=== PATIENT | female | born 1970 | race Caucasian/White ===

== ENCOUNTER 2021-04-27 07:09 | Outpatient (CLI) | payer OTHER, SELFPAY ==
[2021-04-27 10:33] LABS: Cholesterol 193 mg/dL (200); High Density Lipoprotein 55 mg/dL; Triglycerides 98 mg/dL; Very Low Density Lipoprotein 20 mg/dL (5-40)
== END 2021-04-27 23:59 | disposition home or self-care (01) ==
LOC: MTLAB 07:13
PROVIDERS: PCP Family Medicine; Referring Provider Dermatology; Visit Provider Dermatology
DX: H02.60 Xanthelasma of unspecified eye, unspecified eyelid (principal)
CPT/HCPCS: 36415; 80061

== ENCOUNTER 2021-09-20 14:43 | Emergency (ER) | payer OTHER, SELFPAY ==
[2021-09-20 14:45] VITALS: BP 176/111; PULSE 91; RESP 16; TEMP 36.4; O2SAT 97
--- NOTE | 2021-09-20 15:05 | EDS_ITS ---
HPI History of Present Illness Chief Complaint: Occup Expose Informant: patient Narrative Narrative: 51-year-old female presenting to the emergency department following a needlestick. 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 She thought that she had close the On the needle was still open. She sustained a puncture wound to the right middle finger over the fat pad. States it did draw blood she washed and talk to the department of natural resources officer and they suggested that she come to emergency. PFSH PFSH Home Medications Omeprazole [Prilosec] 40 mg PO DAILY 07/20/13 [History Last Taken Unknown] oxycodone-acetaminophen 5 mg-325 mg tablet 1 tab PO Q4H PRN PRN Pain ##60 07/20/13 [Rx Last Taken Unknown] ondansetron HCl 8 mg tablet 8 mg PO Q8H PRN PRN Nausea ##30 01/10/15 [Rx Last Taken Unknown] oxycodone-acetaminophen 5 mg-325 mg tablet 1 tab PO Q4H PRN PRN Pain ##20 01/10/15 [Rx Last Taken Unknown] tamsulosin 0.4 mg capsule 0.4 mg PO DAILY ##30 01/10/15 [Rx Last Taken Unknown] Allergy/AdvReac Type Severity Reaction Status Date / Time latex Allergy Rash Verified 09/20/21 14:47 Social History Smoking Status: Never smoker ROS ROS ED Constitutional Constitutional ED: Denies chills or weight loss Eyes Eyes: Denies change in vision or diplopia ENT ENT ED: Denies ear pain, rhinorrhea or sore throat Cardiovascular Cardiovascular: Denies chest pain, orthopnea, palpitations or racing heartbeat Respiratory/Chest Respiratory/Chest: Denies cough, dyspnea or orthopnea Gastrointestinal Gastrointestinal: Denies abdominal pain, diarrhea, nausea or vomiting Genitourinary Genitourinary ED: Denies dysuria, hematuria or urinary frequency Musculoskeletal Musculoskeletal: Denies arthralgias or myalgias Integumentary Denies abscess or rash Neurologic Neurologic: Denies headache(s) or weakness Psychiatric Psychiatric: Denies anxiety, depression, suicidal ideation or suicidal thoughts Endocrine Endocrinology: Denies polydipsia, polyphagia or polyuria Allergic/Immunologic Allergic/Immunologic ED: Denies mouth swelling, tongue swelling or urticaria EXAM Physical Exam Const Vital Signs: 09/20/21 14:45 Temperature 97.5 F L Temperature Source Temporal Pulse Rate 91 Respiratory Rate 16 Blood Pressure 176/111 H Blood Pressure Mean 132 Pulse Ox 97 Oxygen Delivery Method Room Air Positive well nourished and well developed General Appearance ED: well developed HEENT Reports normocephalic, head/scalp atraumatic and moist mucous membranes Eyes PERRL and EOMs intact bilaterally Neck no lymphadenopathy, supple and no JVD Resp normal respiratory effort and clear to auscultation bilaterally Cardio regular rate, regular rhythm and no murmurs GI normal to inspection, nondistended, normoactive bowel sounds and non-tender Palpation: soft Back/Spine no CVA tenderness and normal ROM Extremity normal to inspection General Extremety ED: Negative for edema General Extremity: Negative for edema Neuro oriented x3 and CN's II-XII intact bilaterally Sensorium / Orientation: alert Motor Exam: strength 5/5 throughout Psych mental status grossly normal Mood & Affect: Negative for depressed or tearful Skin no rashes or lesions noted Skin Narrative: There is a needlestick wound in the fat pad of the right middle finger. No active bleeding or signs of infection. MDM MDM MDM Narrative Medical decision making narrative: We will draw the exposed protocol to include HIV hepatitis B and hepatitis C. I do not know the [facility]'s protocol for testing the source patient. We talked about postexposure prophylaxis and the patient declines at this time. Discharge Plan Triage Chief Complaint: Occup Expose ED Provider: Eder Young Dx/Rx/DC Orders Clinical Impression: Needlestick injury of finger Instructions: ED NEEDLE STICK Health Care Worker Prescriptions: No Action Omeprazole [Prilosec] 40 MG capsule 40 mg PO DAILY oxycodone-acetaminophen 1 TABLET tablet 1 tab PO Q4H PRN PRN (Reason: Pain) Qty: 60 0RF ondansetron HCl 8 MG tablet 8 mg PO Q8H PRN PRN (Reason: Nausea) Qty: 30 0RF oxycodone-acetaminophen 1 TABLET tablet 1 tab PO Q4H PRN PRN (Reason: Pain) Qty: 20 0RF tamsulosin 0.4 MG capsule 0.4 mg PO DAILY Qty: 30 0RF Primary Care Provider: Oneil Martínez Referrals: Oneil Martínez MD [Primary Care Provider] - [facility] [NON-STAFF] - As soon as possible Disposition Disposition: Home, Self Care
[2021-09-21 04:58] LABS: HIV - WCH Non-Reactive (Nonreactive); Hepatitis B Surface Antibody Reactive; Hepatitis B Surface Antigen Non-Reactive (Nonreactive); Hepatitis C Antibody Non-Reactive (Nonreactive)
== END 2021-09-20 15:33 | disposition home or self-care (01) ==
LOC: ED 15:21
PROVIDERS: Emergency Provider Emergency Medicine; PCP Family Medicine; Visit Provider Emergency Medicine
DX: S61.232A Puncture wound without foreign body of right middle finger without damage to nail, initial encounter (principal); W46.1XXA Contact with contaminated hypodermic needle, initial encounter; Y93.89 Activity, other specified; Y99.0 Civilian activity done for income or pay; Y92.531 Health care provider office as the place of occurrence of the external cause
CPT/HCPCS: 86703; 86706; 86803; 87340; 99282

== ENCOUNTER 2022-02-03 19:07 | Observation (INO) | payer OTHER, SELFPAY ==
[2022-02-03 19:08] VITALS: BP 218/132; PULSE 112; RESP 18; TEMP 36.6; O2SAT 99
--- NOTE | 2022-02-03 19:29 | EKG12_ITS ---
Test Reason : CP Blood Pressure : / mmHG Vent. Rate : 092 BPM Atrial Rate : 092 BPM P-R Int : 160 ms QRS Dur : 092 ms QT Int : 348 ms P-R-T Axes : 026 -30 009 degrees QTc Int : 430 ms Normal sinus rhythm Left axis deviation Nonspecific ST and T wave abnormality Abnormal ECG Confirmed by BURAK GARLAND, ELIEL ([id number]), communications editor JANNET WINN ([id number]) on 02/08/2022 10:55:02 AM Referred By: JULIO Confirmed By:JUAN SUMNER MD
--- NOTE | 2022-02-03 19:30 | EDS_ITS ---
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 Has become more constant. She states that yesterday she had surgery for a cataract. Her neck was hurting her, and they noticed that her blood pressure was severely elevated. She had her surgery performed and thought maybe it was secondary to anxiety that her blood pressure was high, but presents with constant left-sided neck pain from the back of her head down to the top of her shoulder blades and in her left neck. She denies any nausea or vomiting. No shortness of breath or diaphoresis. No exacerbating or alleviating factors. PFSH PFSH Home Medications Omeprazole [Prilosec] 40 mg PO DAILY 07/20/13 [History Last Taken Unknown] tamsulosin 0.4 mg capsule 0.4 mg PO DAILY ##30 01/10/15 [Rx Last Taken Unknown] ofloxacin 0.3 % eye drops 1 drp RIGHT EYE DAILY 02/03/22 [History Last Taken Unknown] oxycodone-acetaminophen 5 mg-325 mg tablet (Percocet) 1 tab PO Q6H PRN pain 3 days #12 tabs 02/03/22 [Rx Last Taken Unknown] Allergy/AdvReac Type Severity Reaction Status Date / Time latex Allergy Rash Verified 02/03/22 19:10 Surgical History Cataract extraction status, right eye Social History Smoking Status: Never smoker ROS ROS ED ROS Narrative Constitutional: No fever, no chills. HEENT: No sore throat. Left-sided neck pain. No loss of vision. No rhinorrhea. Cardiovascular: Left top of chest, chest pain. No palpitations. No pedal edema. Respiratory: No cough, no shortness of breath. Abdominal: No abdominal pain. No nausea. No vomiting. Genitourinary: No dysuria. No hematuria. Musculoskeletal: No myalgias. No arthralgias. Neurologic: No headaches. No dizziness. No lightheadedness. Skin: No rash. No change in color. Psychiatric: No depression. No anxiety. EXAM Physical Exam Narrative Exam Narrative: Afebrile. Vital signs noted. Initial blood pressure 218/132. While in the room, 199 systolic. HEENT: Normocephalic. Atraumatic. PERRL, EOMI. Neck soft and supple. No point tenderness or step off. Cardiovascular: Regular rate and rhythm. No murmurs, rubs, or gallops appreciated. Respiratory: No tachypnea. Lungs clear to auscultation bilaterally. Gastrointestinal: Abdomen soft, nontender, with normoactive bowel sounds. No rebound or guarding. Neurological: Awake. Alert. Nonfocal, nonlateralizing. Skin: No rash. Normal color. No pallor. Musculoskeletal: No pedal edema. Full range of motion extremities. Const Vital Signs: 02/03/22 19:08 02/03/22 19:20 02/03/22 19:32 Temperature 97.9 F Temperature Source Temporal Pulse Rate 112 H Respiratory Rate 18 Respiratory Effort Normal Blood Pressure 218/132 H Blood Pressure Mean 160 Pulse Ox 99 Oxygen Delivery Method Room Air Room Air 02/03/22 19:37 02/03/22 20:08 02/03/22 21:00 Temperature Temperature Source Pulse Rate 80 98 101 H Respiratory Rate 22 H 25 H 17 Respiratory Effort Blood Pressure 177/110 H 169/89 H 157/84 H Blood Pressure Mean 132 115 108 Pulse Ox 98 100 98 Oxygen Delivery Method Room Air Room Air Room Air MDM MDM MDM Narrative Medical decision making narrative: Chest pain work-up was pursued. I do feel that she is having hypertensive urgency. She will be given 10 mg of hydralazine intravenously. She was placed on a cardiac catheterization technician. She was also administered aspirin. CBC is grossly normal with a normal white count of 10.5, hemoglobin slightly hemoconcentrated at 15.6 with hematocrit 46.2. Electrolyte panel is grossly unremarkable. Initial high- sensitivity troponin normal at 4. EKG interpreted by myself demonstrates normal sinus rhythm at 92 bpm without ectopy or acute ST changes. No STEMI. After hydralazine, her blood pressure has come down to 155 systolic. She still complains of pain across her neck and up the back of her head. My interpretation of her chest x-ray shows no acute process. In order to rule out vertebral artery dissection, CTA of the head and neck was obtained with IV contrast. There is no evidence of vertebral artery dissection, aneurysm, or acute process. She was given morphine for her neck pain. I do feel that given her negative work-up thus far that it may be secondary to disc herniation versus radiculopathy. Her second high-sensitivity troponin is pending. She was administered morphine for analgesia with mild to moderate relief of her symptoms. She states it feels improved. At this point in time, patient will be signed out to Dr. Kali Mtz, will check the second troponin. As long as it is negative, she will be discharged as planned with a prescription for Percocet to follow-up with her primary care physician. She was told she may need outpatient MRI or possible referral to a spine surgeon. I feel that she would be able to be discharged safely home with follow-up. She was told to keep a log of her blood pressure as it was extremely elevated but has come down and is currently sustained in the 140 systolic. 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 Currently, patient is in stable condition. Lab Data Attestation: I reviewed the patient's lab results. Labs: Laboratory Results - last 24 hr 02/03/22 02/03/22 19:20 19:20 WBC 10.5 RBC 5.11 Hgb 15.6 H Hct 46.2 MCV 90.4 MCH 30.5 MCHC 33.8 RDW Std Deviation 46.1 H RDW Coeff of Yajaira 13.7 Plt Count 478 H MPV 8.8 Immature Gran % (Auto) 0.400 Neut % (Auto) 57.9 Lymph % (Auto) 31.2 [place] % (Auto) 8.6 Eos % (Auto) 1.5 Baso % (Auto) 0.4 Absolute Neuts (auto) 6.1 Absolute Lymphs (auto) 3.27 Nucleated RBC % 0 Sodium 141 Potassium 3.7 Chloride 105 Carbon Dioxide 28.0 Anion Gap 8 BUN 15 Creatinine 0.81 Estim Creat Clear Calc 70.95 Est GFR (MDRD) Af Amer 95 Est GFR (MDRD) Non-Af 79 BUN/Creatinine Ratio 18.5 Glucose 126 H Calcium 9.8 Troponin I High Sens 4 Radiography Diagnostic Testing: Clinical Impression(s) from Imaging Studies Chest X-Ray 02/03/22 19:44 IMPRESSION: No radiographic evidence of acute cardiopulmonary disease. Electronically Signed: Steven Tovar MD at 20:18 EST , Head/Neck CTA 02/03/22 20:31 IMPRESSION: Negative CTA carotid and CTA brain. Electronically Signed: Steven Tovar MD at 21:12 EST , Discharge Plan Triage Chief Complaint: Chest Pain ED Provider: Issa Delgado Dx/Rx/DC Orders Clinical Impression: Neck pain, Elevated blood pressure reading without diagnosis of hypertension Instructions: ED Hypertension, To Be Confirmed, ED Neck Pain, ED Pain, Acute, Uncertain Cause Prescriptions: New oxycodone-acetaminophen [Percocet] 5-325 mg tablet 1 tab PO Q6H PRN (Reason: pain) 3 Days Qty: 12 0RF No Action Omeprazole [Prilosec] 40 MG capsule 40 mg PO DAILY tamsulosin 0.4 MG capsule 0.4 mg PO DAILY Qty: 30 0RF ofloxacin 0.3 % drops 1 drp RIGHT EYE DAILY Label Comments: Instill 1 drop in right eye as directed Use QID in operative eye 3 days prior to surgery and QID after surgery Primary Care Provider: Oneil Martínez Referrals: Oneil Martínez MD [Primary Care Provider] - 3-5 Days Disposition Disposition: Home, Self Care
[2022-02-03] MEDS: Aspirin 81 MG TAB.CHEW 324 MG PO (19:35)
[2022-02-03 19:37] VITALS: BP 177/110; PULSE 80; RESP 22; O2SAT 98
[2022-02-03] MEDS: hydrALAZINE 20 MG/ML Vial 10 MG IV (19:38)
--- NOTE | 2022-02-03 19:44 | RAD_ITS ---
EXAM: XR CHEST, 1 VIEW CLINICAL INDICATION: chest pain TECHNIQUE: Frontal view of the chest. This report was created using [employer] report generation technology. COMPARISON: 07/20/2013 FINDINGS: LUNGS AND PLEURAL SPACES: Unremarkable. No consolidation or edema. No pneumothorax. No effusion. HEART: Unremarkable. Cardiac silhouette not enlarged. MEDIASTINUM: Central airways and mediastinal contour are unremarkable. BONES/JOINTS: Unremarkable. SOFT TISSUES: Unremarkable. RAD/Chest 1 View (Portable) IMPRESSION: No radiographic evidence of acute cardiopulmonary disease. Electronically Signed: Steven Tovar MD at 20:18 EST ,
[2022-02-03 19:47] LABS: Absolute Lymphocyte Count 3.27 X10^3/uL (0.83-4.51); Absolute Neutrophil Count 6.1 X10^3/uL (2.0-7.7); Basophil# 0.04 X10^3/uL; Basophil% 0.4 % (0-1); Eosinophil# 0.16 X10^3/uL; Eosinophils% 1.5 % (0-5); Hematocrit 46.2 % (37-47); Hemoglobin 15.6 g/dL (12.0-15.0); Lymphocyte # 3.27 X10^3/ul (0.83-4.51); Lymphocyte % 31.2 % (19-41); Mean Corp Hgb Conc 33.8 g/dL (32-36); Mean Corpuscular Hgb 30.5 pg (27.0-32.0); Mean Corpuscular Volume 90.4 fL (81-99); Mean Platelet Vol. 8.8 fl (6.2-12.0); Monocyte% 8.6 % (0-10); NRBC Flagged by Analyzer 0 % (0-5); Neutrophil # 6.06 X10^3/uL (2.7-7.7); Neutrophil % 57.9 % (47-70); Platelet Count 478 K/mm3 (150-450); RBC Distribution Width CV 13.7 % (11.6-14.6); RBC Distribution Width SD 46.1 fl (35.1-43.9); Red Blood Count 5.11 M/mm3 (4.2-5.4); White Blood Count 10.5 K/mm3 (4.4-11.0)
[2022-02-03 20:06] LABS: Anion Gap 8 (5-15); BUN 15 mg/dL (7-18); BUN/Creat Ratio 18.5 RATIO (10-20); Calcium,Total 9.8 mg/dL (8.5-10.1); Chloride 105 mmol/L (98-107); Creatinine, Serum 0.81 mg/dL (0.55-1.02); EST Glomerular Filtration Rate 79 mL/min (>60); Est Glom Filt Rate - Afr Amer 95 mL/min (>60); Estimated Creatinine Clearance 70.95 ml/min; Glucose 126 mg/dL (74-106); Potassium 3.7 mmol/L (3.5-5.1); Sodium Level 141 mmol/L (136-145); Troponin-I HS (w/2H Reflex) 4 pg/mL (3.0-54.0)
[2022-02-03 20:08] VITALS: BP 169/89; PULSE 98; RESP 25; O2SAT 100
--- NOTE | 2022-02-03 20:31 | CT_ITS ---
EXAM: CT ANGIOGRAPHY HEAD AND NECK WITH INTRAVENOUS CONTRAST CLINICAL INDICATION: Pain TECHNIQUE: [place] [facility]/head and neck CT angiography protocol performed with intravenous contrast. This CT exam was performed using one or more of the following dose reduction techniques: automated exposure control, adjustment of the mA and/or kV according to patient size, and/or use of iterative reconstruction technique. This report was created using [employer] report generation technology. MIP reconstructed images were created and reviewed. CONTRAST: IV 100mL [id number] COMPARISON: None. FINDINGS: HEAD: RIGHT ANTERIOR CEREBRAL ARTERY: Unremarkable. No significant stenosis at the visualized segments. Anterior communicating artery is present. No aneurysm. RIGHT MIDDLE CEREBRAL ARTERY: Unremarkable. No significant stenosis at the visualized segments. No aneurysm. RIGHT POSTERIOR CEREBRAL ARTERY: Unremarkable. No occlusion or significant stenosis. No aneurysm. RIGHT INTRACRANIAL INTERNAL CAROTID ARTERY: Unremarkable. No significant stenosis. No dissection or occlusion. RIGHT INTRACRANIAL VERTEBRAL ARTERY: Unremarkable. No significant stenosis. No dissection or occlusion. LEFT ANTERIOR CEREBRAL ARTERY: Unremarkable. No significant stenosis at the visualized segments. No aneurysm. LEFT MIDDLE CEREBRAL ARTERY: Unremarkable. No significant stenosis at the visualized segments. No aneurysm. LEFT POSTERIOR CEREBRAL ARTERY: Unremarkable. No occlusion or significant stenosis. No aneurysm. LEFT INTRACRANIAL INTERNAL CAROTID ARTERY: Unremarkable. No significant stenosis. No dissection or occlusion. LEFT INTRACRANIAL VERTEBRAL ARTERY: Unremarkable. No significant stenosis. No dissection or occlusion. BASILAR ARTERY: Unremarkable. No significant stenosis. No aneurysm. OTHER VASCULATURE: No vascular malformation. NECK: RIGHT COMMON CAROTID ARTERY: Unremarkable. No significant stenosis. No dissection or occlusion. RIGHT EXTRACRANIAL INTERNAL CAROTID ARTERY: Unremarkable. No significant stenosis. No dissection or occlusion. RIGHT EXTERNAL CAROTID ARTERY: Unremarkable. No occlusion. RIGHT EXTRACRANIAL VERTEBRAL ARTERY: Unremarkable. No significant stenosis. No dissection or occlusion. LEFT COMMON CAROTID ARTERY: Unremarkable. No significant stenosis. No dissection or occlusion. LEFT EXTRACRANIAL INTERNAL CAROTID ARTERY: Unremarkable. No significant stenosis. No dissection or occlusion. LEFT EXTERNAL CAROTID ARTERY: Unremarkable. No occlusion. LEFT EXTRACRANIAL VERTEBRAL ARTERY: Unremarkable. No significant stenosis. No dissection or occlusion. GREAT VESSELS OF AORTIC ARCH: Unremarkable as visualized. Normal anatomy, patent. LUNG APICES: Unremarkable as visualized. HEAD and NECK: BONES/JOINTS: Unremarkable. No discrete lytic or blastic abnormalities. SOFT TISSUES: Unremarkable. CAROTID STENOSIS REFERENCE USING NASCET CRITERIA: % ICA stenosis = (1 - narrowest ICA diameter/diameter of distal cervical ICA) x 100. Mild - <50% stenosis. Moderate - 50-69% stenosis. Severe - 70-94% stenosis. Near occlusion - 95-99% stenosis. Occluded - 100% stenosis. CT/CTA Head AND Neck W/ Contrast IMPRESSION: Negative CTA carotid and CTA brain. Electronically Signed: Steven Tovar MD at 21:12 EST ,
[2022-02-03 21:00] VITALS: BP 157/84; PULSE 101; RESP 17; O2SAT 98
[2022-02-03 21:44] LABS: Reflex Troponin-HS? (from REC) Y
[2022-02-03] MEDS: morphine 8 MG/ML Syringe 6 MG IV (21:46)
[2022-02-03 22:00] VITALS: BP 143/99; PULSE 91; RESP 14; O2SAT 95
[2022-02-03 22:56] LABS: Troponin-I HS 30 pg/mL (3.0-54.0)
[2022-02-03 23:00] VITALS: BP 143/90; PULSE 82; RESP 16; O2SAT 94
--- NOTE | 2022-02-03 23:27 | PCM.HP.STD ---
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 Patient describes her neck pain as sharp and severe. It radiates to her bilateral shoulder and into her chest. Associated with her symptoms include shortness of breath. Patient has seen the chiropractor for his neck pain but has not had any real relief. On the day of presentation because the neck pain worsened patient came to the emergency department. Previously her neck pain used to be episodic but on the day of presentation it was persistent. The neck pain worsens with patient bending her head or raising her arms. The neck pain improves with patient lying still on the bed. A day before presentation she had cataract surgery of her right eye. At that time it was realized that her blood pressure was severely elevated. On the day of presentation because patient neck pain increased patient checked her blood pressure and her systolic blood pressure was in the 200s. PFSH Home Medications Omeprazole [Prilosec] 40 mg PO DAILY 07/20/13 [History Last Taken Unknown] tamsulosin 0.4 mg capsule 0.4 mg PO DAILY ##30 01/10/15 [Rx Last Taken Unknown] ofloxacin 0.3 % eye drops 1 drp RIGHT EYE DAILY 02/03/22 [History Last Taken Unknown] oxycodone-acetaminophen 5 mg-325 mg tablet (Percocet) 1 tab PO Q6H PRN pain 3 days #12 tabs 02/03/22 [Rx Last Taken Unknown] Allergy/AdvReac Type Severity Reaction Status Date / Time latex Allergy Rash Verified 02/03/22 19:10 Family History (Updated 02/04/22 @ 00:[address] Markos Chamberlain MD) Other Breast cancer CVA (cerebral vascular accident) Surgical History Cataract extraction status, right eye Social History Smoking Status: Never smoker ROS ROS Narrative Pertinent positives and pertinent negatives as noted in HPI. All other systems were reviewed and are negative Vital Signs Vital Signs Vital Signs: 12/08/22 19:08 02/03/22 19:20 02/03/22 19:32 Temperature 97.9 F Temperature Source Temporal Pulse Rate 112 H Respiratory Rate 18 Respiratory Effort Normal Blood Pressure 218/132 H Blood Pressure Mean 160 Pulse Ox 99 Oxygen Delivery Method Room Air Room Air 02/03/22 19:37 02/03/22 20:08 02/03/22 21:00 Temperature Temperature Source Pulse Rate 80 98 101 H Respiratory Rate 22 H 25 H 17 Respiratory Effort Blood Pressure 177/110 H 169/89 H 157/84 H Blood Pressure Mean 132 115 108 Pulse Ox 98 100 98 Oxygen Delivery Method Room Air Room Air Room Air Weight Weight: 79.379 kg Body Mass Index (BMI) 30.0 Physical Exam Narrative Physical exam: General: Well-nourished, well-developed. Head: Normocephalic, atraumatic, no tenderness Eyes: Injection of bilateral eyes right worse than left. ENT, no trauma, moist mucous membranes, no rhinorrhea Neck: Nontender, No thyromegaly. CVS: Regular rate and rhythm. S1-S2 present. No murmur, gallop or rub. Respiratory : clear to auscultation bilaterally, chest wall nontender, no wheezing Abdomen: Soft, nontender, nondistended, normal bowel sounds, no masses : Deferred Back: Nontender, no CVA tenderness, no midline spinal tenderness, deformities, step-offs Extremities: Nontender full range of motion, no trauma Skin: Normal color, no trauma, abrasions Neuro: Alert, oriented, cranial nerves II through XII grossly intact. Psychiatry: Normal mood. Normal affect. Not depressed. Not anxious. Results Lab / Micro Data Result Diagrams: 02/03/22 19:20 02/03/22 19:20 Labs: Laboratory Results - last 24 hr 02/03/22 19:20: WBC 10.5, RBC 5.11, Hgb 15.6 H, Hct 46.2, MCV 90.4, MCH 30.5, MCHC 33.8, RDW Std Deviation 46.1 H, RDW Coeff of Yajaira 13.7, Plt Count 478 H, MPV 8.8, Immature Gran % (Auto) 0.400, Neut % (Auto) 57.9, Lymph % (Auto) 31.2, [place] % (Auto) 8.6, Eos % (Auto) 1.5, Baso % (Auto) 0.4, Absolute Neuts (auto) 6.1, Absolute Lymphs (auto) 3.27, Nucleated RBC % 0 02/03/22 19:20: Sodium 141, Potassium 3.7, Chloride 105, Carbon Dioxide 28.0, Anion Gap 8, BUN 15, Creatinine 0.81, Estim Creat Clear Calc 70.95, Est GFR (MDRD) Af Amer 95, Est GFR (MDRD) Non-Af 79, BUN/Creatinine Ratio 18.5, Glucose 126 H, Calcium 9.8, Troponin I High Sens 4 02/03/22 22:12: Troponin I High Sens 30 Radiology Impression Chest X-Ray 02/03/22 19:44 IMPRESSION: No radiographic evidence of acute cardiopulmonary disease. Electronically Signed: Steven Tovar MD at 20:18 EST , Head/Neck CTA 02/03/22 20:31 IMPRESSION: Negative CTA carotid and CTA brain. Electronically Signed: Steven Tovar MD at 21:12 EST , Assessment & Plan Assessment/Plan (1) Neck pain: (2) Elevated blood pressure reading without diagnosis of hypertension: (3) Anginal equivalent: PLAN: Plan Anginal equivalent Place on a monitored bed at the PCU Actual CXR image was independently visualized. No acute cardiopulmonary process was noted. I agree with radiologist interpretation interpretation. Actual EKG tracing was independently visualized. EKG tracing showed T wave inversions in lead I, aVL, V5 and V6; and T wave flattening in leads II, III and aVF. ASA 81 mg p.o. daily ordered Morphine as needed for pain ordered We will check lipid panel. Initial high sensitive troponin was 4. Repeat was 30. Trend. Stat EKG as needed for chest pain Chemical Stress test in the AM if the cardiac enzymes are negative Hypertensive urgency High as systolic blood pressure on presentation was 218. Highest diastolic blood pressure on presentation 132. Goal blood pressure 165. Hydralazine as needed ordered. Start amlodipine in AM. Trend blood pressure and adjust blood pressure medications. DVT prophylaxis SCD ordered. Charges/Coding Visit Charges OBSV E&M: 57701 Initial observation care L3
[2022-02-04] VITALS (10 sets, daily range): BP systolic 132–200; BP diastolic 60–116; PULSE 79–102; RESP 16–18; TEMP 36.2–36.8; O2SAT 95–100; BMI 29.4
--- NOTE | 2022-02-04 00:51 | EKG12_ITS ---
Test Reason : CP ADMIT Blood Pressure : / mmHG Vent. Rate : 079 BPM Atrial Rate : 079 BPM P-R Int : 174 ms QRS Dur : 094 ms QT Int : 384 ms P-R-T Axes : 017 -21 -14 degrees QTc Int : 440 ms Normal sinus rhythm Moderate voltage criteria for LVH, may be normal variant ( R in aVL , Tyrel product ) Borderline ECG When compared with ECG of 20-JUL-2013 19:54, No significant change was found Confirmed by MARTHA GARLAND, ROSITA ([id number]), continuity editor JANNET WINN ([id number]) on 02/08/2022 11:31:14 AM Referred By: Confirmed By:ROSITA THOMAS MD
[2022-02-04 01:57] LABS: Troponin-I HS 53 pg/mL (3.0-54.0)
[2022-02-04] MEDS: Morphine 2 MG/ML Syringe IV ×3 (02:01→09:15)
[2022-02-04] MEDS: 0.9% Saline Lock 10 ML Syringe IV ×2 (06:00→09:14)
[2022-02-04 06:03] LABS: Absolute Lymphocyte Count 2.13 X10^3/uL (0.83-4.51); Absolute Neutrophil Count 6.4 X10^3/uL (2.0-7.7); Basophil# 0.04 X10^3/uL; Basophil% 0.4 % (0-1); Eosinophil# 0.08 X10^3/uL; Eosinophils% 0.8 % (0-5); Hematocrit 46.5 % (37-47); Hemoglobin 14.8 g/dL (12.0-15.0); Lymphocyte # 2.13 X10^3/ul (0.83-4.51); Lymphocyte % 22.4 % (19-41); Mean Corp Hgb Conc 31.8 g/dL (32-36); Mean Corpuscular Hgb 29.5 pg (27.0-32.0); Mean Corpuscular Volume 92.6 fL (81-99); Mean Platelet Vol. 8.5 fl (6.2-12.0); Monocyte# 0.86 X10^3/uL; Monocyte% 9.1 % (0-10); NRBC Flagged by Analyzer 0 % (0-5); Neutrophil # 6.36 X10^3/uL (2.7-7.7); Platelet Count 436 K/mm3 (150-450); RBC Distribution Width CV 14.2 % (11.6-14.6); Red Blood Count 5.02 M/mm3 (4.2-5.4); White Blood Count 9.5 K/mm3 (4.4-11.0)
[2022-02-04 06:33] LABS: Anion Gap 5 (5-15); BUN 14 mg/dL (7-18); BUN/Creat Ratio 21.2 RATIO (10-20); Calcium,Total 8.9 mg/dL (8.5-10.1); Chloride 109 mmol/L (98-107); Cholesterol 183 mg/dL (200); Creatinine, Serum 0.66 mg/dL (0.55-1.02); EST Glomerular Filtration Rate 100 mL/min (>60); Est Glom Filt Rate - Afr Amer 121 mL/min (>60); Estimated Creatinine Clearance 87.08 ml/min; Glucose 101 mg/dL (74-106); High Density Lipoprotein 57 mg/dL; Potassium 3.6 mmol/L (3.5-5.1); Sodium Level 140 mmol/L (136-145); Triglycerides 76 mg/dL; Very Low Density Lipoprotein 15 mg/dL (5-40)
[2022-02-04] MEDS: Aspirin 81 MG TAB.CHEW PO (06:48)
[2022-02-04] MEDS: Ondansetron 4 MG/2 ML Vial IV (09:12)
[2022-02-04] MEDS: OFLOXACIN 5 ML DROPS 1 ML OPHTHALMIC ×2 (09:18→13:25)
[2022-02-04] MEDS: Acetaminophen 500 MG Tablet 1000 MG PO (11:27)
[2022-02-04] MEDS: amLODIPine 5 MG Tablet PO (11:27)
--- NOTE | 2022-02-04 13:13 | STRESSREP ---
Stress Test Report Date: 02/04/2022 Procedure: Pharmacologic stress nuclear imaging study Indications: Chest pain Consent: Per the patient Procedure: The patient underwent pharmacologic (Regadenoson) evaluation with a peak heart rate of 127 beats per minute (75% predicted maximal heart rate) and a peak blood pressure of 146/92 mmHg. The baseline ECG demonstrated normal sinus rhythm. EKG during lexiscan infusion revealed no significant ischemic changes. EKG post infusion revealed no significant ischemic changes [There were no cardiac dysrhythmias pretest, during pharmacologic infusion, or recovery]. [There was no complaint of chest discomfort during pharmacologic infusion or recovery]. The examination was discontinued secondary to completion of protocol. Impression: 1. Lexiscan stress test test is negative for Lexiscan infusion induced EKG changes of ischemia. 2. Lexiscan stress test test is negative for Lexiscan infusion induced chest pain. 3. Results of the nuclear portion of the test is as below Myocardial perfusion imaging study: Technique: The patient was injected with 12 millicuries of technetium 99m Cardiolite and subsequently rest SPECT Cardiolite nuclear imaging was obtained in the horizontal long, vertical long, and short axis views. The patient underwent pharmacologic [Regadenoson 0.4mg] evaluation. Please see above for details. The patient was injected with 36 millicuries of technetium 99m Cardiolite and subsequently stress SPECT Cardiolite nuclear imaging was obtained in the horizontal long, vertical long, and short axis views. A gated Cardiolite study at peak stress was obtained. Interpretation: Rest and stress SPECT Cardiolite nuclear imaging status post realignment, normalization, and attenuation correction demonstrate overall normal myocardial radioisotope uptake. Gated images reveal no significant regional wall motion abnormalities. The reported LVEF is greater than 70%. Impression: 1. There is no evidence of significant ischemia or infarction. 2. Estimated ejection fraction is greater than 70%. This note was generated with [employer] software. It may contain incorrect words, spelling, and punctuation that were not noted in checking the note before signing.
--- NOTE | 2022-02-04 14:52 | DS.PCM_ITS ---
Providers Date of Admission: 02/03/22 Date of Discharge: 02/04/22 Primary Care Physician: Dr. Oneil Martínez MD Reason For Visit: neck pain Diagnosis Discharge Diagnosis (1) Neck pain: Status: Acute Code(s): M54.2 - Cervicalgia (2) Elevated blood pressure reading without diagnosis of hypertension: Status: Acute Code(s): R03.0 - Elevated blood-pressure reading, without diagnosis of hypertension (3) Anginal equivalent: Status: Acute Code(s): I20.8 - Other forms of angina pectoris Medications at Discharge Home Medications Omeprazole [Prilosec] 40 mg PO DAILY 07/20/13 ofloxacin 0.3 % eye drops 1 drp RIGHT EYE DAILY 02/03/22 oxycodone-acetaminophen 5 mg-325 mg tablet (Percocet) 1 tab PO Q6H PRN pain 3 days #12 tabs 02/03/22 amlodipine 5 mg tablet 5 mg PO DAILY #30 tabs 02/04/22 tizanidine 4 mg capsule (Zanaflex) 4 mg PO Q8H PRN muscle spasticity #21 caps 02/04/22 Hospital Course Operations None Procedures Nuclear stress test and - (CTA head/neck) Summary of Care Provided Minutes Spent on Discharge: 25 Hospital Course: Mrs. Dang is a 51-year-old white female presented to emergency department was prehospital on 02/03/2022 with a chief complaint of neck pain. She evidently had had progressively worsening neck pain that started 2 weeks prior to presentation. She reported that the pain was sharp and severe and related down into bilateral shoulder blades and reported initially was in her chest however when I discussed her symptoms she indicated they started at the base of her skull and radiated to bilateral shoulders and into her mid back in the area of the trapezius muscle. She did state on presentation that she had some associ ated shortness of breath. She has seen a chiropractor but not had any relief. She presented to the emergency department on the day of presentation because her symptoms worsen. She has had neck pain previously but nothing this significant. She denies any radicular symptoms tingling numbness or specific weakness. She did report that she had cataract surgery the day prior to presentation on her right eye and her blood pressure was markedly elevated at that appointment. Upon presentation the emergency department her systolic pressure was in the 200s. She is not take any antihypertensives at baseline. A CTA was performed to the emergency department to rule out any carotid dissection. CTA of the head and neck was completely normal. EKG showed T wave inversions in lead I, aVL, V5 and V6; and T wave flattening in leads II, III and aVF. Her initial troponin was negative at 4 however repeat was 30. Her third troponin elevated to 53 however her enzymes never elevated outside of the normal range. Cholesterol panel showed total cholesterol 183/LDL 111/HDL 57 and triglycerides of 76. Repeat blood pressure in the emergency department remained elevated at 163/78 and she was there for initiated on amlodipine 5 mg daily. Blood pressure did overall improve and prior to discharge was 132/60. A stress test was performed and was negative for any inducible ischemia and an EF of 74% was estimated. Again when I reviewed the symptoms with the patient she denied ever having any chest pain however reported she is having intermittent ongoing neck pain that starts at the base of her neck extends into the trapezius muscle bilaterally into her shoulders and down into her mid back. She has no pleuritic pain or shortness of breath at this time. She does have some pain with palpation of the muscle and decreased range of motion of the cervical spine. We will go ahead and recommend she take some intermittent NSAIDs after eating for short period of time and we did start some Zanaflex 4 mg p.o. 3 times daily. Side effects were reviewed and she did express understanding. She is to follow- up with her primary care physician in 1 week. We also discussed using hot pack for her neck pain and she voiced understanding and indicated she would do this as well. Prescription for amlodipine 5 mg was sent to the pharmacy and we have encouraged follow-up with her primary care fair physician within 1 week to repeat assess her blood pressure. She may need a higher dose depending on what her follow-up blood pressures in the ambulatory setting look like. I do suspect her troponin elevation was related to her markedly elevated blood pressure giving her normal stress test. Discharge diagnoses: Neck pain Hypertension History of cerebral palsy GERD Cataracts History of nephrolithiasis Weight / BMI Weight Weight: 77.7 kg Body Mass Index (BMI) 29.4 ABG / Lab / Microbiology Data Result Diagrams: 02/04/22 05:46 02/04/22 05:46 Laboratory: Laboratory Results - last 24 hr 02/03/22 19:20: WBC 10.5, RBC 5.11, Hgb 15.6 H, Hct 46.2, MCV 90.4, MCH 30.5, MCHC 33.8, RDW Std Deviation 46.1 H, RDW Coeff of Yajaira 13.7, Plt Count 478 H, MPV 8.8, Immature Gran % (Auto) 0.400, Neut % (Auto) 57.9, Lymph % (Auto) 31.2, [place] % (Auto) 8.6, Eos % (Auto) 1.5, Baso % (Auto) 0.4, Absolute Neuts (auto) 6.1, Absolute Lymphs (auto) 3.27, Nucleated RBC % 0 02/03/22 19:20: Sodium 141, Potassium 3.7, Chloride 105, Carbon Dioxide 28.0, Anion Gap 8, BUN 15, Creatinine 0.81, Estim Creat Clear Calc 70.95, Est GFR (MDRD) Af Amer 95, Est GFR (MDRD) Non-Af 79, BUN/Creatinine Ratio 18.5, Glucose 126 H, Calcium 9.8, Troponin I High Sens 4 02/03/22 22:12: Troponin I High Sens 30 02/04/22 01:18: Troponin I High Sens 53 02/04/22 05:46: WBC 9.5, RBC 5.02, Hgb 14.8, Hct 46.5, MCV 92.6, MCH 29.5, MCHC 31.8 L D, RDW Std Deviation 48.0 H, RDW Coeff of Yajaira 14.2, Plt Count 436, MPV 8.5, Immature Gran % (Auto) 0.300, Neut % (Auto) 67.0, Lymph % (Auto) 22.4, [place] % (Auto) 9.1, Eos % (Auto) 0.8, Baso % (Auto) 0.4, Absolute Neuts (auto) 6.4, Absolute Lymphs (auto) 2.13, Nucleated RBC % 0 02/04/22 05:46: Sodium 140, Potassium 3.6, Chloride 109 H, Carbon Dioxide 26.0, Anion Gap 5, BUN 14, Creatinine 0.66, Estim Creat Clear Calc 87.08, Est GFR (MDRD) Af Amer 121, Est GFR (MDRD) Non-Af 100, BUN/Creatinine Ratio 21.2 H, Glucose 101, Calcium 8.9, Triglycerides 76, Cholesterol 183, LDL Cholesterol 111, VLDL Cholesterol 15, HDL Cholesterol 57 Radiography Diagnostic Testing: Radiology Impression Chest X-Ray 02/03/22 19:44 IMPRESSION: No radiographic evidence of acute cardiopulmonary disease. Electronically Signed: Steven Tovar MD at 20:18 EST , Head/Neck CTA 02/03/22 20:31 IMPRESSION: Negative CTA carotid and CTA brain. Electronically Signed: Steven Tovar MD at 21:12 EST , D/C Instructions Discharge Diet: No restrictions Discharge Activity: Return to Normal Activity Meaningful Use Info Meaningful Use Diagnoses (Choose all that apply): None applicable Discharge Plan Admission Admit Date/Time: 02/03/22 23:29 Primary Reason for Your Visit: neck pain Attending Provider: Angela Bowling Primary Care Provider: Oneil Martínez Consulting Providers: Markos Chamberlain Instructions Patient Instructions: ED Hypertension, To Be Confirmed, ED Neck Pain, ED Pain, Acute, Uncertain Cause Discharge Orders/Prescriptions Prescriptions: New oxycodone-acetaminophen [Percocet] 5-325 mg tablet 1 tab PO Q6H PRN (Reason: pain) 3 Days Qty: 12 0RF amlodipine 5 mg Tablet 5 mg PO DAILY Qty: 30 1RF tizanidine [Zanaflex] 4 mg capsule 4 mg PO Q8H PRN (Reason: muscle spasticity) Qty: 21 0RF Continued Omeprazole [Prilosec] 40 MG capsule 40 mg PO DAILY ofloxacin 0.3 % drops 1 drp RIGHT EYE DAILY Label Comments: Instill 1 drop in right eye as directed Use QID in operative eye 3 days prior to surgery and QID after surgery Referrals / Follow Up: Oneil Martínez MD [Primary Care Provider] - 3-5 Days Disposition Disposition (needs filled in before D/C Order can be placed): Home, Self Care Charges/Coding Visit Charges OBSV E&M: 74954 Observation care discharge
== END 2022-02-04 15:05 | disposition home or self-care (01) ==
LOC: ED 02-04 00:17 → PCU 02-04 00:19
PROVIDERS: Admitting Provider Hospitalist; Emergency Provider Emergency Medicine; PCP Family Medicine; Visit Provider Internal Medicine
DX: M54.2 Cervicalgia (principal); G80.9 Cerebral palsy, unspecified; I20.8 Other forms of angina pectoris; F41.9 Anxiety disorder, unspecified; I16.0 Hypertensive urgency; K21.9 Gastro-esophageal reflux disease without esophagitis; H26.9 Unspecified cataract; I10 Essential (primary) hypertension; Z87.442 Personal history of urinary calculi
CPT/HCPCS: 36415; 70496; 70498; 71045; 78452; 80048; 80061; 84484; 85025; 93005; 93017; 96374; 96375; 96376; 99218; 99285; A9500; Q9967; A4216; G0378; J2405; J2785

== ENCOUNTER → 2023-01-23 | Outpatient (CLI) | payer OTHER, SELFPAY ==
[2023-01-23 08:27] LABS: Cholesterol 197 mg/dL (200); Glucose 103 mg/dL (74-106); High Density Lipoprotein 54 mg/dL; Triglycerides 126 mg/dL; Very Low Density Lipoprotein 25 mg/dL (5-40)
== END | disposition home or self-care (01) ==
PROVIDERS: PCP Internal Medicine; Referring Provider Internal Medicine; Visit Provider Internal Medicine
DX: Z00.00 Encounter for general adult medical examination without abnormal findings (principal)
CPT/HCPCS: 36415; 80061; 82947

== ENCOUNTER 2023-04-28 13:28 | Emergency (ER) | payer OTHER, SELFPAY ==
[2023-04-28 13:28] VITALS: BP 169/93; PULSE 91; RESP 16; TEMP 36.6; O2SAT 98; BMI 31.6
--- NOTE | 2023-04-28 13:41 | CT_ITS ---
STUDY: CT BRAIN WITHOUT CONTRAST REASON FOR EXAM: Female, 53 years old. Headache and sinus pain RADIATION DOSAGE (If Supplied By Facility): CTDIvol = ( 44.99 ) mGy, DLP = ( 796.11 ) mGycm TECHNIQUE: Transaxial CT imaging of the brain was performed without administration of intravenous contrast material. Individualized dose optimization techniques were used for this CT. COMPARISON: Comparison is made with prior study dated February 04, 2020. FINDINGS: Normal soft tissue structures. Normal calvarium. Normal size ventricles and extra-axial spaces for the patient''s age. Normal white matter tracts of the cerebral hemispheres. Normal basal ganglia and thalami. Normal brainstem. Normal cerebellum. There is no intracranial hemorrhage. There are no findings of an acute ischemic infarction. Mucosal thickening is seen at the base of both maxillary sinus. CT/Brain/Head without Contrast IMPRESSION: Normal unenhanced CT scan of the brain. Mucosal thickening is seen at the base of both maxillary sinuses. Electronically Signed: Minor Saenz MD at 14:45 EST ,
--- NOTE | 2023-04-28 13:42 | EX.ED.DYSGE1 ---
HPI History of Present Illness Chief Complaint: Hypertension Informant: patient Onset/Context/Timing Onset: Days Context: Gradual Onset Timing: Intermittent Current Severity: Mild Maximum Severity: Mild Narrative Narrative: 53-year-old female recently saw her primary care physician's office who started on Augmentin for possible sinus infection and as needed hydralazine for high blood pressure. She was treated for high blood pressure in the past that got better so she stopped the medication. She is not treated chronically for hypertension. She then saw the nurse practitioner primary care physician's office the other day who put her on hydralazine as needed if her pressures elevated. She denies any chest pain. She has sinus congestion and headache. No vomiting or diarrhea. Prior similar symptoms: Yes Recent Illness/Hospitalization: No PFSH PFSH Medical History no medical history no medical history Home Medications Omeprazole [Prilosec] 40 mg PO DAILY 07/20/13 [History Last Taken Unknown] ofloxacin 0.3 % eye drops 1 drp RIGHT EYE DAILY 02/03/22 [History Last Taken Unknown] oxycodone-acetaminophen 5 mg-325 mg tablet (Percocet) 1 tab PO Q6H PRN pain 3 days #12 tabs 02/03/22 [Rx Last Taken Unknown] amlodipine 5 mg tablet 5 mg PO DAILY #30 tabs 02/04/22 [Rx Last Taken Unknown] tizanidine 4 mg capsule (Zanaflex) 4 mg PO Q8H PRN muscle spasticity #21 caps 02/04/22 [Rx Last Taken Unknown] Allergy/AdvReac Type Severity Reaction Status Date / Time latex Allergy Rash Verified 02/03/22 19:10 Family History Other Breast cancer CVA (cerebral vascular accident) Surgical History Cataract extraction status, right eye Social History Smoking Status: Never smoker ROS ROS ED ROS Narrative Elevated blood pressure. Sinus drainage and congestion. Review of Systems ROS Unobtainable: Denies due to encephalopathy Constitutional Constitutional ED: Denies chills or fever(s) Eyes Eyes: Denies blurry vision ENT ENT ED: Denies ear pain Cardiovascular Cardiovascular: Denies chest pain or palpitations Respiratory/Chest Respiratory/Chest: Denies cough or dyspnea Gastrointestinal Gastrointestinal: Denies abdominal pain, constipation, diarrhea, melena, nausea or vomiting Genitourinary Genitourinary ED: Denies dysuria or hematuria Musculoskeletal Musculoskeletal: Denies arthralgias or back pain Integumentary Denies abscess or Abrasions Neurologic Neurologic: Reports headache(s) Psychiatric Psychiatric: Denies anxiety or depression Endocrine Endocrinology: Denies cold intolerance, heat intolerance, polydipsia, polyphagia or polyuria Hematologic/Lymphatic Hematologic/Lymphatic: Reports none Allergic/Immunologic Allergic/Immunologic ED: Denies mouth swelling, tongue swelling or urticaria EXAM Physical Exam Narrative Exam Narrative: 53-year-old female no acute distress initial blood pressure 169/93. Patient does not look septic toxic or in any distress. Pulse ox 98% on room air no hypoxia. H EENT exam nasal congestion. No frontal maxillary sinus tenderness. TMs normal bilaterally. Given dry reactive light. No trauma. Neck nontender no meningismus. No lymphadenopathy. Lungs clear to auscultation bilaterally. Heart regular rhythm rate about 90 no murmur. Abdomen soft nontender. Moving all 4 extremities. Calves are nontender without edema or cords. Neurologically she is awake alert. Answer questions following commands. 5 of 5 speech therapy teacher strength bilaterally. Dorsi plantarflexion intact. NIH score is 0. Const Vital Signs: 04/28/23 13:28 04/28/23 13:48 04/28/23 15:28 Temperature 97.9 F Temperature Source Temporal Pulse Rate 91 79 Respiratory Rate 16 16 Respiratory Pattern Normal Blood Pressure 169/93 H 148/86 H Blood Pressure Mean 118 106 Pulse Ox 98 94 Oxygen Delivery Method Room Air Room Air Positive well nourished and well developed; Negative for cachectic, contractures or unkempt General Appearance ED: well developed and NAD; Negative for unkempt, cachectic, contractures, cyanotic, diaphoretic or pallor Nutritional Appearance: Negative for cachectic HEENT Reports moist mucous membranes; Denies dry mucous membranes Negative for trauma or tenderness Mouth ED: No dry mucous membranes Mouth: No dry mucous membranes Eyes PERRL and EOMs intact bilaterally General Eye ED: Negative for pale conjunctiva or scleral icterus Neck no lymphadenopathy, supple and no JVD General: Negative for tenderness Lymph Lymphatic: Negative for other Chest Wall inspection of chest normal and palpation of chest normal Chest: Negative for other Resp normal respiratory effort and clear to auscultation bilaterally Effort and Inspection: Negative for retractions Auscultation: Negative for rales, rhonchi or wheezes Cardio regular rate, regular rhythm, S1 normal heart sound, S2 normal heart sound and no murmurs Palpation: Negative for palpable S3 or palpable S4 Rate: Negative for bradycardia or tachycardic Rhythm: Negative for abnormal rhythm GI normal to inspection, nondistended, normoactive bowel sounds, non-tender, non-distended and no masses Inspection: Negative for abdominal distention Auscultation: normoactive bowel sounds Palpation: soft; Negative for tender or rebound tenderness present Back/Spine no CVA tenderness General Back: Negative for CVA tenderness Thoracic Spine / Upper Back: Negative for thoracic spinal tenderness or paraspinal muscle tenderness Lumbar Spine / Lower Back: Negative for lumbar spinal tenderness Extremity normal to inspection General Extremety ED: Negative for edema, tenderness or other findings General Extremity: Negative for edema or other findings Neuro oriented x3 and CN's II-XII intact bilaterally Sensorium / Orientation: alert; Negative for lethargic or stuporous Motor Exam: strength 5/5 throughout; Negative for general weakness or strength abnormal Psych mental status grossly normal Appearance: Negative for unkempt Attitude: No agitated Mood & Affect: Negative for depressed, anxious or tearful Skin no rashes or lesions noted and no wounds General Skin Exam: Negative for jaundice or pallor Lesions: No lesion noted Rashes: No rashes noted Trauma: Negative for abrasion Wounds: Negative for wounds noted MDM MDM MDM Narrative Medical decision making narrative: Patient with nasal congestion and headache being treated for sinus infection with Augmentin also recently has had elevated blood pressures and is on hydralazine as needed. She has had elevated blood pressure in the past that was treated and she stopped medication. Exam benign. CAT scan of her brain being obtained to evaluate of both to rule out intercranial bleed from the blood pressure and also sinus infection. Screening labs. Her exam is benign. Repeat exam patient doing well at 3:42 PM. Her most recent blood pressure was 148/86. Patient doing well. No complaints. Unchanged. She has no signs of a bacterial sinus infection I told her she can stop the Augmentin that was prescribed to her by the nurse practitioner. Her labs otherwise are unremarkable. She will log her blood pressures at home they have 2 blood pressure machines at home. She will follow-up with Dr. Arminda Todd at his appointment next Monday. She will wear the blood pressures then decide that time she needs to be treated. I explained to the patient normally people just do not take hydralazine as needed if the blood pressure is elevated but then do not take anything on other days. Both her and her are comfortable to plan. History & Record Review Discussion w/independent historian: Patient Additional record(s) reviewed:: Prior inpatient record, Prior outpatient record, Prior ED visit and Prior labs Lab Data Attestation: I reviewed the patient's lab results. Lab results narrative: CBC shows a white count 8. H&H of 13 and 42. Platelets 400. CBC is normal. Chemistries show gap of 4. Normal BUN of 16 creatinine 0.7. Glucose 100. Labs: Laboratory Results - last 24 hr 04/28/23 14:02 WBC 8.0 RBC 4.75 Hgb 13.7 Hct 42.4 MCV 89.3 MCH 28.8 MCHC 32.3 RDW Std Deviation 45.7 H RDW Coeff of Yajaira 14.0 Plt Count 400 MPV 8.4 Immature Gran % (Auto) 0.400 Neut % (Auto) 65.4 Lymph % (Auto) 23.2 [place] % (Auto) 8.1 Eos % (Auto) 2.1 Baso % (Auto) 0.8 Absolute Neuts (auto) 5.2 Absolute Lymphs (auto) 1.85 Nucleated RBC % 0 Sodium 138 Potassium 3.8 Chloride 109 H Carbon Dioxide 25.0 Anion Gap 4 L BUN 16 Creatinine 0.70 Estim Creat Clear Calc 97.14 Est GFR (MDRD) Af Amer 113 Est GFR (MDRD) Non-Af 93 BUN/Creatinine Ratio 22.9 H Glucose 100 Calcium 9.3 Radiography Diagnostic Testing: Clinical Impression(s) from Imaging Studies Brain CT 04/28/23 13:41 IMPRESSION: Normal unenhanced CT scan of the brain. Mucosal thickening is seen at the base of both maxillary sinuses. Electronically Signed: Minor Saenz MD at 14:45 EST , Discharge Plan Triage Chief Complaint: Hypertension ED Provider: Mario Decker Dx/Rx/DC Orders Clinical Impression: Elevated blood pressure reading without diagnosis of hypertension Instructions: ED Hypertension, To Be Confirmed Prescriptions: No Action Omeprazole [Prilosec] 40 MG capsule 40 mg PO DAILY ofloxacin 0.3 % drops 1 drp RIGHT EYE DAILY Patient Comments: Instill 1 drop in right eye as directed Use QID in operative eye 3 days prior to surgery and QID after surgery oxycodone-acetaminophen [Percocet] 5-325 mg tablet 1 tab PO Q6H PRN (Reason: pain) 3 Days Qty: 12 0RF amlodipine 5 mg Tablet 5 mg PO DAILY Qty: 30 1RF tizanidine [Zanaflex] 4 mg capsule 4 mg PO Q8H PRN (Reason: muscle spasticity) Qty: 21 0RF Primary Care Provider: Kacy Maradiaga Referrals: Kacy Maradiaga DO [Primary Care Provider] - Keep Jeovanny appointment Activity Restrictions/Additional Instructions: No signs of a sinus infection either on exam or the CAT scan. You have sinus congestion but you do not need antibiotic he can stop the Augmentin. You may or may not have hypertension. Log your blood pressures twice a day when you are calm and relaxed after breakfast and dinner. Show this to Dr. Maradiaga when you follow-up with her next week. At that time she can decide if she wants to start you on blood pressure medications. No reason to take the hydralazine. Disposition Disposition: Home, Self Care
--- NOTE | 2023-04-28 13:52 | ED.RN ---
patient with upper respiratory infection recently. now states her blood pressure has been elevated for the several days. she c/o right sided facial tenderness, ear pain, and neck pain. pt states her vision feels hazy and she has some floaters but also has a hx of cataracts. pt states there is a lot of pressure in her face and she feels dizzy only with orthostatic changes.
[2023-04-28 14:06] LABS: Absolute Lymphocyte Count 1.85 X10^3/uL (0.83-4.51); Absolute Neutrophil Count 5.2 X10^3/uL (2.0-7.7); Basophil# 0.06 X10^3/uL; Basophil% 0.8 % (0-1); Eosinophil# 0.17 X10^3/uL; Eosinophils% 2.1 % (0-5); Hematocrit 42.4 % (37-47); Hemoglobin 13.7 g/dL (12.0-15.0); Lymphocyte # 1.85 X10^3/ul (0.83-4.51); Lymphocyte % 23.2 % (19-41); Mean Corp Hgb Conc 32.3 g/dL (32-36); Mean Corpuscular Hgb 28.8 pg (27.0-32.0); Mean Corpuscular Volume 89.3 fL (81-99); Mean Platelet Vol. 8.4 fl (6.2-12.0); Monocyte# 0.65 X10^3/uL; Monocyte% 8.1 % (0-10); NRBC Flagged by Analyzer 0 % (0-5); Neutrophil # 5.22 X10^3/uL (2.7-7.7); Neutrophil % 65.4 % (47-70); Platelet Count 400 K/mm3 (150-450); RBC Distribution Width SD 45.7 fl (35.1-43.9); Red Blood Count 4.75 M/mm3 (4.2-5.4)
[2023-04-28 14:20] LABS: Anion Gap 4 (5-15); BUN 16 mg/dL (7-18); BUN/Creat Ratio 22.9 RATIO (10-20); Calcium,Total 9.3 mg/dL (8.5-10.1); Chloride 109 mmol/L (98-107); EST Glomerular Filtration Rate 93 mL/min (>60); Est Glom Filt Rate - Afr Amer 113 mL/min (>60); Estimated Creatinine Clearance 97.14 ml/min; Glucose 100 mg/dL (74-106); Potassium 3.8 mmol/L (3.5-5.1); Sodium Level 138 mmol/L (136-145)
[2023-04-28 15:28] VITALS: BP 148/86; PULSE 79; RESP 16; O2SAT 94
[2023-04-28 16:02] VITALS: BP 149/84; PULSE 68; RESP 14; TEMP 36.6; O2SAT 96
--- OUTSIDE RECORDS SUMMARY | 2023-04-28 16:41 | XMS RPT_ITS | CCD ---
Author Name Unknown Address [facility] [id number] [place] [address] Organization [facility] Care Team Providers Care Client Experience Manager Name Role Phone Kacy Collins DO Primary Care Provider KACY COLLINS Primary Care UnavailMAUREEN Lopez Referring Unavailable KACY COLLINS Primary Care UnavailMAUREEN Lopez Attending Unavailable Kacy Collins DO Primary Care Provider Allergies Allergy Classification Reported Allergen(s) Allergy Type Date of Onset Reaction(s) Facility (3 sources) Latex; Translations: [LATEX] Drug Allergy 04-13-2010 [facility] [place] (3 sources) nickel; Translations: [NICKEL] Drug Allergy 04-13-2010 [facility] Medications Completed/Discontinued Medications Medication Drug Class(es) Dates Sig (Normalized) Sig (Original) Ascorbic Acid (2 sources) Vitamin C ascorbic acid (V ITAMIN C ORAL) Take by mouth. 0 Active Problems Active Problems Problem Classification Problem Date Documented Da te Episodic/Chronic Menstrual disorders (2 sources) Irregular periods; Translations: [Irregular menstruation, unspecified] Onset: 01-12-2022 Chronic Other screening for suspected conditions (not mental disorders or infectious disease) (4 sources) Patient encounter status; Translations: [Encounter for screening mammogram for malignant neoplasm of breast] Onset: 01-12-2022 Episodic Past or Other Problems Problem Classification Problem Date Documented Da te Episodic/Chronic Inflammatory diseases of female pelvic organs (4 sources) Vulvovaginitis; Translations: [Acute vaginitis] Onset: 01-10-2012 01-10-2012 Episodic Results Test Name Value Interpretation Reference Range Facil ity Vital Signs Date Time Vital Sign Value Performing Clinician Faci lity 01-12-2022 15:02-0500 Body height 162 cm Maureen Roche APRN.CNP Work Phone: [facility] 01-12-2022 15:02-0500 Body weight 79.38 kg Maureen Roche APRN.RENEE Work Phone: [facility] 01-12-2022 15:02-0500 Diastolic blood pressure 76 mm[Hg] Maureen Roche APRN.CNP Work Phone: [facility] 01-12-2022 15:02-0500 Systolic blood pressure 120 mm[Hg] Maureen Roche APRN.DATA CENTER OPERATOR Work Phone: [facility] Encounters Encounter Date Encounter Type Care Provider Facility Start: 01-19-2022 End: 01-19-2022 ambulatory KACY COLLINS Facility:[facility] Start: 01-19-2022 Encounter for gynecological examination (general) (routine) without abnormal findings KACY COLLINS [facility] Start: 01-19-2022 End: 01-19-2022 Patient encounter status Screen Wstr [facility] Start: 01-19-2022 End: 01-19-2022 Subsequent hospital visit by physician Screen Mammo [facility] Mammogram Procedures Date Procedure Procedure Detail Performing Clinician Start: 01-19-2022 Screening mammograph y bi 2-view breast inc cad Maureen Roche APRN.CNP Work Phone: Start: 10-02-2020 Mammography Maureen jon APRN.CNP Work Phone: Plan of Treatment Date Care Activity Detail Author Start: 10-02-2025 HPV TESTING HPV TESTING [facility] Start: 10-02-2025 PAP TESTING PAP TESTING [facility] Start: 08-14-2024 Urine microalbumin profile DTaP,Tdap,Td Vaccine (2 - Td or Tdap) [facility] Start: 01-19-2023 Mammography Mammogram Screening [facility] Start: 10-28-2022 Influenza vaccination Influenza Vaccine (#1) [facility] Start: 02-27-2022 Depression Assessment Depression Assessment [facility] Start: 10-28-2021 Influenza vaccination INFLUENZA (#1) [facility] Start: 10-02-2021 Mammography MAMMOGRAM [facility] Start: 02-27-2021 DEPRESSION ASSESSMENT DEPRESSION ASSESSMENT [facility] Start: 2020 SHINGRIX VACCINE (1 of 2) SHINGRIX VACCINE (1 of 2) [facility] Start: 2015 COLOGUARD (FIT-DNA) COLOGUARD (FIT-DNA) [facility] Start: 2015 Colonoscopy COLONOSCOPY [facility] Start: 2015 COLORECTAL CANCER SCREENING COLORECTAL CANCER SCREENING [facility] Start: [address] COLONOGRAPHY [facility] Start: 2015 DIABETES SCREEN DIABETES SCREEN [facility] Start: 2015 Diabetes Screening Diabetes Screening [facility] Start: 2015 FECAL OCCULT BLOOD FECAL OCCULT BLOOD [facility] Start: 2015 Lipid 1996 panel - Serum or Plasma Lipid Screening [facility] Start: 2015 LIPID SCREEN LIPID SCREEN [facility] Start: 2015 SIGMOIDOSCOPY SIGMOIDOSCOPY [facility] Start: 1989 Urine microalbumin profile DTAP,TDAP,TD (1 - Tdap) [facility] Start: 1988 HEPATITIS C SCREENING HEPATITIS C SCREENING [facility] Start: 1988 HIV SCREENING HIV SCREENING [facility] Start: 1970 COVID-19 VACCINE (#1) COVID-19 VACCINE (#1) [facility] Start: 1970 HEPATITIS B (1 of 3 - 3-dose series) HEPATITIS B (1 of 3 - 3-dose series) [facility] Start: 1970 Hepatitis B Vaccine (1 of 3 - 3-dose series) Hepatitis B Vaccine (1 of 3 - 3-dose series) [facility] End: 02-11-2023 Screening mammography bi 2-view breast inc cad MARISSA SCREENING Radiology Routine Encounter for gynecological examination (general) (routine) without abnormal findings Encounter for screening mammogram for breast cancer 1 Occurrences starting 01/12/2022 until 02/11/2023 [facility] Work Phone: Payers Date Payer Category Payer Unknown [employer] P[employer] [id number] 2019-Present [phone] [address] [place] [address] PPO [id number] 2019 Unknown [id number] Social History Date Type Detail Facility Start: 04-11-2012 Tobacco smoking stat us MSIS Never smoked tobacco [facility] Work Phone: Start: 04-11-2012 Tobacco use and exposure Smokeless tobacco non-user [facility] Work Phone: Start: 01-12-2022 Alcohol intake Current non-dr manager ship of alcohol (finding) [facility] Start: 1970 Sex Assigned At Not on file [facility] Start: 02-05-2020 End: 01-12-2022 History of Social function [facility] Start: 02-05-2020 End: 01-12-2022 Tobacco use panel [facility] National Score (1-100), lower number is lower risk Not on file [facility] Clinical Notes 01-12-2022 to 01-21-2022 Barbara Wilson, RT(R) - 01/19/2022 7:10 AM ESTAddendum Note - Jannet Hendrickson MA - 01/12/2022 3:46 PM ESTAddendum Note - Jannet Hendrickson MA - 01/12/2022 3:42 PM ESTPatient Instructions Note Date & Type Note Facility 01-21-2022 Note HNO ID: [id number] Author: Anna Chaves Service: ? Author Type: ? Type: Progress Notes Filed: 01/21/2022 11:32 AM Note Text: .2nd failed attempt to contact patient. Left message to return call [facility] 01-19-2022 Note HNO ID: [id number] Author: Anna Chaves Service: ? Author Type: ? Type: Progress Notes Filed: 01/19/2022 2:24 PM Note Text: .1st failed attempt to contact patient. Left message to return call. Open access was filled out, ok to schedule [facility] 01-19-2022 Note HNO ID: [id number] Author: Barbara Wilson RT(R) Service: ? Author Type: Technologist Type: Progress Notes Filed: 01/19/2022 6:55 AM Note Text: Radiology Service Progress Note PATIENT NAME: Radha Dang DATE OF SERVICE: January 19, 2022 TIME: 6:55 AM PATIENT IDENTITY VERIFICATION COMPLETED USING TWO (2) IDENTIFIERS: Name and Date of confirmed by patient verbally. FALL SCREENING: Has the patient had 2 falls in the last year or 1 fall with injury or currently using an Ambulatory Assistive Device (Walker, Cane, Wheelchair, Crutches, etc.)? No PATIENT GENDER DATA: Female. status: : No status: NO. PATIENT RELEVANT IMPLANT DATA REVIEWED: Not Applicable RADIOLOGY DEPARTMENT: Mammography PERIPHERAL IV DATA: Not applicable SIGNED BY: RT Mayank(R) January 19, 2022 6:55 AM [facility] 01-19-2022 History of Presen t illness Narrative Radiology Service Progress Note PATIENT NAME: Radha Dang DATE OF SERVICE: January 19, 2022 TIME: 6:55 AM PATIENT IDENTITY VERIFICATION COMPLETED USING TWO (2) IDENTIFIERS: Name and Date of confirmed by patient verbally. FALL SCREENING: Has the patient had 2 falls in the last year or 1 fall with injury or currently using an Ambulatory Assistive Device (Walker, Cane, Wheelchair, Crutches, etc.)? No PATIENT GENDER DATA: Female. status: : No status: NO. PATIENT RELEVANT IMPLANT DATA REVIEWED: Not Applicable RADIOLOGY DEPARTMENT: Mammography PERIPHERAL IV DATA: Not applicable SIGNED BY: RT Mayank(R) January 19, 2022 6:55 AM documented in this encounter [facility] 01-12-2022 Note HNO ID: [id number] Author: Jannet Hendrickson MA Service: ? Author Type: Food Service Supervisor Type: Progress Notes Filed: 01/12/2022 3:45 PM Note Text: WSTR OPEN ACCESS QUESTIONNAIRE 1. Are you currently having any new or unusual stomach/gastrointestinal issues at this time such as constipation, diarrhea, abdominal pain, rectal bleeding etc?No 2. Do you have any difficulty swallowing? No 3. Do you have any implanted devices such as a defibrillator, pacemaker, cardiac stents or deep brain stimulator? No 4. Do you take any Blood thinners such as Coumadin, Plavix, Xarelto, Eliquis, Brilinta or any other blood thinner? No 5. Do you have any new or past cardiac (heart) or pulmonary (lung) issues? No 6. Do you currently use any oxygen? No 7. Have you been hospitalized in the past 6 weeks? No 8. Have you had difficulty with anesthesia previously re: Difficult intubation? No Other difficulty or allergic reaction to anesthesia other than post op N/V? No 9. Are you on dialysis? No 10. Do you have any bleeding disorders such as hemophilia or Factor 5? No 11. Are you an Insulin Dependent Diabetic? No IF ANY OF THE TOP ELEVEN QUESTIONS ARE ANSWERED YES PLEASE SCHEDULE THE PATIENT FOR A CONSULT. N/A 12. Is the patient's BMI 40 or greater? No:Body mass index is 30.25 kg/m?.. 13. Do you take any narcotics or anti-Anxiety medications? No 14. Do you use any illegal or recreational drugs including marijuana? No 15. Any alcohol use: No. 16. Have you been diagnosed with chronic liver disease such as hepatitis or cirrhosis? No 17. Do you have a seizure disorder? No 18. Do you have ulcerative colitis or Crohn's disease? No 19. Are you or could you be ? No 20. Any other important health information we should be made aware of prior to your colonoscopy? No To be completed by LIP: Did patient have MAC anesthesia with a previous endoscopy procedure? No Patient appropriate for Open Access Colonoscopy: Yes: appropriate for Open Access Procedure Checklist: Prior to closing the encounter: Complete questionnaire: Yes Confirm Prep order has been Ordered/Pended: Yes. Patient's procedure could be delayed if not given the script for the prep. Please ensure the prep is escripted to pharmacy or printed. Instructions for the prep will print upon filing or pending this smartset. Please send all open access questionnaires to [facility] Pool #[id number] [facility] 01-12-2022 Note HNO ID: [id number] Author: Maureen Roche APRN.RENEE Service: ? Author Type: Nurse Practitioner Type: Progress Notes Filed: 01/12/2022 3:34 PM Note Text: Railroad Construction Director offered: Patient declines. Garcia is a 51 year old who presents for an annual gynecologic exam with complaints, irregular bleeding. Step-mom in August and adopted dad is very ill. Postmenopausal: No. Irregular. Menstrual cycle every 26-37 days 20 day cycle in November and had RLQ pain x 5 days - always has cramping worse on the right side. Flow 5 days followed by one day of spotting a few days later. Last Pap: 10/02/2020 normal HPV: 10/02/2020 negative History of abnormal pap: No Last mammogram: 2020 normal History of abnormal mammogram: No Sexually active: Yes Partner of 26 years History of STDS: None Patient concerns for STD exposure: No. Pain with intercourse: No. Uses lubricant. Postcoital bleeding: No Hot flashes: occasional Night sweats: only when on menses Documentation from previous visit of 10/02/2020 was copied and pasted, documentation has been reviewed and edited as necessary for today's visit. OB History T0 L2 SAB0 IAB0 Ectopic1 Multiple0 Live Births0 Comment: 2 vaginal deliveries Mason Helper History LMP: 12/21/2021, Having periods Age at Menarche: Age at First : Age at Menopause: Mason Helper History Comments: Sexual Activity: Yes; Male; vasectomy Contraception: Surgical PAST MEDICAL HISTORY Diagnosis Date Abnormal Pap smear of cervix 2006 Cerebral palsy (HCC) mild; diagnosed as a child. affects left side Cervical high risk HPV (human papillomavirus) test positive 2006 PAST SURGICAL HISTORY Procedure Laterality Date CHOLECYSTECTOMY 1998 COLONOSCOPY 2002 [place] COLPOSCOPY CERVIX UPPER/ADJACENT VAGINA [address] Crenshaw CONIZATION OF CERVIX, LEEP [address] Crenshaw FAMILY HISTORY Problem Relation Age of Onset None Mother Diabetes Father Hypertension Father Cancer Maternal Grandmother possible ovarian? Cancer Paternal Grandmother not sure what kind Cancer Paternal Grandfather not sure what kind Cancer Maternal Aunt liver SOCIAL HISTORY Social History Tobacco Use Smoking status: Never Smokeless tobacco: Never Vaping Use Vaping Use: Never used Substance Use Topics Alcohol use: No Drug use: No REVIEW OF SYSTEMS Abdomen: No abdominal pain, nausea, vomiting, diarrhea, or constipation. No bloating, early satiety, indigestion, or increased flatulence. Bladder: No dysuria, gross hematuria, urinary frequency, urinary urgency, or incontinence Breast: No breast lumps, nipple d/c, overlying skin changes, redness or skin retraction Allergies and current medication updated:Yes EXAM: BP 120/76 Ht 5' 3.78 (1.62m) Wt 175 lb (79.4kg) LMP 12/21/2021 BMI 30.25 kg/(m2). GENERAL: pleasant, female in no apparent distress HEENT: Normocephalic, atraumatic, mucus membranes moist, and no lesions NECK: Supple, full range of motion, no adenopathy, and thyroid normal DERMATOLOGY: Normal, without lesions, non-icteric, and non-hirsute BREAST: soft, non-tender, symmetric, no dominant mass, normal nipple-areolar complex, no lymphadenopathy, and no nipple discharge CHEST: Normal inspiratory effort ABDOMEN: soft, non-tender, and no masses PELVIC: external genitalia normal, normal Bartholin's glands, urethra, [place]'s glands, no vulvar lesions, no cervical lesions, good vaginal support, physiologic discharge present, normal appearing perineal body and perianal region BIMANUAL: uterus normal size, shape and consistency, no adnexal masses, and non-tender RECTOVAGINAL: deferred. NEURO: alert and oriented x3,exam grossly non-focal EXTREMITIES: normal ASSESSMENT/PLAN: 1) Health maintenance: Pap/HPV up to date. Mammogram ordered Nutrition, exercise and routine health maintenance exams reviewed. Calcium/Vitamin D supplementation information provided. Colon cancer screening: colonoscopy ordered 2) Follow up one year or sooner as needed Maureen Roche APRN.[facility] 01-12-2022 Miscellaneous Notes Addended by: JANNET HENDRICKSON on: 01/12/2022 03:46 PM Modules accepted: Orders, SmartSet Addended by: JANNET HENDRICKSON on: 01/12/2022 03:42 PM Modules accepted: Orders, SmartSet Addended by: KARINA RODRIGUEZ LPN on: 01/12/2022 03:40 PM Modules accepted: SmartSet Addended by: JANNET HENDRICKSON on: 01/12/2022 03:38 PM Modules accepted: SmartSet documented in this encounter [facility] 01-12-2022 History of Presen t illness Narrative TR OPEN ACCESS QUESTIONNAIRE 1. Are you currently having any new or unusual stomach/gastrointestinal issues at this time such as constipation, diarrhea, abdominal pain, rectal bleeding etc?No 2. Do you have any difficulty swallowing? No 3. Do you have any implanted devices such as a defibrillator, pacemaker, cardiac stents or deep brain stimulator? No 4. Do you take any Blood thinners such as Coumadin, Plavix, Xarelto, Eliquis, Brilinta or any other blood thinner? No 5. Do you have any new or past cardiac (heart) or pulmonary (lung) issues? No 6. Do you currently use any oxygen? No 7. Have you been hospitalized in the past 6 weeks? No 8. Have you had difficulty with anesthesia previously re: Difficult intubation? No Other difficulty or allergic reaction to anesthesia other than post op N/V? No 9. Are you on dialysis? No 10. Do you have any bleeding disorders such as hemophilia or Factor 5? No 11. Are you an Insulin Dependent Diabetic? No IF ANY OF THE TOP ELEVEN QUESTIONS ARE ANSWERED YES PLEASE SCHEDULE THE PATIENT FOR A CONSULT. N/A 12. Is the patient's BMI 40 or greater? No:Body mass index is 30.25 kg/m .. 13. Do you take any narcotics or anti-Anxiety medications? No 14. Do you use any illegal or recreational drugs including marijuana? No 15. Any alcohol use: No. 16. Have you been diagnosed with chronic liver disease such as hepatitis or cirrhosis? No 17. Do you have a seizure disorder? No 18. Do you have ulcerative colitis or Crohn's disease? No 19. Are you or could you be ? No 20. Any other important health information we should be made aware of prior to your colonoscopy? No To be completed by LIP: Did patient have MAC anesthesia with a previous endoscopy procedure? No Patient appropriate for Open Access Colonoscopy: Yes: appropriate for Open Access Procedure Checklist: Prior to closing the encounter: Complete questionnaire: Yes Confirm Prep order has been Ordered/Pended: Yes. Patient's procedure could be delayed if not given the script for the prep. Please ensure the prep is escripted to pharmacy or printed. Instructions for the prep will print upon filing or pending this smartset. Please send all open access questionnaires to [facility] Pool #[id number] Railroad Construction Director offered: Patient declines. Radha is a 51 year old who presents for an annual gynecologic exam with complaints, irregular bleeding. Step-mom in August and adopted dad is very ill. Postmenopausal: No. Irregular. Menstrual cycle every 26-37 days 20 day cycle in November and had RLQ pain x 5 days - always has cramping worse on the right side. Flow 5 days followed by one day of spotting a few days later. Last Pap: 10/02/2020 normal HPV: 10/02/2020 negative History of abnormal pap: No Last mammogram: 2020 normal History of abnormal mammogram: No Sexually active: Yes Partner of 26 years History of STDS: None Patient concerns for STD exposure: No. Pain with intercourse: No. Uses lubricant. Postcoital bleeding: No Hot flashes: occasional Night sweats: only when on menses Documentation from previous visit of 10/02/2020 was copied and pasted, documentation has been reviewed and edited as necessary for today's visit. OB History T0 L2 SAB0 IAB0 Ectopic1 Multiple0 Live Births0 Comment: 2 vaginal deliveries Mason Helper History LMP: 12/21/2021, Having periods Age at Menarche: Age at First : Age at Menopause: Mason Helper History Comments: Sexual Activity: Yes; Male; vasectomy Contraception: Surgical PAST MEDICAL HISTORY Diagnosis Date Abnormal Pap smear of cervix 2006 Cerebral palsy (HCC) mild; diagnosed as a child. affects left side Cervical high risk HPV (human papillomavirus) test positive 2006 PAST SURGICAL HISTORY Procedure Laterality Date CHOLECYSTECTOMY 1998 COLONOSCOPY 2002 [place] COLPOSCOPY CERVIX UPPER/ADJACENT VAGINA [address] Crenshaw CONIZATION OF CERVIX, LEEP [address] Crenshaw FAMILY HISTORY Problem Relation Age of Onset None Mother Diabetes Father Hypertension Father Cancer Maternal Grandmother possible ovarian? Cancer Paternal Grandmother not sure what kind Cancer Paternal Grandfather not sure what kind Cancer Maternal Aunt liver SOCIAL HISTORY Social History Tobacco Use Smoking status: Never Smokeless tobacco: Never Vaping Use Vaping Use: Never used Substance Use Topics Alcohol use: No Drug use: No REVIEW OF SYSTEMS Abdomen: No abdominal pain, nausea, vomiting, diarrhea, or constipation. No bloating, early satiety, indigestion, or increased flatulence. Bladder: No dysuria, gross hematuria, urinary frequency, urinary urgency, or incontinence Breast: No breast lumps, nipple d/c, overlying skin changes, redness or skin retraction Allergies and current medication updated:Yes EXAM: BP 120/76 Ht 5' 3.78 (1.62m) Wt 175 lb (79.4kg) LMP 12/21/2021 BMI 30.25 kg/(m^2). GENERAL: pleasant, female in no apparent distress HEENT: Normocephalic, atraumatic, mucus membranes moist, and no lesions NECK: Supple, full range of motion, no adenopathy, and thyroid normal DERMATOLOGY: Normal, without lesions, non-icteric, and non-hirsute BREAST: soft, non-tender, symmetric, no dominant mass, normal nipple-areolar complex, no lymphadenopathy, and no nipple discharge CHEST: Normal inspiratory effort ABDOMEN: soft, non-tender, and no masses PELVIC: external genitalia normal, normal Bartholin's glands, urethra, [place]'s glands, no vulvar lesions, no cervical lesions, good vaginal support, physiologic discharge present, normal appearing perineal body and perianal region BIMANUAL: uterus normal size, shape and consistency, no adnexal masses, and non-tender RECTOVAGINAL: deferred. NEURO: alert and oriented x3,exam grossly non-focal EXTREMITIES: normal ASSESSMENT/PLAN: 1) Health maintenance: Pap/HPV up to date. Mammogram ordered Nutrition, exercise and routine health maintenance exams reviewed. Calcium/Vitamin D supplementation information provided. Colon cancer screening: colonoscopy ordered 2) Follow up one year or sooner as needed Maureen Roche APRN.RENEE documented in this encounter [facility] 01-12-2022 Instructions Jannet Hendrickson MA - 01/12/2022 3:40 PM EST Images from the original note were not included. Miralax/Dulcolax Bowel Prep For this bowel preparation, you will need to purchase the following medications at any pharmacy: Over the counter Miralax (generic name is polyethylene glycol) 8.3 oz or 238 grams Four (4) Dulcolax (generic name is Bisacodyl) tablets 3 days prior to your procedure, you need to be on a low fiber diet (Such as popcorn, beans, seeds, nuts, salad and raw vegetables, corn, fresh and dried fruit and multi-grain bread) YOU MUST BE ON CLEAR LIQUIDS FOR 2 FULL DAYS PRIOR TO YOUR COLONOSCOPY Day one which would be two days before your colonoscopy, you will need to be on clear liquids all day. You may have coffee or tea-black only (no cream), clear broths (beef, chicken or vegetable), apple juice, white grape juice, pop, Gatorade, Powerade, lemonade, Jello, popsicles, Bud-aid, and water-But nothing red or dark purple in color and no dairy products, tomato or orange juices. Day two which would be the day before your colonoscopy continue clear liquids all day as above. And follow the instructions below: 8:00 AM - Mix the Miralax with 64 oz of Gatorade or another clear liquid of choice and place in refrigerator. Most people say the drink is better cold. 4:00 PM - Take 2 of the Dulcolax tablets with 8 oz of water. 6:00 PM - Start to drink the Miralax mixture. You must finish it by midnight. 8:00 PM - Take the other 2 Dulcolax tablets with 8 oz of water. You may continue to drink clear liquids while you are taking your prep and after you finish it as long as it is before midnight. Drink lots of fluids so you don t become dehydrated. Nothing to drink after midnight the night before the procedure unless you are instructed differently by the physician or nurses. Please remember to take your normal medications the morning of the procedure with a small sip of water especially your blood pressure medications. If you are diabetic, you need to contact your physician about how to take your diabetic medications and/or insulin during the prepping period and the day of your procedure. Any questions please call: Dr. Kunz or Dr. Everett [phone] Cynthia Ornelas [phone] Dr. Park [phone] [facility] nurses [phone] documented in this encounter [facility] Encounter for gynecological examination (general) (routine) without abnormal findings Encounter for screening mammogram for breast cancer [facility] Diagnostic Procedure Only (Routine) - Pending Review Specialty Diagnoses / Procedures Referred By Renéac t Referred To Contact [facility] Diagnoses Encounter for gynecological examination (general) (routine) without abnormal findings Encounter for screening mammogram for breast cancer Procedures MARISSA SCREENING SCREENING MAMMOGRAPHY BI 2-VIEW BREAST INC CAD Maureen Roche APRN.CNP [address] [place] [address] [facility] [address] [address] Referral ID Status Reason Start Date Expiration Date Visits Requested Visits Authorized [id number] Pending Review Auto-Generat ed Referral 2 02/11/2023 1 1 [facility] Summary Purpose Family History No Family History Records Found Advance Directives No Advanced Directives Records Found Reason for Referral Specialty Diagnoses / Procedures Referred By Kelton morel Referred To Contact [facility] Diagnoses Encounter for gynecological examination (general) (routine) without abnormal findings Encounter for screening mammogram for breast cancer Procedures MARISSA SCREENING SCREENING MAMMOGRAPHY BI 2-VIEW BREAST INC Maureen Gastelum APRN.DATA CENTER OPERATOR [address] [place] [address] [facility] [address] [place] [address] Referral ID Status Reason Start Date Expiration Date V isits Requested Visits Authorized [id number] Closed Auto-Generate d Referral 01/19/2022 02/26/2022 1 1 Additional Source Comments Source Comments (unrecognize d section and content) In the event this informatio n is protected by the Federal Confidentiality of Alcohol and Drug Abuse Patient Records regulations: The Federal rules restrict any use of the information to criminally investigate or prosecute any alcohol or drug abuse patient.[facility] the event this information is protected by the Federal Confidentiality of Alcohol and Drug Abuse Patient Records regulations: The Federal rules restrict any use of the information to criminally investigate or prosecute any alcohol or drug abuse patient.[facility] Reason for Visit (unrecogniz ed section and content) Specialty Diagnoses / Procedures Referred By Kelton t Referred To Contact [facility] Diagnoses Encounter for gynecological examination (general) (routine) without abnormal findings Encounter for screening mammogram for breast cancer Procedures MARISSA SCREENING SCREENING MAMMOGRAPHY BI 2-VIEW BREAST INC Maureen Gastelum APRN.DATA CENTER OPERATOR [address] [place] [address] [facility] [address] [place] [address] Referral ID Status Reason Start Date Expiration Date V isits Requested Visits Authorized [id number] Closed Auto-Generate d Referral 01/19/2022 02/26/2022 1 1 Care Teams (unrecognized sec tion and content) Client Experience Manager Relationship Specialty Start Date End Date Kacy Collins DO PCP - General Internal Medicine 01/10/12 INFORMATION SOURCE (unrecogn ized section and content) FOR RECORDS PERTAINING TO PATIENTS WHO ARE OR HAVE BEEN ENROLLED IN A CHEMICAL DEPENDENCY/SUBSTANCEABUSE PROGRAM, SOME INFORMATION MAY BE OMITTED. This clinical summary was aggregated from multiple sources. Caution should be exercised in using it in the provision of clinical care. This summary normalizes information from multiple sources, and as a consequence, information in this document may materially change the coding, format and clinical context of patient data. In addition, data may be omitted in some cases. CLINICAL DECISIONS SHOULD BE BASED ON THE PRIMARY CLINICAL RECORDS. [facility], [facility]. provides no warranty or guarantee of the accuracy or completeness of information in this document.
== END 2023-04-28 16:02 | disposition home or self-care (01) ==
PROVIDERS: Emergency Provider Emergency Medicine; PCP Internal Medicine; Visit Provider Emergency Medicine
DX: R03.0 Elevated blood-pressure reading, without diagnosis of hypertension (principal)
CPT/HCPCS: 70450; 80048; 85025; 99283; A4216

== ENCOUNTER → 2023-11-06 | Outpatient (CLI) | payer OTHER, SELFPAY ==
[2023-11-06 10:19] LABS: Absolute Lymphocyte Count 2.49 X10^3/uL (0.83-4.51); Absolute Neutrophil Count 3.7 X10^3/uL (2.0-7.7); Basophil# 0.03 X10^3/uL; Basophil% 0.4 % (0-1); Eosinophil# 0.15 X10^3/uL; Eosinophils% 2.2 % (0-5); Hematocrit 44.1 % (37-47); Lymphocyte # 2.49 X10^3/ul (0.83-4.51); Lymphocyte % 35.9 % (19-41); Mean Corp Hgb Conc 31.7 g/dL (32-36); Mean Corpuscular Volume 91.3 fL (81-99); Mean Platelet Vol. 9.3 fl (6.2-12.0); Monocyte# 0.57 X10^3/uL; Monocyte% 8.2 % (0-10); NRBC Flagged by Analyzer 0 % (0-5); Neutrophil # 3.69 X10^3/uL (2.7-7.7); Neutrophil % 53.2 % (47-70); Platelet Count 336 K/mm3 (150-450); RBC Distribution Width CV 14.5 % (11.6-14.6); RBC Distribution Width SD 48.6 fl (35.1-43.9); Red Blood Count 4.83 M/mm3 (4.2-5.4); White Blood Count 6.9 K/mm3 (4.4-11.0)
[2023-11-06 10:34] LABS: Glucose, Dipstick Normal (Normal); Ketone-Dipstick Negative (Negative); Leukocyte Esterase-Dipstick 25 /ul (Negative); Nitrite-Dipstick Negative (Negative); Occult Blood-Urine Negative /ul (Negative); Protein-Dipstick Negative (Negative); Specific Gravity, Urine 1.015 (1.002-1.030); Urine Bilirubin Dipstick Negative (Negative); Urine Urobilinogen Normal (Normal); Urine pH 6.5 (5.0 - 8.0)
[2023-11-06 10:35] LABS: ALB/GLOB Ratio 0.8 RATIO (0.9-2.4); AST(SGOT) 21 U/L (15-37); Alanine Aminotransfer ALT/SGPT 46 U/L (13-56); Albumin, Serum 3.4 g/dL (3.2-5.0); Alkaline Phosphatase 109 U/L (45-117); Anion Gap 6 (5-15); BUN 13 mg/dL (7-18); BUN/Creat Ratio 20.7 RATIO (10-20); Calcium,Total 9.9 mg/dL (8.5-10.1); Chloride 105 mmol/L (98-107); Cholesterol 196 mg/dL (200); Creatinine, Serum 0.63 mg/dL (0.55-1.02); EST Glomerular Filtration Rate 105 mL/min (>60); Est Glom Filt Rate - Afr Amer 127 mL/min (>60); Globulin 4.3 g/dL (2.2-4.2); Glucose 95 mg/dL (74-106); High Density Lipoprotein 55 mg/dL; Potassium 3.8 mmol/L (3.5-5.1); Protein, Total 7.7 g/dL (6.4-8.2); Sodium Level 140 mmol/L (136-145); Triglycerides 153 mg/dL; Very Low Density Lipoprotein 31 mg/dL (5-40)
[2023-11-06 10:38] LABS: Color, Urine YELLOW (Yellow); Urine Clarity Clear (Clear)
[2023-11-06 10:49] LABS: Microalbumin,Random Urine 12.3 mg/L (NO RANGE EST.); Microalbumin:Creatinine Ratio 10.2 mg/g CRE (<30 mg/g CRE)
[2023-11-06 14:35] LABS: Bacteria 0 SEEN /hpf (None Seen); Mucous, Urine 0 SEEN /hpf (<or=2+); Red Blood Cells-Urine 0 SEEN /hpf (0-5)
[2023-11-06 14:43] LABS: Squamous Epithelial Cells - UA 0-5 SEEN /hpf (5-10); White Blood Cells 0-5 SEEN /hpf (0-5)
== END | disposition home or self-care (01) ==
PROVIDERS: PCP Internal Medicine; Referring Provider Internal Medicine; Visit Provider Internal Medicine
DX: I10 Essential (primary) hypertension (principal)
CPT/HCPCS: 36415; 80053; 80061; 81001; 81002; 82043; 82570; 85025

== ENCOUNTER → 2025-02-07 | Outpatient (CLI) | payer OTHER, SELFPAY ==
--- NOTE | 2025-02-07 15:42 | MRI_ITS ---
PROCEDURE: SPINE THORACIC (ROUTINE) 02/07/2025 REASON FOR EXAM: BACK PAIN TECHNIQUE: Procedure Code: MRISPT Modality: MR Procedure: SPINE THORACIC (ROUTINE) Multiplanar and multisequence images were obtained. CONTRAST: None COMPARISON: None. FINDINGS: T1-T2: Vertebral bodies: Negative. Disk Space: Negative. Negative for Modic changes. Facet Joints: Negative for bilateral facet joint hypertrophy. Neural foramina: Negative for neural foraminal narrowing Spinal Canal: Negative forcentral spinal narrowing. T2-T3: Vertebral bodies: Negative. Disk Space: Negative. Negative for Modic changes. Facet Joints: Negative for bilateral facet joint hypertrophy. Neural foramina: Negative for neural foraminal narrowing Spinal Canal: Negative forcentral spinal narrowing. T3-T4: Vertebral bodies: Negative. Disk Space: Negative. Negative for Modic changes. Facet Joints: Negative for bilateral facet joint hypertrophy. Neural foramina: Negative for neural foraminal narrowing Spinal Canal: Negative forcentral spinal narrowing. T4-T5: Vertebral bodies: Negative. Disk Space: Negative. Negative for Modic changes. Facet Joints: Negative for bilateral facet joint hypertrophy. Neural foramina: Negative for neural foraminal narrowing Spinal Canal: Negative forcentral spinal narrowing. T5-T6: Vertebral bodies: Negative. Disk Space: Negative. Negative for Modic changes. Facet Joints: Negative for bilateral facet joint hypertrophy. Neural foramina: Negative for neural foraminal narrowing Spinal Canal: Negative forcentral spinal narrowing. T6-T7: Vertebral bodies: Negative. Disk Space: Negative. Negative for Modic changes. Facet Joints: Negative for bilateral facet joint hypertrophy. Neural foramina: Negative for neural foraminal narrowing Spinal Canal: Negative forcentral spinal narrowing. T7-T8: Vertebral bodies: Negative. Disk Space: Negative. Negative for Modic changes. Facet Joints: Negative for bilateral facet joint hypertrophy. Neural foramina: Negative for neural foraminal narrowing Spinal Canal: Negative forcentral spinal narrowing. T8-T9: Vertebral bodies: Negative. Disk Space: Negative. Negative for Modic changes. Facet Joints: Negative for bilateral facet joint hypertrophy. Neural foramina: Negative for neural foraminal narrowing Spinal Canal: Negative forcentral spinal narrowing. T9-T10: Vertebral bodies: Negative. Disk Space: Negative. Negative for Modic changes. Facet Joints: Negative for bilateral facet joint hypertrophy. Neural foramina: Negative for neural foraminal narrowing Spinal Canal: Negative forcentral spinal narrowing. T10-T11: Vertebral bodies: Negative. Disk Space: Negative. Negative for Modic changes. Facet Joints: Negative for bilateral facet joint hypertrophy. Neural foramina: Negative for neural foraminal narrowing Spinal Canal: Negative forcentral spinal narrowing. T11-T12: Vertebral bodies: Negative. Disk Space: Negative. Negative for Modic changes. Facet Joints: Negative for bilateral facet joint hypertrophy. Neural foramina: Negative for neural foraminal narrowing Spinal Canal: Negative forcentral spinal narrowing. Spinal cord: Negative Adjacent structures otherwise negative. MRI/Spine Thoracic (Routine) IMPRESSION: Negative MR thoracic spine. Reading Location: [id number]
--- NOTE | 2025-02-07 15:42 | MRI_ITS ---
PROCEDURE: SPINE CERVICAL (ROUTINE) 02/07/2025 REASON FOR EXAM: CEREBAL PALSY, BACK PAIN, RIGHT ARM NUMBNESS Arm pain. TECHNIQUE: Procedure Code: MRISP Modality: MR Procedure: SPINE CERVICAL (ROUTINE) Multiplanar and multisequence images were obtained without IV contrast administration. COMPARISON: None. FINDINGS: Vertebrae: Cervical vertebral body heights are preserved. Bone marrow signal is unremarkable. C2-C3: Vertebral bodies: Negative. Disk Space: Negative. Negative for Modic changes. Facet Joints: Mild bilateral facet joint hypertrophy. Neural foramina: Negative for neural foraminal narrowing Spinal Canal: Negative for central spinal narrowing. C3-C4: Vertebral bodies: Negative. Disk Space: Slight central zone disc protrusion. Negative for Modic changes. Facet Joints: Negative for bilateral facet joint hypertrophy. Neural foramina: Negative for neural foraminal narrowing Spinal Canal: Negative for central spinal narrowing. C4-C5: Vertebral bodies: Negative. Disk Space: Negative. Negative for Modic changes. Facet Joints: Mild bilateral facet joint hypertrophy. Neural foramina: Negative for neural foraminal narrowing Spinal Canal: Negative for central spinal narrowing. C5-C6: Vertebral bodies: Negative. Disk Space: Mild disc desiccation. Negative for Modic changes. Facet Joints: Mild bilateral facet joint hypertrophy. Neural foramina: Negative for neural foraminal narrowing Spinal Canal: Negative for central spinal narrowing. C6-C7: Vertebral bodies: Negative. Disk Space: Negative. Negative for Modic changes. Facet Joints: Mild bilateral facet joint hypertrophy. Neural foramina: Negative for neural foraminal narrowing Spinal Canal: Negative for central spinal narrowing. C7-T1: Vertebral bodies: Negative. Disk Space: Disc desiccation. Mild central zone disc protrusion. Negative for Modic changes. Facet Joints: Mild bilateral facet joint hypertrophy. Neural foramina: Negative for neural foraminal narrowing Spinal Canal: Negative for central spinal narrowing Spinal cord: Negative Posterior fossa and cerebellar tonsils negative. 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 No neural foraminal or central spinal canal narrowing at any level. Reading Location: [id number]
--- OUTSIDE RECORDS SUMMARY | 2025-02-07 16:01 | XMS RPT_ITS | CCD ---
Author Organization [facility] Care Team Providers Care Genomics Scientist Name Role Phone Kacy Collins DO Primary Care Provider Dr. Oneil Martínez Primary Care Provider [phone] MD Issa Delgado Emergency Provider Dr. Markos Chamberlain Admit Provider Dr. Markos Chamberlain Other Provider Dr. Angela Bowling Other Provider Dr. Jonas Ortega Attending Provider [phone] Dr[address] Angela Bowling Attending Provider [phone] Kacy Collins DO Primary Care Provider Kacy Collins Primary Care Unavailable Kacy Collins Attending Unavailable Kacy Collins Referring Unavailable Kacy Collins Primary Care Unavailable Kacy Collins Attending Unavailable KarinaKacy jalloh Referring Unavailable Mario Decker Attending Unavailable Kacy Collins Primary Care Unavailable Kacy Collins DO Primary Care Provider KACY COLLINS Primary Care Unavailab le ROCHE, MAUREEN Referring Unavailable KARINAKACY Primary Care Unavailab le SELF Referring Unavailable ROCHE, MAUREEN Attending Unavailable KARINAKACY JALLOH Primary Care Unavailab le SELF Referring Unavailable ROCHE, MAUREEN Attending Unavailable ROCHE, MAUREEN Referring Unavailable KARINAKACY Primary Care Unavailab le KARINAKACY Primary Care Unavailab le ROCHE, MAUREEN Referring Unavailable Allergies Allergy Classification Reported Allergen(s) Allergy Type Date of Onset Reaction(s) Facility (18 sources) Latex; Translations: [LATEX] Allergy to substance 02-15-2011 [facility] (13 sources) nickel; Translations: [NICKEL] Drug Allergy 04-13-2010 [facility] (1 source) Latex Drug allergy (disorder) 02-03-2022 [facility] Repository Medications Current Medications Medication Drug Class(es) Dates Sig (Normalized) Sig (Original) acetaminophen 325 mg / oxyCODONE hydrochloride 5 mg oral tablet (6 sources) Opioid Agonist Start: 02-03-2022 take 1 tablet by mouth every six hours Oxycodone-Acetami nophen (Percocet) 5-325 mg tablet Active 1 TABLET PO EVERY 6 HOURS 12 February 03, 2022 Start: 07-20-2013 take 1 tablet by karlie th every four hours as needed Oxycodone-Acetaminophen Active 1 TABLET PO EVERY 4 HOURS NEEDED January 10, 2015 1:00am amLODIPine 5 mg oral tablet (9 sources) Dihydropyridine Calcium Channel Jessica Start: 02-04-2022 take 5 mg by mouth once daily Amlodipine Active 5 MG PO DAILY February 04, 2022 12:00am take 1 tablet by mouth once shayan y amLODIPine (NORVASC) 2.5 mg tablet Take 2.5 mg by mouth once daily. Active Ascorbic Acid (12 sources) Vitamin C ascorbic acid (V ITAMIN C ORAL) Take by mouth. Active ascorbic acid (V ITAMIN C ORAL) Take by mouth. 0 Active Comment on above: Take by mouth. calcium carb/magnesium ox,ca rb (CARLA-MAG ORAL) (12 sources) calcium carb/mag nesium ox,carb (CARLA-MAG ORAL) Take by mouth. Active calcium carb/mag nesium ox,carb (CARLA-MAG ORAL) Take by mouth. 0 Active Comment on above: Take by mouth. ergocalciferol, vitamin D2, (VITAMIN D2 ORAL) (12 sources) ergocalciferol, vitamin D2, (VITAMIN D2 ORAL) Take by mouth. Active ergocalciferol, vitamin D2, (VITAMIN D2 ORAL) Take by mouth. 0 Active Comment on above: Take by mouth. Lactobacillus acidophilus (12 sources) Lactobacillus ac idophilus (PROBIOTIC ORAL) Take by mouth. Active Lactobacillus ac idophilus (PROBIOTIC ORAL) Take by mouth. 0 Active Comment on above: Take by mouth. linseed oil 1000 mg oral capsule (12 sources) Start: 04-13-19 11 take 1 tablet by mouth once daily Flaxseed Oil 1,000 mg ORAL Cap Take one(1) tablet daily. 0 04/13/2010 Active Comment on above: Take one(1) tablet d aily. loratadine 10 mg oral tablet (12 sources) Start: 07-28-19 17 take 1 tablet by mouth once daily loratadine (CLARITIN) 10 mg tablet Take 10 mg by mouth once daily. 1 07/27/2016 Active Comment on above: Take 10 mg by mouth once daily. multivitamin tablet (12 sources) Start: 04-13-19 11 multivitamin tablet Take one(1) tablet daily. 0 04/13/2010 Active Comment on above: Take one(1) tablet d aily. norethindrone acetate 5 mg oral tablet (6 sources) Start: 08-30-19 25 norethindrone (AYGESTIN) 5 mg tablet Indications: PMB (postmenopausal bleeding) Take 1 tablet by mouth as directed. 1 tablet 3 times daily until bleeding stops then twice daily for 2 days then 1 tablet daily for 2 days. 30 tablet 08/29/2024 Active ofloxacin 3 mg/ml ophthalmic solution (4 sources) Quinolone Antimicrobial Start: 02-04-20 22 Ofloxacin Active 1 DRP RIGHT EYE DAILY February 03, 2022 12:00am Mauldin-3 Fatty Acids 500 mg cap (12 sources) Start: 04-13-19 11 Mauldin-3 Fatty Acids 500 mg cap Take one(1) capsule daily. 0 04/13/2010 Active Comment on above: Take one(1) capsule daily. omeprazole 40 mg delayed release oral capsule (17 sources) Proton Pump Inhibitor Start: 07-21-19 14 omeprazole (PRILOSEC) 40 mg capsule Take by mouth. 07/20/2013 Active Comment on above: Take by mouth. ondansetron 8 mg oral tablet (1 source) Serotonin-3 Receptor Antagonist Start: 01-11-20 15 take 8 mg by mouth every eight hours as needed Ondansetron Hcl Active 8 MG PO EVERY 8 HOURS NEEDED January 10, 2015 1:00am polyethylene glycol 3350 10698 mg powder for oral solution (12 sources) Osmotic Laxative Start: 02-24-20 18 polyethylene glycol 3350 (MIRALAX, GLYCOLAX) 17 gram/dose powder Take 17 g by mouth as needed. 02/23/2018 Active Comment on above: Take 17 g by mouth a s needed. tamsulosin hydrochloride 0.4 mg oral capsule (2 sources) alpha-Adrenergic Jessica Start: 01-11-20 15 take 0.4 mg by mouth once daily Tamsulosin Active 0.4 MG PO DAILY January 10, 2015 12:00am tiZANidine 4 mg oral capsule (3 sources) Central alpha-2 Adrenergic Agonist Start: 02-05-20 take 1 capsule by mouth every eight hours Tizanidine (Zanaflex) 4 mg capsule Active 4 MG PO Q8H February 04, 2022 12:00am Zinc (12 sources) ZINC ORAL Take b y mouth. Active ZINC ORAL Take b y mouth. 0 Active Comment on above: Take by mouth. Completed/Discontinued Medications Medication Drug Class(es) Dates Sig (Normalized) Sig (Original) nystatin 100 unt/mg topical powder (5 sources) Polyene Antifungal Start: 05-30-2023 End: 08-29-2024 nystatin (NYSTOP) powder Indications: Intertrigo Apply 1 application to affected area four times daily. 60 g 2 05/30/2023 08/29/2024 Discontinued Comment on above: Apply 1 application to affected area four times daily. Problems Active Problems Problem Classification Problem Date Documented Da te Episodic/Chronic Calculus of urinary tract (5 sources) Ureteric stone; Translations: [Calculus of ureter] 01-11-2015 Episodic Coronary atherosclerosis and other heart disease (4 sources) Atypical angina; Translations: [Other forms of angina pectoris] Chronic Essential hypertension (1 source) Essential (primary) hypertension; Translations: [Essential (primary) hypertension] Onset: 11-27-2023 Chronic Immunizations and screening for infectious disease (1 source) Encounter for screening for human papillomavirus (HPV); Translations: [Encounter for screening for human papillomavirus (HPV)] Onset: 09-11-2024 Episodic Menopausal disorders (6 sources) Postmenopausal bleeding; Translations: [Postmenopausal bleeding] Onset: 09-06-2024 08-29-2024 Chronic Menstrual disorders (1 source) Irregular periods; Translations: [Irregular menstruation, unspecified] Chronic Other circulatory disease (4 sources) Elevated blood-pressure reading without diagnosis of hypertension; Translations: [Elevated blood-pressure reading, without diagnosis of hypertension] 02-03-2022 Episodic Other inflammatory condition of skin (1 source) Intertrigo; Translations: [Erythema intertrigo] 05-30-2023 Episodic Other screening for suspected conditions (not mental disorders or infectious disease) (11 sources) Patient encounter status; Translations: [Encounter for screening mammogram for malignant neoplasm of breast] Onset: 09-06-2024 Episodic Spondylosis; intervertebral disc disorders; other back problems (6 sources) Neck pain; Translations: [Cervicalgia] Episodic Past or Other Problems Problem Classification Problem Date Documented Da te Episodic/Chronic Inflammatory diseases of female pelvic organs (20 sources) Vulvovaginitis; Translations: [Acute vaginitis] Onset: 01-10-2012 01-10-2012 Episodic Other circulatory disease (3 sources) Elevated blood-pressure reading, without diagnosis of hypertension; Translations: [Elevated blood pressure reading without diagnosis of hypertension] Onset: 05-04-2023 Episodic Unclassified (5 sources) Needle stick injury of finger; Translations: [Needlestick injury of finger] 09-28-2021 Unclassified (1 source) Patient encounter status 08-27-2024 Results Test Name Value Interpretation Reference Range Facility [facility] 09-11-2024 CNOV Office Visit (OBGYWM ) RADHA DANG ([id number]) 1970 F Date Time Provider Department 09/11/24 1:00 PM MAUREEN ROCHE During your visit today, we recorded the following information about you: Blood pressure Weight 152/98 81.2 kg Maureen Roche APRN.PRODUCT SAFETY COMPLIANCE LEADER 09/11/2024 2:45 PM Signed Obstetrics and Gynecology [place] INTERACTIVE ART DIRECTOR Visit Subjective Recording using [employer] software for draft documentation of the visit was discussed with the patient/authorized medical claims representative; all questions welcomed and answered. Patient/authorized medical claims representative agreed to proceed CHIEF COMPLAINT: The patient is a 54-year-old female presenting for a follow-up on postmenopausal bleeding and a repeat Pap test. HPI: Postmenopausal Bleeding - LMP: Early July 2023 - Reports experiencing postmenopausal bleeding, which has since resolved. - Initially presented with bleeding on day 4, which tapered off over the next 2 days without ever starting norethindrone taper. - No further episodes of bleeding reported since. Past Diagnostic Results: - Hormone Levels: - Estradiol 17B: <25 pg/mL - FSH: 23.8 mIU/mL - Endometrial Biopsy: Inactive endometrium, benign. - Pelvic Ultrasound: - Uterus: Normal size - Small intramural fibroid on the posterior side, not contributing to bleeding. - Endometrial lining: Thin - Ovaries: Normal HISTORY: OB History Gravida3 Para2 Term0 Preterm0 AB1 Living2 SAB0 IAB0 Ectopic1 Multiple0 Live Births0 Comment: 2 vaginal deliveries Environmental Health Inspector History LMP: 08/12/2023 (Exact Date), Having periods Age at Menarche: Age at First : Age at Menopause: Environmental Health Inspector History Comments: Sexual Activity: Yes; Male; vasectomy Contraception: Vasectomy PAST MEDICAL HISTORY Diagnosis Date Abnormal Pap smear of cervix 2005 Cerebral palsy (HCC) mild; diagnosed as a child. affects left side Cervical high risk HPV (human papillomavirus) test positive 2005 PAST SURGICAL HISTORY Procedure Laterality Date CHOLECYSTECTOMY 02/27/1998 COLONOSCOPY 02/27/2002 [facility] COLONOSCOPY SCREENING 2017 normal - Dr Garcia COLPOSCOPY CERVIX UPPER/ADJACENT VAGINA 02/27/[address] Crenshaw CONIZATION OF CERVIX, LEEP 02/27/[address] Crenshaw PAST SURGICAL HISTORY OF Bilateral 01/2022 catarac surgery FAMILY HISTORY Problem Relation Age of Onset None Mother Diabetes Father Hypertension Father Cancer Maternal Grandmother possible ovarian? Cancer Paternal Grandmother not sure what kind Cancer Paternal Grandfather not sure what kind Cancer Maternal Aunt liver Social History Tobacco Use Smoking status: Never Passive exposure: Never Smokeless tobacco: Never Vaping Use Vaping status: Never Used Substance Use Topics Alcohol use: No Drug use: No Current Outpatient Medications Medication Sig amLODIPine (NORVASC) 2.5 mg tablet Take 2.5 mg by mouth once daily. norethindrone (AYGESTIN) 5 mg tablet Take 1 tablet by mouth as directed. 1 tablet 3 times daily until bleeding stops then twice daily for 2 days then 1 tablet daily for 2 days. ascorbic acid (VITAMIN C ORAL) Take by mouth. ZINC ORAL Take by mouth. ergocalciferol, vitamin D2, (VITAMIN D2 ORAL) Take by mouth. Lactobacillus acidophilus (PROBIOTIC ORAL) Take by mouth. calcium carb/magnesium ox,carb (CARLA-MAG ORAL) Take by mouth. omeprazole (PRILOSEC) 40 mg capsule Take by mouth. polyethylene glycol 3350 (MIRALAX, GLYCOLAX) 17 gram/dose powder Take 17 g by mouth as needed. loratadine (CLARITIN) 10 mg tablet Take 10 mg by mouth once daily. Mauldin-3 Fatty Acids 500 mg cap Take one(1) capsule daily. Flaxseed Oil 1,000 mg ORAL Cap Take one(1) tablet daily. multivitamin tablet Take one(1) tablet daily. No current facility-administered medications for this visit. ALLERGIES Allergen Reactions Latex Rash Nickel Rash REVIEW OF SYSTEMS: Genitourinary: (-) vaginal bleeding Objective SENSITIVE EXAM: The sensitive examination was discussed with the Patient or Patient's Authorized Lmsw. As applicable, any other physician, advance practice provider, medical student, or other health professional student that will be observing or involved in the sensitive examination for educational or training purposes was discussed with the Patient or Authorized Lmsw. The Patient or Authorized Lmsw has agreed to proceed with the sensitive examination. (Sensitive examination includes inspection and/or palpation of the breasts, pelvis, prostate and anorectal regions). PHYSICAL EXAM: BP 152/98 Wt 179 lb (81.2kg) LMP 08/12/2023 GENERAL: Pleasant; in no acute distress PULMONARY: normal inspiratory effort ABDOMEN: soft, non-tender, no masses : - PELVIC: external genitalia normal, normal Bartholin's glands, urethra, [place]'s glands, no vulvar lesions, no cervical lesions, good vaginal suppor (more content not included)... Normal [facility] HIGH RISK HUMAN PAPILLOMA ZOILA (HPV), PCR FOR DETECTION AND GENOTYPINGon 09-11-2024 HPV 16 Ag Ql (Unsp spec) Not detected Normal Not detected [facility] Comment on above: Order Comment: Speci men Type: BLOOD SPECIMEN Ordering Facility: [facility] Address: [address] [place] [id number] Performed By: #### 1 5067-2, 2243-4 #### [facility] CLIA [id number] [address] [place], [place] [address] [place] HPV 18 Ag Ql (Unsp spec) Not detected Normal Not detected [facility] Comment on above: Order Comment: Speci men Type: BLOOD SPECIMEN Ordering Facility: [facility] Address: [address] [place] [address] Performed By: #### 1 5067-2, 3-4 #### [facility] CLIA [id number] [address] [place] [address] [place] HPV 31+33+35+39+45+51+52+56 +58+59+66+68 DNA TELLO+probe Ql (Cvx) Not detected Normal Not detected [facility] Comment on above: Order Comment: Speci men Type: BLOOD SPECIMEN Ordering Facility: [facility] Address: [address] [place] [address] Result Comment: High Risk HPV Other Type includes HPV types 31, 33, 35, 39, 45, 51, 52, 56, 58, 59, 66 and 68. Performed By: #### 1 5067-2, 2242- #### [facility] CLIA [id number] [address] [place] [address] [place] PAP TESTon 09-11-2024 ADEQUACY Normal [facility] Comment on above: Order Comment: Speci men Type: FLUID SPECIMEN Ordering Facility: [facility] Address: [address] [place] [address] Result Comment: Sati sfactory for interpretation. Transformation zone present Performed By: #### L [id number] #### [facility] CLIA [id number] [address] [place], [place] [address] [place] [facility] CLIA [id number] [address] [place] [address], [address] [place] [address] [place] CASE REPORT Normal [facility] Comment on above: Order Comment: Speci men Type: FLUID SPECIMEN Ordering Facility: [facility] Address: [address] [place] [address] Result Comment: Gyne cologic Cytology Report Case: [id number] Authorizing Provider: Maureen Roche APRN.PRODUCT SAFETY COMPLIANCE LEADER Collected: 09/11/2024 01:46 PM Ordering Location: OB/Gynecology Received: 09/11/2024 04:51 PM First Screen: Kristal Hughes, CT, ASCP Pathologist: Deepali Villalobos MD Specimen: Pap Test, ThinPrep, Cervix Performed By: #### L [id number] #### [facility] CLIA [id number] [address] [place] [address] [place] [facility] CLIA [id number] [address] [place] [address], [address] [place], [place] [id number] [place] CLINICAL HISTORY, CYTOLOGY, INTERACTIVE ART DIRECTOR Normal [facility] Comment on above: Order Comment: Speci men Type: FLUID SPECIMEN Ordering Facility: [facility] Address: [address] [place] [address] Result Comment: Abno rmal Bleeding (Describe) Post Menopausal PMB Performed By: #### L [id number] #### [facility] CLIA [id number] [address] [place] [address] [place] [facility] CLIA [id number] [address] [place] [address], [address] [place] [address] [place] CYTOLOGY PAP OTHER INTERPRETATION Acute inflammation. Normal [facility] Comment on above: Order Comment: Speci men Type: FLUID SPECIMEN Ordering Facility: [facility] Address: [address] [place] [address] Performed By: #### L [id number] #### [facility] CLIA [id number] [address] [place] [address] [place] [facility] CLIA [id number] [address] [place] [address], [address] [place], [place] [address] [place] FINAL PERFORMING LAB Normal [place] Comment on above: Order Comment: Speci men Type: FLUID SPECIMEN Ordering Facility: [facility] Address: [address] [place] [address] Result Comment: Tech nical component, starter mechanic screening performed at: [facility], [address] [place] [address], [address] [place] [id number] CLIA: [id number] Diagnostic interpretation performed at: [facility], [address] [place], [place] [id number] CLIA# [id number] Roller Skate Repairer: Johnnie Kulkarni MD Performed By: #### L [id number] #### [facility] CLIA [id number] [address] [place] [address] [place] [facility] CLIA [id number] [address] [place] [address], [address] [place], [place] [address] [place] INTERPRETATION, CYTOLOGY, INTERACTIVE ART DIRECTOR Normal [facility] Comment on above: Order Comment: Speci men Type: FLUID SPECIMEN Ordering Facility: [facility] Address: [address] [place] [address] Result Comment: Nega tive for intraepithelial lesion or malignancy. at 1223 EDT Performed By: #### L [id number] #### [facility] CLIA [id number] [address] [place] [address] [place] [facility] CLIA [id number] [address] [place] [address] [place] PAP DISCLAIMER COMMENT The Pap Smear is a screening test for cervical cancer. False negative results occur with all screening tests, emphasizing the need for rescreening at recommended intervals, and clinical correlation. Normal [facility] Comment on above: Order Comment: Speci men Type: FLUID SPECIMEN Ordering Facility: [facility] Address: [address] [place], [place] [address] Performed By: #### L [id number] #### [facility] CLIA [id number] [address] [place], [place] [address] [place] [facility] CLIA [id number] [address] [place] [address] 3, [address] [place], [place] [address] [place] PAP TIRE FIXER COMMENT This specimen has been analyzed by the FDA-approved [employer] System, which uses digital imaging and an enhanced artificial intelligence image analysis algorithm to identify vines of interest on the microscopic slide, to assist the senior research project manager and pathologist in evaluating cells on ThinPrep Pap tests. Following analysis, vines of interest on the microscopic slide selected by the algorithm are reviewed by a senior research project manager. If a sample requires hierarchical review, the pathologist will review the same vines of interest selected by the algorithm prior to final interpretation. Normal [facility] Comment on above: Order Comment: Speci men Type: FLUID SPECIMEN Ordering Facility: [facility] Address: [address] [place] [address] Performed By: #### L [id number] #### [facility] CLIA [id number] [address] [place] [address] STATES OF [facility] CLIA [id number] [address] [place] [address], [address] [place] [address] [place] MARISSA SCREENING W TOMOon 09-06 MARISSA SCREENING W LIVE * * *Final Report* * * DATE OF EXAM: Sep 06 2024 7:48AM [id number] - MARISSA SCREENING W LIVE / PROCEDURE REASON: Encounter for screening mammogram for malignant neoplasm of breast * * * * Physician Interpretation * * * * RESULT: [facility] [address] [id number] #[id number] - MARISSA SCREENING W LIVE HISTORY: 54 year-old patient presents for screening. Patient is asymptomatic in both breasts. Patient states no personal history of breast cancer. COMPARISON STUDIES: The present examination has been compared to prior imaging studies dated 11/10/2016 (mammogram), 02/23/2018 (mammogram), 10/02/2020 (mammogram), 01/19/2022 (mammogram) and 06/02/2023 (mammogram). MAMMOGRAM TECHNIQUE: The study was acquired using full field digital technology and interpreted from soft copy. Digital Breast Tomosynthesis (DBT) images were obtained and used to assist in the interpretation of this examination. MAMMOGRAM FINDINGS: There are scattered areas of fibroglandular density. No suspicious masses, calcifications or other abnormalities are seen in either breast. There are no significant interval changes. IMPRESSION: There is no mammographic evidence of malignancy in either breast. Routine screening mammogram is recommended. Annual mammogram will be due in 1 year. BI-RADS Category 1: Negative RISK: Based on the Tyrer-Cuzick (TC) risk assessment model, this patient has a 6.9% lifetime risk of developing breast cancer, meaning they are at average risk for developing breast cancer. However, this is only an estimate based on available history provided on the patient's questionnaire. We encourage all patients to talk with their providers about these results, further recommendations for managing breast health, and appropriate supplemental screening options if the patient has dense breast tissue. Interpreting Radiologist: Shirlene Alvarado M.D. Resident/Fellow: Nakia Neumann M.D. Electronically signed on: 09/08/2024 Automotive Product Engineer: SHANTAL Transcribe Date/Time: Sep 06 2024 7:38A Dictated by: NAKIA NEUMANN MD This examination was interpreted and the report reviewed and electronically signed by: SHIRLENE ALVARADO MD on Sep 08 2024 10:29PM EST [id number] Normal [facility] [place] 09-06-2024 Indication Postmenopausal bleeding Impression Uterus 85 x 67 x 48 mm and anteverted Myometrium without direct signs of adenomyosis. There is a small fibroid as noted below Endometrium 2 mm, thin and homogenous Cervix normal No free fluid in the cul-de-sac Right ovary 20 x 17 x 12 mm, normal O RADS one Left ovary 20 x 18 x 12 mm, normal O RADS one Recommendations Endometrial thickness less than 4 mm Solitary fibroid Menstrual History LMP on 08/26/2024. Contraception: tubal sterilization. last LMP was over 1 year ago Method Transabdominal, transvaginal, 3D ultrasound examination, Color Doppler examination. View: Adequate visualization Uterus Uterus: Visualized Uterus position: anteverted Description of uterine malformations: none Myometrium: heterogeneous Endometrium: normal Cervix details: normal Uterus length 85 mm Uterus width 67 mm Uterus height 48 mm Uterus Vol 143.5 cm Endometrial thickness, total 2.1 mm Fibroids: Fibroids identified Uterine fibroid D1 6 mm Uterine fibroid D2 5 mm Uterine fibroid D3 5 mm Uterine fibroid mean 5.3 mm Uterine fibroid vol 0.075 cm Uterine fibroids findings: Posterior midline. intramural , FIGO score: 4 - Intramural Right Ovary Rt ovary: Visualized Rt ovary morphology: postmenopausal atrophic Rt ovary D1 20 mm Rt ovary D2 17 mm Rt ovary D3 12 mm Rt ovary Vol 2.0 cm Left Ovary Lt ovary: Visualized Lt ovary morphology: postmenopausal atrophic Lt ovary D1 20 mm Lt ovary D2 18 mm Lt ovary D3 12 mm Lt ovary Vol 2.3 cm Cul de Sac Visualized. no free fluid visualized Performed By: Jamaica Nichols RDMS Read By: Luz Marina Connelly M.D. MATERNAL MEDICINE [facility] Radiology Study observation (narrative) [facility] CBC panel Auto (Bld)on 08-29 Erythrocyte distribution width (RBC) [Ratio] 14.6 % 11.5 - 15.0 % [facility] Hematocrit (Bld) [Volume fraction] 41.8 % 36.0 - 46.0 % [facility] Hemoglobin (Bld) [Mass/Vol] 13.9 g/dL 11.5 - 15.5 g/dL [facility] Interpretation and review of laboratory results Abnormal [facility] MCH (RBC) [Entitic mass] 29.7 pg 26.0 - 34.0 pg [facility] MCHC (RBC) [Mass/Vol] 33.3 g/dL 30.5 - 36.0 g/dL [facility] MCV (RBC) [Entitic vol] 89.3 fL 80.0 - 100.0 fL [facility] Nucleated RBC (Bld) [#/Vol] NINF [facility] Platelet mean volume (Bld) [Entitic vol] 8.7 fL Low 9.0 - 12.7 fL [facility] Platelets (Bld) [#/Vol] 380 10*3/uL [facility] RBC (Bld) [#/Vol] 4.68 10*6/uL 3.90 - 5.2 0 m/uL [facility] WBC (Bld) [#/Vol] 6.47 10*3/uL [facility] Erythrocyte distribution width (RBC) [Ratio] 14.6 % Normal 11.5-15.0 [facility] Comment on above: Order Comment: Speci men Type: BLOOD SPECIMEN Ordering Facility: [facility] Address: [address] [place] [address] Performed By: #### 5 8410-2 #### [facility] CLIA [id number] [address] [place] [address] [place] Hematocrit (Bld) [Volume fraction] 41.8 % Normal 36.0-46.0 [facility] Comment on above: Order Comment: Speci men Type: BLOOD SPECIMEN Ordering Facility: [facility] Address: [address] [place], [place] [address] Performed By: #### 5 8410-2 #### [facility] CLIA [id number] [address] [place] [address] [place] Hemoglobin (Bld) [Mass/Vol] 13.9 g/dL Normal 11.5-15.5 [facility] Comment on above: Order Comment: Speci men Type: BLOOD SPECIMEN Ordering Facility: [facility] Address: [address] [place], [place] [address] Performed By: #### 5 8410-2 #### [id number] [address] [place] [address] [place] MCH (RBC) [Entitic mass] 29.7 pg Normal 26.0-34.0 [facility] Comment on above: Order Comment: Speci men Type: BLOOD SPECIMEN Ordering Facility: [facility] Address: [address] [place] [address] Performed By: #### 5 8410-2 #### [facility] CLIA [id number] [address] [place] [address] [place] MCHC (RBC) [Mass/Vol] 33.3 g/dL Normal 30.5-36.0 [facility] Comment on above: Order Comment: Speci men Type: BLOOD SPECIMEN Ordering Facility: [facility] Address: [address] [place] [address] Performed By: #### 5 8410-2 #### [facility] CLIA [id number] [address] [place] [address] [place] MCV (RBC) [Entitic vol] 89.3 fL Normal 80.0-100.0 C [facility] Comment on above: Order Comment: Speci men Type: BLOOD SPECIMEN Ordering Facility: [facility] Address: [address] [place] [address] Performed By: #### 5 8410-2 #### [facility] CLIA [id number] [address] [place] [address] [place] Nucleated RBC (Bld) [#/Vol] 10*3/uL Normal <0.01 [facility] Comment on above: Order Comment: Speci men Type: BLOOD SPECIMEN Ordering Facility: [facility] Address: [address] [place] [address] Performed By: #### 5 8410-2 #### [facility] CLIA [id number] [address] [place] [address] [place] Platelet mean volume (Bld) [Entitic vol] 8.7 fL Low 9.0-12.7 [facility] Comment on above: Order Comment: Speci men Type: BLOOD SPECIMEN Ordering Facility: [facility] Address: [address] [place] [address] Performed By: #### 5 8410-2 #### [facility] CLIA [id number] [address] [place] [address] [place] Platelets (Bld) [#/Vol] 380 10*3/uL Normal 150-400 [facility] Comment on above: Order Comment: Speci men Type: BLOOD SPECIMEN Ordering Facility: [facility] Address: [address] [place] [address] Performed By: #### 5 8410-2 #### [facility] CLIA [id number] [address] [place] [address] [place] RBC (Bld) [#/Vol] 4.68 10*6/uL Normal 3.90-5.20 [facility] Comment on above: Order Comment: Speci men Type: BLOOD SPECIMEN Ordering Facility: [facility] Address: [address] [place] [address] Performed By: #### 5 8410-2 #### [facility] CLIA [id number] [address] [place] [address] [place] WBC (Bld) [#/Vol] 6.47 10*3/uL Normal 3.70-11.00 [facility] Comment on above: Order Comment: Speci men Type: BLOOD SPECIMEN Ordering Facility: [facility] Address: [address] [place], [place] [address] Performed By: #### 5 8410-2 #### [facility] CLIA [id number] [address] [place] [address] OF [place] CNOVon 08-29-2024 CNOV Office Visit (OBGYWM ) RADHA DANG ([id number]) 1970 F Date Time Provider Department 08/29/24 11:30 AM MAUREEN ROCHE During your visit today, we recorded the following information about you: Pulse Blood pressure Weight Last Period 74/minute 161/88 81.2 kg 08/12/23 Jason Valle LPN 08/29/2024 11:26 AM Signed Endometrial Biopsy Your provider has recommended an endometrial biopsy. For more information, My [facility] Endometrial Biopsy How do I prepare for an endometrial biopsy? You shouldn?t need to do much to prepare for an endometrial biopsy. Let your healthcare provider know what medications or supplements you take and if you have any allergies. They can let you know if you should stop taking certain medications before the biopsy. Some healthcare providers recommend taking a nonsteroidal anti-inflammatory drug (NSAID) like ibuprofen before the biopsy to help with pain. Your provider may recommend a medication to help prepare your cervix for the biopsy, often taken by mouth one and two days before the procedure. Ask your healthcare provider any questions you have before the procedure so you know exactly what to expect. Generally, an endometrial biopsy is very low-risk and safe. Maureen Roche APRN.PRODUCT SAFETY COMPLIANCE LEADER 08/29/2024 8:06 PM Signed Picture Engraver offered: Patient declines. Obstetrics and Gynecology Conifer INTERACTIVE ART DIRECTOR Visit Subjective Recording using [employer] software for draft documentation of the visit was discussed with the patient/authorized medical claims representative; all questions welcomed and answered. Patient/authorized medical claims representative agreed to proceed CHIEF COMPLAINT: The patient is a 54-year-old female with a history of abnormal Pap smear presenting for evaluation of heavy bleeding and severe cramping after a year of amenorrhea. HPI: Menstrual Irregularities - LMP: August 12, 2023 - Reports no periods for approximately 380 days before the onset of current bleeding. - Bleeding started on Monday, August 26, 2024, and has persisted for 4 days. - Describes bleeding as heavy, requiring pad changes every couple of hours, with bright red blood and small clots (dime-sized) noted in the toilet. - Denies any prior spotting or brown discharge during the year of amenorrhea. - Reports severe cramping across the lower abdomen, with sharp pains in the left lower quadrant starting today. - Cramping and bleeding began simultaneously, with no prior warning. - Cramping is described as worse than previous menstrual cycles, stating, the cramps and the pain is so bad. - Reports feeling lightheaded occasionally but denies any episodes of syncope. - Taking ibuprofen for pain management, but reports it is ineffective. - No history of fibroids. - No history of hot flashes or night sweats. - Last Pap smear in 2020, with a history of an abnormal Pap smear in the early 1999s. - Last pelvic ultrasound in 2014. - Sexually active. HISTORY: OB History Gravida3 Para2 Term0 Preterm0 AB1 Living2 SAB0 IAB0 Ectopic1 Multiple0 Live Births0 Comment: 2 vaginal deliveries Environmental Health Inspector History LMP: 08/12/2023 (Exact Date), Having periods Age at Menarche: Age at First : Age at Menopause: Environmental Health Inspector History Comments: Sexual Activity: Yes; Male; vasectomy Contraception: Surgical PAST MEDICAL HISTORY Diagnosis Date Abnormal Pap smear of cervix 2005 Cerebral palsy (HCC) mild; diagnosed as a child. affects left side Cervical high risk HPV (human papillomavirus) test positive 2005 PAST SURGICAL HISTORY Procedure Laterality Date CHOLECYSTECTOMY 02/27/1998 COLONOSCOPY 02/27/2002 doland COLONOSCOPY SCREENING 2017 normal - Dr Garcia COLPOSCOPY CERVIX UPPER/ADJACENT VAGINA 02/27/[address] Crenshaw CONIZATION OF CERVIX, LEEP 02/27/[address] Crenshaw PAST SURGICAL HISTORY OF Bilateral 01/2022 catarac surgery FAMILY HISTORY Problem Relation Age of Onset None Mother Diabetes Father Hypertension Father Cancer Maternal Grandmother possible ovarian? Cancer Paternal Grandmother not sure what kind Cancer Paternal Grandfather not sure what kind Cancer Maternal Aunt liver Social History Tobacco Use Smoking status: Never Passive exposure: Never Smokeless tobacco: Never Vaping Use Vaping status: Never Used Substance Use Topics Alcohol use: No Drug use: No Current Outpatient Medications Medication Sig amLODIPine (NORVASC) 2.5 mg tablet Take 2.5 mg by mouth once daily. ascorbic acid (VITAMIN C ORAL) Take by mouth. ZINC ORAL Take by mouth. ergocalciferol, vitamin D2, (VITAMIN D2 ORAL) Take by mouth. Lactobacillus acidophilus (PROBIOTIC ORAL) Take by mouth. calcium carb/magnesium ox,carb (CARLA-MAG ORAL) Take by mouth. omeprazole (PRILOSEC) 40 mg capsule Take by mouth. polyethylene glycol 3350 (MIRALAX, GLYCOLAX) 17 gram/dose powder Take 17 g by mouth as ne (more content not included)... Normal [facility] Estradiol [facility] 08-29 E2 [Mass/Vol] pg/mL Normal [facility] Comment on above: Order Comment: Speci men Type: BLOOD SPECIMEN Ordering Facility: [facility] Address: [address] [place] [address] Result Comment: This test is not suitable for patients receiving treatment with the drug Fulvestrant (Faslodex). The drug causes an interference leading to falsely elevated estradiol results. Menstrual cycle Estradiol reference ranges: Follicular : < 234 pg/mL Ovulation : 41 to 398 pg/mL Luteal : < 342 pg/mL Estradiol reference ranges vary by gestational period: First trimester : 154 to 3243 pg/mL Second trimester : 1561 to 81649 pg/mL Third trimester : 8285 to >89118 pg/mL Post-menopausal Estradiol reference range: < 41 pg/mL Reference: 1. Estradiol - E2 (Estradiol III) [package insert V 3.0 Uzbek]. [facility], [place], [place], July 2015. Performed By: #### 1 5067-2, 2242- #### [facility] CLIA [id number] [address] [place] [address] [place] [facility] SerPl-aCncon 08-29-2024 Follitropin Qn 23.8 m[IU]/mL Normal See comment [facility] Comment on above: Order Comment: Speci men Type: BLOOD SPECIMEN Ordering Facility: [facility] Address: [address] [place] [address] Result Comment: Refe rence range: Follicular: 3.5-12.5 mIU/mL Ovulation: 4.7-21.5 mIU/mL Luteal: 1.7-7.7 mIU/mL Postmenopausal: 25.8-134.8 mIU/mL Performed By: #### 1 5067-2, 2242-05 #### [facility] CLIA [id number] [address] [place] [address] [place] HIGH RISK HUMAN PAPILLOMA ZOILA (HPV), PCR FOR DETECTION AND GENOTYPINGon 08-29-2024 HPV 16 Ag Ql (Unsp spec) Not detected Normal Not detected [facility] Comment on above: Order Comment: Speci men Type: BLOOD SPECIMEN Ordering Facility: [facility] Address: [address] [place] [address] Performed By: #### 1 5067-2, 2242-05 #### [facility] CLIA [id number] [address] [place] [address] [place] HPV 18 Ag Ql (Unsp spec) Not detected Normal Not detected [facility] Comment on above: Order Comment: Speci men Type: BLOOD SPECIMEN Ordering Facility: [facility] Address: [address] [place] [address] Performed By: #### 1 5067-2, 3-4 #### [facility] CLIA [id number] [address] [place] [address] [place] HPV 31+33+35+39+45+51+52+56 +58+59+66+68 DNA TELLO+probe Ql (Cvx) Not detected Normal Not detected [facility] Comment on above: Order Comment: Speci men Type: BLOOD SPECIMEN Ordering Facility: [facility] Address: [address] [place] [address] Result Comment: High Risk HPV Other Type includes HPV types 31, 33, 35, 39, 45, 51, 52, 56, 58, 59, 66 and 68. Performed By: #### 1 5067-2, 2243-4 #### [facility] CLIA [id number] [address] [place] [address] [place] PAP TESTon 08-29-2024 ADEQUACY Normal [facility] Comment on above: Order Comment: Speci men Type: FLUID SPECIMEN Ordering Facility: [facility] Address: [address] [place] [address] Result Comment: Unsa tisfactory for evaluation. Limited cellularity. Excess blood Performed By: #### L [id number] #### [facility] CLIA [id number] [address] [place] [address] [place] [facility] CLIA [id number] [address] [place] [address] [place] CLINICAL HISTORY, CYTOLOGY, INTERACTIVE ART DIRECTOR Normal [facility] Comment on above: Order Comment: Speci men Type: FLUID SPECIMEN Ordering Facility: [facility] Address: [address] [place] [address] Result Comment: Abno rmal Bleeding (Describe) Post Menopausal PMB Performed By: #### L [id number] #### [facility] CLIA [id number] [address] [place] [address] [place] [facility] CLIA [id number] [address] [place] [address], [address] [place] [address] [place] GROSS DESCRIPTION A. Cervix Normal [facility] Comment on above: Order Comment: Speci men Type: FLUID SPECIMEN Ordering Facility: [facility] Address: [address] [place] [address] Result Comment: Glac ial Acetic Acid added. Performed By: #### L [id number] #### [facility] CLIA [id number] [address] [place] [address] [place] [facility] CLIA [id number] [address] [place] [address], [address] [place] [address] [place] INTERPRETATION, CYTOLOGY, INTERACTIVE ART DIRECTOR Normal [facility] Comment on above: Order Comment: Speci men Type: FLUID SPECIMEN Ordering Facility: [facility] Address: [address] [place] [address] Result Comment: Unab le to perform interpretation due to unsatisfactory specimen. at 1009 EDT Performed By: #### L [id number] #### [facility] CLIA [id number] [address] [place] [address] [place] [facility] CLIA [id number] [address] [place] [address] [place] PAP DISCLAIMER COMMENT The Pap Smear is a screening test for cervical cancer. False negative results occur with all screening tests, emphasizing the need for rescreening at recommended intervals, and clinical correlation. Normal [facility] Comment on above: Order Comment: Speci men Type: FLUID SPECIMEN Ordering Facility: [facility] Address: [address] [place] [address] Performed By: #### L [id number] #### [facility] CLIA [id number] [address] [place] [address] [place] [facility] CLIA [id number] [address] [place] [address], [address] [place] [address] [place] PAP TIRE FIXER COMMENT This specimen has been analyzed by the FDA-approved P4RC System, which uses digital imaging and an enhanced artificial intelligence image analysis algorithm to identify vines of interest on the microscopic slide, to assist the senior research project manager and pathologist in evaluating cells on ThinPrep Pap tests. Following analysis, vines of interest on the microscopic slide selected by the algorithm are reviewed by a senior research project manager. If a sample requires hierarchical review, the pathologist will review the same vines of interest selected by the algorithm prior to final interpretation. Normal [facility] Comment on above: Order Comment: Speci men Type: FLUID SPECIMEN Order[facility] Facility: [facility] Address: [address] [place] [address] Performed By: #### L [id number] #### [facility] CLIA [id number] [address] [place] [address] [place] [facility] CLIA [id number] [address] [place] [address], [address] [place] [address] OF [facility] Pathology biopsy report Doc (Tiss)on 08-29-2024 AP DISCLAIMER Normal [facility] Comment on above: Order Comment: Speci men Type: TISSUE SPECIMEN Ordering Facility: [facility] Address: [address] [place] [address] Result Comment: Adriana morton Developed Test (LDT) Disclaimer: Performance characteristics of immunohistochemical, immunofluorescent, and chromogenic in-situ hybridization tests have been determined by the performing laboratory within [facility]'s [facility] Pathology and Laboratory Medicine Department ([facility], [facility], [facility], [facility], [facility], [facility], or [facility]) in a manner consistent with CLIA requirements. One or more of these tests may not have been cleared or approved by the FDA. [facility] is regulated under CLIA as qualified to perform high-complexity testing. These tests are used for clinical purposes. These should not be regarded as investigational or for research. Positive and negative controls stain appropriately. Performed By: #### 6 6121-5 #### [facility] CLIA [id number] [address] [place] [address] [place] CLINICAL HISTORY irregular bleeding Normal [facility] Comment on above: Order Comment: Speci men Type: TISSUE SPECIMEN Order[facility] Facility[facility] Address: [address] [place] [address] Performed By: #### 6 6121-5 #### [facility] CLIA [id number] [address] [place] [address] [place] FINAL DIAGNOSIS Normal [facility] Comment on above: Order Comment: Speci men Type: TISSUE SPECIMEN Ordering Facility: [facility] Address: [address] [place] [address] Result Comment: A. E ndometrium, biopsy: - Superficial inactive endometrium with stromal breakdown. at 1232 EDT Performed By: #### 6 6121-5 #### [facility] CLIA [id number] [address] [place] [address] [place] GROSS DESCRIPTION Normal [facility] Comment on above: Order Comment: Speci men Type: TISSUE SPECIMEN Ordering Facility: [facility] Address: [address] [place] [address] Result Comment: A. E ndometrium, Biopsy Received in formalin are multiple brown, soft feathery segments of tissue aggregating to 2.5 x 2.0 x 0.4 cm. Totally submitted in one cassette. Gross examination performed at [facility], [address] [place] [address] FFS 08/29/2024 11:38 PM Performed By: #### 6 6121-5 #### [facility] [place] [id number] [address] [place] [address] [place] Tiss Path Bx reporton 2024 CASE REPORT Normal [facility] Comment on above: Order Comment: Speci men Type: TISSUE SPECIMEN Ordering Facility: [facility] Address: [address] [place] [address] Result Comment: Surg [facility] Pathology Report Case: [id number] Authorizing Provider: Maureen Roche APRN.PRODUCT SAFETY COMPLIANCE LEADER Collected: 08/29/2024 12:29 PM Ordering Location: OB/Gynecology Received: 08/29/2024 02:58 PM Pathologist: Asa Gonzalez MD, PhD Specimen: Endometrium, Biopsy Performed By: #### 6 6121-5 #### [facility] CLIA [id number] [address] [place] [address] Order Comment: Speci men Type: FLUID SPECIMEN Order[facility] Facility: [facility] Address: [address] [place] [address] Result Comment: Gyne cologic Cytology Report Case: [id number] Authorizing Provider: Maureen Roche APRN.PRODUCT SAFETY COMPLIANCE LEADER Collected: 08/29/2024 12:29 PM Ordering Location: OB/Gynecology Received: 08/29/2024 02:52 PM First Screen: Jules Quintanilla Tech Pathologist: Nancy Terrell MD Specimen: Pap Test, ThinPrep, Cervix Performed By: #### L [id number] #### [facility] CLIA [id number] [address] [place] [address] [place] [facility] CLIA [id number] [facility] [address]ILDING [address] FINAL PERFORMING LAB Normal [place] Comment on above: Order Comment: Speci men Type: TISSUE SPECIMEN Ordering Facility: [facility] Address: [address] [place] [address] Result Comment: Diag nostic interpretation performed at: [facility], [address] [place] [address] CLIA# [id number] Roller Skate Repairer: Johnnie Kulkarni MD Performed By: #### 6 6121-5 #### [facility] CLIA [id number] [address] [place] [address] OF [place] Order Comment: Speci men Type: FLUID SPECIMEN Ordering Facility: [facility] Address: [address] [place] [address] Result Comment: Tech nical component, starter mechanic screening performed at: [facility], [address] [place] [address], [address] [place] [address] CLIA: [id number] Diagnostic interpretation performed at: [facility], [address] [facility], Desk [place] [address] CLIA# [id number] Roller Skate Repairer: Johnnie Kulkarni MD Performed By: #### L [id number] #### [facility] CLIA [id number] [address] [facility] [address] OF [facility] CLIA [id number] [address] [place] [address] 3, [address] [place] [address] CNPNon 08-27-2024 CNPN Telephone (4CQ) RADHA DANG ([id number]) 1970 F Date Time Provider Department 08/27/24 KACY COLLINS 4CQ During your visit today, we recorded the following information about you: Aubree Rodriguez 08/27/2024 3:19 PM Signed Pt needs Mammo ordered Augustina Banda RN 08/27/2024 3:29 PM Signed Please file mammogram order. Will need forward to PSS to schedule then. Augustina Banda RN Allergies As of Date: 08/27/2024 Noted Allergy Reaction LATEX 04/13/2010 2 - Rash NICKEL 04/13/2010 2 - Rash Date Reviewed: 05/30/2023 Reviewed by: Maureen Roche, COMPLAINT EVALUATION SUPERVISOR.PRODUCT SAFETY COMPLIANCE LEADER - Fully Assessed Reason for Visit: Orders [681] Primary Visit Diagnosis:Encounter for screening mammogram for malignant neoplasm of breast [Z12.31] Order(s):MARISSA SCREENING W LIVE [[id number]] Order #: [id number] FUTURE Prescriptions as of 08/27/2024 - nystatin (NYSTOP) powder Apply 1 application to affected area four times daily. - ascorbic acid (VITAMIN C ORAL) Take by mouth. - ZINC ORAL Take by mouth. - ergocalciferol, vitamin D2, (VITAMIN D2 ORAL) Take by mouth. - Lactobacillus acidophilus (PROBIOTIC ORAL) Take by mouth. - calcium carb/magnesium ox,carb (CARLA-MAG ORAL) Take by mouth. - omeprazole (PRILOSEC) 40 mg capsule Take by mouth. - polyethylene glycol 3350 (MIRALAX, GLYCOLAX) 17 gram/dose powder Take 17 g by mouth as needed. - loratadine (CLARITIN) 10 mg tablet Take 10 mg by mouth once daily. - Mauldin-3 Fatty Acids 500 mg cap Take one(1) capsule daily. - Flaxseed Oil 1,000 mg ORAL Cap Take one(1) tablet daily. - multivitamin tablet Take one(1) tablet daily. Problem List As Of Date 08/27/2024 Noted Resolved Vaginitis and vulvovaginitis [N76.0] 01/10/2012 Vaginitis [N76.0] 01/13/2012 Encounter Status:Closed by MAUREEN ROCHE on 08/27/24 Normal [facility] CBC W/Diff, Automatedon 09-0 Absolute Lymph 2.49 X10 3/uL Normal 0.83-4.51 [facility] Comment on above: Performed By: #### L 502.0250, L400.2010, L100.0100, L500.4100, L500.4050, L400.0001 #### [facility] [address] [place], [address] Absolute Neut 3.7 X10 3/uL Normal 2.0-7.7 [facility] Comment on above: Performed By: #### L 502.0250, L400.2010, L100.0100, L500.4100, L500.4050, L400.0001 #### [facility] [address] [place], [address] Basophils/100 WBC (Bld) 0.4 % Normal 0-1 [facility] Comment on above: Performed By: #### L 502.0250, L400.2010, L100.0100, L500.4100, L500.4050, L400.0001 #### [facility] [address] [place], [address] Eosinophils/100 WBC (Bld) 2.2 % Normal 0-5 [facility] Comment on above: Performed By: #### L 502.0250, L400.2010, L100.0100, L500.4100, L500.4050, L400.0001 #### [facility] [address] [place], [address] Erythrocyte distribution width (RBC) [Ratio] 14.5 % Normal 11.6-14.6 [facility] Comment on above: Performed By: #### L 502.0250, L4, L100.0100, L500.4100, L500.4050, L400.0001 #### [facility] [address] [place], [address] Hematocrit (Bld) [Volume fraction] 44.1 % Normal 37-47 [facility] Comment on above: Performed By: #### L 502.0250, L4, L100.0100, L500.4100, L500.4050, L400.0001 #### [facility] [address] [place], [address] Hemoglobin (Bld) [Mass/Vol] 14.0 g/dL Normal 12.0-15.0 [facility] Comment on above: Performed By: #### L 502.0250, L400, L100.0100, L500.4100, L500.4050, L400.0001 #### [facility] [address] [place], [address] IG% 0.100 Normal 0.0-0.9 [facility] Comment on above: Result Comment: IG% - Immature Granulocytes (promyelocytes, myelocytes and metamyelocytes) > 1% indicates that a LEFT SHIFT is Present. Performed By: #### L 502.0250, L400.2010, L100.0100, L500.4100, L500.4050, L400.0001 #### [facility] [address] [place], [address] Lymphocytes/100 WBC (Bld) 35.9 % Normal 19-41 [facility] Comment on above: Performed By: #### L 502.0250, L400.2010, L100.0100, L500.4100, L500.4050, L400.0001 #### [facility] [address] [place], [address] MCH (RBC) [Entitic mass] 29.0 pg Normal 27.0-32.0 [facility] Comment on above: Performed By: #### L 502.0250, L4, L100.0100, L500.4100, L500.4050, L400.0001 #### [facility] [address] [place], [address] MCHC (RBC) [Mass/Vol] 31.7 g/dL Low 32-36 [facility] Comment on above: Performed By: #### L 502.0250, L4.2010, L100.0100, L500.4100, L500.4050, L400.0001 #### [facility] [address] [place], [address] MCV (RBC) [Entitic vol] 91.3 fL Normal 81-99 [facility] Comment on above: Performed By: #### L 502.0250, L400.2010, L100.0100, L500.4100, L500.4050, L400.0001 #### [facility] [address] [place], [address] Monocytes/100 WBC (Bld) 8.2 % Normal 0-10 [facility] Comment on above: Performed By: #### L 502.0250, L4, L100.0100, L500.4100, L500.4050, L400.0001 #### [facility] [address] [place], [address] Neutrophils/100 WBC (Bld) 53.2 % Normal 47-70 [facility] Comment on above: Performed By: #### L 502.0250, L400.2010, L100.0100, L500.4100, L500.4050, L400.0001 #### [facility] [address] [place], [address] Nucleated RBC (Bld) [#/Vol] 0 10*3/uL Normal 0-5 [facility] Comment on above: Performed By: #### L 502.0250, L400.2010, L100.0100, L500.4100, L500.4050, L400.0001 #### [facility] [address] [place], [address] Platelet mean volume (Bld) [Entitic vol] 9.3 fL Normal 6.2-12.0 [facility] Comment on above: Performed By: #### L 502.0250, L400, L100.0100, L500.4100, L500.4050, L400.0001 #### [facility] [address] [place], [address] Platelets (Bld) [#/Vol] 336 10*3/uL Normal 150-450 [facility] Comment on above: Performed By: #### L 502.0250, L400, L100.0100, L500.4100, L500.4050, L400.0001 #### [facility] [address] [place], [address] RBC (Bld) [#/Vol] 4.83 10*6/uL Normal 4.2-5.4 [facility] Comment on above: Performed By: #### L 502.0250, L400, L100.0100, L500.4100, L500.4050, L400.0001 #### [facility] [address] [place], [address] RDW SD 48.6 fl High 35.1-43.9 [facility] Comment on above: Performed By: #### L 502.0250, L400.2010, L100.0100, L500.4100, L500.4050, L400.0001 #### [facility] [address] [place], [address] WBC (Bld) [#/Vol] 6.9 10*3/uL Normal 4.4-11.0 [facility] Comment on above: Performed By: #### L 502.0250, L400.2010, L100.0100, L500.4100, L500.4050, L400.0001 #### [facility] [address] [place], [address] [facility] Albumin [Mass/Vol] 3.4 g/dL Normal 3.2-5.0 [facility] Comment on above: Performed By: #### L 502.0250, L400.2010, L100.0100, L500.4100, L500.4050, L400.0001 #### [facility] [address] [place], [address] Albumin/Globulin [Mass ratio] 0.8 {ratio} Low 0.9-2.4 [facility] Comment on above: Performed By: #### L 502.0250, L400.2010, L100.0100, L500.4100, L500.4050, L400.0001 #### [facility] [address] [place], [address] ALK P 109 U/L Normal 45-117 [facility] Comment on above: Performed By: #### L 502.0250, L400.2010, L100.0100, L500.4100, L500.4050, L400.0001 #### [facility] [address] [place], [address] ALT [Catalytic activity/Vol] 46 U/L Normal 13-56 [facility] Comment on above: Performed By: #### L 502.0250, L400.2010, L100.0100, L500.4100, L500.4050, L400.0001 #### [facility] [address] [place], [address] AST [Catalytic activity/Vol] 21 U/L Normal 15-37 [facility] Comment on above: Performed By: #### L 502.0250, L4.2010, L100.0100, L500.4100, L500.4050, L400.0001 #### [facility] [address] [place], [address] Bilirubin [Mass/Vol] 0.30 mg/dL Normal 0.20-1.00 [facility] Comment on above: Result Comment: For patients on eltrombopag therapy, use of Dimension [place] TBIL is not recommended. Performed By: #### L 502.0250, L4.2010, L100.0100, L500.4100, L500.4050, L400.0001 #### [facility] [address] [place], [address] BUN/CRE 20.7 RATIO High 10-20 [facility] Comment on above: Performed By: #### L 502.0250, L400.2010, L100.0100, L500.4100, L500.4050, L400.0001 #### [facility] [address] [place], [address] CA,Total 9.9 mg/dL Normal 8.5-10.1 [facility] Comment on above: Performed By: #### L 502.0250, L400, L100.0100, L500.4100, L500.4050, L400.0001 #### [facility] [address] [place], [address] Chloride [Moles/Vol] 105 mmol/L Normal 98-107 [facility] Comment on above: Performed By: #### L 502.0250, L400.2010, L100.0100, L500.4100, L500.4050, L400.0001 #### [facility] [address] [place], [address] CO2 [Moles/Vol] 29.0 mmol/L Normal 21.0-32.0 [facility] Comment on above: Performed By: #### L 502.0250, L4, L100.0100, L500.4100, L500.4050, L400.0001 #### [facility] [address] [place], [address] Creatinine [Mass/Vol] 0.63 mg/dL Normal 0.55-1.02 [facility] Comment on above: Result Comment: The validity of the calculated GFR GFRAA in patients over 70 years has not been determined. Clinical correlation is essential. Performed By: #### L 502.0250, L400.2010, L100.0100, L500.4100, L500.4050, L400.0001 #### [facility] [address] [place], [address] EST GFR - AA 127 mL/min Normal >60 [facility] Comment on above: Result Comment: Afri can Banglades[place] GFR Calc Performed By: #### L 502.0250, L400.2010, L100.0100, L500.4100, L500.4050, L400.0001 #### [facility] [address] [place], [address] GAP 6 Normal 5-15 [facility] Comment on above: Performed By: #### L 502.0250, L400, L100.0100, L500.4100, L500.4050, L400.0001 #### [facility] [address] [place], [address] GFR/1.73 sq M.predicted among non-blacks MDRD (S/P/Bld) [Vol rate/Area] 105 mL/min/{1.73_m2} Normal >60 [facility] Comment on above: Result Comment: Non- GFR Calc Performed By: #### L 502.0250, L400.2010, L100.0100, L500.4100, L500.4050, L400.0001 #### [facility] [address] [place], [address] Globulin (S) [Mass/Vol] 4.3 g/dL High 2.2-4.2 [facility] Comment on above: Performed By: #### L 502.0250, L400.2010, L100.0100, L500.4100, L500.4050, L400.0001 #### [facility] [address] [place], [address] Glucose [Mass/Vol] 95 mg/dL Normal 74-106 [facility] Comment on above: Performed By: #### L 502.0250, L400.2010, L100.0100, L500.4100, L500.4050, L400.0001 #### [facility] [address] [place], [address] Potassium [Moles/Vol] 3.8 mmol/L Normal 3.5-5.1 [facility] Comment on above: Performed By: #### L 502.0250, L400.2010, L100.0100, L500.4100, L500.4050, L400.0001 #### [facility] [address] [place], [address] Sodium [Moles/Vol] 140 mmol/L Normal 136-145 [facility] Comment on above: Performed By: #### L 502.0250, L400.2010, L100.0100, L500.4100, L500.4050, L400.0001 #### [facility] [address] [place], [address] T PROT 7.7 g/dL Normal 6.4-8.2 [facility] Comment on above: Performed By: #### L 502.0250, L400, L100.0100, L500.4100, L500.4050, L400.0001 #### [facility] [address] [place], [address] Urea nitrogen [Mass/Vol] 13 mg/dL Normal 7-18 [facility] Comment on above: Performed By: #### L 502.0250, L400, L100.0100, L500.4100, L500.4050, L400.0001 #### [facility] [address] [place], [address] Lipid Profileon 11-06-2023 Cholesterol [Mass/Vol] 196 mg/dL Normal 200 [facility] Comment on above: Result Comment: <200 mg/dL Desirable 200-240 mg/dL Borderline >240 mg/dL High Risk Performed By: #### L 502.0250, L400.2010, L100.0100, L500.4100, L500.4050, L400.0001 #### [facility] [address] [place], [address] Cholesterol in HDL [Mass/Vol] 55 mg/dL Normal [facility] Comment on above: Result Comment: The drugs N-Acetylcysteine and Metamizole may falsely depress this assay. Reference Range HDL <40 mg/dL Low HDL Cholesterol HDL >or= 60 mg/dL High HDL Cholesterol Performed By: #### L 502.0250, L400.2010, L100.0100, L500.4100, L500.4050, L400.0001 #### [facility] [address] [place], [address] Cholesterol in LDL [Mass/Vol] 110 mg/dL Normal 0-130 [facility] Comment on above: Performed By: #### L 502.0250, L400.2010, L100.0100, L500.4100, L500.4050, L400.0001 #### [facility] [address] [place], [address] Cholesterol in VLDL [Mass/Vol] 31 mg/dL Normal 5-40 [facility] Comment on above: Performed By: #### L 502.0250, L400.2010, L100.0100, L500.4100, L500.4050, L400.0001 #### [facility] [address] [place], [address] Triglyceride [Mass/Vol] 153 mg/dL Normal [facility] Comment on above: Result Comment: The drugs N-Acetylcysteine and Metamizole may falsely depress this assay. Serum Triglycerides Reference Interval Normal <150 mg/dL Borderline high 150 - 199 mg/dL High 200 - 499 mg/dL Very High > or = 500 mg/dL Performed By: #### L 502.0250, L400.2010, L100.0100, L500.4100, L500.4050, L400.0001 #### [facility] [address] [place], [address] Microalb:Creat Ratio,Random URon 11-06-2023 Creatinine [Mass/Vol] 120.00 mg/dL Normal NO RANGE EST . [facility] Comment on above: Performed By: #### L 100.0100, L500.2500 #### [facility] [address] [place], [address] MALB:CRE 10.2 mg/g CRE Normal <30 mg/g CRE [facility] Comment on above: Performed By: #### L 100.0100, L500.2500 #### [facility] [address] [place], [address] MICROALBUMIN,UR 12.3 mg/L Normal NO RANGE EST. [facility] Comment on above: Performed By: #### L 100.0100, L500.2500 #### [facility] [address] [place], [address] Urinalysis, Completeon 11-05 EPI,SQUAMOUS 0-5 SEEN Normal 5-10 [facility] Comment on above: Order Comment: Urine , Random Performed By: #### L 100.0100, L500.2500 #### [facility] [address] [place], [address] WBC 0-5 SEEN Normal 0-5 [facility] Comment on above: Order Comment: Urine , Random Performed By: #### L 100.0100, L500.2500 #### [facility] [address] [place], [address] BACTERIA 0 SEEN Normal None Seen [facility] Comment on above: Order Comment: Urine , Random Performed By: #### L 100.0100, L500.2500 #### [facility] [address] [place], [address] Mucus Ql (Urine sed) 0 SEEN Normal [facility] Comment on above: Order Comment: Urine , Random Performed By: #### L 100.0100, L500.2500 #### [facility] [address] [place], [address] RBC 0 SEEN Normal 0-5 [facility] Comment on above: Order Comment: Urine , Random Performed By: #### L 100.0100, L500.2500 #### [facility] [address] [place], [address] Urinalysis, Routine (Dipstic k)on 11-06-2023 Clarity (U) Clear Normal Clear [facility] Comment on above: Order Comment: Urine , Random Performed By: #### L 502.0250, L400.2010, L100.0100, L500.4100, L500.4050, L400.0001 #### [facility] [address] [place], [address] Color (U) YELLOW Normal Yellow [facility] Comment on above: Order Comment: Urine , Random Performed By: #### L 502.0250, L400.2010, L100.0100, L500.4100, L500.4050, L400.0001 #### [facility] [address] [place], [address] BILIRUBIN URINE Negative Normal Negative [facility] Comment on above: Order Comment: Urine , Random Performed By: #### L 502.0250, L400.2010, L100.0100, L500.4100, L500.4050, L400.0001 #### [facility] [address] [place], [address] GLUCOSE, UR Normal Normal Normal [facility] Comment on above: Order Comment: Urine , Random Performed By: #### L 502.0250, L400.2010, L100.0100, L500.4100, L500.4050, L400.0001 #### [facility] [address] [place], [address] KETONE UR Negative Normal Negative [facility] Comment on above: Order Comment: Urine , Random Performed By: #### L 502.0250, L400.2010, L100.0100, L500.4100, L500.4050, L400.0001 #### [facility] [address] [place], [address] LEUK ESTERASE 25 /ul Abnormal Negative [facility] Comment on above: Order Comment: Urine , Random Performed By: #### L 502.0250, L400.2010, L100.0100, L500.4100, L500.4050, L400.0001 #### [facility] [address] [place], [address] Nitrite Ql (U) Negative Normal Negative [facility] Comment on above: Order Comment: Urine , Random Performed By: #### L 502.0250, L400.2010, L100.0100, L500.4100, L500.4050, L400.0001 #### [facility] [address] [place], [address] OCCULT BLOOD-UR Negative Normal Negative [facility] Comment on above: Order Comment: Urine , Random Performed By: #### L 502.0250, L400.2010, L100.0100, L500.4100, L500.4050, L400.0001 #### [facility] [address] [place], [address] pH UR 6.5 Normal 5.0 - 8.0 [facility] Comment on above: Order Comment: Urine , Random Performed By: #### L 502.0250, L400.2010, L100.0100, L500.4100, L500.4050, L400.0001 #### [facility] [address] [place], [address] PROT DIPSTX Negative Normal Negative [facility] Comment on above: Order Comment: Urine , Random Performed By: #### L 502.0250, L400.2010, L100.0100, L500.4100, L500.4050, L400.0001 #### [facility] [address] [place], [address] SP.GR. DIPSTX 1.015 Normal 1.002-1.030 [facility] Comment on above: Order Comment: Urine , Random Performed By: #### L 502.0250, L400.2010, L100.0100, L500.4100, L500.4050, L400.0001 #### [facility] [address] [place], [address] UROBILI Normal Normal Normal [facility] Comment on above: Order Comment: Urine , Random Performed By: #### L 502.0250, L400.2011, L100.0100, L500.4100, L500.4050, L400.0001 #### [facility] [address] [place], [address] Absolute lymphocyte countOrd ered By: Mario Decker on 04-28-2023 Lymphocytes Auto (Unsp spec) [#/Vol] 1.85 10*3/uL 0.83-4.51 [facility] Automated lymphocyte count a s percentage of total leukocytesOrdered By: Mario Decker on 04-28-2023 Lymphocytes/100 WBC Auto (Unsp spec) 23.2 % 19-41 [facility] Basic Metabolic Profile (BMP )on 04-28-2023 BUN/CRE 22.9 RATIO High 10-20 [facility] Comment on above: Performed By: #### L 100.0100, L500.2500 #### [facility] [address] [place], [address] CA,Total 9.3 mg/dL Normal 8.5-10.1 [facility] Comment on above: Performed By: #### L 100.0100, L500.2500 #### [facility] [address], [address] Chloride [Moles/Vol] 109 mmol/L High 98-107 [facility] Comment on above: Performed By: #### L 100.0100, L500.2500 #### [facility] [address] [place], [address] CO2 [Moles/Vol] 25.0 mmol/L Normal 21.0-32.0 [facility] Comment on above: Performed By: #### L 100.0100, L500.2500 #### [facility] [address] [place], [address] Creatinine [Mass/Vol] 0.70 mg/dL Normal 0.55-1.02 [facility] Comment on above: Result Comment: The validity of the calculated GFR GFRAA in patients over 70 years has not been determined. Clinical correlation is essential. Performed By: #### L 100.0100, L500.2500 #### [facility] [address] [place], [address] ECRCL 97.14 ml/min Normal [facility] Comment on above: Performed By: #### L 100.0100, L500.2500 #### [facility] [address] [place], [address] EST GFR - AA 113 mL/min Normal >60 [facility] Comment on above: Result Comment: Afri can [place] GFR Calc Performed By: #### L 100.0100, L500.2500 #### [facility] [address] [place], [address] GAP 4 Low 5-15 [facility] Comment on above: Performed By: #### L 100.0100, L500.2500 #### [facility] [address] [place], [address] GFR/1.73 sq M.predicted among non-blacks MDRD (S/P/Bld) [Vol rate/Area] 93 mL/min/{1.73_m2} Normal >60 [facility] Comment on above: Result Comment: Non- GFR Calc Performed By: #### L 100.0100, L500.2500 #### [facility] [address] [place], [address] Glucose [Mass/Vol] 100 mg/dL Normal 74-106 [facility] Comment on above: Result Comment: Fast ing Glucose result from 100 to 125 mg/dL suggests IMPAIRED HOMEOSTASIS per A.D.A. criteria. Performed By: #### L 100.0100, L500.2500 #### [facility] [address] [place], [address] Potassium [Moles/Vol] 3.8 mmol/L Normal 3.5-5.1 [facility] Comment on above: Performed By: #### L 100.0100, L500.2500 #### [facility] [address] [place], [address] Sodium [Moles/Vol] 138 mmol/L Normal 136-145 [facility] Comment on above: Performed By: #### L 100.0100, L500.2500 #### [facility] [address] [place], [address] Urea nitrogen [Mass/Vol] 16 mg/dL Normal 7-18 [facility] Comment on above: Performed By: #### L 100.0100, L500.2500 #### [facility] [address] [place], [address] Basophil percentageOrdered B y: Mario Decker on 04-28-2023 Basophils/100 WBC (Bld) 0.8 % 0-1 [facility] Chloride [Moles/Vol] 109 mmol/L 98-107 [facility] Eosinophils/100 WBC (Bld) 2.1 % 0-5 [facility] Glucose [Mass/Vol] 100 mg/dL 74-106 [facility] Comment on above: Fasting Glucose resu lt from 100 to 125 mg/dL suggests IMPAIRED HOMEOSTASIS per A.D.A. criteria. Hemoglobin (Bld) [Mass/Vol] 13.7 g/dL 12.0-15.0 [facility] Monocytes/100 WBC (Bld) 8.1 % 0-10 [facility] Neutrophils (Bld) [#/Vol] 5.2 10*3/uL 2.0-7.7 [facility] Neutrophils/100 WBC (Bld) 65.4 % 47-70 [facility] Potassium [Moles/Vol] 3.8 mmol/L 3.5-5.1 [facility] Sodium [Moles/Vol] 138 mmol/L 136-145 [facility] WBC (Bld) [#/Vol] 8.0 10*3/uL 4.4-11.0 [facility] Brain/Head without Contrasto n 04-28-2023 Brain/Head without Contrast [facility] [address] [place] [address] Brain/Head without Contrast MR#: [id number] Acct: [id number] Name: RADHA DANG RAI Rep #: [id number] : 1970 F 53 From: Minor thomas MD PCP: Dr. Kacy Collins, DO Status: REG ER Study: Brain/Head without Contrast Date of Exam: 03/22 Exam# [id number] Ordering Dr: Mario Decker MD [id number] STUDY: CT BRAIN WITHOUT CONTRAST REASON FOR EXAM: Female, 53 years old. Headache and sinus pain RADIATION DOSAGE (If Supplied By Facility): CTDIvol = ( 44.99 ) mGy, DLP = ( 796.11 ) mGycm TECHNIQUE: Transaxial CT imaging of the brain was performed without administration of intravenous contrast material. Individualized dose optimization techniques were used for this CT. COMPARISON: Comparison is made with prior study dated February 04, 2020. FINDINGS: Normal soft tissue structures. Normal calvarium. Normal size ventricles and extra-axial spaces for the patient''s age. Normal white matter tracts of the cerebral hemispheres. Normal basal ganglia and thalami. Normal brainstem. Normal cerebellum. There is no intracranial hemorrhage. There are no findings of an acute ischemic infarction. Mucosal thickening is seen at the base of both maxillary sinus. CT/Brain/Head without Contrast IMPRESSION: Normal unenhanced CT scan of the brain. Mucosal thickening is seen at the base of both maxillary sinuses. Electronically Signed: Minor Saenz MD at 14:45 EST , CC: Dr. Mario Decker MD; Dr. Kacy Collins DO Automotive Product Engineer: Signed Normal [facility] CBC W/Diff, Automatedon 03-0 Absolute Lymph 1.85 X10 3/uL Normal 0.83-4.51 [facility] Comment on above: Performed By: #### L 100.0100, L500.2500 #### [facility] [address] [place], [address] Absolute Neut 5.2 X10 3/uL Normal 2.0-7.7 [facility] Comment on above: Performed By: #### L 100.0100, L500.2500 #### [facility] [address] [place], [address] Basophils/100 WBC (Bld) 0.8 % Normal 0-1 [facility] Comment on above: Performed By: #### L 100.0100, L500.2500 #### [facility] [address] [place], [address] Eosinophils/100 WBC (Bld) 2.1 % Normal 0-5 [facility] Comment on above: Performed By: #### L 100.0100, L500.2500 #### [facility] [address] [place], [address] Erythrocyte distribution width (RBC) [Ratio] 14.0 % Normal 11.6-14.6 [facility] Comment on above: Performed By: #### L 100.0100, L500.2500 #### [facility] [address] [place], [address] Hematocrit (Bld) [Volume fraction] 42.4 % Normal 37-47 [facility] Comment on above: Performed By: #### L 100.0100, L500.2500 #### [facility] [address] [place], [address] Hemoglobin (Bld) [Mass/Vol] 13.7 g/dL Normal 12.0-15.0 [facility] Comment on above: Performed By: #### L 100.0100, L500.2500 #### [facility] [address] [place], [address] IG% 0.400 Normal 0.0-0.9 [facility] Comment on above: Result Comment: IG% - Immature Granulocytes (promyelocytes, myelocytes and metamyelocytes) > 1% indicates that a LEFT SHIFT is Present. Performed By: #### L 100.0100, L500.2500 #### [facility] [address] [place], [address] Lymphocytes/100 WBC (Bld) 23.2 % Normal 19-41 [facility] Comment on above: Performed By: #### L 100.0100, L500.2500 #### [facility] [address] [place], [address] MCH (RBC) [Entitic mass] 28.8 pg Normal 27.0-32.0 [facility] Comment on above: Performed By: #### L 100.0100, L500.2500 #### [facility] [address] [place], [address] MCHC (RBC) [Mass/Vol] 32.3 g/dL Normal 32-36 [facility] Comment on above: Performed By: #### L 100.0100, L500.2500 #### [facility] [address] [place], [address] MCV (RBC) [Entitic vol] 89.3 fL Normal 81-99 [facility] Comment on above: Performed By: #### L 100.0100, L500.2500 #### [facility] [address] [place], [address] Monocytes/100 WBC (Bld) 8.1 % Normal 0-10 [facility] Comment on above: Performed By: #### L 100.0100, L500.2500 #### [facility] [address] [place], [address] Neutrophils/100 WBC (Bld) 65.4 % Normal 47-70 [facility] Comment on above: Performed By: #### L 100.0100, L500.2500 #### [facility] [address] [place], [address] Nucleated RBC (Bld) [#/Vol] 0 10*3/uL Normal 0-5 [facility] Comment on above: Performed By: #### L 100.0100, L500.2500 #### [facility] [address] [place], [address] Platelet mean volume (Bld) [Entitic vol] 8.4 fL Normal 6.2-12.0 [facility] Comment on above: Performed By: #### L 100.0100, L500.2500 #### [facility] [address] [place], [address] Platelets (Bld) [#/Vol] 400 10*3/uL Normal 150-450 [facility] Comment on above: Performed By: #### L 100.0100, L500.2500 #### [facility] [address] [place], [address] RBC (Bld) [#/Vol] 4.75 10*6/uL Normal 4.2-5.4 [facility] Comment on above: Performed By: #### L 100.0100, L500.2500 #### [facility] [address] [place], [address] RDW SD 45.7 fl High 35.1-43.9 [facility] Comment on above: Performed By: #### L 100.0100, L500.2500 #### [facility] [address] [place], [place], [address] WBC (Bld) [#/Vol] 8.0 10*3/uL Normal 4.4-11.0 [facility] Comment on above: Performed By: #### L 100.0100, L500.2500 #### [facility] [address] [place], [address] Determination of erythrocyte mean corpuscular volume (MCV)Ordered By: Mario Decker on 04-28-2023 MCV (RBC) [Entitic vol] 89.3 fL 81-99 [facility] Emergency Department Summary on 04-28-2023 Emergency Department Summary [facility] Medical Records Department [address] [place] [address] Emergency Department Summary 04/28/23 MR#: [id number] Acct: [id number] Name: RADHA DANG RAI Rep #: [id number] : 1970 53 From: Mario Decker MD PCP: Dr. Kacy Collins, DO Status:REG ER Location: ED HPI History of Present Illness Chief Complaint: Hypertension Informant: patient Onset/Context/Timing Onset: Days Context: Gradual Onset Timing: Intermittent Current Severity: Mild Maximum Severity: Mild Narrative Narrative: 53-year-old female recently saw her primary care physician's office who started on Augmentin for possible sinus infection and as needed hydralazine for high blood pressure. She was treated for h igh blood pressure in the past that got better so she stopped the medication. She is not treated chronically for hypertension. She then saw the nurse practitioner primary care physician's office the other day who put her on hydralazine as needed if her pressures elevated. She denies any chest pain. She has sinus congestion and headache. No vomiting or diarrhea. Prior similar symptoms: Yes Recent Illness/Hospitalizati on: No PFSH PFSH Medical History no medical history no medical history Home Medications Omeprazole [Prilosec] 40 mg PO DAILY 07/20/13 [History Last Taken Unknown] ofloxacin 0.3 % eye drops 1 drp RIGHT EYE DAILY 02/03/22 [History Last Taken Unknown] oxycodone-acetaminoph en 5 mg-325 mg tablet (Percocet) 1 tab PO Q6H PRN pain 3 days #12 tabs 02/03/22 [Rx Last Taken Unknown] amlodipine 5 mg tablet 5 mg PO DAILY #30 tabs 02/04/22 [Rx Last Taken Unknown] tizanidine 4 mg capsule (Zanaflex) 4 mg PO Q8H PRN muscle spasticity #21 caps 02/04/22 [Rx Last Taken Unknown] Allergy/AdvReac Type Severity Reaction Status Date / Time latex Allergy Rash Verified 02/03/22 19:10 Family History Other Breast cancer CVA (cerebral vascular accident) Surgical History Cataract extraction status, right eye Social History Smoking Status: Never smoker ROS ROS ED ROS Narrative Elevated blood pressure. Sinus drainage and congestion. Review of Systems ROS Unobtainable: Denies due to encephalopathy Constitutional Constitutional ED: Denies chills or fever(s) Eyes Eyes: Denies blurry vision ENT ENT ED: Denies ear pain Cardiovascular Cardiovascular: Denies chest pain or palpitations Respiratory/Chest Respiratory/Chest: Denies cough or dyspnea Gastrointestinal Gastrointestinal: Denies abdominal pain, constipation, diarrhea, melena, nausea or vomiting Genitourinary Genitourinary ED: Denies dysuria or hematuria Musculoskeletal Musculoskeletal: Denies arthralgias or back pain Integumentary Denies abscess or Abrasions Neurologic Neurologic: Reports headache(s) Psychiatric Psychiatric: Denies anxiety or depression Endocrine Endocrinology: Denies cold intolerance, heat intolerance, polydipsia, polyphagia or polyuria Hematologic/Lymphatic Hematologic/Lymphatic : Reports none Allergic/Immunologic Allergic/Immunologic ED: Denies mouth swelling, tongue swelling or urticaria EXAM Physical Exam Narrative Exam Narrative: 53-year-old female no acute distress initial blood pressure 169/93. Patient does not look septic toxic or in any distress. Pulse ox 98% on room air no hypoxia. H EENT exam nasal congestion. No frontal maxillary sinus tenderness. TMs normal bilaterally. Given dry reactive light. No trauma. Neck nontender no meningismus. No lymphadenopathy. Lungs clear to auscultation bilaterally. Heart regular rhythm rate about 90 no murmur. Abdomen soft nontender. Moving all 4 extremities. Calves are nontender without edema or cords. Neurologically she is awake alert. Answer questions following commands. 5 of 5 wheelage clerk strength bilaterally. Dorsi plantarflexion intact. NIH score is 0. Const Vital Signs: 04/28/23 13:28 04/28/23 13:48 04/28/23 15:28 Temperature 97.9 F Temperature Source Temporal Pulse Rate 91 79 Respiratory Rate 16 16 Respiratory Pattern Normal Blood Pressure 169/93 H 148/86 H Blood Pressure Mean 118 106 Pulse Ox 98 94 Oxygen Delivery Method Room Air Room Air Positive well nourished and well developed; Negative for cachectic, contractures or unkempt General Appearance ED: well developed and NAD; Negative for unkempt, cachectic, contractures, cyanotic, diaphoretic or pallor Nutritional Appearance: Negative for cachectic HEENT Reports moist mucous membranes; Denies dry mucous membranes Negative for trauma or tenderness Mouth ED: No dry mucous membranes Mouth: No dry mucous membranes Eyes PERRL and EOMs intact bilaterally General Ey (more content not included)... Normal [facility] Erythrocyte distribution wid th ratioOrdered By: Mario Decker on 04-28-2023 Erythrocyte distribution width (RBC) [Ratio] 14.0 % 11.6-14.6 [facility] Erythrocyte distribution wid th standard deviationOrdered By: Mario Decker on 04-28-2023 Erythrocyte distribution width (RBC) [Entitic vol] 45.7 fL 35.1-43.9 [facility] Hematocrit Auto (Bld) [Volum e fraction]Ordered By: Mario Decker on 04-28-2023 Hematocrit (Bld) [Volume fraction] 42.4 % 37-47 [facility] Immature granulocytes/100 WB C Auto (Bld)Ordered By: Mario Decker on 04-28-2023 Immature granulocytes/100 WBC (Bld) 0.400 % 0.0-0.9 [facility] Comment on above: IG% - Immature Granu locytes (promyelocytes, myelocytes and metamyelocytes) > 1% indicates that a LEFT SHIFT is Present. Laboratory - Chemistry and C hemistry - challengeOrdered By: Mario Decker on 04-28-2023 CO2 [Moles/Vol] 25.0 mmol/L 21.0-32.0 [facility] Urea nitrogen/Creatinine [Mass ratio] 22.9 mg/mg 10-20 [facility] - Hematology and Cell countsOrdered By: Mario Decker on 04-28-2023 MCH (RBC) [Entitic mass] 28.8 pg 27.0-32.0 [facility] MCHC (RBC) [Mass/Vol] 32.3 g/dL 32-36 [facility] Nucleated RBC/100 WBC (Bld) [Ratio] 0 % 0-5 [facility] Platelet mean volume (Bld) [Entitic vol] 8.4 fL 6.2-12.0 [facility] Platelets (Bld) [#/Vol] 400 10*3/uL 150-450 [facility] No Panel InformationOrdered By: Mario Decker on 04-28-2023 Estimated Creatinine Clearance Calc 97.14 ml/min [facility] Estimated GFR (MDRD) Amer 113 mL/min >60 [facility] Comment on above: GFR Calc Estimated GFR (MDRD) Non-Af Amer 93 mL/min >60 [facility] Comment on above: Non- GFR Calc RBC Auto (Bld) [#/Vol]Ordere d By: Mario Decker on 04-28-2023 RBC (Bld) [#/Vol] 4.75 10*6/uL 4.2-5.4 [facility] Serum or plasma calcium brandin urement (mass/volume)Ordered By: Mario Decker on 04-28-2023 Calcium [Mass/Vol] 9.3 mg/dL 8.5-10.1 [facility] Serum or plasma creatinine m easurement (mass/volume)Ordered By: Mario Decker on 04-28-2023 Creatinine [Mass/Vol] 0.70 mg/dL 0.55-1.02 [facility] Comment on above: The validity of the calculated GFR & GFRAA in patients over 70 years has not been determined. Clinical correlation is essential. Serum or plasma urea nitroge n measurement (mass/volume)Ordered By: Mario Decker on 04-28-2023 Urea nitrogen [Mass/Vol] 16 mg/dL 7-18 [facility] Thin prep Papanicolaou smear with manual screeningOrdered By: Mario Decker on 04-28-2023 Thin prep Papanicolaou smear with manual screening 4 5-15 [facility] Basophil percentageOrdered B y: Kacy Collins on 01-23-2023 Cholesterol [Mass/Vol] 197 mg/dL <200 [facility] Comment on above: <200 mg/dL Desirable 200-240 mg/dL Borderline >240 mg/dL High Risk Glucose [Mass/Vol] 103 mg/dL 74-106 [facility] Comment on above: Fasting Glucose resu lt from 100 to 125 mg/dL suggests IMPAIRED HOMEOSTASIS per A.D.A. criteria. Triglyceride [Mass/Vol] 126 mg/dL <199 [facility] Comment on above: The drugs N-Acetylcy steine and Metamizole may falsely depress this assay.Serum Triglycerides Reference Interval Normal <150 mg/dL Borderline high 150 - 199 mg/dL High 200 - 499 mg/dL Very High > or = 500 mg/dL Glucoseon 01-23-2023 Glucose [Mass/Vol] 103 mg/dL Normal 74-106 [facility] Comment on above: Result Comment: Fast ing Glucose result from 100 to 125 mg/dL suggests IMPAIRED HOMEOSTASIS per A.D.A. criteria. Performed By: #### L 501.0100, L500.4100 #### [facility] [address] [place], [address] Lipid Profileon 01-23-2023 Cholesterol [Mass/Vol] 197 mg/dL Normal 200 [facility] Comment on above: Result Comment: <200 mg/dL Desirable 200-240 mg/dL Borderline >240 mg/dL High Risk Performed By: #### L 501.0100, L500.4100 #### [facility] [address] [place], [address] Cholesterol in HDL [Mass/Vol] 54 mg/dL Normal [facility] Comment on above: Result Comment: The drugs N-Acetylcysteine and Metamizole may falsely depress this assay. Reference Range HDL <40 mg/dL Low HDL Cholesterol HDL >or= 60 mg/dL High HDL Cholesterol Performed By: #### L 501.0100, L500.4100 #### [facility] [address] [place], [address] Cholesterol in LDL [Mass/Vol] 118 mg/dL Normal 0-130 [facility] Comment on above: Performed By: #### L 501.0100, L500.4100 #### [facility] [address] [place], [address] Cholesterol in VLDL [Mass/Vol] 25 mg/dL Normal 5-40 [facility] Comment on above: Performed By: #### L 501.0100, L500.4100 #### [facility] [address] [place], [address] Triglyceride [Mass/Vol] 126 mg/dL Normal [facility] Comment on above: Result Comment: The drugs N-Acetylcysteine and Metamizole may falsely depress this assay. Serum Triglycerides Reference Interval Normal <150 mg/dL Borderline high 150 - 199 mg/dL High 200 - 499 mg/dL Very High > or = 500 mg/dL Performed By: #### L 501.0100, L500.4100 #### [facility] [address] [place], [address] Serum or plasma cholesterol in HDL measurement (mass/volume)Ordered By: Kacy Collins on 01-23-2023 Cholesterol in HDL [Mass/Vol] 54 mg/dL >40 [facility] Comment on above: The drugs N-Acetylcy steine and Metamizole may falsely depress this assay. Reference Range HDL <40 mg/dL Low HDL Cholesterol HDL >or= 60 mg/dL High HDL Cholesterol Serum or plasma cholesterol in VLDL measurement (mass/volume)Ordered By: Kacy Collins on 01-23-2023 Cholesterol in VLDL [Mass/Vol] 25 mg/dL 5-40 [facility] Serum or plasma low density lipoprotein (LDL) cholesterol measurement (mass/volume)Ordered By: Kacy Collins on 01-23-2023 Cholesterol in LDL [Mass/Vol] 118 mg/dL 0-130 [facility] Absolute lymphocyte counton 02-04-2022 Lymphocytes Auto (Unsp spec) [#/Vol] 2.13 10*3/uL 0.83-4.51 [facility] Work Phone: Basophil percentageon 2021 Basophils/100 WBC (Bld) 0.4 % 0-1 [facility] Work Phone: Chloride [Moles/Vol] 109 mmol/L 98-107 [facility] Work Phone: Cholesterol [Mass/Vol] 183 mg/dL <200 [facility] Work Phone: [phone] Comment on above: <200 mg/dL Desirable 200-240 mg/dL Borderline >240 mg/dL High Risk Eosinophils/100 WBC (Bld) 0.8 % 0-5 [facility] Work Phone: Glucose [Mass/Vol] 101 mg/dL 74-106 [facility] Work Phone: Comment on above: Fasting Glucose resu lt from 100 to 125 mg/dL suggests IMPAIRED HOMEOSTASIS per A.D.A. criteria. Neutrophils (Bld) [#/Vol] 6.4 10*3/uL 2.0-7.7 [facility] Work Phone: Neutrophils/100 WBC (Bld) 67.0 % 47-70 [facility] Work Phone: Potassium [Moles/Vol] 3.6 mmol/L 3.5-5.1 [facility] Work Phone: Sodium [Moles/Vol] 140 mmol/L 136-145 [facility] Work Phone: Triglyceride [Mass/Vol] 76 mg/dL <199 [facility] Work Phone: Comment on above: The drugs N-Acetylcy steine and Metamizole may falsely depress this assay.Serum Triglycerides Reference Interval Normal <150 mg/dL Borderline high 150 - 199 mg/dL High 200 - 499 mg/dL Very High > or = 500 mg/dL WBC (Bld) [#/Vol] 9.5 10*3/uL 4.4-11.0 [facility] Work Phone: Blood erythrocytes count (nu mber/volume)on 02-04-2022 RBC (Bld) [#/Vol] 5.02 10*6/uL 4.2-5.4 [facility]: Blood hemoglobin measurement (mass/volume)on 02-04-2022 Hemoglobin (Bld) [Mass/Vol] 14.8 g/dL 12.0-15.0 [facility] Work Phone: Blood lymphocytes/100 leukoc yteson 02-04-2022 Lymphocytes/100 WBC (Bld) 22.4 % 19-41 [facility] Work Phone: Blood monocytes/100 leukocyt eson 02-04-2022 Monocytes/100 WBC (Bld) 9.1 % 0-10 [facility] Work Phone: Blood platelet mean volumeon 02-04-2022 Platelet mean volume (Bld) [Entitic vol] 8.5 fL 6.2-12.0 [facility] Work Phone: Determination of erythrocyte mean corpuscular volume (MCV)on 02-04-2022 MCV (RBC) [Entitic vol] 92.6 fL 81-99 [facility] Work Phone: Hematocrit Auto (Bld) [Volum e fraction]on 02-04-2022 Hematocrit (Bld) [Volume fraction] 46.5 % 37-47 [facility] Work Phone: Laboratory - Chemistry and C hemistry - challengeon 02-04-2022 CO2 [Moles/Vol] 26.0 mmol/L 21.0-32.0 [facility] Work Phone: Urea nitrogen/Creatinine [Mass ratio] 21.2 mg/mg 10-20 [facility] Work Phone: Laboratory - Hematology and Cell countson 02-04-2022 Erythrocyte distribution width (RBC) [Entitic vol] 48.0 fL 35.1-43.9 [facility] Work Phone: Erythrocyte distribution width (RBC) [Ratio] 14.2 % 11.6-14.6 [facility] Work Phone: Immature granulocytes/100 WBC (Bld) 0.300 % 0.0-0.9 [facility] Work Phone: Comment on above: IG% - Immature Granu locytes (promyelocytes, myelocytes and metamyelocytes) > 1% indicates that a LEFT SHIFT is Present. MCH (RBC) [Entitic mass] 29.5 pg 27.0-32.0 [facility] Work Phone: Nucleated RBC/100 WBC (Bld) [Ratio] 0 % 0-5 [facility] Work Phone: MCHC Auto (RBC) [Mass/Vol]on 02-04-2022 MCHC (RBC) [Mass/Vol] 31.8 g/dL 32-36 [facility] Work Phone: Comment on above: Delta: 33.8 on 02/03 No Panel Informationon 02-04 Estimated Creatinine Clearance Calc 87.08 ml/min [facility] Work Phone: Estimated GFR (MDRD) Amer 121 mL/min >60 [facility] Work Phone: Comment on above: GFR Calc Estimated GFR (MDRD) Non-Af Amer 100 mL/min >60 [facility] Work Phone: Comment on above: Non- GFR Calc Troponin I High Sensitivity 53 pg/mL 3.0-54.0 [facility] Work Phone: Comment on above: Please Note: New Priya t Units and Gender Specific Reference Ranges. For more information see Policy Stat Procedure [place] High Sensitivity Troponin (TNIH) and attachments. Platelets bldon 02-04-2022 Platelets (Bld) [#/Vol] 436 10*3/uL 150-450 [facility] Work Phone: Serum or plasma calcium brandin urement (mass/volume)on 02-04-2022 Calcium [Mass/Vol] 8.9 mg/dL 8.5-10.1 [facility] Work Phone: Serum or plasma cholesterol in HDL measurement (mass/volume)on 02-04-2022 Cholesterol in HDL [Mass/Vol] 57 mg/dL >40 [facility] Work Phone: Comment on above: The drugs N-Acetylcy steine and Metamizole may falsely depress this assay. Reference Range HDL <40 mg/dL Low HDL Cholesterol HDL >or= 60 mg/dL High HDL Cholesterol Serum or plasma cholesterol in VLDL measurement (mass/volume)on 02-04-2022 Cholesterol in VLDL [Mass/Vol] 15 mg/dL 5-40 [facility] Work Phone: Serum or plasma creatinine m easurement (mass/volume)on 02-04-2022 Creatinine [Mass/Vol] 0.66 mg/dL 0.55-1.02 [facility] Work Phone: Comment on above: The validity of the calculated GFR & GFRAA in patients over 70 years has not been determined. Clinical correlation is essential. Serum or plasma low density lipoprotein (LDL) cholesterol measurement (mass/volume)on 02-04-2022 Cholesterol in LDL [Mass/Vol] 111 mg/dL 0-130 [facility] Work Phone: Serum or plasma urea nitroge n measurement (mass/volume)on 02-04-2022 Urea nitrogen [Mass/Vol] 14 mg/dL 7-18 [facility] Work Phone: Thin prep Papanicolaou smear with manual screeningon 02-04-2022 Thin prep Papanicolaou smear with manual screening 5 5-15 [facility] Work Phone: Absolute lymphocyte counton 02-03-2022 Lymphocytes Auto (Unsp spec) [#/Vol] 3.27 10*3/uL 0.83-4.51 [facility] Work Phone: Basophil percentageon 2021 Basophils/100 WBC (Bld) 0.4 % 0-1 [facility] Work Phone: Chloride [Moles/Vol] 105 mmol/L 98-107 [facility] Work Phone: Eosinophils/100 WBC (Bld) 1.5 % 0-5 [facility] Work Phone: Glucose [Mass/Vol] 126 mg/dL 74-106 [facility] Work Phone: Comment on above: Fasting Glucose resu lt greater than or equal to 126 mg/dL suggests DIABETES MELLITUS per A.D.A. criteria. Neutrophils (Bld) [#/Vol] 6.1 10*3/uL 2.0-7.7 [facility] Work Phone: Neutrophils/100 WBC (Bld) 57.9 % 47-70 [facility] Work Phone: Potassium [Moles/Vol] 3.7 mmol/L 3.5-5.1 [facility] Work Phone: Sodium [Moles/Vol] 141 mmol/L 136-145 [facility] Work Phone: WBC (Bld) [#/Vol] 10.5 10*3/uL 4.4-11.0 [facility] Work Phone: Blood erythrocytes count (nu mber/volume)on 02-03-2022 RBC (Bld) [#/Vol] 5.11 10*6/uL 4.2-5.4 [facility] Work Phone: Blood hemoglobin measurement (mass/volume)on 02-03-2022 Hemoglobin (Bld) [Mass/Vol] 15.6 g/dL 12.0-15.0 [facility] Work Phone: Blood lymphocytes/100 leukoc yteson 02-03-2022 Lymphocytes/100 WBC (Bld) 31.2 % 19-41 [facility] Work Phone: Blood monocytes/100 leukocyt eson 02-03-2022 Monocytes/100 WBC (Bld) 8.6 % 0-10 [facility] Work Phone: Blood platelet mean volumeon 02-03-2022 Platelet mean volume (Bld) [Entitic vol] 8.8 fL 6.2-12.0 [facility] Work Phone: Determination of erythrocyte mean corpuscular volume (MCV)on 02-03-2022 MCV (RBC) [Entitic vol] 90.4 fL 81-99 [facility] Work Phone: Hematocrit Auto (Bld) [Volum e fraction]on 02-03-2022 Hematocrit (Bld) [Volume fraction] 46.2 % 37-47 [facility] Work Phone: Laboratory - Chemistry and C hemistry - challengeon 02-03-2022 CO2 [Moles/Vol] 28.0 mmol/L 21.0-32.0 [facility] Work Phone: Urea nitrogen/Creatinine [Mass ratio] 18.5 mg/mg 10-20 [facility] Work Phone: Laboratory - Hematology and Cell countson 02-03-2022 Erythrocyte distribution width (RBC) [Entitic vol] 46.1 fL 35.1-43.9 [facility] Work Phone: Erythrocyte distribution width (RBC) [Ratio] 13.7 % 11.6-14.6 [facility] Work Phone: Immature granulocytes/100 WBC (Bld) 0.400 % 0.0-0.9 [facility] Work Phone: Comment on above: IG% - Immature Granu locytes (promyelocytes, myelocytes and metamyelocytes) > 1% indicates that a LEFT SHIFT is Present. MCH (RBC) [Entitic mass] 30.5 pg 27.0-32.0 [facility] Work Phone: Nucleated RBC/100 WBC (Bld) [Ratio] 0 % 0-5 [facility] Work Phone: MCHC Auto (RBC) [Mass/Vol]on 02-03-2022 MCHC (RBC) [Mass/Vol] 33.8 g/dL 32-36 [facility] Work Phone: No Panel Informationon 02-03 Troponin I High Sensitivity 30 pg/mL 3.0-54.0 [facility] Work Phone: Comment on above: Please Note: New Priya t Units and Gender Specific Reference Ranges. For more information see Policy Stat Procedure [place] High Sensitivity Troponin (TNIH) and attachments. Estimated Creatinine Clearance Calc 70.95 ml/min [facility] Work Phone: Estimated GFR (MDRD) Amer 95 mL/min >60 [facility] Work Phone: Comment on above: GFR Calc Estimated GFR (MDRD) Non-Af Amer 79 mL/min >60 [facility] Work Phone: Comment on above: Non- GFR Calc Platelets bldon 02-03-2022 Platelets (Bld) [#/Vol] 478 10*3/uL 150-450 [facility] Work Phone: Serum or plasma calcium brandin urement (mass/volume)on 02-03-2022 Calcium [Mass/Vol] 9.8 mg/dL 8.5-10.1 [facility] Work Phone: Serum or plasma creatinine m easurement (mass/volume)on 02-03-2022 Creatinine [Mass/Vol] 0.81 mg/dL 0.55-1.02 [facility] Work Phone: Comment on above: The validity of the calculated GFR & GFRAA in patients over 70 years has not been determined. Clinical correlation is essential. Serum or plasma urea nitroge n measurement (mass/volume)on 02-03-2022 Urea nitrogen [Mass/Vol] 15 mg/dL 7-18 [facility] Work Phone: Thin prep Papanicolaou smear with manual screeningon 02-03-2022 Thin prep Papanicolaou smear with manual screening 8 5-15 [facility] Work Phone: MARISSA SCREENINGon 01-19-2022 [facility] Vital Signs Date Time Vital Sign Value Performing Clinician Facility 09-11-2024 13:02-0400 Body mass index (BMI) [Ratio] 30.73 kg/m2 Maureen Roche APRN.PRODUCT SAFETY COMPLIANCE LEADER Work Phone: [facility] 09-11-2024 13:02-0400 Body weight 81.19 kg Maureen Roche APRN.PRODUCT SAFETY COMPLIANCE LEADER Work Phone: [facility] 09-11-2024 13:02-0400 Diastolic blood pressure 98 mm[Hg] Maureen Roche APRN.PRODUCT SAFETY COMPLIANCE LEADER Work Phone: [facility] 09-11-2024 13:02-0400 Systolic blood pressure 152 mm[Hg] Maureen Roche APRN.PRODUCT SAFETY COMPLIANCE LEADER Work Phone: [facility] 08-29-2024 12:47-0400 Diastolic blood pressure 88 mm[Hg] Maureen Roche APRN.PRODUCT SAFETY COMPLIANCE LEADER Work Phone: [facility] Comment on above: post procedure 08-29-2024 12:47-0400 Heart rate 74 /min Maureen Roche APRN.PRODUCT SAFETY COMPLIANCE LEADER Work Phone: [facility] 08-29-2024 12:47-0400 Systolic blood pressure 161 mm[Hg] Maureen Roche APRN.PRODUCT SAFETY COMPLIANCE LEADER Work Phone: [facility] Comment on above: post procedure 08-29-2024 11:27-0400 Body mass index (BMI) [Ratio] 30.73 kg/m2 Maureen Roche APRN.PRODUCT SAFETY COMPLIANCE LEADER Work Phone: [facility] 08-29-2024 11:27-0400 Body weight 81.19 kg Maureen Roche APRN.PRODUCT SAFETY COMPLIANCE LEADER Work Phone: [facility] 05-30-2023 07:31-0400 Body height 162.6 cm Maureen Roche APRN.PRODUCT SAFETY COMPLIANCE LEADER Work Phone: [facility] 05-30-2023 07:31-0400 Body weight 83.37 kg Maureen Roche APRN.PRODUCT SAFETY COMPLIANCE LEADER Work Phone: [facility] 05-30-2023 07:31-0400 Diastolic blood pressure 90 mm[Hg] Maureen Roche APRN.PRODUCT SAFETY COMPLIANCE LEADER Work Phone: [facility] 05-30-2023 07:31-0400 Systolic blood pressure 130 mm[Hg] Maureen Roche APRN.PRODUCT SAFETY COMPLIANCE LEADER Work Phone: [facility] 04-28-2023 16:02-0500 Body temperature 98 [degF] [facility] 04-28-2023 16:02-0500 Diastolic blood pressure 84 mm[Hg] [facility] 04-28-2023 16:02-0500 Heart rate 68 /min [facility] 04-28-2023 16:02-0500 Respiratory rate 14 /min [facility] 04-28-2023 16:02-0500 SaO2% (BldA) [Mass fraction] 96 % [facility] 04-28-2023 16:02-0500 Systolic blood pressure 149 mm[Hg] [facility] 04-28-2023 13:28-0500 Body height 162.[address] [facility] 04-28-2023 13:28-0500 Body mass index (BMI) [Ratio] 31.6 kg/m2 [facility] 04-28-2023 13:28-0500 Body weight 83.[address] [facility] 02-04-2022 11:24-0500 Body temperature 98.3 [degF] Dr. Oneil Martínez Work Phone: [facility] Work Phone: 02-04-2022 11:24-0500 Diastolic blood pressure 60 mm[Hg] Dr. Oneil Martínez Work Phone: [facility] Work Phone: 02-04-2022 11:24-0500 Heart rate 90 /min Dr. Oneil Martínez Work Phone: [facility] Work Phone: 02-04-2022 11:24-0500 Respiratory rate 16 /min Dr. Oneil Martínez Work Phone: [facility] Work Phone: 02-04-2022 11:24-0500 SaO2% (BldA) [Mass fraction] 97 % Dr. Oneil Martínez Work Phone: [facility] Work Phone: 02-04-2022 11:24-0500 Systolic blood pressure 132 mm[Hg] Dr. Oneil Martínez Work Phone: [facility] Work Phone: 02-04-2022 00:51-0500 Body height 162.[address] Oneil Martínez Work Phone: [facility] Work Phone: 02-04-2022 00:51-0500 Body mass index (BMI) [Ratio] 29.4 kg/m2 Dr. Oneil Martínez Work Phone: [facility] Work Phone: 02-04-2022 00:51-0500 Body weight 77.[address] Oneil Martínez Work Phone: [facility] Work Phone: 02-04-2022 00:23-0500 Body temperature 97.2 [degF] [facility] Work Phone: 02-04-2022 00:23-0500 Diastolic blood pressure 84 mm[Hg] [facility] Work Phone: 02-04-2022 00:23-0500 Heart rate 86 /min [facility] Work Phone: 02-04-2022 00:23-0500 Respiratory rate 17 /min [facility] Work Phone: 02-04-2022 00:23-0500 SaO2% (BldA) [Mass fraction] 98 % [facility] Work Phone: 02-04-2022 00:23-0500 Systolic blood pressure 163 mm[Hg] [facility] Work Phone: 02-03-2022 19:08-0500 Body height 162.[address] [facility] Work Phone: 02-03-2022 19:08-0500 Body mass index (BMI) [Ratio] 30 kg/m2 [facility] Work Phone: 02-03-2022 19:08-0500 Body weight 79.[address] [facility] Work Phone: 01-12-2022 15:02-0500 Body height 162 cm Maureen Roche APRN.PRODUCT SAFETY COMPLIANCE LEADER Work Phone: [facility] 01-12-2022 15:02-0500 Body weight 79.38 kg Maureen Roche APRN.PRODUCT SAFETY COMPLIANCE LEADER Work Phone: [facility] 01-12-2022 15:02-0500 Diastolic blood pressure 76 mm[Hg] Maureen Roche APRN.PRODUCT SAFETY COMPLIANCE LEADER Work Phone: [facility] 01-12-2022 15:02-0500 Systolic blood pressure 120 mm[Hg] Maureen Roche APRN.PRODUCT SAFETY COMPLIANCE LEADER Work Phone: [facility] 09-20-2021 14:45-0400 Body height 162.[address] [facility] Work Phone: 09-20-2021 14:45-0400 Body mass index (BMI) [Ratio] 30 kg/m2 [facility] Work Phone: 09-20-2021 14:45-0400 Body temperature 97.5 [degF] [facility] Work Phone: 09-20-2021 14:45-0400 Body weight 79.[address] [facility] Work Phone: 09-20-2021 14:45-0400 Diastolic blood pressure 111 mm[Hg] [facility] Work Phone: 09-20-2021 14:45-0400 Heart rate 91 /min [facility] Work Phone: 09-20-2021 14:45-0400 Respiratory rate 16 /min [facility] Work Phone: 09-20-2021 14:45-0400 SaO2% (BldA) [Mass fraction] 97 % [facility] Work Phone: 09-20-2021 14:45-0400 Systolic blood pressure 176 mm[Hg] [facility] Work Phone: Encounters Encounter Date Encounter Type Care Provider Facility Start: 09-11-2024 End: 09-11-2024 Patient encounter procedure Maureen Roche APRN.CNP Work Phone: OB/Gynecology Comment on above: PMB (postmenopausal bleeding) (Primary Dx); Cervical cancer screening; Encounter for screening for human papillomavirus (HPV) Start: 09-11-2024 End: 09-11-2024 ambulatory KACY COLLINS Facility:[facility] Start: 09-09-2024 End: 11-09-2024 Follow-up encounter Maureen Roche APRN.CNP Work Phone: OB/Gynecology Start: 09-06-2024 End: 09-06-2024 Patient encounter procedure [facility] OB/Gynecology Start: 09-06-2024 End: 09-06-2024 ambulatory Senior Internal Auditor [facility] Work Phone: OB/Gynecology Start: 09-06-2024 End: 09-06-2024 Subsequent hospital visit by physician Screen Mammo [facility] Mammogram Comment on above: Encounter for screen ing mammogram for malignant neoplasm of breast [Z12.31] Start: 08-29-2024 End: 10-29-2024 Follow-up encounter Maureen Roche APRN.CNP Work Phone: OB/Gynecology Start: 08-29-2024 End: 08-29-2024 ambulatory MAUREEN ROCHE Facility:[facility] Start: 08-29-2024 End: 08-29-2024 Patient encounter procedure Maureen Roche APRN.CNP Work Phone: OB/Gynecology Comment on above: PMB (postmenopausal bleeding) (Primary Dx); Cervical cancer screening Start: 08-29-2024 End: 08-29-2024 ambulatory KACY COLLINS Facility:[facility] Start: 08-27-2024 End: 08-27-2024 Telephone encounter Kacy Collins DO Work Phone: [address] [place] [address] Comment on above: Orders Start: 11-06-2023 End: 11-06-2023 ambulatory Kacy Collins Facility:[facility] Start: 06-05-2023 Documentation procedure Mammog inez Coordinator [facility] Start: 06-05-2023 Letter encounter Mammography Coordinator [facility] Department Start: 06-02-2023 End: 06-02-2023 [facility] Start: 06-02-2023 End: 06-02-2023 Subsequent hospital visit by physician Screen Mammo [facility] W[facility] Mammogram Comment on above: Encounter for gyneco logical examination with abnormal finding [Z01.411] Start: 05-30-2023 End: 05-30-2023 Patient encounter procedure Maureen Roche APRN.PRODUCT SAFETY COMPLIANCE LEADER Work Phone: OB/Gynecology Comment on above: Encounter for gyneco logical examination with abnormal finding (Primary Dx); Encounter for screening mammogram for breast cancer; [facility] Start: 05-30-2023 End: 05-30-2023 Patient encounter status Maureen Roche APRN.PRODUCT SAFETY COMPLIANCE LEADER Work Phone: [facility] Work Phone: Start: 04-28-2023 End: 04-28-2023 Emergency department patient visit [facility] Work Phone: Start: 01-27-2023 Encounter for genera l adult medical examination without abnormal findings Kacy Collins [facility] Start: 01-23-2023 End: 01-23-2023 ambulatory [facility] Work Phone: Start: 01-23-2023 End: 01-23-2023 Patient encounter procedure [facility] Work Phone: Start: 01-23-2023 End: 01-23-2023 ambulatory Kacy Collins Facility:[facility] Start: 02-04-2022 Non-patient / Non-visit Dr. Hector Martínez Work Phone: [facility] Start: 02-04-2022 Non-patient / Non-visit Dr. Hector Martínez Work Phone: [facility] Start: 02-03-2022 End: 02-04-2022 Evaluation and management of inpatient [facility]Progressive Care Unit Start: 02-03-2022 End: 02-04-[address] Oneil Martínez Work Phone: [facility] Work Phone: Start: 01-19-2022 End: 01-19-2022 Patient encounter status [facility] Start: 01-19-2022 End: 01-19-2022 Subsequent hospital visit by physician Screen Mammo [facility] Mammogram Comment on above: Encounter for gyneco logical examination (general) (routine) without abnormal findings [Z01.419] Start: 01-12-2022 End: 01-12-2022 Patient encounter procedure Maureen Roche APRN.CNP Work Phone: OB/Gynecology Comment on above: Encounter for gyneco logical examination (general) (routine) without abnormal findings (Primary Dx); Irregular menstrual cycle; Encounter for screening mammogram for breast cancer Start: 01-12-2022 End: 01-12-2022 Patient encounter status Maureen Roche APRN.CNP Work Phone: OB/Gynecology Start: 09-20-2021 End: 09-20-2021 Emergency department patient visit [facility]Emergency [facility] Procedures Date Procedure Procedure Detail Performing Clinician Start: 09-06-2024 Us pelvic nonobstetr ic real-time image complete Maureen Roche APRN.CNP Work Phone: Start: 04-28-2023 CT of head without contrast Start: 02-04-2022 Cardiovascular stres s test using pharmacologic stress agent Dr. Oneil Martínez Work Phone: Start: 02-03-2022 CT angiography of he ad and neck Start: 02-03-2022 Plain chest X-ray Start: 01-19-2022 Screening mammograph y bi 2-view breast inc cad Maureen Roche APRN.PRODUCT SAFETY COMPLIANCE LEADER Work Phone: Start: 10-02-2020 Mammography Maureen jon APRN.PRODUCT SAFETY COMPLIANCE LEADER Work Phone: Plan of Treatment Date Care Activity Detail Author Start: 09-11-2029 Screening for malign ant neoplasm of cervix Cervical Cancer Screening [facility] Start: 08-29-2029 Screening for malign ant neoplasm of cervix Cervical Cancer Screening [facility] Start: 10-02-2025 HPV TESTING HPV TESTING [facility] Start: 10-02-2025 PAP TESTING PAP TESTING [facility] Start: 10-02-2025 Screening for malign ant neoplasm of cervix [facility] Start: 09-06-2025 Screening for malign ant neoplasm of breast Mammogram Screening [facility] Start: 10-28-2024 Influenza vaccination Influenza Vacc ine (#1) [facility] Start: 09-12-2024 End: 09-12-2024 Patient encounter procedure 09/12/2024 8:00 AM EDT Office Visit OB/Gynecology [address] [place] [address] Maureen Roche APRN.PRODUCT SAFETY COMPLIANCE LEADER [address] [place] [address] had period after no bleeding for a little over a year - needs annual scheduled OB/Gynecology Comment on above: had period after no bleeding for a little over a year - needs annual scheduled Start: 09-06-2024 End: 09-06-2024 ambulatory 09/06/2024 9:00 AM EDT Procedure OB/Gynecology [address] [place] [address] [facility], Senior Internal Auditor [facility] [address] [place] [address] 08/29/2025 Priority: Routine OB/Gynecology Comment on above: 08/29/2025 Priority: R melissa Start: 09-06-2024 End: 09-06-2024 Patient encounter procedure 09/06/2024 7:50 AM EDT Appointment Mammogram [address] [place] [address] Mammogram Start: 08-29-2024 End: 11-28-2024 Estradiol (E2) [Mass/volume] in Serum or Plasma [facility] Comment on above: Expected: 08/29/2024 , Expires: 11/28/2024 Start: 08-29-2024 End: 11-28-2024 Follitropin [Units/volume] in Serum or Plasma [facility] Comment on above: Expected: 08/29/2024 , Expires: 11/28/2024 Start: 08-29-2024 End: 08-29-2025 US Pelvis PELVIC [facility] Anc Imaging Routine PMB (postmenopausal bleeding) Expected: 08/29/2024, Expires: 08/29/2025 [facility] Comment on above: Expected: 08/29/2024 , Expires: 08/29/2025 Start: 08-14-2024 Urine microalbumin profile DTaP,Tdap,Td Vaccine (2 - Td or Tdap) [facility] Start: 06-01-2024 Screening for malign ant neoplasm of breast Mammogram Screening [facility] Start: 10-29-2023 Covid-19 Vaccine ( season) Covid-19 Vaccine ( season) [facility] Start: 10-29-2023 Influenza vaccination Influenz a Vaccine (Season Ended) [facility] Start: 04-28-2023 [facility] Start: 02-27-2023 Behavioral Health Screening Behavioral Health Screening [facility] Start: 02-27-2023 Depression Assessment Depression Ass essment [facility] Start: 01-19-2023 Mammography Mammogram Screening [facility] Start: 01-19-2023 Screening for malign ant neoplasm of breast Mammogram Screening [facility] Start: 10-28-2022 Covid-19 Vaccine ( season) Covid-19 Vaccine ( season) [facility] Start: 10-28-2022 Influenza vaccination Influenza Vacc ine (#1) [facility] Start: 02-27-2022 Depression Assessment Depression Ass essment [facility] Start: 02-04-2022 Patient discharge [facility] Work Phone: Start: 02-04-2022 Following clinical pathway protocol [facility] Work Phone: Start: 02-04-2022 Application of intermittent pneumatic compression device [facility] Work Phone: Start: 02-04-2022 Ambulation without limitation [facility] Work Phone: Start: 02-04-2022 Assessment of risk o f venous thromboembolism [facility] Work Phone: Start: 02-04-2022 Insertion of cathete r into peripheral vein [facility] Work Phone: Start: 02-04-2022 Measuring intake and output [facility] Work Phone: Start: 02-04-2022 Oxygen therapy [facility] Work Phone: Start: 02-04-2022 Providing care accor ding to standard [facility] Work Phone: Start: 02-04-2022 Tobacco use cessatio n education [facility] Work Phone: Start: 02-04-2022 [facility] Work Phone: Start: 02-04-2022 Verification routine [facility] Work Phone: Start: 02-03-2022 Admission procedure [facility] Work Phone: Start: 02-03-2022 [facility] Work Phone: Start: 10-28-2021 Influenza vaccination INFLUENZA (#1) [facility] Start: 10-02-2021 Mammography MAMMOGRAM [facility] Start: 09-20-2021 Hepatitis B surface antigen measurement [facility] Work Phone: Start: 09-20-2021 Hepatitis C antibody measurement [facility] Work Phone: Start: 02-27-2021 DEPRESSION ASSESSMENT DEPRESSION ASS ESSMENT [facility] Start: 2020 Pneumococcal Vaccine : 50+ (1 of 1 - PCV) Pneumococcal Vaccine: 50+ (1 of 1 - PCV) [facility] Start: 2020 SHINGRIX VACCINE (1 of 2) ANDRES GRIX VACCINE (1 of 2) [facility] Start: 02-03-2016 COLOGUARD (FIT-DNA) COLOGUARD (FIT-D NA) [facility] Start: 2015 Colonoscopy COLONOSCOPY [facility] Start: 2015 COLORECTAL CANCER SCREENING COLORECTAL CANCER SCREENING [facility] Start: [address] COLONOGRAPHY [facility] Start: 2015 DIABETES SCREEN DIABETES SCREEN [facility] Start: 2015 Diabetes Screening Diabetes Screenin g [facility] Start: 2015 FECAL OCCULT BLOOD FECAL OCCULT BLOO D [facility] Start: 2015 Lipid 1996 panel - S claudia or Plasma Lipid Screening [facility] Start: 2015 Lipid panel Lipid Screening [facility] Start: 2015 LIPID SCREEN LIPID SCREEN [facility] Start: 2015 Screening for malign ant neoplasm of colon [facility] Start: 2015 SIGMOIDOSCOPY SIGMOIDOSCOPY [facility] Start: 1989 Hepatitis B Vaccine (1 of 3 - 19+ 3-dose series) Hepatitis B Vaccine (1 of 3 - 19+ 3-dose series) [facility] Start: 1989 Urine microalbumin profile DTAP,TDAP,TD (1 - Tdap) [facility] Start: 1988 Anxiety Screening Anxiety Screening [facility] Start: 1988 Depression Screening Depression Scre ening [facility] Start: 1988 HEPATITIS C SCREENING HEPATITIS C [facility] Start: 1988 Hepatitis C screening Hepatitis C [facility] Start: 1988 HIV SCREENING HIV SCREENING [facility] Start: 1988 HIV screening HIV Screening [facility] Start: 1970 COVID-19 VACCINE (#1) COVID-19 VACCI NE (#1) [facility] Start: 1970 HEPATITIS B (1 of 3 - 3-dose series) HEPATITIS B (1 of 3 - 3-dose series) [facility] Start: 1970 Hepatitis B Vaccine (1 of 3 - 3-dose series) Hepatitis B Vaccine (1 of 3 - 3-dose series) [facility] End: 09-26-2025 DBT Breast - bilateral screening MARISSA SCREENING W LIVE Radiology Routine Encounter for screening mammogram for malignant neoplasm of breast 1 Occurrences starting 08/27/2024 until 09/26/2025 [facility] Work Phone: Comment on above: 1 Occurrences starti ng 08/27/2024 until 09/26/2025 DBT Breast - bilater al screening MARISSA SCREENING W LIVE Radiology Routine Encounter for screening mammogram for malignant neoplasm of breast 09/06/2024 7:48 AM EDT [facility] Work Phone: Endometrial bx w/wo endocervix bx w/o dilat spx ENDOMETRIAL BIOPSY Procedures Routine PMB (postmenopausal bleeding) Ordered: 08/29/2024 [facility] Work Phone: Comment on above: Ordered: 08/29/2024 Hepatitis B surface antigen measurement [facility] Work Phone: Hepatitis B virus ni rface IgG Ab [Presence] in Serum [facility] Work Phone: Hepatitis C antibody measurement [facility] Work Phone: HIV 1+2 Ab+HIV1 p24 Ag [Presence] in Serum or Plasma by Immunoassay [facility] Work Phone: End: 06-28-2024 MG Breast Screening MARISSA SCREENING Radiology Routine Encounter for gynecological examination with abnormal finding Encounter for screening mammogram for breast cancer 1 Occurrences starting 05/30/2023 until 06/28/2024 [facility] Work Phone: Comment on above: 1 Occurrences starti ng 05/30/2023 until 06/28/2024 MG Breast Screening MARISSA SCREENIN G Radiology Routine Encounter for gynecological examination with abnormal finding Encounter for screening mammogram for breast cancer 06/02/2023 7:29 AM EDT [facility] Work Phone: PAP TEST PAP TEST Lab Rou maximus PMB (postmenopausal bleeding) Cervical cancer screening 08/29/2024 12:29 PM EDT [facility] PAP TEST PAP TEST Lab Rou maximus PMB (postmenopausal bleeding) Cervical cancer screening Encounter for screening for human papillomavirus (HPV) 09/11/2024 1:46 PM EDT [facility] Work Phone: Patient Education [facility] Work Phone: Patient referral [facility] Work Phone: End: 02-11-2023 Screening mammography bi 2-view breast inc cad MARISSA SCREENING Radiology Routine Encounter for gynecological examination (general) (routine) without abnormal findings Encounter for screening mammogram for breast cancer 1 Occurrences starting 01/12/2022 until 02/11/2023 [facility] Work Phone: Comment on above: 1 Occurrences starti ng 01/12/2022 until 02/11/2023 Tissue Pathology bio psy report SURGICAL PATHOLOGY Lab Routine PMB (postmenopausal bleeding) 08/29/2024 12:29 PM EDT [facility] Immunizations Immunization Date Immunization Notes Care Provider Alexis obando 08-14-2014 tetanus toxoid, redu joellen diphtheria toxoid, and acellular pertussis vaccine, adsorbed Maureen Roche APRN.[facility] Work Phone: [facility] Work Phone: Payers Date Payer Category Payer Self-pay [id number] 2019 Private Health Insurance [employer] [id number] 2019 Unknown [employer] PPO [id number] 2019-Present [phone] [address] [place], [place] [id number] PPO [id number] 2019 Unknown [id number] 2013 Private Health Insurance [facility] [id number] Unknown [facility] [id number] Unknown [id number] Unknown [id number] Unknown [id number] Social History Date Type Detail Facility Start: 09-20-2021 End: 04-28-2023 Tobacco smoking status LAIS Unknown if ever smoked [facility] Start: 04-27-2021 Homeless [facility] Start: 1970 Sex Assigned At Female W [facility] Start: 04-11-2012 End: 05-30-2023 Tobacco smoking status LAIS Never smoked tobacco [facility] Work Phone: Start: 04-11-2012 End: 05-30-2023 Tobacco use and exposure Smokeless tobacco non-user [facility] Work Phone: Start: 01-12-2022 End: 08-29-2024 Alcohol intake Current non-drinker of alcohol (finding) [facility] Start: 1970 Sex Assigned At Not on file [facility] Start: 01-12-2022 End: 05-30-2023 History of Social function [facility] Start: 01-12-2022 End: 05-30-2023 Tobacco use panel [facility] Start: 01-29-2012 National Score (1-100), lower number is lower risk Not on file [facility] Start: 05-30-2023 Education 17 [facility] Start: 03-27-2023 Gender identity Identifies as female gender (finding) [facility] Start: 03-27-2023 Sexual orientation Heterosexual (carine levin) [facility] NEGATED: Highlighted rowStart: ZEINABF History of tobacco use Passive smoker [facility] Goals Date Patient Goal Desired Activity /State Functional Status Date Assessment Result Facility 02-04-2022 Functional status Activity Abili ty Standby Assist [facility] Work Phone: 06-02-2014 Are you deaf, or do you have serious difficulty hearing No 06/02/2014 1:42 PM EDT Lore Carcamo LPN No [facility] 06-02-2014 Are you blind, or do you have serious difficulty seeing, even when wearing glasses No 06/02/2014 1:42 PM Lore Sue LPN No [facility] 06-02-2014 Do you have serious difficulty walking or climbing stairs No 06/02/2014 1:42 PM EDT Lore Carcamo LPN No [facility] 06-02-2014 Do you have difficul ty dressing or bathing No 06/02/2014 1:42 PM EDT Lore Carcamo LPN No [facility] 06-02-2014 Because of a physica l, mental, or emotional condition, do you have difficulty doing errands alone such as visiting a physician's office or shopping No 06/02/2014 1:42 PM EDT Lore Carcamo LPN No [facility] Mental Status Date Assessment Result Facility 04-28-2023 Cognitive function Level Of Cons ciousness Awake;Alert;Appropriate;Fol lows Commands [facility] Work Phone: 02-04-2022 Cognitive function Voice/Name [facility] Work Phone: 02-03-2022 Cognitive function Voice/Name [facility] Work Phone: 06-02-2014 Because of a physica l, mental, or emotional condition, do you have serious difficulty concentrating, remembering, or making decisions No 06/02/2014 1:42 PM EDT Lore Carcamo LPN No [facility] Clinical Notes 01-12-2022 to 09-11-2024 Patient InstructionsMaureen Roche APRN.CNP - 09/11/2024 1:10 PM EDTStegaurav- Luz Marina Arnold MD - 09/06/2024 12:39 PM [employer] [employer] Mammo Tech - 09/06/2024 7:50 AM EDTPatient Instructions Note Date & Type Note Facility 09-11-2024 Instructions Maureen Roche APRN.CNP - 09/11/2024 1:33 PM EDT - Pap test repeated today; you can expect the results in 1-2 weeks - Endometrial biopsy showed inactive uterine lining and benign tissue - Pelvic ultrasound demonstrated a small fibroid within the uterine muscle that is not causing bleeding, with otherwise normal uterine size and normal-appearing ovaries. - If you experience any new vaginal bleeding--especially bleeding similar to a menstrual period--please call the office promptly for evaluation. - Use your vaginal lubricant as needed to relieve any dryness. documented in this encounter [facility] 09-11-2024 Note HNO ID: [id number] Author: MAUREEN ROCHE APRN.RENEE Service: ? Author Type: Nurse Practitioner Type: Progress Notes Filed: 09/11/2024 14:45 Note Text: Obstetrics and Gynecology [employer] INTERACTIVE ART DIRECTOR Visit Subjective Recording using ambient Vaccin[employer] software for draft documentation of the visit was discussed with the patient/authorized medical claims representative; all questions welcomed and answered. Patient/authorized medical claims representative agreed to proceed CHIEF COMPLAINT: The patient is a 54-year-old female presenting for a follow-up on postmenopausal bleeding and a repeat Pap test. HPI: Postmenopausal Bleeding - LMP: Early July 2023 - Reports experiencing postmenopausal bleeding, which has since resolved. - Initially presented with bleeding on day 4, which tapered off over the next 2 days without ever starting norethindrone taper. - No further episodes of bleeding reported since. Past Diagnostic Results: - Hormone Levels: - Estradiol 17B: <25 pg/mL - FSH: 23.8 mIU/mL - Endometrial Biopsy: Inactive endometrium, benign. - Pelvic Ultrasound: - Uterus: Normal size - Small intramural fibroid on the posterior side, not contributing to bleeding. - Endometrial lining: Thin - Ovaries: Normal HISTORY: OB History Gravida3 Para2 Term0 Preterm0 AB1 Living2 SAB0 IAB0 Ectopic1 Multiple0 Live Births0 Comment: 2 vaginal deliveries Environmental Health Inspector History LMP: 08/12/2023 (Exact Date), Having periods Age at Menarche: Age at First : Age at Menopause: Environmental Health Inspector History Comments: Sexual Activity: Yes; Male; vasectomy Contraception: Vasectomy PAST MEDICAL HISTORY Diagnosis Date Abnormal Pap smear of cervix 2005 Cerebral palsy (HCC) mild; diagnosed as a child. affects left side Cervical high risk HPV (human papillomavirus) test positive 2005 PAST SURGICAL HISTORY Procedure Laterality Date CHOLECYSTECTOMY 02/27/1998 COLONOSCOPY 02/27/2002 doland COLONOSCOPY SCREENING 2017 normal - Dr Garcia COLPOSCOPY CERVIX UPPER/ADJACENT VAGINA 02/27/[address] Crenshaw CONIZATION OF CERVIX, LEEP 02/27/[address] Crenshaw PAST SURGICAL HISTORY OF Bilateral 01/2022 catarac surgery FAMILY HISTORY Problem Relation Age of Onset None Mother Diabetes Father Hypertension Father Cancer Maternal Grandmother possible ovarian? Cancer Paternal Grandmother not sure what kind Cancer Paternal Grandfather not sure what kind Cancer Maternal Aunt liver Social History Tobacco Use Smoking status: Never Passive exposure: Never Smokeless tobacco: Never Vaping Use Vaping status: Never Used Substance Use Topics Alcohol use: No Drug use: No Current Outpatient Medications Medication Sig amLODIPine (NORVASC) 2.5 mg tablet Take 2.5 mg by mouth once daily. norethindrone (AYGESTIN) 5 mg tablet Take 1 tablet by mouth as directed. 1 tablet 3 times daily until bleeding stops then twice daily for 2 days then 1 tablet daily for 2 days. ascorbic acid (VITAMIN C ORAL) Take by mouth. ZINC ORAL Take by mouth. ergocalciferol, vitamin D2, (VITAMIN D2 ORAL) Take by mouth. Lactobacillus acidophilus (PROBIOTIC ORAL) Take by mouth. calcium carb/magnesium ox,carb (CARLA-MAG ORAL) Take by mouth. omeprazole (PRILOSEC) 40 mg capsule Take by mouth. polyethylene glycol 3350 (MIRALAX, GLYCOLAX) 17 gram/dose powder Take 17 g by mouth as needed. loratadine (CLARITIN) 10 mg tablet Take 10 mg by mouth once daily. Mauldin-3 Fatty Acids 500 mg cap Take one(1) capsule daily. Flaxseed Oil 1,000 mg ORAL Cap Take one(1) tablet daily. multivitamin tablet Take one(1) tablet daily. No current facility-administered medications for this visit. ALLERGIES Allergen Reactions Latex Rash Nickel Rash REVIEW OF SYSTEMS: Genitourinary: (-) vaginal bleeding Objective SENSITIVE EXAM: The sensitive examination was discussed with the Patient or Patient's Authorized Lmsw. As applicable, any other physician, advance practice provider, medical student, or other health professional student that will be observing or involved in the sensitive examination for educational or training purposes was discussed with the Patient or Authorized Lmsw. The Patient or Authorized Lmsw has agreed to proceed with the sensitive examination. (Sensitive examination includes inspection and/or palpation of the breasts, pelvis, prostate and anorectal regions). PHYSICAL EXAM: BP 152/98 Wt 179 lb (81.2kg) LMP 08/12/2023 GENERAL: Pleasant; in no acute distress PULMONARY: normal inspiratory effort ABDOMEN: soft, non-tender, no masses : - PELVIC: external genitalia normal, normal Bartholin's glands, urethra, [place]'s glands, no vulvar lesions, no cervical lesions, good vaginal support, physiologic discharge present, normal appearing perineal body and perianal region - Patient consent for exam received NEURO: alert and oriented x3 Assessment AND Plan ASSESSMENT AND PLAN: 1. PMB (postmen (more content not included)... [facility] 09-11-2024 History of Presen t illness Narrative Images from the original note were not included. Obstetrics and Gynecology [employer] INTERACTIVE ART DIRECTOR Visit Subjective Recording using ambient Vaccinogen software for draft documentation of the visit was discussed with the patient/authorized medical claims representative; all questions welcomed and answered. Patient/authorized medical claims representative agreed to proceed CHIEF COMPLAINT: The patient is a 54-year-old female presenting for a follow-up on postmenopausal bleeding and a repeat Pap test. HPI: Postmenopausal Bleeding - LMP: Early July 2023 - Reports experiencing postmenopausal bleeding, which has since resolved. - Initially presented with bleeding on day 4, which tapered off over the next 2 days without ever starting norethindrone taper. - No further episodes of bleeding reported since. Past Diagnostic Results: - Hormone Levels: - Estradiol 17B: <25 pg/mL - FSH: 23.8 mIU/mL - Endometrial Biopsy: Inactive endometrium, benign. - Pelvic Ultrasound: - Uterus: Normal size - Small intramural fibroid on the posterior side, not contributing to bleeding. - Endometrial lining: Thin - Ovaries: Normal HISTORY: OB History Gravida3 Para2 Term0 Preterm0 AB1 Living2 SAB0 IAB0 Ectopic1 Multiple0 Live Births0 Comment: 2 vaginal deliveries Environmental Health Inspector History LMP: 08/12/2023 (Exact Date), Having periods Age at Menarche: Age at First : Age at Menopause: Environmental Health Inspector History Comments: Sexual Activity: Yes; Male; vasectomy Contraception: Vasectomy PAST MEDICAL HISTORY Diagnosis Date Abnormal Pap smear of cervix 2005 Cerebral palsy (HCC) mild; diagnosed as a child. affects left side Cervical high risk HPV (human papillomavirus) test positive 2005 PAST SURGICAL HISTORY Procedure Laterality Date CHOLECYSTECTOMY 02/27/1998 COLONOSCOPY 02/27/2002 doland COLONOSCOPY SCREENING 2017 normal - Dr Gracia COLPOSCOPY CERVIX UPPER/ADJACENT VAGINA 02/27/[address] Crenshaw CONIZATION OF CERVIX, LEEP 02/27/[address] Crenshaw PAST SURGICAL HISTORY OF Bilateral 01/2022 catarac surgery FAMILY HISTORY Problem Relation Age of Onset None Mother Diabetes Father Hypertension Father Cancer Maternal Grandmother possible ovarian? Cancer Paternal Grandmother not sure what kind Cancer Paternal Grandfather not sure what kind Cancer Maternal Aunt liver Social History Tobacco Use Smoking status: Never Passive exposure: Never Smokeless tobacco: Never Vaping Use Vaping status: Never Used Substance Use Topics Alcohol use: No Drug use: No Current Outpatient Medications Medication Sig amLODIPine (NORVASC) 2.5 mg tablet Take 2.5 mg by mouth once daily. norethindrone (AYGESTIN) 5 mg tablet Take 1 tablet by mouth as directed. 1 tablet 3 times daily until bleeding stops then twice daily for 2 days then 1 tablet daily for 2 days. ascorbic acid (VITAMIN C ORAL) Take by mouth. ZINC ORAL Take by mouth. ergocalciferol, vitamin D2, (VITAMIN D2 ORAL) Take by mouth. Lactobacillus acidophilus (PROBIOTIC ORAL) Take by mouth. calcium carb/magnesium ox,carb (CARLA-MAG ORAL) Take by mouth. omeprazole (PRILOSEC) 40 mg capsule Take by mouth. polyethylene glycol 3350 (MIRALAX, GLYCOLAX) 17 gram/dose powder Take 17 g by mouth as needed. loratadine (CLARITIN) 10 mg tablet Take 10 mg by mouth once daily. Mauldin-3 Fatty Acids 500 mg cap Take one(1) capsule daily. Flaxseed Oil 1,000 mg ORAL Cap Take one(1) tablet daily. multivitamin tablet Take one(1) tablet daily. No current facility-administered medications for this visit. ALLERGIES Allergen Reactions Latex Rash Nickel Rash REVIEW OF SYSTEMS: Genitourinary: (-) vaginal bleeding Objective SENSITIVE EXAM: The sensitive examination was discussed with the Patient or Patient's Authorized Lmsw. As applicable, any other physician, advance practice provider, medical student, or other health professional student that will be observing or involved in the sensitive examination for educational or training purposes was discussed with the Patient or Authorized Lmsw. The Patient or Authorized Lmsw has agreed to proceed with the sensitive examination. (Sensitive examination includes inspection and/or palpation of the breasts, pelvis, prostate and anorectal regions). PHYSICAL EXAM: BP 152/98 Wt 179 lb (81.2kg) LMP 08/12/2023 GENERAL: Pleasant; in no acute distress PULMONARY: normal inspiratory effort ABDOMEN: soft, non-tender, no masses : - PELVIC: external genitalia normal, normal Bartholin's glands, urethra, [place]'s glands, no vulvar lesions, no cervical lesions, good vaginal support, physiologic discharge present, normal appearing perineal body and perianal region - Patient consent for exam received NEURO: alert and oriented x3 Assessment & Plan ASSESSMENT AND PLAN: 1. PMB (postmenopausal bleeding) (N95.0) - Bleeding resolved after 7 days without ever starting norethindrone taper. - Hormone levels: Estradiol 17B < 25 pg/mL, FSH 23.8 mIU/mL. - Endometrial biopsy shows inactive endometrium, benign. - Pelvic ultrasound: Uterus size normal, small intramural fibroid on posterior wall, thin endometrial lining, ovaries atrophic. - Educated patient on the possibility of future bleeding due to polyps or other causes; advised to report any further bleeding. - Discussed that the current findings suggest postmenopausal status and unlikely to have more cycles. 2. Cervical cancer screening (Z12.4) 3. Encounter for screening for human papillomavirus (HPV) (Z11.51) - Previous Pap test was inconclusive due to excessive bleeding. - Repeat Pap test performed today. - Results expected in 1-2 weeks. Will notify of results. Follow- up as needed. To notify office with any further vaginal bleeding. Maureen Roche APRN.PRODUCT SAFETY COMPLIANCE LEADER I spent a total of 20 minutes on the date of the service which included preparing to see the patient, [id number] patient care, completing clinical documentation, obtaining and/or reviewing separately obtained history, performing a medically appropriate examination, and counseling and educating the patient/family/caregiver. documented in this encounter [facility] 09-06-2024 Note HNO ID: [id number] Author: LUZ MARINA CONNELLY MD Service: ? Author Type: Physician Type: Progress Notes Filed: 09/06/2024 12:41 Note Text: Pelvic ultrasound was performed on . Please see imaging tab for documentation and results. Luz Marina Connelly MD OBGYN Staff Physician SIGNATURE: Luz Marina Connelly MD PATIENT NAME: Radha Dang DATE: September 06, 2024 TIME: 12:40 PM PAGER/CONTACT #: Pager OBGYN Call Schedule: QGenda [facility] 09-06-2024 History of Presen t illness Narrative Pelvic ultrasound was performed on . Please see imaging tab for documentation and results. Luz Marina Connelly MD OBGYN Staff Physician SIGNATURE: Luz Marina Connelly MD PATIENT NAME: Radha Dang DATE: September 06, 2024 TIME: 12:40 PM PAGER/CONTACT #: Pager OBGYN Call Schedule: QGenda documented in this encounter [facility] 09-06-2024 History of Presen t illness Narrative Radiology Service Progress Note PATIENT NAME: Radha Dang DATE OF SERVICE: September 06, 2024 TIME: 9:05 AM PATIENT IDENTITY VERIFICATION COMPLETED USING TWO (2) IDENTIFIERS: Name and Date of confirmed by patient verbally. FALL SCREENING: Has the patient had 2 falls in the last year or 1 fall with injury or currently using an Ambulatory Assistive Device (Walker, Cane, Wheelchair, Crutches, etc.)? No PATIENT GENDER DATA: Assigned female at . status: : No status: NO. PATIENT RELEVANT IMPLANT DATA REVIEWED: Not Applicable PATIENT PRESENTS WITH AN IMPLANTABLE OR ATTACHED PIGS FEET CLEANER: No RADIOLOGY DEPARTMENT: Mammography PERIPHERAL IV DATA: Not applicable SIGNED BY: Franco Huizar September 06, 2024 9:05 AM documented in this encounter [facility] 09-06-2024 Note HNO ID: [id number] Author: TYRELL LOUISE Mammo Tech Service: ? Author Type: [employer] Police Officer Type: Progress Notes Filed: 09/06/2024 09:05 Note Text: Radiology Service Progress Note PATIENT NAME: Radha Dang DATE OF SERVICE: September 06, 2024 TIME: 9:05 AM PATIENT IDENTITY VERIFICATION COMPLETED USING TWO (2) IDENTIFIERS: Name and Date of confirmed by patient verbally. FALL SCREENING: Has the patient had 2 falls in the last year or 1 fall with injury or currently using an Ambulatory Assistive Device (Walker, Cane, Wheelchair, Crutches, etc.)? No PATIENT GENDER DATA: Assigned female at . status: : No status: NO. PATIENT RELEVANT IMPLANT DATA REVIEWED: Not Applicable PATIENT PRESENTS WITH AN IMPLANTABLE OR ATTACHED PIGS FEET CLEANER: No RADIOLOGY DEPARTMENT: Mammography PERIPHERAL IV DATA: Not applicable SIGNED BY: Franco Huizar September 06, 2024 9:05 AM [facility] 08-29-2024 History of Presen t illness Narrative Images from the original note were not included. Picture Engraver offered: Patient declines. Obstetrics and Gynecology [employer] INTERACTIVE ART DIRECTOR Visit Subjective Recording using Ablexis software for draft documentation of the visit was discussed with the patient/authorized medical claims representative; all questions welcomed and answered. Patient/authorized medical claims representative agreed to proceed CHIEF COMPLAINT: The patient is a 54-year-old female with a history of abnormal Pap smear presenting for evaluation of heavy bleeding and severe cramping after a year of amenorrhea. HPI: Menstrual Irregularities - LMP: August 12, 2023 - Reports no periods for approximately 380 days before the onset of current bleeding. - Bleeding started on Monday, August 26, 2024, and has persisted for 4 days. - Describes bleeding as heavy, requiring pad changes every couple of hours, with bright red blood and small clots (dime-sized) noted in the toilet. - Denies any prior spotting or brown discharge during the year of amenorrhea. - Reports severe cramping across the lower abdomen, with sharp pains in the left lower quadrant starting today. - Cramping and bleeding began simultaneously, with no prior warning. - Cramping is described as worse than previous menstrual cycles, stating, the cramps and the pain is so bad. - Reports feeling lightheaded occasionally but denies any episodes of syncope. - Taking ibuprofen for pain management, but reports it is ineffective. - No history of fibroids. - No history of hot flashes or night sweats. - Last Pap smear in 2020, with a history of an abnormal Pap smear in the early . - Last pelvic ultrasound in 2014. - Sexually active. HISTORY: OB History Gravida3 Para2 Term0 Preterm0 AB1 Living2 SAB0 IAB0 Ectopic1 Multiple0 Live Births0 Comment: 2 vaginal deliveries Environmental Health Inspector History LMP: 08/12/2023 (Exact Date), Having periods Age at Menarche: Age at First : Age at Menopause: Environmental Health Inspector History Comments: Sexual Activity: Yes; Male; vasectomy Contraception: Surgical PAST MEDICAL HISTORY Diagnosis Date Abnormal Pap smear of cervix 2005 Cerebral palsy (HCC) mild; diagnosed as a child. affects left side Cervical high risk HPV (human papillomavirus) test positive 2005 PAST SURGICAL HISTORY Procedure Laterality Date CHOLECYSTECTOMY 02/27/1998 COLONOSCOPY 02/27/2002 doland COLONOSCOPY SCREENING 2017 normal - Dr Garcia COLPOSCOPY CERVIX UPPER/ADJACENT VAGINA 02/27/[address] Crenshaw CONIZATION OF CERVIX, LEEP 02/27/[address] Crenshaw PAST SURGICAL HISTORY OF Bilateral 01/2022 catarac surgery FAMILY HISTORY Problem Relation Age of Onset None Mother Diabetes Father Hypertension Father Cancer Maternal Grandmother possible ovarian? Cancer Paternal Grandmother not sure what kind Cancer Paternal Grandfather not sure what kind Cancer Maternal Aunt liver Social History Tobacco Use Smoking status: Never Passive exposure: Never Smokeless tobacco: Never Vaping Use Vaping status: Never Used Substance Use Topics Alcohol use: No Drug use: No Current Outpatient Medications Medication Sig amLODIPine (NORVASC) 2.5 mg tablet Take 2.5 mg by mouth once daily. ascorbic acid (VITAMIN C ORAL) Take by mouth. ZINC ORAL Take by mouth. ergocalciferol, vitamin D2, (VITAMIN D2 ORAL) Take by mouth. Lactobacillus acidophilus (PROBIOTIC ORAL) Take by mouth. calcium carb/magnesium ox,carb (CARLA-MAG ORAL) Take by mouth. omeprazole (PRILOSEC) 40 mg capsule Take by mouth. polyethylene glycol 3350 (MIRALAX, GLYCOLAX) 17 gram/dose powder Take 17 g by mouth as needed. loratadine (CLARITIN) 10 mg tablet Take 10 mg by mouth once daily. Mauldin-3 Fatty Acids 500 mg cap Take one(1) capsule daily. Flaxseed Oil 1,000 mg ORAL Cap Take one(1) tablet daily. multivitamin tablet Take one(1) tablet daily. norethindrone (AYGESTIN) 5 mg tablet Take 1 tablet by mouth as directed. 1 tablet 3 times daily until bleeding stops then twice daily for 2 days then 1 tablet daily for 2 days. No current facility-administered medications for this visit. ALLERGIES Allergen Reactions Latex Rash Nickel Rash REVIEW OF SYSTEMS: Respiratory: (-) shortness of breath Genitourinary: (+) heavy vaginal bleeding, (+) dysmenorrhea, (+) left lower quadrant pelvic pain, (+) passage of small blood clots Neurological: (+) lightheadedness, (-) syncope Endocrine: (+) hot flashes, (-) night sweats Objective SENSITIVE EXAM: The sensitive examination was discussed with the Patient or Patient's Authorized Lmsw. As applicable, any other physician, advance practice provider, medical student, or other health professional student that will be observing or involved in the sensitive examination for educational or training purposes was discussed with the Patient or Authorized Lmsw. The Patient or Authorized Lmsw has agreed to proceed with the sensitive examination. (Sensitive examination includes inspection and/or palpation of the breasts, pelvis, prostate and anorectal regions). PHYSICAL EXAM: BP 161/88[post procedure[ Pulse 74 Wt 179 lb (81.2kg) LMP 08/12/2023 GENERAL: Pleasant; in no apparent distress; no pallor observed PULMONARY: normal inspiratory effort ABDOMEN: soft, non-tender, no masses : - PELVIC: external genitalia normal, normal [place]tholin's glands, urethra, [place]'s glands, no vulvar lesions, no cervical lesions, physiologic discharge present, normal appearing perineal body and perianal region; cervix appears normal. Moderate amount dark blood at cervical os and in vaginal vault. - BIMANUAL: uterus normal size, shape and consistency, no adnexal masses, non-tender - Patient consent for exam received NEURO: alert and oriented x3 Labs: (Ordered Today) - Follicle Stimulating Hormone - Estradiol 17B - CBC Imaging: (2014) Pelvic Ultrasound: No fibroids identified Tests: (Ordered Today) Endometrial Biopsy Assessment & Plan ASSESSMENT AND PLAN: 1. PMB (postmenopausal bleeding) (N95.0) - Onset of bleeding after 380 days of amenorrhea, accompanied by severe cramping and pain. - Ordered estradiol 17B and follicle-stimulating hormone levels to determine menopausal status; labs to be drawn today. - Performed endometrial biopsy; patient consented after discussing risks including cramping, infection, and potential uterine perforation. - Ordered CBC to assess for anemia due to reported lightheadedness. - Scheduled pelvic ultrasound for next week to evaluate for polyps or other causes of bleeding. - Advised patient on post-procedure care: no tampons or intercourse for one week; monitor for signs of infection such as back pain or malodorous discharge. - ENDOMETRIAL BIOPSY - done today - SURGICAL PATHOLOGY - FOLLICLE STIMULATING HORMONE - ESTRADIOL-17B BLD - PELVIC US WHI - COMPLETE BLOOD COUNT - PAP TEST - NORETHINDRONE ACETATE 5 MG TABLET - Aygestin taper. She will take if bleeding does not taper or if it increases. 2. Cervical cancer screening (Z12.4) - Last Pap test in 2020; no recent history of abnormal results. - Attempted Pap test during visit; will complete if sufficient blood clearance is achieved. - PAP TEST Diagnostic - Pathology results expected within 1-2 weeks; will communicate results via MyChart or phone. Maureen Roche APRN.RENEE Garcia is a 54 year old Female who presents today for an endometrial biopsy for post menopausal bleeding. test: n/a UNIVERSAL PROTOCOL / SAFETY CHECKLIST Procedure to be Performed: Endometrial biopsy Sign In: A Moment of CARE was completed. Appropriate PPE (Personal Protective Equipment) worn by all providers involved with the procedure. Special equipment utilized tenaculum. Patient/Surrogate Stated/Verified: Patient name, Date of , Relevant allergies, and The intended procedure Time Out: Relevant labs, photos, and/or imaging studies are not applicable. Intended patient and procedure match the source document(s) (e.g. consent, H&P, associated studies [imaging, pathology]) match the intended patient and procedure. Consent obtained and matches the intended procedure. Yes. Correct side/site is not applicable. Medications required for this procedure are verified. are not applicable. Fire risk assessed and is not applicable. Implants: are not applicable. Sign Out: Specimens are all correctly labeled and sent. All instruments, equipment, possible retained foreign bodies are accounted for. Yes. The post-procedure plan of care has been communicated to the patient or surrogate. PROCEDURE: EXTERNAL GENITALIA: Normal in appearance without lesions VAGINA: Normal in appearance without lesions BIOPSY: Speculum placed into the vagina with excellent visualization of the cervix. Cervix cleaned with betadine. Anterior lip of cervix grasped with single toothed tenaculum. Uterus sounded to 8 cm. Pipelle inserted into the uterus without difficulty and endometrial biopsy obtained. Specimen labeled and sent to pathology. Hemostasis achieved. Procedure Summary: Patient tolerated procedure well. ASSESSMENT: post menopausal bleeding PLAN: Specimens labeled and sent to Pathology. Will notify patient of results in 1-2 weeks. Post-procedure instructions reviewed and written material given to the patient. Maureen Roche APRN.CNP Medical Decision Making: Problems: Moderate: New problem with uncertain prognosis Data: Unique test result(s) reviewed: 1 Unique test(s) ordered: 3+ Risk: Moderate: Drug management and Moderate risk from testing/treatment Medical Decision Making Level: 4 - Moderate documented in this encounter [facility] 08-29-2024 Note HNO ID: [id number] Author: MAUREEN ROCHE APRN.CNP Service: ? Author Type: Nurse Practitioner Type: Progress Notes Filed: 08/29/2024 20:06 Note Text: Picture Engraver offered: Patient declines. Obstetrics and Gynecology [place] INTERACTIVE ART DIRECTOR Visit Subjective Recording using [employer] software for draft documentation of the visit was discussed with the patient/authorized medical claims representative; all questions welcomed and answered. Patient/authorized medical claims representative agreed to proceed CHIEF COMPLAINT: The patient is a 54-year-old female with a history of abnormal Pap smear presenting for evaluation of heavy bleeding and severe cramping after a year of amenorrhea. HPI: Menstrual Irregularities - LMP: August 12, 2023 - Reports no periods for approximately 380 days before the onset of current bleeding. - Bleeding started on Monday, August 26, 2024, and has persisted for 4 days. - Describes bleeding as heavy, requiring pad changes every couple of hours, with bright red blood and small clots (dime-sized) noted in the toilet. - Denies any prior spotting or brown discharge during the year of amenorrhea. - Reports severe cramping across the lower abdomen, with sharp pains in the left lower quadrant starting today. - Cramping and bleeding began simultaneously, with no prior warning. - Cramping is described as worse than previous menstrual cycles, stating, the cramps and the pain is so bad. - Reports feeling lightheaded occasionally but denies any episodes of syncope. - Taking ibuprofen for pain management, but reports it is ineffective. - No history of fibroids. - No history of hot flashes or night sweats. - Last Pap smear in 2020, with a history of an abnormal Pap smear in the early . - Last pelvic ultrasound in 2014. - Sexually active. HISTORY: OB History Gravida3 Para2 Term0 Preterm0 AB1 Living2 SAB0 IAB0 Ectopic1 Multiple0 Live Births0 Comment: 2 vaginal deliveries Environmental Health Inspector History LMP: 08/12/2023 (Exact Date), Having periods Age at Menarche: Age at First : Age at Menopause: Environmental Health Inspector History Comments: Sexual Activity: Yes; Male; vasectomy Contraception: Surgical PAST MEDICAL HISTORY Diagnosis Date Abnormal Pap smear of cervix 2005 Cerebral palsy (HCC) mild; diagnosed as a child. affects left side Cervical high risk HPV (human papillomavirus) test positive 2005 PAST SURGICAL HISTORY Procedure Laterality Date CHOLECYSTECTOMY 02/27/1998 COLONOSCOPY 02/27/2002 doland COLONOSCOPY SCREENING 2017 normal - Dr Garcia COLPOSCOPY CERVIX UPPER/ADJACENT VAGINA 02/27/[address] Crenshaw CONIZATION OF CERVIX, LEEP 02/27/2005 nadege Crenshaw PAST SURGICAL HISTORY OF Bilateral 01/2022 catarac surgery FAMILY HISTORY Problem Relation Age of Onset None Mother Diabetes Father Hypertension Father Cancer Maternal Grandmother possible ovarian? Cancer Paternal Grandmother not sure what kind Cancer Paternal Grandfather not sure what kind Cancer Maternal Aunt liver Social History Tobacco Use Smoking status: Never Passive exposure: Never Smokeless tobacco: Never Vaping Use Vaping status: Never Used Substance Use Topics Alcohol use: No Drug use: No Current Outpatient Medications Medication Sig amLODIPine (NORVASC) 2.5 mg tablet Take 2.5 mg by mouth once daily. ascorbic acid (VITAMIN C ORAL) Take by mouth. ZINC ORAL Take by mouth. ergocalciferol, vitamin D2, (VITAMIN D2 ORAL) Take by mouth. Lactobacillus acidophilus (PROBIOTIC ORAL) Take by mouth. calcium carb/magnesium ox,carb (CARLA-MAG ORAL) Take by mouth. omeprazole (PRILOSEC) 40 mg capsule Take by mouth. polyethylene glycol 3350 (MIRALAX, GLYCOLAX) 17 gram/dose powder Take 17 g by mouth as needed. loratadine (CLARITIN) 10 mg tablet Take 10 mg by mouth once daily. [place]ul[place]-3 Fatty Acids 500 mg cap Take one(1) capsule daily. Flaxseed Oil 1,000 mg ORAL Cap Take one(1) tablet daily. multivitamin tablet Take one(1) tablet daily. norethindrone (AYGESTIN) 5 mg tablet Take 1 tablet by mouth as directed. 1 tablet 3 times daily until bleeding stops then twice daily for 2 days then 1 tablet daily for 2 days. No current facility-administered medications for this visit. ALLERGIES Allergen Reactions Latex Rash Nickel Rash REVIEW OF SYSTEMS: Respiratory: (-) shortness of breath Genitourinary: (+) heavy vaginal bleeding, (+) dysmenorrhea, (+) left lower quadrant pelvic pain, (+) passage of small blood clots Neurological: (+) lightheadedness, (-) syncope Endocrine: (+) hot flashes, (-) night sweats Objective SENSITIVE EXAM: The sensitive examination was discussed with the Patient or Patient's Authorized Lmsw. As applicable, any other physician, advance practice provider, medical student, or other health professional student that will be observing or involved in the sensitive examination for educational or training purposes was discussed with the Patient or (more content not included)... [facility] 08-29-2024 Instructions Jason Valle LPN - 08/29/2024 10:25 AM EDT Endometrial Biopsy Your provider has recommended an endometrial biopsy. For more information, My [facility] Endometrial Biopsy How do I prepare for an endometrial biopsy? You shouldn t need to do much to prepare for an endometrial biopsy. Let your healthcare provider know what medications or supplements you take and if you have any allergies. They can let you know if you should stop taking certain medications before the biopsy. Some healthcare providers recommend taking a nonsteroidal anti-inflammatory drug (NSAID) like ibuprofen before the biopsy to help with pain. Your provider may recommend a medication to help prepare your cervix for the biopsy, often taken by mouth one and two days before the procedure. Ask your healthcare provider any questions you have before the procedure so you know exactly what to expect. Generally, an endometrial biopsy is very low-risk and safe. documented in this encounter [facility] 08-27-2024 Telephone encounter Note Please file mammogram order. Will need forward to PSS to schedule then. Augustina Banda RN [facility] 08-27-2024 Miscellaneous Notes Please file mammogram order. Will need forward to PSS to schedule then. Augustina Banda RN Pt needs Mammo ordered documented in this encounter [facility] 08-27-2024 Telephone encounter Note Pt needs Mammo ordered [facility] 06-05-2023 Miscellaneous Notes June 06, 2023 PID: [id number] Radha Dang [address] [place] [address] Dear Ms. Dang, We are pleased to inform you that the results of your recent breast imaging exam on 06/02/2023 are normal. Early detection of cancer is very important. We also understand recommendations regarding breast cancer screening are controversial. Please discuss with your primary care provider which strategy is best for you and whether a mammogram is right for you. Your imaging studies and report will be kept on file at [facility] as part of your permanent medical record and are available for your continuing care. Thank you for allowing us to help in meeting your health care needs. Sincerely, Dr. Pinto Interpreting Radiologist [facility] (Normal over 40) documented in this encounter [facility] 06-02-2023 History of Presen t illness Narrative Radiology Service Progress Note PATIENT NAME: Radha Dang DATE OF SERVICE: June 02, 2023 TIME: 7:29 AM PATIENT IDENTITY VERIFICATION COMPLETED USING TWO (2) IDENTIFIERS: Name and Date of confirmed by patient verbally. FALL SCREENING: Has the patient had 2 falls in the last year or 1 fall with injury or currently using an Ambulatory Assistive Device (Walker, Cane, Wheelchair, Crutches, etc.)? No PATIENT GENDER DATA: Female. status: : No status: NO. PATIENT RELEVANT IMPLANT DATA REVIEWED: Yes PATIENT PRESENTS WITH AN IMPLANTABLE OR ATTACHED PIGS FEET CLEANER: No RADIOLOGY DEPARTMENT: Mammography PERIPHERAL IV DATA: Not applicable SIGNED BY: RT Kumar(R) June 02, 2023 7:29 AM documented in this encounter [facility] 05-30-2023 History of Presen t illness Narrative Picture Engraver offered: Patient declines. Radha is a 53 year old who presents for an annual gynecologic exam with complaints, rash/discoloration under arm that she has had for a couple of weeks. No itching . Postmenopausal: No. More irregular. Menstrual cycle every 35-63 days Flow 5 days of light flow followed by one day of spotting a few days later. Last Pap: 10/02/2020 normal HPV: 10/02/2020 negative History of abnormal pap: No Last mammogram: 12/2021 normal History of abnormal mammogram: No Sexually active: Yes Partner of 27 years History of STDS: None Patient concerns for STD exposure: No. Pain with intercourse: No. Uses lubricant. Postcoital bleeding: No Hot flashes: occasional Night sweats: only when on menses Documentation from previous visit of 01/12/2022 was copied and pasted, documentation has been reviewed and edited as necessary for today's visit. OB History T0 L2 SAB0 IAB0 Ectopic1 Multiple0 Live Births0 Comment: 2 vaginal deliveries Environmental Health Inspector History LMP: 04/19/2023, Having periods Age at Menarche: Age at First : Age at Menopause: Environmental Health Inspector History Comments: Sexual Activity: Yes; Male; vasectomy Contraception: Surgical PAST MEDICAL HISTORY Diagnosis Date Abnormal Pap smear of cervix 2005 Cerebral palsy (HCC) mild; diagnosed as a child. affects left side Cervical high risk HPV (human papillomavirus) test positive 2005 PAST SURGICAL HISTORY Procedure Laterality Date CHOLECYSTECTOMY 02/27/1998 COLONOSCOPY 02/27/2002 doland COLPOSCOPY CERVIX UPPER/ADJACENT VAGINA 02/27/[address] Crenshaw CONIZATION OF CERVIX, LEEP 02/27/[address] Crenshaw PAST SURGICAL HISTORY OF Bilateral 01/2022 catarac surgery FAMILY HISTORY Problem Relation Age of Onset None Mother Diabetes Father Hypertension Father Cancer Maternal Grandmother possible ovarian? Cancer Paternal Grandmother not sure what kind Cancer Paternal Grandfather not sure what kind Cancer Maternal Aunt liver SOCIAL HISTORY Social History Tobacco Use Smoking status: Never Passive exposure: Never Smokeless tobacco: Never Vaping Use Vaping [...] Allergies and current medication updated:Yes EXAM: BP 130/90 Ht 5' 4 (1.63m) Wt 183 lb 12.8 oz (83.4kg) LMP 04/19/2023 BMI 31.53 kg/(m^2). GENERAL: pleasant, female in no apparent distress HEENT: Normocephalic, atraumatic, mucus membranes moist, and no lesions NECK: Supple, full range of motion, no adenopathy, and thyroid normal DERMATOLOGY: Normal, without lesions, non-icteric, and non-hirsute BREAST: soft, non-tender, symmetric, no dominant mass, normal nipple-areolar complex, no lymphadenopathy, and no nipple discharge. Left axilla - intertrigo CHEST: Normal inspiratory effort ABDOMEN: soft, non-tender, and no masses PELVIC: external genitalia normal, normal Bartholin's glands, urethra, [place]'s glands, no vulvar lesions, no cervical lesions, physiologic discharge present, normal appearing perineal body and perianal region BIMANUAL: uterus normal size, shape and consistency, no adnexal masses, and non-tender RECTOVAGINAL: deferred. NEURO: alert and oriented x3,exam grossly non-focal EXTREMITIES: normal ASSESSMENT/PLAN: 1) Health maintenance: Pap/HPV up to date. Mammogram ordered Mammogram up to date Nutrition, exercise and routine health maintenance exams reviewed. Calcium/Vitamin D supplementation information provided. Colon cancer screening: up to date with screening 2. Intertrigo - ICD9: 695.89, ICD10: L30.4 - left axilla - Monistat 7 once a day for 7 days - NYSTATIN 100,000 UNIT/GRAM TOPICAL POWDER 3) Follow up one year or sooner as needed Maureen Roche APRN.CNP Medical Decision Making: Problems: Minimal: Self-limited or minor problem Risk: Moderate: Drug management Medical Decision Making Level: 2 - Straightforward documented in this encounter [facility] 04-28-2023 Discharge summary Note Date/Time April 28, 2023 1:47pm [facility] Medical Records Department [address] [place] [address] Emergency Department Summary 04/28/23 MR#: [id number] Acct: [id number] Name: RADHA DANG RAI Rep #:[id number] : 1970 53 From: Mario Decker MD PCP: Dr. Kacy Collins, Status:RE G ER Location: ED HPI History of Present Illness Chief Complaint: Hypertension Informant: patient Onset/Context/Timing Onset: Days Context: Gradual Onset Timing: Intermittent Current Severity: Mild Maximum Severity: Mild Narrative Narrative: 53-year-old female recently saw her primary care physician's office who started on Augmentin for possible sinus infection and as needed hydralazine for high blood pressure. She was treated for high blood pressure in the past that got better so she stopped the medication. She is not treated chronically for hypertension. She then saw the nurse practitioner primary care physician's office the other day who put her on hydralazine as needed if her pressures elevated. She denies any chest pain. She has sinus congestion and headache. No vomiting or diarrhea. Prior similar symptoms: Yes Recent Illness/Hospitalization: No PFSH PFSH Medical History no medical history no medical history Home Medications Omeprazole [Prilosec] 40 mg PO DAILY 07/20/13 [History Last Taken Unknown] ofloxacin 0.3 % eye drops 1 drp RIGHT EYE DAILY 02/03/22 [History Last Taken Unknown] oxycodone-acetaminophen 5 mg-325 mg tablet (Percocet) 1 tab PO Q6H PRN pain 3 days #12 tabs 02/03/22 [Rx Last Taken Unknown] amlodipine 5 mg tablet 5 mg PO DAILY #30 tabs 02/04/22 [Rx Last Taken Unknown] tizanidine 4 mg capsule (Zanaflex) 4 mg PO Q8H PRN muscle spasticity #21 caps 02/04/22 [Rx Last Taken Unknown] Allergy/AdvReac Type Severity Reaction Status Date / Time latex Allergy Rash Verified 02/03/22 19:10 Family History Other Breast cancer CVA (cerebral vascular accident) Surgical History Cataract extraction status, right eye Social History Smoking Status: Never smoker ROS ROS ED ROS Narrative Elevated blood pressure. Sinus drainage and congestion. Review of Systems ROS Unobtainable: Denies due to encephalopathy Constitutional Constitutional ED: Denies chills or fever(s) Eyes Eyes: Denies blurry vision ENT ENT ED: Denies ear pain Cardiovascular Cardiovascular: Denies chest pain or palpitations Respiratory/Chest Respiratory/Chest: Denies cough or dyspnea Gastrointestinal Gastrointestinal: Denies abdominal pain, constipation, diarrhea, melena, nausea or vomiting Genitourinary Genitourinary ED: Denies dysuria or hematuria Musculoskeletal Musculoskeletal: Denies arthralgias or back pain Integumentary Denies abscess or Abrasions Neurologic Neurologic: Reports headache(s) Psychiatric Psychiatric: Denies anxiety or depression Endocrine Endocrinology: Denies cold intolerance, heat intolerance, polydipsia, polyphagiaor polyuria Hematologic/Lymphatic Hematologic/Lymphatic: Reports none Allergic/Immunologic Allergic/Immunologic ED: Denies mouth swelling, tongue swelling or urticaria EXAM Physical Exam Narrative Exam Narrative: 53-year-old female no acute distress initial blood pressure 169/93. Patient does not look septic toxic or in any distress. Pulse ox 98% on room air no hypoxia. H EENT exam nasal congestion. No frontal maxillary sinus tenderness. TMs normal bilaterally. Given dry reactive light. No trauma. Neck nontender no meningismus. No lymphadenopathy. Lungs clear to auscultation bilaterally. Heart regular rhythm rate about 90 no murmur. Abdomen soft nontender. Moving all 4 extremities. Calves are nontender without edema or cords. Neurologicallyshe is awake alert. Answer questions following commands. 5 of 5 wheelage clerk strength bilaterally. Dorsi plantarflexion intact. NIH score is 0. Const Vital Signs: 04/28/23 13:28 04/28/23 13:48 04/28/23 15:28 Temperature 97.9 F Temperature Source Temporal Pulse Rate 91 79 Respiratory Rate 16 16 Respiratory Pattern Normal Blood Pressure 169/93 H 148/86 H Blood Pressure Mean 118 106 Pulse Ox 98 94 Oxygen Delivery Method Room Air Room Air Positive well nourished and well developed; Negative for cachectic, contracturesor unkempt General Appearance ED: well developed and NAD; Negative for unkempt, cachectic, contractures, cyanotic, diaphoretic or pallor Nutritional Appearance: Negative for cachectic HEENT Reports moist mucous membranes; Denies dry mucous membranes Negative for trauma or tenderness Mouth ED: No dry mucous membranes Mouth: No dry mucous membranes Eyes PERRL and EOMs intact bilaterally General Eye ED: Negative for pale conjunctiva or scleral icterus Neck no lymphadenopathy, supple and no JVD General: Negative for tenderness Lymph Lymphatic: Negative for other Chest Wall inspection of chest normal and palpation of chest normal Chest: Negative for other Resp normal respiratory effort and clear to auscultation bilaterally Effort and Inspection: Negative for retractions Auscultation: Negative for rales, rhonchi or wheezes Cardio regular rate, regular rhythm, S1 normal heart sound, S2 normal heart sound and no murmurs Palpation: Negative for palpable S3 or palpable S4 Rate: Negative for bradycardia or tachycardic Rhythm: Negative for abnormal rhythm GI normal to inspection, nondistended, normoactive bowel sounds, non-tender, non-distended and no masses Inspection: Negative for abdominal distention Auscultation: normoactive bowel sounds Palpation: soft; Negative for tender or rebound tenderness present Back/Spine no CVA tenderness General Back: Negative for CVA tenderness Thoracic Spine / Upper Back: Negative for thoracic spinal tenderness or paraspinal muscle tenderness Lumbar Spine / Lower Back: Negative for lumbar spinal tenderness Extremity normal to inspection General Extremety ED: Negative for edema, tenderness or other findings General Extremity: Negative for edema or other findings Neuro oriented x3 and CN's II-XII intact bilaterally Sensorium / Orientation: alert; Negative for lethargic or stuporous Motor Exam: strength 5/5 throughout; Negative for general weakness or strength abnormal Psych mental status grossly normal Appearance: Negative for unkempt Attitude: No agitated Mood & Affect: Negative for depressed, anxious or tearful Skin no rashes or lesions noted and no wounds General Skin Exam: Negative for jaundice or pallor Lesions: No lesion noted Rashes: No rashes noted Trauma: Negative for abrasion Wounds: Negative for wounds noted MDM MDM MDM Narrative Medical decision making narrative: Patient with nasal congestion and headache being treated for sinus infection with Augmentin also recently has had elevated blood pressures and is on hydralazine as needed. She has had elevated blood pressure in the past that wastreated and she stopped medication. Exam benign. CAT scan of her brain being obtained to evaluate of both to rule out intercranial bleed from the blood pressure and also sinus infection. Screening labs. Her exam is benign. Repeat exam patient doing well at 3:42 PM. Her most recent blood pressure was 148/86. Patient doing well. No complaints. Unchanged. She has no signs of a bacterial sinus infection I told her she can stop the Augmentin that was prescribed to her by the nurse practitioner. Her labs otherwise are unremarkable. She will log her blood pressures at home they have 2 blood pressure machines at home. She will follow-up with Dr. Arminda Todd at his appointment next Monday. She will wear the blood pressures then decide that time she needs to be treated. I explained to the patient normally people just do not take hydralazine as needed if the blood pressure is elevated but then do not take anything on other days. Both her and her are comfortable to plan. History & Record Review Discussion w/independent historian: Patient Additional record(s) reviewed:: Prior inpatient record, Prior outpatient record,Prior ED visit and Prior labs Lab Data Attestation: I reviewed the patient's lab results. Lab results narrative: CBC shows a white count 8. H&H of 13 and 42. Platelets 400. CBC is normal. Chemistries show gap of 4. Normal BUN of 16 creatinine 0.7. Glucose 100. Labs: Laboratory Results - last 24 hr 04/28/23 14:02 WBC 8.0 RBC 4.75 Hgb 13.7 Hct 42.4 MCV 89.3 MCH 28.8 MCHC 32.3 RDW Std Deviation 45.7 H RDW Coeff of Yajaira 14.0 Plt Count 400 MPV 8.4 Immature Gran % (Auto) 0.400 Neut % (Auto) 65.4 Lymph % (Auto) 23.2 [place] % (Auto) 8.1 Eos % (Auto) 2.1 Baso % (Auto) 0.8 Absolute Neuts (auto) 5.2 Absolute Lymphs (auto) 1.85 Nucleated RBC % 0 Sodium 138 Potassium 3.8 Chloride 109 H Carbon Dioxide 25.0 Anion Gap 4 L BUN 16 Creatinine 0.70 Estim Creat Clear Calc 97.14 Est GFR (MDRD) Af Amer 113 Est GFR (MDRD) Non-Af 93 BUN/Creatinine Ratio 22.9 H Glucose 100 Calcium 9.3 Radiography Diagnostic Testing: Clinical Impression(s) from Imaging Studies Brain CT 04/28/23 13:41 IMPRESSION: Normal unenhanced CT scan of the brain. Mucosal thickening is seen at the base of both maxillary sinuses. Electronically Signed: Minor Saenz MD at 14:45 EST , Discharge Plan Triage Chief Complaint: Hypertension ED Provider: Mario Decker Dx/Rx/DC Orders Clinical Impression: Elevated blood pressure reading without diagnosis of hypertension Instructions: ED Hypertension, To Be Confirmed Prescriptions: No Action Omeprazole [Prilosec] 40 MG capsule 40 mg PO DAILY ofloxacin 0.3 % drops 1 drp RIGHT EYE DAILY Patient Comments: Instill 1 drop in right eye as directed Use QID in operative eye 3 days prior to surgery and QID after surgery oxycodone-acetaminophen [Percocet] 5-325 mg tablet 1 tab PO Q6H PRN (Reason: pain) 3 Days Qty: 12 0RF amlodipine 5 mg Tablet 5 mg PO DAILY Qty: 30 1RF tizanidine [Zanaflex] 4 mg capsule 4 mg PO Q8H PRN (Reason: muscle spasticity) Qty: 21 0RF Primary Care Provider: Kacy Collins Referrals: Kacy Collins DO [Primary Care Provider] - Keep Jeovanny appointment Activity Restrictions/Additional Instructions: No signs of a sinus infection either on exam or the CAT scan. You have sinus congestion but you do not need antibiotic he can stop the Augmentin. You may or may not have hypertension. Log your blood pressures twice a day whenyou are calm and relaxed after breakfast and dinner. Show this to Dr. Collins when you follow-up with her next week. At that time she can decide if she wantsto start you on blood pressure medications. No reason to take the hydralazine. Disposition Disposition: Home, Self Care What to do if you have Problems For any increased pain, shortness of breath, bleeding, nausea or vomiting, chestpain, or any unexpected problems, contact your Primary Care Provider. Call [facility] ([phone]) or report to the closest Emergency Room. Call 911 if necessary. 04/28/23 1555 <Electronically signed by Mario Decker MD> Cosigner Signature (if applicable): CC: Dr. Kacy Collins DO ~ Signed [facility] Work Phone: 1(227) 359-393211-23-2022 History of Present illness Narrative* Barbara Wilson, RT(R) - 01/19/2022 7:10 AM EST Radiology Service Progress Note PATIENT NAME: Radha Dang DATE OF SERVICE: January 19, 2022 TIME: 6:55 AM PATIENT IDENTITY VERIFICATION COMPLETED USING TWO (2) IDENTIFIERS: Name and Date of confirmedby patient verbally. FALL SCREENING: Has the patient [...] 19, 2022 6:55 AM documented in this encounterAshtabula [facility]11-16-2022 Miscellaneous Notes* Addendum Note - Alda Hendrickson MA - 01/12/2022 3:46 PM ESTAddended by: ALDA HENDRICKSON on: 01/12/2022 03:46 PM Modules accepted: Orders, SmartSet * Addendum Note - Alda Hendrickson MA - 01/12/2022 3:42 PM ESTAddended by: ALDA HENDRICKSON on: 01/12/2022 03:42 PM Modules accepted: Orders, SmartSet * Addendum Note - Bev Rodriguez LPN - 01/12/2022 3:40 PM ESTAddended by: BEV RODRIGUEZ LPN on: 01/12/2022 03:40 PM Modules accepted: SmartSet * Addendum Note - Alda Hendrickson MA - 01/12/2022 3:38 PM ESTAddended by: ALDA HENDRICKSON on: 01/12/2022 03:38 PM Modules accepted: SmartSet documented in this encounterAshtabula [facility] Center11-16-2022 History of Present illness Narrative* Alda Hendrickson MA - 01/12/2022 3:43 PM EST [facility] OPEN ACCESS QUESTIONNAIRE 1. Are you currently having any new or unusual stomach/gastrointestinal issues at this time such asconstipation, diarrhea, abdominal pain, rectal bleeding etc?No 2. Do you have any difficulty swallowing? No 3. Do you have any implanted devices such as a defibrillator, pacemaker, cardiac stents or deep brain stimulator? No 4. Do you take any Blood thinners such as Coumadin, Plavix, Xarelto, Eliquis, Brilinta or any otherblood thinner? No 5. Do you have any [...] prep will print upon filing or pending thissmartset. Please send all open access questionnaires to [facility] Pool #[id number] * Maureen Roche APRN.PRODUCT SAFETY COMPLIANCE LEADER - 01/12/2022 2:57 PM EST Picture Engraver offered: Patient declines. Radha is a 51 year old who presents for an annual gynecologic exam with complaints, irregular bleeding. Step-mom in August and adopted dad is very ill. Postmenopausal: No. Irregular. Menstrual cycle every 26-37 days 20 day cycle in November and had RLQpain x 5 days - always has cramping [...] Multiple0 Live Births0 Comment: 2 vaginal deliveries Environmental Health Inspector History LMP: 12/21/2021, Having periods Age at Menarche: Age at First : Age at Menopause: Environmental Health Inspector History Comments: Sexual Activity: Yes; Male; vasectomy Contraception: Surgical PAST MEDICAL HISTORY Diagnosis Date Abnormal Pap smear of cervix 2006 Cerebral palsy (HCC) mild; diagnosed as a child. affects left side Cervical high risk HPV (human papillomavirus) test positive 2006 PAST SURGICAL HISTORY Procedure Laterality Date CHOLECYSTECTOMY 1998 COLONOSCOPY 2002 doland COLPOSCOPY CERVIX UPPER/ADJACENT VAGINA [address] [...] external genitalia normal, normal Bartholin's glands, urethra, [place]'s glands, no vulvar lesions, no cervical lesions, [...] needed Maureen Roche APRN.RENEE documented in this encounterAshtabula County Medical Center11-16-2022 Instructions* Patient Instructions* Alda Hendrickson MA - 01/12/2022 3:40 PM EST [...] please call: Dr. Kunz or Dr. Everett [phone] Cynthia Ornelas [phone] Dr. Park [phone] [facility] nurses [phone] documented in this encounterUniversity [facility]als [facility] noteNo assessment information availableWBlanchard Valley [facility] Work Phone: evTuscany Gardensation note* Diagnosis Encounter for gynecological examination (general) (routine) without abnormal findings- Primary Irregular menstrual cycle Encounter for screening mammogram for breast cancer documented in this encounter [facility] note* Diagnosis Onset Date Resolution Status Elevated blood pressure read ing without diagnosis of hypertension acute Neck pain [facility] Work Phone: evaluation note* Diagnosis Onset Date Resolution Status Anginal equivalent acute Elevated blood pressure read ing without diagnosis of hypertension acute Neck pain [facility] Work Phone: evTuscany Gardensation note* Diagnosis Encounter for gynecological examination (general) (routine) without abnormal findings Encounter for screening mammogram for breast cancer documented in this encounter [facility] note* Diagnosis Encounter for gynecological examination with abnormal finding- Primary Routine gynecological examination Encounter for screening mammogram for breast cancer Intertrigo Other specified erythematous condition documented in this encounter [facility] note* Diagnosis Encounter for gynecological examination with abnormal finding Routine gynecological examination Encounter for screening mammogram for breast cancer documented in this encounter [facility] note* Diagnosis Encounter for screening mammogram for malignant neoplasm of breast- Primary Other screening mammogram documented in this encounter [facility] note* Diagnosis PMB (postmenopausal bleeding)- Primary Postmenopausal bleeding Cervical cancer screening Screening for malignant neoplasm of the cervix documented in this encounter [facility] note* Diagnosis PMB (postmenopausal bleeding) Postmenopausal bleeding documented in this encounter [facility] note* Diagnosis Encounter for screening mammogram for malignant neoplasm of breast Other screening mammogram documented [facility] this [facility] [place] [facility]* Diagnosis PMB (postmenopausal bleeding)- Primary Postmenopausal bleeding Cervical cancer screening Screening for malignant neoplasm of the cervix Encounter for screening for human papillomavirus (HPV) Special screening examination for human papillomavirus (HPV) documented [facility] this [facility] Additional Instructions No signs of a sinus infection either on exam or the CAT scan. You have sinus congestion but you do not need antibiotic he can stop the Augmentin. You may or may not have hypertension. Log your blood pressures twice a day when you are calm and relaxed after breakfast and dinner. Show this to Dr. Collins when you follow-up with her next week. At that time she can decide if she wants to start you on blood pressure medications. No reason to take the hydralazine.[facility] Work Phone: Reason for referral (narrative)* Diagnostic Procedure Only (Routine) - Pending Review Specialty Diagnoses / Procedures Referred By Kelton morel Referred To Contact [facility] Diagnoses Encounter for gynecological examination (general) (routine) without abnormal findings Encounter for screening mammogram for breast cancer Procedures MARISSA SCREENING SCREENING MAMMOGRAPHY BI 2-VIEW BREAST INC Maureen Gastelum APRN.CNP [address] [place] [address] [facility] [address] [address] Referral ID Status Reason Start Date Expiration Date Visits Requested Visits Authorized [id number] Pending Review Auto-Generat ed Referral 02/11/2023 1 1 [facility] for referral (narrative)* Diagnostic Procedure Only (Routine) - Authorized Specialty Diagnoses / Procedures Referred By Kelton morel Referred To Contact [facility] Diagnoses Encounter for gynecological examination with abnormal finding Encounter for screening mammogram for breast cancer Procedures MARISSA SCREENING SCREENING MAMMOGRAPHY BI 2-VIEW BREAST INC Maureen Gastelum APRN.PRODUCT SAFETY COMPLIANCE LEADER [address] [place] [address] [facility] [address] [place] [address] Referral ID Status Reason Start Date Expiration Date Visits Requested Visits Authorized [id number] Authorized Auto-Generat ed Referral 05/30/2023 06/28/2024 1 1 [facility] for visit Narrative* Diagnostic Procedure Only (Routine) - Closed Specialty Diagnoses / Procedures Referred By Kelton morel Referred To Contact [facility] Diagnoses Encounter for gynecological examination with abnormal finding Encounter for screening mammogram for breast cancer Procedures MARISSA SCREENING SCREENING MAMMOGRAPHY BI 2-VIEW BREAST INC CAD Maureen Roche APRN.PRODUCT SAFETY COMPLIANCE LEADER [address] [place] [address] [facility] [address] [place] [address] Referral ID Status Reason Start Date Expiration Date V isits Requested Visits Authorized [id number] Closed Auto-Generate d Referral 05/30/2023 06/28/2024 1 1 [facility] for visit Narrative* Diagnostic Procedure Only (Routine) - Closed Specialty Diagnoses / Procedures Referred By Kelton morel Referred To Contact [facility] Diagnoses PMB (postmenopausal bleeding) Procedures PELVIC US [facility] US PELVIC NONOBSTETRIC REAL-TIME IMAGE COMPLETE Maureen Roche APRN.PRODUCT SAFETY COMPLIANCE LEADER [address] [place] [address] Phone: tel: fax: [facility] [address] [place] [address] Referral ID Status Reason Start Date Expiration Date V isits Requested Visits Authorized [id number] Closed Auto-Generate d Referral 08/29/2024 08/29/2025 1 1 [facility] for visit Narrative* Consult, Test, Treat (Routine) - Closed Specialty Diagnoses / Procedures Referred By Kelton morel Referred To Contact [facility] Diagnoses Encounter for screening mammogram for malignant neoplasm of breast Procedures MARISSA SCREENING W LIVE SCREENING DIGITAL BREAST TOMOSYNTHESIS BI SCREENING MAMMOGRAPHY BI 2-VIEW BREAST INC Maureen Gastelum APRN.PRODUCT SAFETY COMPLIANCE LEADER [address] [place] [address] Phone: tel: fax: [facility] [address] [place] [address] Referral ID Status Reason Start Date Expiration Date V isits Requested Visits Authorized [id number] Closed Auto-Generate d Referral 09/06/2024 02/26/2025 1 1 [facility] Chief Complaint and Reason for Visit Chief Complaint EXPOSURE Chief Complaint ANGINAL EQUIVALENT Reason for Visit Elevated blood press ure reading without diagnosis of hypertension Neck pain Chief Complaint neck pain ANGINAL EQUIVALENT neck pain Reason for Visit Anginal equivalent Elevated blood pressure reading without diagnosis of hypertension Neck pain Chief Complaint hypertensions Advance Directives Advance Directive Response Recorded Date/ Time Living Will No September 20, 2021 2:50pm Power of Contract Administration Specialist No September 20 2:50pm Advance Directive Response Recorded Date/ Time Living Will No February 03 7:20pm Power of Contract Administration Specialist No February 03, 2022 7:20pm Advance Directive Response Recorded Date/ Time Living Will No February 04 12:51am Power of Contract Administration Specialist No February 04, 2022 12:51am Advance Directive Response Recorded Date/ Time Living Will No April 28, 2023 1:48pm Power of Contract Administration Specialist No April 27 1:48pm Family History Relationship Condition Age at Onset Recorded Date/T trent Not Specified Malignant neoplasm of breast Unknown Cerebrovascular accident (CVA) Unknown Reason for Referral Specialty Diagnoses / Procedures Referred By Renéac t Referred To Contact [facility] Diagnoses Encounter for gynecological examination (general) (routine) without abnormal findings Encounter for screening mammogram for breast cancer Procedures MARISSA SCREENING SCREENING MAMMOGRAPHY BI 2-VIEW BREAST INC CAD Maureen Roche, JORDYN.PRODUCT SAFETY COMPLIANCE LEADER [address] [place] [address] [facility] [address] [place] [address] Referral ID Status Reason Start Date Expiration Date V isits Requested Visits Authorized [id number] Closed Auto-Generate d Referral 01/19/2022 02/26/2022 1 1 Summary Purpose Additional Source Comments Goals (unrecognized section and content) Goals may be documented in a n alternate sectionGoals may be documented in an alternate sectionGoals may be documented in an alternate sectionGoals may be documented in an alternate section Source Comments (unrecognize d section and content) In the event this informatio n is protected by the Federal Confidentiality of Alcohol and Drug Abuse Patient Records regulations: The Federal rules restrict any use of the information to criminally investigate or prosecute any alcohol or drug abuse patient.[facility] CenterIn the event this information is protected by the Federal Confidentiality of Alcohol and Drug Abuse Patient Records regulations: The Federal rules restrict any use of the information to criminally investigate or prosecute any alcohol or drug abuse patient.[facility] CenterIn the event this information is protected by the Federal Confidentiality of Alcohol and Drug Abuse Patient Records regulations: The Federal rules restrict any use of the information to criminally investigate or prosecute any alcohol or drug abuse patient.[facility] CenterIn the event this information is protected by the Federal Confidentiality of Alcohol and Drug Abuse Patient Records regulations: The Federal rules restrict any use of the information to criminally investigate or prosecute any alcohol or drug abuse patient.[facility] CenterIn the event this information is protected by the Federal Confidentiality of Alcohol and Drug Abuse Patient Records regulations: The Federal rules restrict any use of the information to criminally investigate or prosecute any alcohol or drug abuse patient.[facility] CenterIn the event this information is protected by the Federal Confidentiality of Alcohol and Drug Abuse Patient Records regulations: The Federal rules restrict any use of the information to criminally investigate or prosecute any alcohol or drug abuse patient.[facility] CenterIn the event this information is protected by the Federal Confidentiality of Alcohol and Drug Abuse Patient Records regulations: The Federal rules restrict any use of the information to criminally investigate or prosecute any alcohol or drug abuse patient.[facility] CenterIn the event this information is protected by the Federal Confidentiality of Alcohol and Drug Abuse Patient Records regulations: The Federal rules restrict any use of the information to criminally investigate or prosecute any alcohol or drug abuse patient.[facility] CenterIn the event this information is protected by the Federal Confidentiality of Alcohol and Drug Abuse Patient Records regulations: The Federal rules restrict any use of the information to criminally investigate or prosecute any alcohol or drug abuse patient.[facility] CenterIn the event this information is protected by the Federal Confidentiality of Alcohol and Drug Abuse Patient Records regulations: The Federal rules restrict any use of the information to criminally investigate or prosecute any alcohol or drug abuse patient.[facility] CenterIn the event this information is protected by the Federal Confidentiality of Alcohol and Drug Abuse Patient Records regulations: The Federal rules restrict any use of the information to criminally investigate or prosecute any alcohol or drug abuse patient.[facility] CenterIn the event this information is protected by the Federal Confidentiality of Alcohol and Drug Abuse Patient Records regulations: The Federal rules restrict any use of the information to criminally investigate or prosecute any alcohol or drug abuse patient.[facility] Reason for Visit (unrecogniz ed section and content) Reason Comments Well Woman Specialty Diagnoses / Procedures Referred By Contac t Referred To Contact [facility] Diagnoses Encounter for gynecological examination (general) (routine) without abnormal findings Encounter for screening mammogram for breast cancer Procedures MARISSA SCREENING SCREENING MAMMOGRAPHY BI 2-VIEW BREAST INC CAD Maureen Roche APRN.PRODUCT SAFETY COMPLIANCE LEADER [address] [place] [address] [facility] [address] [place] [address] Referral ID Status Reason Start Date Expiration Date V isits Requested Visits Authorized [id number] Closed Auto-Generate d Referral 01/19/2022 02/26/2022 1 1 Reason Comments Yearly Exam Reason Comments Orders Reason Comments Post Menopausal Bleeding Specialty Diagnoses / Procedures Referred By [facility] Referred To Contact Gynecology / TEACHING YOUNG Diagnoses Encounter for gynecological examination with abnormal finding had period after no bleeding for a little over a year - needs annual scheduled Procedures OFFICE/OUTPATIENT EST PT MAY NOT REQ PHYS/QHP OFFICE/OUTPATIENT ESTABLISHED HIGH MDM 40 MIN EST WHI PATIENT Self Maureen Roche APRN.PRODUCT SAFETY COMPLIANCE LEADER [address] [place] [address] Phone: tel: fax: Referral ID Status Reason Start Date Expiration Date V isits Requested Visits Authorized [id number] Authorized 08/29/2024 02/26/2025 99 99 Reason Comments Repeat Pap Specialty Diagnoses / Procedures Referred By [facility] Referred To Contact Gynecology / TEACHING YOUNG Diagnoses Encounter for gynecological examination with abnormal finding had period after no bleeding for a little over a year - needs annual scheduled Procedures OFFICE/OUTPATIENT EST PT MAY NOT REQ PHYS/QHP OFFICE/OUTPATIENT ESTABLISHED HIGH MDM 40 MIN EST WHI PATIENT Self Maureen Roche APRN.PRODUCT SAFETY COMPLIANCE LEADER [address] [place] [address] Phone: tel: fax: Care Teams (unrecognized sec tion and content) Genomics Scientist Relationship Specialty Start Date End Date Kacy Collins DO PCP - General Internal Medicine 01/10/12 Genomics Scientist Relationship Specialty Start Date End Date Kacy Collins DO PCP - General Internal Medicine 01/10/12 Team Status: Active Member Role Status Dates Dr. Oneil Martínez MD Family Provider Active Dr. Kacy Collins DO Primary Care Provider Active Team Status: Inactive Member Role Status Dates Dr. Kacy Collins DO Primary Care Pr ovider, Attending Provider, Referring Provider Active Team Status: Inactive Member Role Status Dates Dr. Kacy Collins DO Primary Care Provider Active Dr. Mario Decker MD Emergency Provider Active Genomics Scientist Relationship Specialty Start Date End Date Kacy Collins DO PCP - General Internal Medicine 01/10/12 Genomics Scientist Relationship Specialty Start Date End Date Kacy Collins DO PCP - General Internal Medicine 01/10/12 Genomics Scientist Relationship Specialty Start Date End Date Kacy Collins DO PCP - General Internal Medicine 01/10/12 Genomics Scientist Relationship Specialty Start Date End Date Kacy Collins DO PCP - General Internal Medicine 01/10/12 Genomics Scientist Relationship Specialty Start Date End Date Kacy Collins DO PCP - General Internal Medicine 01/10/12 Genomics Scientist Relationship Specialty Start Date End Date Kacy Collins DO PCP - General Internal Medicine 01/10/12 Genomics Scientist Relationship Specialty Start Date End Date Kacy Collins DO PCP - General Internal Medicine 01/10/12 Genomics Scientist Relationship Specialty Start Date End Date Kacy Collins DO PCP - General Internal Medicine 01/10/12 INFORMATION SOURCE (unrecogn ized section and content) DATE CREATED AUTHOR 11/28/[address] [facility] DATE CREATED AUTHOR AUTHOR'S COLE ATSEBASTIAN 09/20/2024 [facility] FOR RECORDS PERTAINING TO PATIENTS WHO ARE [...] BE BASED ON THE PRIMARY CLINICAL RECORDS. [employer] provides no warranty or guarantee of the accuracy or completeness of information in this document.
== END | disposition home or self-care (01) ==
LOC: MRI 15:40
PROVIDERS: PCP Internal Medicine; Referring Provider Nurse Practitioner Family; Visit Provider Nurse Practitioner Family
DX: M54.2 Cervicalgia (principal); G80.9 Cerebral palsy, unspecified; R20.0 Anesthesia of skin
CPT/HCPCS: 72141; 72146

== ENCOUNTER → 2025-02-19 | Outpatient (CLI) | payer OTHER, SELFPAY ==
[2025-02-19 08:24] LABS: Mucous, Urine 0 SEEN /hpf (<or=2+); Red Blood Cells-Urine 0 SEEN /hpf (0-5)
--- OUTSIDE RECORDS SUMMARY | 2025-02-19 08:30 | XMS RPT_ITS | CCD ---
Author Organization [facility] Care Team Providers Care Data Scientist Name Role Phone Kacy Collins DO Primary Care Provider Dr. Oneil Martínez Primary Care Provider [phone] MD Issa Delgado Emergency Provider [phone] Markos Chamberlain Admit Provider Dr. Markos Chamberlain Other Provider Dr. Angela Bowling Other Provider Dr. Jonas Ortega Attending Provider Dr. Angela Bowling Attending Provider [phone] Latex; Translations: [LATEX] Allergy to substance 02-15-2011 [facility] (13 sources) nickel; Translations: [NICKEL] Drug Allergy 04-13-2010 [facility] (1 source) Latex Drug allergy (disorder) 02-03-2022 [facility] Repository Medications Current Medications Medication Drug [...] RIGHT EYE DAILY February 03, 2022 12:00am [place]-3 Fatty Acids 500 mg cap (12 sources) Start: 04-13-19 11 [place]-3 Fatty Acids 500 mg cap Take one(1) [...] January 10, 2015 1:00am polyethylene glycol 3350 38913 mg powder for oral solution (12 sources) [...] Test Name Value Interpretation Reference Range Facility [facility] 09-11-2024 CNOV Office Visit (OBGYWM ) RADHA DANG ([id number]) 1970 F Date Time Provider Department 09/11/24 1:00 PM MAUREEN ROCHE During your visit today, we recorded the following information about you: Blood pressure Weight 152/98 81.2 kg Maureen Roche APRN.HAIR SPRING CUTTER 09/11/2024 2:45 PM Signed Obstetrics and Gynecology Darwin TAX DIRECTOR Visit Subjective Recording using [employer] software for draft documentation of the visit was discussed with the patient/authorized event representative; all questions welcomed and answered. 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 affects left side Cervical high risk HPV (human papillomavirus) test positive 2005 PAST SURGICAL HISTORY Procedure Laterality Date CHOLECYSTECTOMY 02/27/1998 COLONOSCOPY 02/27/2002 [place] COLONOSCOPY SCREENING 2017 normal - Dr Garcia COLPOSCOPY CERVIX UPPER/ADJACENT VAGINA 02/27/[address] Crenshaw CONIZATION OF CERVIX, LEEP 02/27/[address] Crenshaw PAST SURGICAL HISTORY OF Bilateral [...] Take 10 mg by mouth once daily. [place]-3 Fatty Acids 500 mg cap Take one(1) capsule daily. Flaxseed Oil 1,000 mg ORAL Cap Take one(1) tablet daily. multivitamin tablet Take one(1) tablet daily. No current facility-administered medications for this visit. ALLERGIES Allergen Reactions Latex Rash Nickel Rash REVIEW OF SYSTEMS: Genitourinary: (-) vaginal bleeding Objective SENSITIVE EXAM: The sensitive examination was discussed with the Patient or Patient's Authorized Forms Analysis Manager. As applicable, any other physician, advance practice provider, medical student, or other health professional student that will be observing or involved in the sensitive examination for educational or training purposes was discussed with the Patient or Authorized Forms Analysis Manager. The Patient or Authorized Forms Analysis Manager has agreed to proceed with the sensitive examination. (Sensitive examination includes inspection and/or palpation of the breasts, pelvis, prostate and anorectal regions). PHYSICAL EXAM: BP 152/98 Wt 179 lb (81.2kg) LMP 08/12/2023 GENERAL: Pleasant; in no acute distress PULMONARY: normal inspiratory effort ABDOMEN: soft, non-tender, no masses : - PELVIC: external genitalia normal, normal Bartholin's glands, urethra, Cumings's glands, no vulvar lesions, no cervical lesions, good vaginal suppor (more content not included)... Normal [facility] HIGH RISK HUMAN PAPILLOMA ZOILA (HPV), PCR FOR DETECTION AND GENOTYPINGon 09-11-2024 HPV 16 Ag Ql (Unsp spec) Not detected Normal Not detected [facility] Comment on above: Order Comment: Speci men Type: BLOOD SPECIMEN Ordering Facility: [facility] Address: [address] [place] [address] Performed By: #### 1 5067-2, 2243-4 #### [facility] CLIA [id number] [address] [place], [place] [address] [place] HPV 18 Ag Ql (Unsp spec) Not detected Normal Not detected [facility] Comment on above: Order Comment: Speci men Type: BLOOD SPECIMEN Ordering Facility: [facility] Address: [address] [place] [address] Performed By: #### 1 5067-2, 3-4 #### [facility] CLIA [id number] [address] [place] [address] [place] HPV 31+33+35+39+45+51+52+56 +58+59+66+68 DNA TELLO+probe Ql (Cvx) Not detected Normal Not detected [facility] Comment on above: Order Comment: Speci men Type: BLOOD SPECIMEN Ordering Facility: [facility] Address: [address] [place] [address] Result Comment: High Risk HPV Other Type includes HPV types 31, 33, 35, 39, 45, 51, 52, 56, 58, 59, 66 and 68. Performed By: #### 1 5067-2, 2242- #### [facility] CLIA [id number] [address] [place] [address] [place] PAP TESTon 09-11-2024 ADEQUACY Normal [facility] Comment on above: Order Comment: Speci men Type: FLUID SPECIMEN Ordering Facility: [facility] Address: [address] [place] [address] Result Comment: Sati sfactory for interpretation. Transformation zone present Performed By: #### L [id number] #### [facility] CLIA [id number] [address] [place], [place] [address] [place] [facility] CLIA [id number] [address] [place] [address], [address] [place] [address] [place] CASE REPORT Normal [facility] Comment on above: Order Comment: Speci men Type: FLUID SPECIMEN Ordering Facility: [facility] Address: [address] [place] [address] Result Comment: Gyne cologic Cytology Report Case: [id number] Authorizing Provider: Maureen Roche APRN.HAIR SPRING CUTTER Collected: 09/11/2024 01:46 PM Ordering Location: OB/Gynecology Received: 09/11/2024 04:51 PM First Screen: Kristal Hughes, CT, ASCP Pathologist: Deepali Villalobos MD Specimen: Pap Test, ThinPrep, Cervix Performed By: #### L [id number] #### [facility] CLIA [id number] [address] [place] [address] [place] [facility] CLIA [id number] [address] [place] [address], [address] [place], [place] [address] [place] CLINICAL HISTORY, CYTOLOGY, TAX DIRECTOR Normal [facility] Comment on above: Order Comment: Speci men Type: FLUID SPECIMEN Ordering Facility: [facility] Address: [address] [place] [address] Result Comment: Abno rmal Bleeding (Describe) Post Menopausal PMB Performed By: #### L [id number] #### [facility] CLIA [id number] [address] [place] [address] [place] [facility] CLIA [id number] [address] [place] [address], [address] [place] [address] [place] CYTOLOGY PAP OTHER INTERPRETATION Acute inflammation. Normal [facility] Comment on above: Order Comment: Speci men Type: FLUID SPECIMEN Ordering Facility: [facility] Address: [address] [place] [address] Performed By: #### L [id number] #### [facility] CLIA [id number] [address] [place] [address] [place] [facility] CLIA [id number] [address] [place] [address], [address] [place], [place] [address] [place] FINAL PERFORMING LAB Normal [facility] Comment on above: Order Comment: Speci men Type: FLUID SPECIMEN Ordering Facility: [facility] Address: [address] [place] [address] Result Comment: Tech nical component, imcu nurse screening performed at: [facility], [address] [place] [address], [address] [place] [id number] CLIA: [id number] Diagnostic interpretation performed at: [facility], [address] [place], [place] [id number] CLIA# [id number] Manager Environmental Affairs: Johnnie Kulkarni MD Performed By: #### L [id number] #### [facility] CLIA [id number] [address] [place] [address] [place] [facility] CLIA [id number] [address] [place] [address], [address] [place], [place] [address] [place] INTERPRETATION, CYTOLOGY, TAX DIRECTOR Normal [facility] Comment on above: Order Comment: Speci men Type: FLUID SPECIMEN Ordering Facility: [facility] Address: [address] [place] [address] Result Comment: Nega tive for intraepithelial lesion or malignancy. at 1223 EDT Performed By: #### L [id number] #### [facility] CLIA [id number] [address] [place] [address] [place] [facility] CLIA [id number] [address] [place] [address] [place] PAP DISCLAIMER COMMENT The Pap Smear is a screening test for cervical cancer. False negative results occur with all screening tests, emphasizing the need for rescreening at recommended intervals, and clinical correlation. Normal [facility] Comment on above: Order Comment: Speci men Type: FLUID SPECIMEN Ordering Facility: [facility] Address: [address] [place], [place] [address] Performed By: #### L [id number] #### [facility] CLIA [id number] [address] [place], [place] [address] [place] [facility] CLIA [id number] [address] [place] [address] 3, [address] [place], [place] [address] [place] PAP CONCRETE VIBRATOR OPERATOR COMMENT This specimen has been analyzed by the FDA-approved SkillzTM System, which uses digital imaging and an enhanced artificial intelligence image analysis algorithm to identify vines of interest on the microscopic slide, to assist the early head start director and pathologist in evaluating cells on ThinPrep Pap tests. Following analysis, vines of interest on the microscopic slide selected by the algorithm are reviewed by a early head start director. If a sample requires hierarchical review, the pathologist will review the same vines of interest selected by the algorithm prior to final interpretation. Normal [facility] Comment on above: Order Comment: Speci men Type: FLUID SPECIMEN Ordering Facility: [facility] Address: [address] [place] [address] Performed By: #### L [id number] #### [facility] CLIA [id number] [address] [place] [address] STATES OF [facility] CLIA [id number] [address] [place] [address], [address] [place] [address] [place] MARISSA SCREENING W TOMOon 09-06 MARISSA SCREENING W LIVE * * *Final Report* * * DATE OF EXAM: Sep 06 2024 7:48AM [id number] - MARISSA SCREENING W LIVE / PROCEDURE REASON: Encounter for screening mammogram for malignant neoplasm of breast * * * * Physician Interpretation * * * * RESULT: [facility] [address] [id number] #[id number] - MARISSA SCREENING W LIVE HISTORY: 54 [...] Nakia Neumann M.D. Electronically signed on: 09/08/2024 Patient Services Rep: SHANTAL Transcribe Date/Time: Sep 06 2024 7:38A Dictated by: NAKIA NEUMANN MD This examination was interpreted and the report reviewed and electronically signed by: SHIRLENE ALVARADO MD on Sep 08 2024 10:29PM EST [id number] Normal [facility] 09-06-2024 Indication Postmenopausal bleeding Impression Uterus [...] By: Luz Marina Connelly M.D. MATERNAL MEDICINE [facility] Radiology Study observation (narrative) [facility] CBC panel Auto (Bld)on 08-29 Erythrocyte distribution width (RBC) [Ratio] 14.6 % 11.5 - 15.0 % [facility] Hematocrit (Bld) [Volume fraction] 41.8 % 36.0 - 46.0 % [facility] Hemoglobin (Bld) [Mass/Vol] 13.9 g/dL 11.5 - 15.5 g/dL [facility] Interpretation and review of laboratory results Abnormal [facility] MCH (RBC) [Entitic mass] 29.7 pg 26.0 - 34.[address] [facility] MCHC (RBC) [Mass/Vol] 33.3 g/dL 30.5 - 36.0 g/dL [facility] MCV (RBC) [Entitic vol] 89.3 fL 80.0 - 100.[address] [facility] Nucleated RBC (Bld) [#/Vol] NINF [facility] Platelet mean volume (Bld) [Entitic vol] 8.7 fL Low 9.0 - 12.[address] [facility] Platelets (Bld) [#/Vol] 380 10*3/uL [facility] RBC (Bld) [#/Vol] 4.68 10*6/uL 3.90 - 5.2 0 m/uL [facility] WBC (Bld) [#/Vol] 6.47 10*3/uL [facility] Erythrocyte distribution width (RBC) [Ratio] 14.6 % Normal 11.5-15.0 [facility] Comment on above: Order Comment: Speci men Type: BLOOD SPECIMEN Ordering Facility: [facility] Address: [address] [place] [address] Performed By: #### 5 8410-2 #### [facility] CLIA [id number] [address] [place] [address] [place] Hematocrit (Bld) [Volume fraction] 41.8 % Normal 36.0-46.0 [facility] Comment on above: Order Comment: Speci men Type: BLOOD SPECIMEN Ordering Facility: [facility] Address: [address] [place], [place] [address] Performed By: #### 5 8410-2 #### [facility] CLIA [id number] [address] [place] [address] [place] Hemoglobin (Bld) [Mass/Vol] 13.9 g/dL Normal 11.5-15.5 [facility] Comment on above: Order Comment: Speci men Type: BLOOD SPECIMEN Ordering Facility: [facility] Address: [address] [place], [place] [address] Performed By: #### 5 8410-2 #### [id number] [address] [place] [address] [place] MCH (RBC) [Entitic mass] 29.7 pg Normal 26.0-34.0 [facility] Comment on above: Order Comment: Speci men Type: BLOOD SPECIMEN Ordering Facility: [facility] Address: [address] [place] [address] Performed By: #### 5 8410-2 #### [facility] CLIA [id number] [address] [place] [address] [place] MCHC (RBC) [Mass/Vol] 33.3 g/dL Normal 30.5-36.0 [facility] Comment on above: Order Comment: Speci men Type: BLOOD SPECIMEN Ordering Facility: [facility] Address: [address] [place] [address] Performed By: #### 5 8410-2 #### [facility] CLIA [id number] [address] [place] [address] [place] MCV (RBC) [Entitic vol] 89.3 fL Normal 80.0-100.0 [facility] Comment on above: Order Comment: Speci men Type: BLOOD SPECIMEN Ordering Facility: [facility] Address: [address] [place] [address] Performed By: #### 5 8410-2 #### [facility] CLIA [id number] [address] [place] [address] [place] Nucleated RBC (Bld) [#/Vol] 10*3/uL Normal <0.01 [facility] Comment on above: Order Comment: Speci men Type: BLOOD SPECIMEN Ordering Facility: [facility] Address: [address] [place] [address] Performed By: #### 5 8410-2 #### [facility] CLIA [id number] [address] [place] [address] [place] Platelet mean volume (Bld) [Entitic vol] 8.7 fL Low 9.0-12.7 [facility] Comment on above: Order Comment: Speci men Type: BLOOD SPECIMEN Ordering Facility: [facility] Address: [address] [place] [address] Performed By: #### 5 8410-2 #### [facility] CLIA [id number] [address] [place] [address] [place] Platelets (Bld) [#/Vol] 380 10*3/uL Normal 150-400 [facility] Comment on above: Order Comment: Speci men Type: BLOOD SPECIMEN Ordering Facility: [facility] Address: [address] [place] [address] Performed By: #### 5 8410-2 #### [facility] CLIA [id number] [address] [place] [address] [place] RBC (Bld) [#/Vol] 4.68 10*6/uL Normal 3.90-5.20 [facility] Comment on above: Order Comment: Speci men Type: BLOOD SPECIMEN Ordering Facility: [facility] Address: [address] [place] [address] Performed By: #### 5 8410-2 #### [facility] CLIA [id number] [address] [place] [address] [place] WBC (Bld) [#/Vol] 6.47 10*3/uL Normal 3.70-11.00 [facility] Comment on above: Order Comment: Speci men Type: BLOOD SPECIMEN Ordering Facility: [facility] Address: [address] [place], [place] [address] Performed By: #### 5 8410-2 #### [facility] CLIA [id number] [address] [place] [address] OF [place] CNOVon 08-29-2024 CNOV Office Visit (OBGYWM ) RADHA DANG ([id number]) 1970 F Date Time Provider Department 08/29/24 11:30 AM MAUREEN ROCHE During your visit today, we recorded the following information about you: Pulse Blood pressure Weight Last Period 74/minute 161/88 81.2 kg 08/12/23 Jason Valle LPN 08/29/2024 11:26 AM Signed Endometrial Biopsy Your provider has recommended an endometrial biopsy. For more information, My [facility] Endometrial Biopsy How do I [...] is very low-risk and safe. Maureen Roche APRN.HAIR SPRING CUTTER 08/29/2024 8:06 PM Signed Repairer Maintenance Building offered: Patient declines. Obstetrics and Gynecology Darwin TAX DIRECTOR Visit Subjective Recording using [employer] software for draft documentation of the visit was discussed with the patient/authorized event representative; all questions welcomed and answered. 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 affects left side Cervical high risk HPV (human papillomavirus) test positive 2005 PAST SURGICAL HISTORY Procedure Laterality Date CHOLECYSTECTOMY 02/27/1998 COLONOSCOPY 02/27/2002 [place] COLONOSCOPY SCREENING 2017 normal - Dr Garcia [...] as ne (more content not included)... Normal [facility] Estradiol [facility] 08-29 E2 [Mass/Vol] pg/mL Normal [facility] Comment on above: Order Comment: Speci men Type: BLOOD SPECIMEN Ordering Facility: [facility] Address: [address] [place] [address] Result Comment: This test is not suitable [...] 3243 pg/mL Second trimester : 1561 to 22596 pg/mL Third trimester : 8285 to >08665 pg/mL Post-menopausal Estradiol reference range: < 41 pg/mL Reference: 1. Estradiol - E2 (Estradiol III) [package insert V 3.0 Nepalese]. [facility], [place], [place], July 2015. Performed By: #### 1 5067-2, 2242- #### [facility] CLIA [id number] [address] [place] [address] [place] [facility] SerPl-aCncon 08-29-2024 Follitropin Qn 23.8 m[IU]/mL Normal See comment [facility] Comment on above: Order Comment: Speci men Type: BLOOD SPECIMEN Ordering Facility: [facility] Address: [address] [place] [address] Result Comment: Refe rence range: Follicular: 3.5-12.5 mIU/mL Ovulation: 4.7-21.5 mIU/mL Luteal: 1.7-7.7 mIU/mL Postmenopausal: 25.8-134.8 mIU/mL Performed By: #### 1 5067-2, 2242-05 #### [facility] CLIA [id number] [address] [place] [address] [place] HIGH RISK HUMAN PAPILLOMA ZOILA (HPV), PCR FOR DETECTION AND GENOTYPINGon 08-29-2024 HPV 16 Ag Ql (Unsp spec) Not detected Normal Not detected [facility] Comment on above: Order Comment: Speci men Type: BLOOD SPECIMEN Ordering Facility: [facility] Address: [address] [place] [address] Performed By: #### 1 5067-2, 2242-05 #### [facility] CLIA [id number] [address] [place] [address] [place] HPV 18 Ag Ql (Unsp spec) Not detected Normal Not detected [facility] Comment on above: Order Comment: Speci men Type: BLOOD SPECIMEN Ordering Facility: [facility] Address: [address] [place] [address] Performed By: #### 1 5067-2, 3-4 #### [facility] CLIA [id number] [address] [place] [address] [place] HPV 31+33+35+39+45+51+52+56 +58+59+66+68 DNA TELLO+probe Ql (Cvx) Not detected Normal Not detected [facility] Comment on above: Order Comment: Speci men Type: BLOOD SPECIMEN Ordering Facility: [facility] Address: [address] [place] [address] Result Comment: High Risk HPV Other Type includes HPV types 31, 33, 35, 39, 45, 51, 52, 56, 58, 59, 66 and 68. Performed By: #### 1 5067-2, 2243-4 #### [facility] CLIA [id number] [address] [place] [address] [place] PAP TESTon 08-29-2024 ADEQUACY Normal [facility] Comment on above: Order Comment: Speci men Type: FLUID SPECIMEN Ordering Facility: [facility] Address: [address] [place] [address] Result Comment: Unsa tisfactory for evaluation. Limited cellularity. Excess blood Performed By: #### L [id number] #### [facility] CLIA [id number] [address] [place] [address] [place] [facility] CLIA [id number] [address] [place] [address] [place] CLINICAL HISTORY, CYTOLOGY, TAX DIRECTOR Normal [facility] Comment on above: Order Comment: Speci men Type: FLUID SPECIMEN Ordering Facility: [facility] Address: [address] [place] [address] Result Comment: Abno rmal Bleeding (Describe) Post Menopausal PMB Performed By: #### L [id number] #### [facility] CLIA [id number] [address] [place] [address] [place] [facility] CLIA [id number] [address] [place] [address], [address] [place] [address] [place] GROSS DESCRIPTION A. Cervix Normal [facility] Comment on above: Order Comment: Speci men Type: FLUID SPECIMEN Ordering Facility: [facility] Address: [address] [place] [address] Result Comment: Glac ial Acetic Acid added. Performed By: #### L [id number] #### [facility] CLIA [id number] [address] [place] [address] [place] [facility] CLIA [id number] [address] [place] [address], [address] [place] [address] [place] INTERPRETATION, CYTOLOGY, TAX DIRECTOR Normal [facility] Comment on above: Order Comment: Speci men Type: FLUID SPECIMEN Ordering Facility: [facility] Address: [address] [place] [address] Result Comment: Unab le to perform interpretation due to unsatisfactory specimen. at 1009 EDT Performed By: #### L [id number] #### [facility] CLIA [id number] [address] [place] [address] [place] [facility] CLIA [id number] [address] [place] [address] [place] PAP DISCLAIMER COMMENT The Pap Smear is a screening test for cervical cancer. False negative results occur with all screening tests, emphasizing the need for rescreening at recommended intervals, and clinical correlation. Normal [facility] Comment on above: Order Comment: Speci men Type: FLUID SPECIMEN Ordering Facility: [facility] Address: [address] [place] [address] Performed By: #### L [id number] #### [facility] CLIA [id number] [address] [place] [address] [place] [facility] CLIA [id number] [address] [place] [address], [address] [place] [address] [place] PAP CONCRETE VIBRATOR OPERATOR COMMENT This specimen has been analyzed by the FDA-approved Mohive System, which uses digital imaging and an enhanced artificial intelligence image analysis algorithm to identify vines of interest on the microscopic slide, to assist the early head start director and pathologist in evaluating cells on ThinPrep Pap tests. Following analysis, vines of interest on the microscopic slide selected by the algorithm are reviewed by a early head start director. If a sample requires hierarchical review, the pathologist will review the same vines of interest selected by the algorithm prior to final interpretation. Normal [facility] Comment on above: Order Comment: Speci men Type: FLUID SPECIMEN Ordering Facility: [facility] Address: [address] [place] [address] Performed By: #### L [id number] #### [facility] CLIA [id number] [address] [place] [address] [place] [facility] CLIA [id number] [address] [place] [address], [address] [place] [address] OF [facility] Pathology biopsy report Doc (Tiss)on 08-29-2024 AP DISCLAIMER Normal [facility] Comment on above: Order Comment: Speci men Type: TISSUE SPECIMEN Ordering Facility: [facility] Address: [address] [place] [address] Result Comment: Adriana morton Developed Test (LDT) Disclaimer: Performance characteristics of immunohistochemical, immunofluorescent, and chromogenic in-situ hybridization tests have been determined by the performing laboratory within [facility] Pathology and Laboratory Medicine Department ([facility], [facility], [facility], [facility], [facility], [facility], or [facility]) in a manner consistent with CLIA [...] appropriately. Performed By: #### 6 6121-5 #### [facility] CLIA [id number] [address] [place] [address] [place] CLINICAL HISTORY irregular bleeding Normal [facility] Comment on above: Order Comment: Speci men Type: TISSUE SPECIMEN Ordering Facility: [facility] Address: [address] [place] [address] Performed By: #### 6 6121-5 #### [facility] CLIA [id number] [address] [place] [address] [place] FINAL DIAGNOSIS Normal [facility] Comment on above: Order Comment: Speci men Type: TISSUE SPECIMEN Ordering Facility: [facility] Address: [address] [place] [address] Result Comment: A. E ndometrium, biopsy: - Superficial inactive endometrium with stromal breakdown. at 1232 EDT Performed By: #### 6 6121-5 #### [facility] CLIA [id number] [address] [place] [address] [place] GROSS DESCRIPTION Normal [facility] Comment on above: Order Comment: Speci men Type: TISSUE SPECIMEN Ordering Facility: [facility] Address: [address] [place] [address] Result Comment: A. E ndometrium, Biopsy Received in formalin are multiple brown, soft feathery segments of tissue aggregating to 2.5 x 2.0 x 0.4 cm. Totally submitted in one cassette. Gross examination performed at [facility], [address] [place] [address] FFS 08/29/2024 11:38 PM Performed By: #### 6 6121-5 #### [facility] [place] [id number] [address] [place] [address] [place] Tiss Path Bx reporton 2024 CASE REPORT Normal [facility] Comment on above: Order Comment: Speci men Type: TISSUE SPECIMEN Ordering Facility: [facility] Address: [address] [place] [address] Result Comment: Surg [facility] Pathology Report Case: [id number] Authorizing Provider: Maureen Roche APRN.HAIR SPRING CUTTER Collected: 08/29/2024 12:29 PM Ordering Location: OB/Gynecology Received: 08/29/2024 02:58 PM Pathologist: Asa Gonzalez MD, PhD Specimen: Endometrium, Biopsy Performed By: #### 6 6121-5 #### [facility] CLIA [id number] [address] [place] [address] Order Comment: Speci men Type: FLUID SPECIMEN Ordering Facility: [facility] Address: [address] [place] [address] Result Comment: Gyne cologic Cytology Report Case: [id number] Authorizing Provider: Maureen Roche APRN.HAIR SPRING CUTTER Collected: 08/29/2024 12:29 PM Ordering Location: OB/Gynecology Received: 08/29/2024 02:52 PM First Screen: Jules Quintanilla Tech Pathologist: Nancy Terrell MD Specimen: Pap Test, ThinPrep, Cervix Performed By: #### L [id number] #### [facility] CLIA [id number] [address] [place] [address] [place] [facility] CLIA [id number] [facility] [employer] [facility] [address]ILDING [address] FINAL PERFORMING LAB Normal [facility] Comment on above: Order Comment: Speci men Type: TISSUE SPECIMEN Ordering Facility: [facility] Address: [address] [place] [address] Result Comment: Diag nostic interpretation performed at: [facility], [address] [place] [address] CLIA# [id number] Manager Environmental Affairs: Johnnie Kulkarni MD Performed By: #### 6 6121-5 #### [facility] CLIA [id number] [address] [place] [address] OF [place] Order Comment: Speci men Type: FLUID SPECIMEN Ordering Facility: [facility] Address: [address] [place] [address] Result Comment: Tech nical component, imcu nurse screening performed at: [facility], [address] [place] [address], [address] [place] [address] CLIA: [id number] Diagnostic interpretation performed at: [facility], [address] [facility], Desk [place] [address] CLIA# [id number] Manager Environmental Affairs: Johnnie Kulkarni MD Performed By: #### L [id number] #### [facility] CLIA [id number] [address] [facility] [address] OF [facility] CLIA [id number] [address] [place] [address] 3, [address] [place] [address] CNPNon 08-27-2024 CNPN Telephone (4CQ) RADHA DANG ([id number]) 1970 F Date Time Provider Department 08/27/24 [...] Date Reviewed: 05/30/2023 Reviewed by: Maureen Roche, MECHATRONICS ENGINEER.HAIR SPRING CUTTER - Fully Assessed Reason for Visit: Orders [681] Primary Visit Diagnosis:Encounter for screening mammogram for malignant neoplasm of breast [Z12.31] Order(s):MARISSA SCREENING W LIVE [[id number]] Order #: [id number] FUTURE Prescriptions as of 08/27/2024 - nystatin (NYSTOP) powder Apply 1 application to affected area four times daily. - ascorbic acid (VITAMIN C ORAL) Take by mouth. - ZINC ORAL Take by mouth. - ergocalciferol, vitamin D2, (VITAMIN D2 ORAL) Take by mouth. - Lactobacillus acidophilus (PROBIOTIC ORAL) Take by mouth. - calcium carb/magnesium ox,carb (ACRLA-MAG ORAL) Take by mouth. - omeprazole (PRILOSEC) 40 mg capsule Take by mouth. - polyethylene glycol 3350 (MIRALAX, GLYCOLAX) 17 gram/dose powder Take 17 g by mouth as needed. - loratadine (CLARITIN) 10 mg tablet Take 10 mg by mouth once daily. - [place]-3 Fatty Acids 500 mg cap Take one(1) capsule daily. - Flaxseed Oil 1,000 mg ORAL Cap Take one(1) tablet daily. - multivitamin tablet Take one(1) tablet daily. Problem List As Of Date 08/27/2024 Noted Resolved Vaginitis and vulvovaginitis [N76.0] 01/10/2012 Vaginitis [N76.0] 01/13/2012 Encounter Status:Closed by MAUREEN ROCHE on 08/27/24 Normal [facility] CBC W/Diff, Automatedon 09-0 Absolute Lymph 2.49 X10 3/uL Normal 0.83-4.51 [facility] Comment on above: Performed By: #### L 502.0250, L400.2010, L100.0100, L500.4100, L500.4050, L400.0001 #### [facility] [address] [place], [address] Absolute Neut 3.7 X10 3/uL Normal 2.0-7.7 [facility] Comment on above: Performed By: #### L 502.0250, L400.2010, L100.0100, L500.4100, L500.4050, L400.0001 #### [facility] [address] [place], [address] Basophils/100 WBC (Bld) 0.4 % Normal 0-1 [facility] Comment on above: Performed By: #### L 502.0250, L400.2010, L100.0100, L500.4100, L500.4050, L400.0001 #### [facility] [address] [place], [address] Eosinophils/100 WBC (Bld) 2.2 % Normal 0-5 [facility] Comment on above: Performed By: #### L 502.0250, L400.2010, L100.0100, L500.4100, L500.4050, L400.0001 #### [facility] [address] [place], [address] Erythrocyte distribution width (RBC) [Ratio] 14.5 % Normal 11.6-14.6 [facility] Comment on above: Performed By: #### L 502.0250, L4, L100.0100, L500.4100, L500.4050, L400.0001 #### [facility] [address] [place], [address] Hematocrit (Bld) [Volume fraction] 44.1 % Normal 37-47 [facility] Comment on above: Performed By: #### L 502.0250, L4, L100.0100, L500.4100, L500.4050, L400.0001 #### [facility] [address] [place], [address] Hemoglobin (Bld) [Mass/Vol] 14.0 g/dL Normal 12.0-15.0 [facility] Comment on above: Performed By: #### L 502.0250, L400, L100.0100, L500.4100, L500.4050, L400.0001 #### [facility] [address] [place], [address] IG% 0.100 Normal 0.0-0.9 [facility] Comment on above: Result Comment: IG% - Immature Granulocytes (promyelocytes, myelocytes and metamyelocytes) > 1% indicates that a LEFT SHIFT is Present. Performed By: #### L 502.0250, L400.2010, L100.0100, L500.4100, L500.4050, L400.0001 #### [facility] [address] [place], [address] Lymphocytes/100 WBC (Bld) 35.9 % Normal 19-41 [facility] Comment on above: Performed By: #### L 502.0250, L400.2010, L100.0100, L500.4100, L500.4050, L400.0001 #### [facility] [address] [place], [address] MCH (RBC) [Entitic mass] 29.0 pg Normal 27.0-32.0 [facility] Comment on above: Performed By: #### L 502.0250, L4, L100.0100, L500.4100, L500.4050, L400.0001 #### [facility] [address] [place], [address] MCHC (RBC) [Mass/Vol] 31.7 g/dL Low 32-36 [facility] Comment on above: Performed By: #### L 502.0250, L4.2010, L100.0100, L500.4100, L500.4050, L400.0001 #### [facility] [address] [place], [address] MCV (RBC) [Entitic vol] 91.3 fL Normal 81-99 [facility] Comment on above: Performed By: #### L 502.0250, L400.2010, L100.0100, L500.4100, L500.4050, L400.0001 #### [facility] [address] [place], [address] Monocytes/100 WBC (Bld) 8.2 % Normal 0-10 [facility] Comment on above: Performed By: #### L 502.0250, L4, L100.0100, L500.4100, L500.4050, L400.0001 #### [facility] [address] [place], [address] Neutrophils/100 WBC (Bld) 53.2 % Normal 47-70 [facility] Comment on above: Performed By: #### L 502.0250, L400.2010, L100.0100, L500.4100, L500.4050, L400.0001 #### [facility] [address] [place], [address] Nucleated RBC (Bld) [#/Vol] 0 10*3/uL Normal 0-5 [facility] Comment on above: Performed By: #### L 502.0250, L400.2010, L100.0100, L500.4100, L500.4050, L400.0001 #### [facility] [address] [place], [address] Platelet mean volume (Bld) [Entitic vol] 9.3 fL Normal 6.2-12.0 [facility] Comment on above: Performed By: #### L 502.0250, L400, L100.0100, L500.4100, L500.4050, L400.0001 #### [facility] [address] [place], [address] Platelets (Bld) [#/Vol] 336 10*3/uL Normal 150-450 [facility] Comment on above: Performed By: #### L 502.0250, L400, L100.0100, L500.4100, L500.4050, L400.0001 #### [facility] [address] [place], [address] RBC (Bld) [#/Vol] 4.83 10*6/uL Normal 4.2-5.4 [facility] Comment on above: Performed By: #### L 502.0250, L400, L100.0100, L500.4100, L500.4050, L400.0001 #### [facility] [address] [place], [address] RDW SD 48.6 fl High 35.1-43.9 [facility] Comment on above: Performed By: #### L 502.0250, L400.2010, L100.0100, L500.4100, L500.4050, L400.0001 #### [facility] [address] [place], [address] WBC (Bld) [#/Vol] 6.9 10*3/uL Normal 4.4-11.0 [facility] Comment on above: Performed By: #### L 502.0250, L400.2010, L100.0100, L500.4100, L500.4050, L400.0001 #### [facility] [address] [place], [address] Comprehensive Metabolic Prof [facility] 11-06-2023 Albumin [Mass/Vol] 3.4 g/dL Normal 3.2-5.0 [facility] Comment on above: Performed By: #### L 502.0250, L400.2010, L100.0100, L500.4100, L500.4050, L400.0001 #### [facility] [address] [place], [address] Albumin/Globulin [Mass ratio] 0.8 {ratio} Low 0.9-2.4 [facility] Comment on above: Performed By: #### L 502.0250, L400.2010, L100.0100, L500.4100, L500.4050, L400.0001 #### [facility] [address] [place], [address] ALK P 109 U/L Normal 45-117 [facility] Comment on above: Performed By: #### L 502.0250, L400.2010, L100.0100, L500.4100, L500.4050, L400.0001 #### [facility] [address] [place], [address] ALT [Catalytic activity/Vol] 46 U/L Normal 13-56 [facility] Comment on above: Performed By: #### L 502.0250, L400.2010, L100.0100, L500.4100, L500.4050, L400.0001 #### [facility] [address] [place], [address] AST [Catalytic activity/Vol] 21 U/L Normal 15-37 [facility] Comment on above: Performed By: #### L 502.0250, L4.2010, L100.0100, L500.4100, L500.4050, L400.0001 #### [facility] [address] [place], [address] Bilirubin [Mass/Vol] 0.30 mg/dL Normal 0.20-1.00 [facility] Comment on above: Result Comment: For patients on eltrombopag therapy, use of Dimension [place] TBIL is not recommended. Performed By: #### L 502.0250, L4.2010, L100.0100, L500.4100, L500.4050, L400.0001 #### [facility] [address] [place], [address] BUN/CRE 20.7 RATIO High 10-20 [facility] Comment on above: Performed By: #### L 502.0250, L400.2010, L100.0100, L500.4100, L500.4050, L400.0001 #### [facility] [address] [place], [address] CA,Total 9.9 mg/dL Normal 8.5-10.1 [facility] Comment on above: Performed By: #### L 502.0250, L400, L100.0100, L500.4100, L500.4050, L400.0001 #### [facility] [address] [place], [address] Chloride [Moles/Vol] 105 mmol/L Normal 98-107 [facility] Comment on above: Performed By: #### L 502.0250, L400.2010, L100.0100, L500.4100, L500.4050, L400.0001 #### [facility] [address] [place], [address] CO2 [Moles/Vol] 29.0 mmol/L Normal 21.0-32.0 [facility] Comment on above: Performed By: #### L 502.0250, L4, L100.0100, L500.4100, L500.4050, L400.0001 #### [facility] [address] [place], [address] Creatinine [Mass/Vol] 0.63 mg/dL Normal 0.55-1.02 [facility] Comment on above: Result Comment: The validity of the calculated GFR GFRAA in patients over 70 years has not been determined. Clinical correlation is essential. Performed By: #### L 502.0250, L400.2010, L100.0100, L500.4100, L500.4050, L400.0001 #### [facility] [address] [place], [address] EST GFR - AA 127 mL/min Normal >60 [facility] Comment on above: Result Comment: Afri can [place] GFR Calc Performed By: #### L 502.0250, L400.2010, L100.0100, L500.4100, L500.4050, L400.0001 #### [facility] [address] [place], [address] GAP 6 Normal 5-15 [facility] Comment on above: Performed By: #### L 502.0250, L400, L100.0100, L500.4100, L500.4050, L400.0001 #### [facility] [address] [place], [address] GFR/1.73 sq M.predicted among non-blacks MDRD (S/P/Bld) [Vol rate/Area] 105 mL/min/{1.73_m2} Normal >60 [facility] Comment on above: Result Comment: Non- GFR Calc Performed By: #### L 502.0250, L400.2010, L100.0100, L500.4100, L500.4050, L400.0001 #### [facility] [address] [place], [address] Globulin (S) [Mass/Vol] 4.3 g/dL High 2.2-4.2 [facility] Comment on above: Performed By: #### L 502.0250, L400.2010, L100.0100, L500.4100, L500.4050, L400.0001 #### [facility] [address] [place], [address] Glucose [Mass/Vol] 95 mg/dL Normal 74-106 [facility] Comment on above: Performed By: #### L 502.0250, L400.2010, L100.0100, L500.4100, L500.4050, L400.0001 #### [facility] [address] [place], [address] Potassium [Moles/Vol] 3.8 mmol/L Normal 3.5-5.1 [facility] Comment on above: Performed By: #### L 502.0250, L400.2010, L100.0100, L500.4100, L500.4050, L400.0001 #### [facility] [address] [place], [address] Sodium [Moles/Vol] 140 mmol/L Normal 136-145 [facility] Comment on above: Performed By: #### L 502.0250, L400.2010, L100.0100, L500.4100, L500.4050, L400.0001 #### [facility] [address] [place], [address] T PROT 7.7 g/dL Normal 6.4-8.2 [facility] Comment on above: Performed By: #### L 502.0250, L400, L100.0100, L500.4100, L500.4050, L400.0001 #### [facility] [address] [place], [address] Urea nitrogen [Mass/Vol] 13 mg/dL Normal 7-18 [facility] Comment on above: Performed By: #### L 502.0250, L400, L100.0100, L500.4100, L500.4050, L400.0001 #### [facility] [address] [place], [address] Lipid Profileon 11-06-2023 Cholesterol [Mass/Vol] 196 mg/dL Normal 200 [facility] Comment on above: Result Comment: <200 mg/dL Desirable 200-240 mg/dL Borderline >240 mg/dL High Risk Performed By: #### L 502.0250, L400.2010, L100.0100, L500.4100, L500.4050, L400.0001 #### [facility] [address] [place], [address] Cholesterol in HDL [Mass/Vol] 55 mg/dL Normal [facility] Comment on above: Result Comment: The drugs N-Acetylcysteine and Metamizole may falsely depress this assay. Reference Range HDL <40 mg/dL Low HDL Cholesterol HDL >or= 60 mg/dL High HDL Cholesterol Performed By: #### L 502.0250, L400.2010, L100.0100, L500.4100, L500.4050, L400.0001 #### [facility] [address] [place], [address] Cholesterol in LDL [Mass/Vol] 110 mg/dL Normal 0-130 [facility] Comment on above: Performed By: #### L 502.0250, L400.2010, L100.0100, L500.4100, L500.4050, L400.0001 #### [facility] [address] [place], [address] Cholesterol in VLDL [Mass/Vol] 31 mg/dL Normal 5-40 [facility] Comment on above: Performed By: #### L 502.0250, L400.2010, L100.0100, L500.4100, L500.4050, L400.0001 #### [facility] [address] [place], [address] Triglyceride [Mass/Vol] 153 mg/dL Normal [facility] Comment on above: Result Comment: The drugs N-Acetylcysteine and Metamizole may falsely depress this assay. Serum Triglycerides Reference Interval Normal <150 mg/dL Borderline high 150 - 199 mg/dL High 200 - 499 mg/dL Very High > or = 500 mg/dL Performed By: #### L 502.0250, L400.2010, L100.0100, L500.4100, L500.4050, L400.0001 #### [facility] [address] [place], [address] Microalb:Creat Ratio,Random URon 11-06-2023 Creatinine [Mass/Vol] 120.00 mg/dL Normal NO RANGE EST . [facility] Comment on above: Performed By: #### L 100.0100, L500.2500 #### [facility] [address] [place], [address] MALB:CRE 10.2 mg/g CRE Normal <30 mg/g CRE [facility] Comment on above: Performed By: #### L 100.0100, L500.2500 #### [facility] [address] [place], [address] MICROALBUMIN,UR 12.3 mg/L Normal NO RANGE EST. [facility] Comment on above: Performed By: #### L 100.0100, L500.2500 #### [facility] [address] [place], [address] Urinalysis, Completeon 11-05 EPI,SQUAMOUS 0-5 SEEN Normal 5-10 [facility] Comment on above: Order Comment: Urine , Random Performed By: #### L 100.0100, L500.2500 #### [facility] [address] [place], [address] WBC 0-5 SEEN Normal 0-5 [facility] Comment on above: Order Comment: Urine , Random Performed By: #### L 100.0100, L500.2500 #### [facility] [address] [place], [address] BACTERIA 0 SEEN Normal None Seen [facility] Comment on above: Order Comment: Urine , Random Performed By: #### L 100.0100, L500.2500 #### [facility] [address] [place], [address] Mucus Ql (Urine sed) 0 SEEN Normal [facility] Comment on above: Order Comment: Urine , Random Performed By: #### L 100.0100, L500.2500 #### [facility] [address] [place], [address] RBC 0 SEEN Normal 0-5 [facility] Comment on above: Order Comment: Urine , Random Performed By: #### L 100.0100, L500.2500 #### [facility] [address] [place], [address] Urinalysis, Routine (Dipstic k)on 11-06-2023 Clarity (U) Clear Normal Clear [facility] Comment on above: Order Comment: Urine , Random Performed By: #### L 502.0250, L400.2010, L100.0100, L500.4100, L500.4050, L400.0001 #### [facility] [address] [place], [address] Color (U) YELLOW Normal Yellow [facility] Comment on above: Order Comment: Urine , Random Performed By: #### L 502.0250, L400.2010, L100.0100, L500.4100, L500.4050, L400.0001 #### [facility] [address] [place], [address] BILIRUBIN URINE Negative Normal Negative [facility] Comment on above: Order Comment: Urine , Random Performed By: #### L 502.0250, L400.2010, L100.0100, L500.4100, L500.4050, L400.0001 #### [facility] [address] [place], [address] GLUCOSE, UR Normal Normal Normal [facility] Comment on above: Order Comment: Urine , Random Performed By: #### L 502.0250, L400.2010, L100.0100, L500.4100, L500.4050, L400.0001 #### [facility] [address] [place], [address] KETONE UR Negative Normal Negative [facility] Comment on above: Order Comment: Urine , Random Performed By: #### L 502.0250, L400.2010, L100.0100, L500.4100, L500.4050, L400.0001 #### [facility] [address] [place], [address] LEUK ESTERASE 25 /ul Abnormal Negative [facility] Comment on above: Order Comment: Urine , Random Performed By: #### L 502.0250, L400.2010, L100.0100, L500.4100, L500.4050, L400.0001 #### [facility] [address], [address] Nitrite Ql (U) Negative Normal Negative [facility] Comment on above: Order Comment: Urine , Random Performed By: #### L 502.0250, L400.2010, L100.0100, L500.4100, L500.4050, L400.0001 #### [facility] [address], [address] OCCULT BLOOD-UR Negative Normal Negative [facility] Comment on above: Order Comment: Urine , Random Performed By: #### L 502.0250, L400.2010, L100.0100, L500.4100, L500.4050, L400.0001 #### [facility] [address], [address] pH UR 6.5 Normal 5.0 - 8.0 [facility] Comment on above: Order Comment: Urine , Random Performed By: #### L 502.0250, L400.2010, L100.0100, L500.4100, L500.4050, L400.0001 #### [facility] [address], [address] PROT DIPSTX Negative Normal Negative [facility] Comment on above: Order Comment: Urine , Random Performed By: #### L 502.0250, L400.2010, L100.0100, L500.4100, L500.4050, L400.0001 #### [facility] [address], [address] SP.GR. DIPSTX 1.015 Normal 1.002-1.030 [facility] Comment on above: Order Comment: Urine , Random Performed By: #### L 502.0250, L400.2010, L100.0100, L500.4100, L500.4050, L400.0001 #### [facility] [address] [place], [address] UROBILI Normal Normal Normal [facility] Comment on above: Order Comment: Urine , Random Performed By: #### L 502.0250, L400.2011, L100.0100, L500.4100, L500.4050, L400.0001 #### [facility] [address] [place], [address] Absolute lymphocyte countOrd ered By: Mario Decker on 04-28-2023 Lymphocytes Auto (Unsp spec) [#/Vol] 1.85 10*3/uL 0.83-4.51 [facility] Automated lymphocyte count a s percentage of total leukocytesOrdered By: Mario Decker on 04-28-2023 Lymphocytes/100 WBC Auto (Unsp spec) 23.2 % 19-41 [facility] Basic Metabolic Profile (BMP )on 04-28-2023 BUN/CRE 22.9 RATIO High 10-20 [facility] Comment on above: Performed By: #### L 100.0100, L500.2500 #### [facility] [address] [place], [address] CA,Total 9.3 mg/dL Normal 8.5-10.1 [facility] Comment on above: Performed By: #### L 100.0100, L500.2500 #### [facility] [address] [place], [address] Chloride [Moles/Vol] 109 mmol/L High 98-107 [facility] Comment on above: Performed By: #### L 100.0100, L500.2500 #### [facility] [address] [place], [address] CO2 [Moles/Vol] 25.0 mmol/L Normal 21.0-32.0 [facility] Comment on above: Performed By: #### L 100.0100, L500.2500 #### [facility] [address] [place], [address] Creatinine [Mass/Vol] 0.70 mg/dL Normal 0.55-1.02 [facility] Comment on above: Result Comment: The validity of the calculated GFR GFRAA in patients over 70 years has not been determined. Clinical correlation is essential. Performed By: #### L 100.0100, L500.2500 #### [facility] [address], [address] ECRCL 97.14 ml/min Normal [facility] Comment on above: Performed By: #### L 100.0100, L500.2500 #### [facility] [address] [place], [address] EST GFR - AA 113 mL/min Normal >60 [facility] Comment on above: Result Comment: Afri can [place] GFR Calc Performed By: #### L 100.0100, L500.2500 #### [facility] [address] [place], [address] GAP 4 Low 5-15 [facility] Comment on above: Performed By: #### L 100.0100, L500.2500 #### [facility] [address] [place], [address] GFR/1.73 sq M.predicted among non-blacks MDRD (S/P/Bld) [Vol rate/Area] 93 mL/min/{1.73_m2} Normal >60 [facility] Comment on above: Result Comment: Non- GFR Calc Performed By: #### L 100.0100, L500.2500 #### [facility] [address] [place], [address] Glucose [Mass/Vol] 100 mg/dL Normal 74-106 [facility] Comment on above: Result Comment: Fast ing Glucose result from 100 to 125 mg/dL suggests IMPAIRED HOMEOSTASIS per A.D.A. criteria. Performed By: #### L 100.0100, L500.2500 #### [facility] [address] [place], [address] Potassium [Moles/Vol] 3.8 mmol/L Normal 3.5-5.1 [facility] Comment on above: Performed By: #### L 100.0100, L500.2500 #### [facility] [address] [place], [address] Sodium [Moles/Vol] 138 mmol/L Normal 136-145 [facility] Comment on above: Performed By: #### L 100.0100, L500.2500 #### [facility] [address] [place], [address] Urea nitrogen [Mass/Vol] 16 mg/dL Normal 7-18 [facility] Comment on above: Performed By: #### L 100.0100, L500.2500 #### [facility] [address], [address] Basophil percentageOrdered B y: Mario Decker on 04-28-2023 Basophils/100 WBC (Bld) 0.8 % 0-1 [facility] Chloride [Moles/Vol] 109 mmol/L 98-107 [facility] Eosinophils/100 WBC (Bld) 2.1 % 0-5 [facility] Glucose [Mass/Vol] 100 mg/dL 74-106 [facility] Comment on above: Fasting Glucose resu lt from 100 to 125 mg/dL suggests IMPAIRED HOMEOSTASIS per A.D.A. criteria. Hemoglobin (Bld) [Mass/Vol] 13.7 g/dL 12.0-15.0 [facility] Monocytes/100 WBC (Bld) 8.1 % 0-10 [facility] Neutrophils (Bld) [#/Vol] 5.2 10*3/uL 2.0-7.7 [facility] Neutrophils/100 WBC (Bld) 65.4 % 47-70 [facility] Potassium [Moles/Vol] 3.8 mmol/L 3.5-5.1 [facility] Sodium [Moles/Vol] 138 mmol/L 136-145 [facility] WBC (Bld) [#/Vol] 8.0 10*3/uL 4.4-11.0 [facility] Brain/Head without Contrasto n 04-28-2023 Brain/Head without Contrast [facility] Imaging Services [address] [place] [address] Brain/Head without Contrast MR#: [id number] Acct: [id number] Name: RADHA DANG RAI Rep #: [id number] : 1970 F 53 From: Minor thomas MD PCP: Dr. Kacy Collins, DO Status: REG ER Study: Brain/Head without Contrast Date of Exam: 03/22 Exam# [id number] Ordering Dr: Mario Decker MD [id number] STUDY: CT BRAIN WITHOUT CONTRAST REASON FOR [...] Mario Decker MD; Dr. Kacy Collins DO Patient Services Rep: Signed Normal [facility] CBC W/Diff, Automatedon 03-0 Absolute Lymph 1.85 X10 3/uL Normal 0.83-4.51 [facility] Comment on above: Performed By: #### L 100.0100, L500.2500 #### [facility] [address] [place], [address] Absolute Neut 5.2 X10 3/uL Normal 2.0-7.7 [facility] Comment on above: Performed By: #### L 100.0100, L500.2500 #### [facility] [address] [place], [address] Basophils/100 WBC (Bld) 0.8 % Normal 0-1 [facility] Comment on above: Performed By: #### L 100.0100, L500.2500 #### [facility] [address] [place], [address] Eosinophils/100 WBC (Bld) 2.1 % Normal 0-5 [facility] Comment on above: Performed By: #### L 100.0100, L500.2500 #### [facility] [address] [place], [address] Erythrocyte distribution width (RBC) [Ratio] 14.0 % Normal 11.6-14.6 [facility] Comment on above: Performed By: #### L 100.0100, L500.2500 #### [facility] [address] [place], [address] Hematocrit (Bld) [Volume fraction] 42.4 % Normal 37-47 [facility] Comment on above: Performed By: #### L 100.0100, L500.2500 #### [facility] [address] [place], [address] Hemoglobin (Bld) [Mass/Vol] 13.7 g/dL Normal 12.0-15.0 [facility] Comment on above: Performed By: #### L 100.0100, L500.2500 #### [facility] [address] [place], [address] IG% 0.400 Normal 0.0-0.9 [facility] Comment on above: Result Comment: IG% - Immature Granulocytes (promyelocytes, myelocytes and metamyelocytes) > 1% indicates that a LEFT SHIFT is Present. Performed By: #### L 100.0100, L500.2500 #### [facility] [address], [address] Lymphocytes/100 WBC (Bld) 23.2 % Normal 19-41 [facility] Comment on above: Performed By: #### L 100.0100, L500.2500 #### [facility] [address] [place], [address] MCH (RBC) [Entitic mass] 28.8 pg Normal 27.0-32.0 [facility] Comment on above: Performed By: #### L 100.0100, L500.2500 #### [facility] [address] [place], [address] MCHC (RBC) [Mass/Vol] 32.3 g/dL Normal 32-36 [facility] Comment on above: Performed By: #### L 100.0100, L500.2500 #### [facility] [address] [place], [address] MCV (RBC) [Entitic vol] 89.3 fL Normal 81-99 [facility] Comment on above: Performed By: #### L 100.0100, L500.2500 #### [facility] [address] [place], [address] Monocytes/100 WBC (Bld) 8.1 % Normal 0-10 [facility] Comment on above: Performed By: #### L 100.0100, L500.2500 #### [facility] [address] [place], [address] Neutrophils/100 WBC (Bld) 65.4 % Normal 47-70 [facility] Comment on above: Performed By: #### L 100.0100, L500.2500 #### [facility] [address] [place], [address] Nucleated RBC (Bld) [#/Vol] 0 10*3/uL Normal 0-5 [facility] Comment on above: Performed By: #### L 100.0100, L500.2500 #### [facility] [address] [place], [address] Platelet mean volume (Bld) [Entitic vol] 8.4 fL Normal 6.2-12.0 [facility] Comment on above: Performed By: #### L 100.0100, L500.2500 #### [facility] [address] [place], [address] Platelets (Bld) [#/Vol] 400 10*3/uL Normal 150-450 [facility] Comment on above: Performed By: #### L 100.0100, L500.2500 #### [facility] [address] [place], [address] RBC (Bld) [#/Vol] 4.75 10*6/uL Normal 4.2-5.4 [facility] Comment on above: Performed By: #### L 100.0100, L500.2500 #### [facility] [address] [place], [address] RDW SD 45.7 fl High 35.1-43.9 [facility] Comment on above: Performed By: #### L 100.0100, L500.2500 #### [facility] [address] [place], [place], [address] WBC (Bld) [#/Vol] 8.0 10*3/uL Normal 4.4-11.0 [facility] Comment on above: Performed By: #### L 100.0100, L500.2500 #### [facility] [address] [place], [address] Determination of erythrocyte mean corpuscular volume (MCV)Ordered By: Mario Decker on 04-28-2023 MCV (RBC) [Entitic vol] 89.3 fL 81-99 [facility] Emergency Department Summary on 04-28-2023 Emergency Department Summary [facility] Medical Records Department [address] [facility] [place] [address] Emergency Department Summary 04/28/23 MR#: [id number] Acct: [id number] Name: RADHA DANG RAI Rep #: [id number] : 1970 53 From: Mario Decker MD [...] Answer questions following commands. 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 Dorsi plantarflexion intact. NIH score [...] General Ey (more content not included)... Normal [facility] Erythrocyte distribution wid th ratioOrdered By: Mario Decker on 04-28-2023 Erythrocyte distribution width (RBC) [Ratio] 14.0 % 11.6-14.6 [facility] Erythrocyte distribution wid th standard deviationOrdered By: Mario Decker on 04-28-2023 Erythrocyte distribution width (RBC) [Entitic vol] 45.7 fL 35.1-43.9 [facility] Hematocrit Auto (Bld) [Volum e fraction]Ordered By: Mario Decker on 04-28-2023 Hematocrit (Bld) [Volume fraction] 42.4 % 37-47 [facility] Immature granulocytes/100 WB C Auto (Bld)Ordered By: Mario Decker on 04-28-2023 Immature granulocytes/100 WBC (Bld) 0.400 % 0.0-0.9 [facility] Comment on above: IG% - Immature Granu locytes (promyelocytes, myelocytes and metamyelocytes) > 1% indicates that a LEFT SHIFT is Present. Laboratory - Chemistry and C hemistry - challengeOrdered By: Mario Decker on 04-28-2023 CO2 [Moles/Vol] 25.0 mmol/L 21.0-32.0 [facility] Urea nitrogen/Creatinine [Mass ratio] 22.9 mg/mg 10-20 [facility] - Hematology and Cell countsOrdered By: Mario Decker on 04-28-2023 MCH (RBC) [Entitic mass] 28.8 pg 27.0-32.0 [facility] MCHC (RBC) [Mass/Vol] 32.3 g/dL 32-36 [facility] Nucleated RBC/100 WBC (Bld) [Ratio] 0 % 0-5 [facility] Platelet mean volume (Bld) [Entitic vol] 8.4 fL 6.2-12.0 [facility] Platelets (Bld) [#/Vol] 400 10*3/uL 150-450 [facility] No Panel InformationOrdered By: Mario Decker on 04-28-2023 Estimated Creatinine Clearance Calc 97.14 ml/min [facility] Estimated GFR (MDRD) Amer 113 mL/min >60 [facility] Comment on above: GFR Calc Estimated GFR (MDRD) Non-Af Amer 93 mL/min >60 [facility] Comment on above: Non- GFR Calc RBC Auto (Bld) [#/Vol]Ordere d By: Mario Decker on 04-28-2023 RBC (Bld) [#/Vol] 4.75 10*6/uL 4.2-5.4 [facility] Serum or plasma calcium brandin urement (mass/volume)Ordered By: Mario Decker on 04-28-2023 Calcium [Mass/Vol] 9.3 mg/dL 8.5-10.1 [facility] Serum or plasma creatinine m easurement (mass/volume)Ordered By: Mario Decker on 04-28-2023 Creatinine [Mass/Vol] 0.70 mg/dL 0.55-1.02 [facility] Comment on above: The validity of the calculated GFR & GFRAA in patients over 70 years has not been determined. Clinical correlation is essential. Serum or plasma urea nitroge n measurement (mass/volume)Ordered By: Mario Decker on 04-28-2023 Urea nitrogen [Mass/Vol] 16 mg/dL 7-18 [facility] Thin prep Papanicolaou smear with manual screeningOrdered By: Mario Decker on 04-28-2023 Thin prep Papanicolaou smear with manual screening 4 5-15 [facility] Basophil percentageOrdered B y: Kacy Collins on 01-23-2023 Cholesterol [Mass/Vol] 197 mg/dL <200 [facility] Comment on above: <200 mg/dL Desirable 200-240 mg/dL Borderline >240 mg/dL High Risk Glucose [Mass/Vol] 103 mg/dL 74-106 [facility] Comment on above: Fasting Glucose resu lt from 100 to 125 mg/dL suggests IMPAIRED HOMEOSTASIS per A.D.A. criteria. Triglyceride [Mass/Vol] 126 mg/dL <199 [facility] Comment on above: The drugs N-Acetylcy steine and Metamizole may falsely depress this assay.Serum Triglycerides Reference Interval Normal <150 mg/dL Borderline high 150 - 199 mg/dL High 200 - 499 mg/dL Very High > or = 500 mg/dL Glucoseon 01-23-2023 Glucose [Mass/Vol] 103 mg/dL Normal 74-106 [facility] Comment on above: Result Comment: Fast ing Glucose result from 100 to 125 mg/dL suggests IMPAIRED HOMEOSTASIS per A.D.A. criteria. Performed By: #### L 501.0100, L500.4100 #### [facility] [address], [address] Lipid Profileon 01-23-2023 Cholesterol [Mass/Vol] 197 mg/dL Normal 200 [facility] Comment on above: Result Comment: <200 mg/dL Desirable 200-240 mg/dL Borderline >240 mg/dL High Risk Performed By: #### L 501.0100, L500.4100 #### [facility] [address], [address] Cholesterol in HDL [Mass/Vol] 54 mg/dL Normal [facility] Comment on above: Result Comment: The drugs N-Acetylcysteine and Metamizole may falsely depress this assay. Reference Range HDL <40 mg/dL Low HDL Cholesterol HDL >or= 60 mg/dL High HDL Cholesterol Performed By: #### L 501.0100, L500.4100 #### [facility] [address], [address] Cholesterol in LDL [Mass/Vol] 118 mg/dL Normal 0-130 [facility] Comment on above: Performed By: #### L 501.0100, L500.4100 #### [facility] [address], [address] Cholesterol in VLDL [Mass/Vol] 25 mg/dL Normal 5-40 [facility] Comment on above: Performed By: #### L 501.0100, L500.4100 #### [facility] [address], [address] Triglyceride [Mass/Vol] 126 mg/dL Normal [facility] Comment on above: Result Comment: The drugs N-Acetylcysteine and Metamizole may falsely depress this assay. Serum Triglycerides Reference Interval Normal <150 mg/dL Borderline high 150 - 199 mg/dL High 200 - 499 mg/dL Very High > or = 500 mg/dL Performed By: #### L 501.0100, L500.4100 #### [facility] [address] [place], [address] Serum or plasma cholesterol in HDL measurement (mass/volume)Ordered By: Kacy Collins on 01-23-2023 Cholesterol in HDL [Mass/Vol] 54 mg/dL >40 [facility] Comment on above: The drugs N-Acetylcy steine and Metamizole may falsely depress this assay. Reference Range HDL <40 mg/dL Low HDL Cholesterol HDL >or= 60 mg/dL High HDL Cholesterol Serum or plasma cholesterol in VLDL measurement (mass/volume)Ordered By: Kacy Collins on 01-23-2023 Cholesterol in VLDL [Mass/Vol] 25 mg/dL 5-40 [facility] Serum or plasma low density lipoprotein (LDL) cholesterol measurement (mass/volume)Ordered By: Kacy Collins on 01-23-2023 Cholesterol in LDL [Mass/Vol] 118 mg/dL 0-130 [facility] Absolute lymphocyte counton 02-04-2022 Lymphocytes Auto (Unsp spec) [#/Vol] 2.13 10*3/uL 0.83-4.51 [facility] Work Phone: Basophil percentageon 2021 Basophils/100 WBC (Bld) 0.4 % 0-1 [facility] Work Phone: Chloride [Moles/Vol] 109 mmol/L 98-107 [facility] Work Phone: Cholesterol [Mass/Vol] 183 mg/dL <200 [facility] Work Phone: [phone] Comment on above: <200 mg/dL Desirable 200-240 mg/dL Borderline >240 mg/dL High Risk Eosinophils/100 WBC (Bld) 0.8 % 0-5 [facility] Work Phone: Glucose [Mass/Vol] 101 mg/dL 74-106 [facility] Work Phone: Comment on above: Fasting Glucose resu lt from 100 to 125 mg/dL suggests IMPAIRED HOMEOSTASIS per A.D.A. criteria. Neutrophils (Bld) [#/Vol] 6.4 10*3/uL 2.0-7.7 [facility] Work Phone: [phone] Neutrophils/100 WBC (Bld) 67.0 % 47-70 [facility] Work Phone: Potassium [Moles/Vol] 3.6 mmol/L 3.5-5.1 [facility] Work Phone: Sodium [Moles/Vol] 140 mmol/L 136-145 [facility] Work Phone: Triglyceride [Mass/Vol] 76 mg/dL <199 [facility] Work Phone: Comment on above: The drugs N-Acetylcy steine and Metamizole may falsely depress this assay.Serum Triglycerides Reference Interval Normal <150 mg/dL Borderline high 150 - 199 mg/dL High 200 - 499 mg/dL Very High > or = 500 mg/dL WBC (Bld) [#/Vol] 9.5 10*3/uL 4.4-11.0 [facility] Work Phone: Blood erythrocytes count (nu mber/volume)on 02-04-2022 RBC (Bld) [#/Vol] 5.02 10*6/uL 4.2-5.[address] [facility] [facility] Work Phone: Blood hemoglobin measurement (mass/volume)on 02-04-2022 Hemoglobin (Bld) [Mass/Vol] 14.8 g/dL 12.0-15.0 [facility] Work Phone: Blood lymphocytes/100 leukoc yteson 02-04-2022 Lymphocytes/100 WBC (Bld) 22.4 % 19-41 [facility] Work Phone: Blood monocytes/100 leukocyt eson 02-04-2022 Monocytes/100 WBC (Bld) 9.1 % 0-10 [facility] Work Phone: Blood platelet mean volumeon 02-04-2022 Platelet mean volume (Bld) [Entitic vol] 8.5 fL 6.2-12.0 [facility] Work Phone: Determination of erythrocyte mean corpuscular volume (MCV)on 02-04-2022 MCV (RBC) [Entitic vol] 92.6 fL 81-99 [facility] Work Phone: Hematocrit Auto (Bld) [Volum e fraction]on 02-04-2022 Hematocrit (Bld) [Volume fraction] 46.5 % 37-47 [facility] Work Phone: Laboratory - Chemistry and C hemistry - challengeon 02-04-2022 CO2 [Moles/Vol] 26.0 mmol/L 21.0-32.0 [facility] Work Phone: Urea nitrogen/Creatinine [Mass ratio] 21.2 mg/mg 10-20 [facility] Work Phone: Laboratory - Hematology and Cell countson 02-04-2022 Erythrocyte distribution width (RBC) [Entitic vol] 48.0 fL 35.1-43.9 [facility] Work Phone: Erythrocyte distribution width (RBC) [Ratio] 14.2 % 11.6-14.6 [facility] Work Phone: Immature granulocytes/100 WBC (Bld) 0.300 % 0.0-0.9 [facility] Work Phone: Comment on above: IG% - Immature Granu locytes (promyelocytes, myelocytes and metamyelocytes) > 1% indicates that a LEFT SHIFT is Present. MCH (RBC) [Entitic mass] 29.5 pg 27.0-32.0 [facility] Work Phone: Nucleated RBC/100 WBC (Bld) [Ratio] 0 % 0-5 [facility] Work Phone: MCHC Auto (RBC) [Mass/Vol]on 02-04-2022 MCHC (RBC) [Mass/Vol] 31.8 g/dL 32-36 [facility] Work Phone: Comment on above: Delta: 33.8 on 02/03 No Panel Informationon 02-04 Estimated Creatinine Clearance Calc 87.08 ml/min [facility] Work Phone: Estimated GFR (MDRD) Amer 121 mL/min >60 [facility] Work Phone: Comment on above: GFR Calc Estimated GFR (MDRD) Non-Af Amer 100 mL/min >60 [facility] Work Phone: Comment on above: Non- GFR Calc Troponin I High Sensitivity 53 pg/mL 3.0-54.0 [facility] Work Phone: Comment on above: Please Note: New Priya t Units and Gender Specific Reference Ranges. For more information see Policy Stat Procedure [place] High Sensitivity Troponin (TNIH) and attachments. Platelets bldon 02-04-2022 Platelets (Bld) [#/Vol] 436 10*3/uL 150-450 [facility] Work Phone: Serum or plasma calcium brandin urement (mass/volume)on 02-04-2022 Calcium [Mass/Vol] 8.9 mg/dL 8.5-10.1 [facility] Work Phone: Serum or plasma cholesterol in HDL measurement (mass/volume)on 02-04-2022 Cholesterol in HDL [Mass/Vol] 57 mg/dL >40 [facility] Work Phone: Comment on above: The drugs N-Acetylcy steine and Metamizole may falsely depress this assay. Reference Range HDL <40 mg/dL Low HDL Cholesterol HDL >or= 60 mg/dL High HDL Cholesterol Serum or plasma cholesterol in VLDL measurement (mass/volume)on 02-04-2022 Cholesterol in VLDL [Mass/Vol] 15 mg/dL 5-40 [facility] Work Phone: Serum or plasma creatinine m easurement (mass/volume)on 02-04-2022 Creatinine [Mass/Vol] 0.66 mg/dL 0.55-1.02 [facility] Work Phone: Comment on above: The validity of the calculated GFR & GFRAA in patients over 70 years has not been determined. Clinical correlation is essential. Serum or plasma low density lipoprotein (LDL) cholesterol measurement (mass/volume)on 02-04-2022 Cholesterol in LDL [Mass/Vol] 111 mg/dL 0-130 [facility] Work Phone: Serum or plasma urea nitroge n measurement (mass/volume)on 02-04-2022 Urea nitrogen [Mass/Vol] 14 mg/dL 7-18 [facility] Work Phone: Thin prep Papanicolaou smear with manual screeningon 02-04-2022 Thin prep Papanicolaou smear with manual screening 5 5-15 [facility] Work Phone: Absolute lymphocyte counton 02-03-2022 Lymphocytes Auto (Unsp spec) [#/Vol] 3.27 10*3/uL 0.83-4.51 [facility] Work Phone: Basophil percentageon 2021 Basophils/100 WBC (Bld) 0.4 % 0-1 [facility] Work Phone: Chloride [Moles/Vol] 105 mmol/L 98-107 [facility] Work Phone: Eosinophils/100 WBC (Bld) 1.5 % 0-5 [facility] Work Phone: Glucose [Mass/Vol] 126 mg/dL 74-106 [facility] Work Phone: Comment on above: Fasting Glucose resu lt greater than or equal to 126 mg/dL suggests DIABETES MELLITUS per A.D.A. criteria. Neutrophils (Bld) [#/Vol] 6.1 10*3/uL 2.0-7.7 [facility] Work Phone: Neutrophils/100 WBC (Bld) 57.9 % 47-70 [facility] Work Phone: Potassium [Moles/Vol] 3.7 mmol/L 3.5-5.1 [facility] Work Phone: Sodium [Moles/Vol] 141 mmol/L 136-145 [facility] Work Phone: WBC (Bld) [#/Vol] 10.5 10*3/uL 4.4-11.0 [facility] Work Phone: Blood erythrocytes count (nu mber/volume)on 02-03-2022 RBC (Bld) [#/Vol] 5.11 10*6/uL 4.2-5.4 [facility] Work Phone: [phone] Blood hemoglobin measurement (mass/volume)on 02-03-2022 Hemoglobin (Bld) [Mass/Vol] 15.6 g/dL 12.0-15.0 [facility] Work Phone: Blood lymphocytes/100 leukoc yteson 02-03-2022 Lymphocytes/100 WBC (Bld) 31.2 % 19-41 [facility] Work Phone: Blood monocytes/100 leukocyt eson 02-03-2022 Monocytes/100 WBC (Bld) 8.6 % 0-10 [facility] Work Phone: Blood platelet mean volumeon 02-03-2022 Platelet mean volume (Bld) [Entitic vol] 8.8 fL 6.2-12.0 [facility] Work Phone: Determination of erythrocyte mean corpuscular volume (MCV)on 02-03-2022 MCV (RBC) [Entitic vol] 90.4 fL 81-99 [facility] Work Phone: Hematocrit Auto (Bld) [Volum e fraction]on 02-03-2022 Hematocrit (Bld) [Volume fraction] 46.2 % 37-47 [facility] Work Phone: Laboratory - Chemistry and C hemistry - challengeon 02-03-2022 CO2 [Moles/Vol] 28.0 mmol/L 21.0-32.0 [facility] Work Phone: Urea nitrogen/Creatinine [Mass ratio] 18.5 mg/mg 10-20 [facility] Work Phone: Laboratory - Hematology and Cell countson 02-03-2022 Erythrocyte distribution width (RBC) [Entitic vol] 46.1 fL 35.1-43.9 [facility] Work Phone: Erythrocyte distribution width (RBC) [Ratio] 13.7 % 11.6-14.6 [facility] Work Phone: Immature granulocytes/100 WBC (Bld) 0.400 % 0.0-0.9 [facility] Work Phone: Comment on above: IG% - Immature Granu locytes (promyelocytes, myelocytes and metamyelocytes) > 1% indicates that a LEFT SHIFT is Present. MCH (RBC) [Entitic mass] 30.5 pg 27.0-32.0 [facility] Work Phone: Nucleated RBC/100 WBC (Bld) [Ratio] 0 % 0-5 [facility] Work Phone: MCHC Auto (RBC) [Mass/Vol]on 02-03-2022 MCHC (RBC) [Mass/Vol] 33.8 g/dL 32-36 [facility] Work Phone: No Panel Informationon 02-03 Troponin I High Sensitivity 30 pg/mL 3.0-54.0 [facility] Work Phone: Comment on above: Please Note: New Priya t Units and Gender Specific Reference Ranges. For more information see Policy Stat Procedure [place] High Sensitivity Troponin (TNIH) and attachments. Estimated Creatinine Clearance Calc 70.95 ml/min [facility] Work Phone: Estimated GFR (MDRD) Amer 95 mL/min >60 [facility] Work Phone: Comment on above: GFR Calc Estimated GFR (MDRD) Non-Af Amer 79 mL/min >60 [facility] Work Phone: Comment on above: Non- GFR Calc Platelets bldon 02-03-2022 Platelets (Bld) [#/Vol] 478 10*3/uL 150-450 [facility] Work Phone: Serum or plasma calcium brandin urement (mass/volume)on 02-03-2022 Calcium [Mass/Vol] 9.8 mg/dL 8.5-10.1 [facility] Work Phone: Serum or plasma creatinine m easurement (mass/volume)on 02-03-2022 Creatinine [Mass/Vol] 0.81 mg/dL 0.55-1.02 [facility] Work Phone: Comment on above: The validity of the calculated GFR & GFRAA in patients over 70 years has not been determined. Clinical correlation is essential. Serum or plasma urea nitroge n measurement (mass/volume)on 02-03-2022 Urea nitrogen [Mass/Vol] 15 mg/dL 7-18 [facility] Work Phone: Thin prep Papanicolaou smear with manual screeningon 02-03-2022 Thin prep Papanicolaou smear with manual screening 8 5-15 [facility] Work Phone: MARISSA SCREENINGon 01-19-2022 [facility] Vital Signs Date Time Vital Sign Value Performing Clinician Facility 09-11-2024 13:02-0400 Body mass index (BMI) [Ratio] 30.73 kg/m2 Maureen Roche APRN.[employer] Work Phone: [facility] 09-11-2024 13:02-0400 Body weight 81.19 kg Maureen Roche APRN.[employer] Work Phone: [facility] 09-11-2024 13:02-0400 Diastolic blood pressure 98 mm[Hg] Maureen Roche APRN.[employer] Work Phone: [facility] 09-11-2024 13:02-0400 Systolic blood pressure 152 mm[Hg] Maureen Roche APRN.[employer] Work Phone: [facility] 08-29-2024 12:47-0400 Diastolic blood pressure 88 mm[Hg] Maureen Roche APRN.[employer] Work Phone: [facility] Comment on above: post procedure 08-29-2024 12:47-0400 Heart rate 74 /min Maureen Roche APRN.[employer] Work Phone: [facility] 08-29-2024 12:47-0400 Systolic blood pressure 161 mm[Hg] Maureen Roche APRN.[employer] Work Phone: [facility] Comment on above: post procedure 08-29-2024 11:27-0400 Body mass index (BMI) [Ratio] 30.73 kg/m2 Maureen Roche APRN.[employer] Work Phone: [facility] 08-29-2024 11:27-0400 Body weight 81.19 kg Maureen Roche APRN.[employer] Work Phone: [facility] 05-30-2023 07:31-0400 Body height 162.6 cm Maureen Roche APRN.[employer] Work Phone: [facility] 05-30-2023 07:31-0400 Body weight 83.37 kg Maureen Roche APRN.[employer] Work Phone: [facility] 05-30-2023 07:31-0400 Diastolic blood pressure 90 mm[Hg] Maureen Roche APRN.[employer] Work Phone: [facility] 05-30-2023 07:31-0400 Systolic blood pressure 130 mm[Hg] Maueren Roche APRN.[employer] Work Phone: [facility] 04-28-2023 16:02-0500 Body temperature 98 [degF] [facility] 04-28-2023 16:02-0500 Diastolic blood pressure 84 mm[Hg] [facility] 04-28-2023 16:02-0500 Heart rate 68 /min [facility] 04-28-2023 16:02-0500 Respiratory rate 14 /min [facility] 04-28-2023 16:02-0500 SaO2% (BldA) [Mass fraction] 96 % [facility] 04-28-2023 16:02-0500 Systolic blood pressure 149 mm[Hg] [facility] 04-28-2023 13:28-0500 Body height 162.56 cm [facility] 04-28-2023 13:28-0500 Body mass index (BMI) [Ratio] 31.6 kg/m2 [facility] 04-28-2023 13:28-0500 Body weight 83.46 kg [facility] 02-04-2022 11:24-0500 Body temperature 98.3 [degF] Dr. Oneil Martínez Work Phone: [facility] Work Phone: 02-04-2022 11:24-0500 Diastolic blood pressure 60 mm[Hg] Dr. Oneil Martínez Work Phone: [facility] Work Phone: 02-04-2022 11:24-0500 Heart rate 90 /min Dr. Oneil Martínez Work Phone: [facility] Work Phone: 02-04-2022 11:24-0500 Respiratory rate 16 /min Dr. Oneil Martínez Work Phone: [facility] Work Phone: 02-04-2022 11:24-0500 SaO2% (BldA) [Mass fraction] 97 % Dr. Oneil Martínez Work Phone: [facility] Work Phone: 02-04-2022 11:24-0500 Systolic blood pressure 132 mm[Hg] Dr. Oneil Martínez Work Phone: [facility] Work Phone: 02-04-2022 00:51-0500 Body height 162.[address] Oneil Martínez Work Phone: [facility] Work Phone: 02-04-2022 00:51-0500 Body mass index (BMI) [Ratio] 29.4 kg/m2 Dr. Oneil Martínez Work Phone: [facility] Work Phone: 02-04-2022 00:51-0500 Body weight 77.[address] Oneil Martínez Work Phone: [facility] Work Phone: 02-04-2022 00:23-0500 Body temperature 97.2 [degF] [facility] Work Phone: 02-04-2022 00:23-0500 Diastolic blood pressure 84 mm[Hg] [facility] Work Phone: 02-04-2022 00:23-0500 Heart rate 86 /min [facility] Work Phone: 02-04-2022 00:23-0500 Respiratory rate 17 /min [facility] Work Phone: 02-04-2022 00:23-0500 SaO2% (BldA) [Mass fraction] 98 % [facility] Work Phone: 02-04-2022 00:23-0500 Systolic blood pressure 163 mm[Hg] [facility] Work Phone: 02-03-2022 19:08-0500 Body height 162.56 cm [facility] Work Phone: 02-03-2022 19:08-0500 Body mass index (BMI) [Ratio] 30 kg/m2 [facility] Work Phone: 02-03-2022 19:08-0500 Body weight 79.37 kg [facility] Work Phone: 01-12-2022 15:02-0500 Body height 162 cm Maureen Roche APRN.[employer] Work Phone: [facility] 01-12-2022 15:02-0500 Body weight 79.38 kg Maureen Roche APRN.[employer] Work Phone: [facility] 01-12-2022 15:02-0500 Diastolic blood pressure 76 mm[Hg] Maureen Roche APRN.[employer] Work Phone: [facility] 01-12-2022 15:02-0500 Systolic blood pressure 120 mm[Hg] Maureen Roche APRN.[employer] Work Phone: [facility] 09-20-2021 14:45-0400 Body height 162.56 cm [facility] Work Phone: 09-20-2021 14:45-0400 Body mass index (BMI) [Ratio] 30 kg/m2 [facility] Work Phone: 09-20-2021 14:45-0400 Body temperature 97.5 [degF] [facility] Work Phone: 09-20-2021 14:45-0400 Body weight 79.37 kg [facility] Work Phone: 09-20-2021 14:45-0400 Diastolic blood pressure 111 mm[Hg] [facility] Work Phone: 09-20-2021 14:45-0400 Heart rate 91 /min [facility] Work Phone: 09-20-2021 14:45-0400 Respiratory rate 16 /min [facility] Work Phone: 09-20-2021 14:45-0400 SaO2% (BldA) [Mass fraction] 97 % [facility] Work Phone: 09-20-2021 14:45-0400 Systolic blood pressure 176 mm[Hg] [facility] Work Phone: Encounters Encounter Date Encounter Type Care Provider Facility Start: 09-11-2024 End: 09-11-2024 Patient encounter procedure Maureen Roche APRN.CNP Work Phone: OB/Gynecology Comment on above: PMB (postmenopausal bleeding) (Primary Dx); Cervical cancer screening; Encounter for screening for human papillomavirus (HPV) Start: 09-11-2024 End: 09-11-2024 ambulatory KACY COLLINS Facility: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 Start: 08-29-2024 End: 08-29-2024 Patient encounter procedure Maureen Roche APRN.CNP Work Phone: OB/Gynecology Comment on above: PMB (postmenopausal bleeding) (Primary Dx); Cervical cancer screening Start: 08-29-2024 End: 08-29-2024 ambulatory KACY COLLINS Facility:[facility] Start: 08-27-2024 End: 08-27-2024 Telephone encounter Kacy Collins DO Work Phone: [address] [place] [address] Comment on above: Orders Start: 11-06-2023 End: 11-06-2023 ambulatory Kacy Collins Facility:[facility] Start: 06-05-2023 Documentation procedure Mammog inez Coordinator [facility] Start: 06-05-2023 Letter encounter Mammography Coordinator [facility] Department Start: 06-02-2023 End: 06-02-2023 Patient encounter [facility] Start: 06-02-2023 End: 06-02-2023 Subsequent hospital visit by physician Screen Mammo [facility] Comment on above: Encounter for gyneco logical examination with abnormal finding [Z01.411] Start: 05-30-2023 End: 05-30-2023 Patient encounter procedure Maureen Roche APRN.[employer] Work Phone: OB/Gynecology Comment on above: Encounter for gyneco logical examination with abnormal finding (Primary Dx); Encounter for screening mammogram for breast cancer; [facility] Start: 05-30-2023 End: 05-30-2023 Patient encounter status Maureen Roche APRN.[employer] Work Phone: [facility] Work Phone: Start: 04-28-2023 End: 04-28-2023 Emergency department patient visit [facility] Work Phone: Start: 01-27-2023 Encounter for genera l adult medical examination without abnormal findings Kacy Collins [facility] Start: 01-23-2023 End: 01-23-2023 ambulatory [facility] Work Phone: Start: 01-23-2023 End: 01-23-2023 Patient encounter procedure [facility] Work Phone: Start: 01-23-2023 End: 01-23-2023 ambulatory Kacy Collins Facility:[facility] Start: 02-04-2022 Non-patient / Non-visit Dr. Hector Martínez Work Phone: [facility] Start: 02-04-2022 Non-patient / Non-visit Dr. Hector Martínez Work Phone: [facility] Start: 02-03-2022 End: 02-04-2022 Evaluation and management of inpatient [facility] Start: 02-03-2022 End: 02-04-[address] Oneil Martínez Work Phone: [facility] Work Phone: Start: 01-19-2022 End: 01-19-2022 Patient encounter status [facility] Start: 01-19-2022 End: 01-19-2022 Subsequent hospital visit by physician Screen Mammo [facility] Comment on above: Encounter for [...] 09-20-2021 End: 09-20-2021 Emergency department patient visit [facility] Procedures Date Procedure Procedure Detail [...] bi 2-view breast inc cad Maureen Roche APRN.[employer] Work Phone: Start: 10-02-2020 Mammography Maureen jon APRN.[employer] Work Phone: Plan of Treatment Date Care Activity Detail Author Start: 09-11-2029 Screening for malign ant neoplasm of cervix Cervical Cancer Screening [facility] Start: 08-29-2029 Screening for malign ant neoplasm of cervix Cervical Cancer Screening [facility] Start: 10-02-2025 HPV TESTING HPV TESTING [facility] Start: 10-02-2025 PAP TESTING PAP TESTING [facility] Start: 10-02-2025 Screening for malign ant neoplasm of cervix [facility] Start: 09-06-2025 Screening for malign ant neoplasm of breast Mammogram Screening [facility] Start: 10-28-2024 Influenza vaccination Influenza Vacc ine (#1) [facility] Start: 09-12-2024 End: 09-12-2024 Patient encounter procedure 09/12/2024 8:00 AM EDT Office Visit OB/Gynecology [address] [place] [address] Maureen Roche APRN.[employer] [address] [place] [address] had period after no bleeding for a little over a year - needs annual scheduled OB/Gynecology Comment on above: had period after no bleeding for a little over a year - needs annual scheduled Start: 09-06-2024 End: 09-06-2024 ambulatory 09/06/2024 9:00 AM EDT Procedure OB/Gynecology [address] [place] [address] [facility], Retail Sales Director [facility] [address] [place] [address] 08/29/2025 Priority: Routine OB/Gynecology Comment on above: 08/29/2025 Priority: R melissa Start: 09-06-2024 End: 09-06-2024 Patient encounter procedure 09/06/2024 7:50 AM EDT Appointment Mammogram [address] [place] [address] Mammogram Start: 08-29-2024 End: 11-28-2024 Estradiol (E2) [Mass/volume] in Serum or Plasma [facility] Comment on above: Expected: 08/29/2024 , Expires: 11/28/2024 Start: 08-29-2024 End: 11-28-2024 Follitropin [Units/volume] in Serum or Plasma [facility] Comment on above: Expected: 08/29/2024 , Expires: 11/28/2024 Start: 08-29-2024 End: 08-29-2025 US Pelvis PELVIC US [facility] Anc Imaging Routine PMB (postmenopausal bleeding) Expected: 08/29/2024, Expires: 08/29/[address] [facility] Comment on above: Expected: 08/29/2024 , Expires: 08/29/2025 Start: 08-14-2024 Urine microalbumin profile DTaP,Tdap,Td Vaccine (2 - Td or Tdap) [facility] Start: 06-01-2024 Screening for malign ant neoplasm of breast Mammogram Screening [facility] Start: 10-29-2023 Covid-19 Vaccine ( season) Covid-19 Vaccine ( season) [facility] Start: 10-29-2023 Influenza vaccination Influenz a Vaccine (Season Ended) [facility] Start: 04-28-2023 [facility] Start: 02-27-2023 Behavioral Health Screening Behavioral Health Screening [facility] Start: 02-27-2023 Depression Assessment Depression Ass essment [facility] Start: 01-19-2023 Mammography Mammogram Screening [facility] Start: 01-19-2023 Screening for malign ant neoplasm of breast Mammogram Screening [facility] Start: 10-28-2022 Covid-19 Vaccine ( season) Covid-19 Vaccine ( season) [facility] Start: 10-28-2022 Influenza vaccination Influenza Vacc ine (#1) [facility] Start: 02-27-2022 Depression Assessment Depression Ass essment [facility] Start: 02-04-2022 Patient discharge [facility] Work Phone: Start: 02-04-2022 Following clinical pathway protocol [facility] Work Phone: Start: 02-04-2022 Application of intermittent pneumatic compression device [facility] Work Phone: Start: 02-04-2022 Ambulation without limitation [facility] Work Phone: Start: 02-04-2022 Assessment of risk o f venous thromboembolism [facility] Work Phone: Start: 02-04-2022 Insertion of cathete r into peripheral vein [facility] Work Phone: Start: 02-04-2022 Measuring intake and output [facility] Work Phone: Start: 02-04-2022 Oxygen therapy [facility] Work Phone: Start: 02-04-2022 Providing care accor ding to standard [facility] Work Phone: Start: 02-04-2022 Tobacco use cessatio n education [facility] Work Phone: Start: 02-04-2022 [facility] Work Phone: Start: 02-04-2022 Verification routine [facility] Work Phone: Start: 02-03-2022 Admission procedure [facility] Work Phone: Start: 02-03-2022 [facility] Work Phone: Start: 10-28-2021 Influenza vaccination INFLUENZA (#1) [facility] Start: 10-02-2021 Mammography MAMMOGRAM [facility] Start: 09-20-2021 Hepatitis B surface antigen measurement [facility] Work Phone: Start: 09-20-2021 Hepatitis C antibody measurement [facility] Work Phone: Start: 02-27-2021 DEPRESSION ASSESSMENT DEPRESSION ASS ESSMENT [facility] Start: 2020 Pneumococcal Vaccine : 50+ (1 of 1 - PCV) Pneumococcal Vaccine: 50+ (1 of 1 - PCV) [facility] Start: 2020 SHINGRIX VACCINE (1 of 2) ANDRES GRIX VACCINE (1 of 2) [facility] Start: 02-03-2016 COLOGUARD (FIT-DNA) COLOGUARD (FIT-D NA) [facility] Start: 2015 Colonoscopy COLONOSCOPY [facility] Start: 2015 COLORECTAL CANCER SCREENING COLORECTAL CANCER SCREENING [facility] Start: [address] COLONOGRAPHY [facility] Start: 2015 DIABETES SCREEN DIABETES SCREEN [facility] Start: 2015 Diabetes Screening Diabetes Screenin g [facility] Start: 2015 FECAL OCCULT BLOOD FECAL OCCULT BLOO D [facility] Start: 2015 Lipid 1996 panel - S claudia or Plasma Lipid Screening [facility] Start: 2015 Lipid panel Lipid Screening [facility] Start: 2015 LIPID SCREEN LIPID SCREEN [facility] Start: 2015 Screening for malign ant neoplasm of colon [facility] Start: 2015 SIGMOIDOSCOPY SIGMOIDOSCOPY [facility] Start: 1989 Hepatitis B Vaccine (1 of 3 - 19+ 3-dose series) Hepatitis B Vaccine (1 of 3 - 19+ 3-dose series) [facility] Start: 1989 Urine microalbumin profile DTAP,TDAP,TD (1 - Tdap) [facility] Start: 1988 Anxiety Screening Anxiety Screening [facility] Start: 1988 Depression Screening Depression Scre ening [facility] Start: 1988 HEPATITIS C SCREENING HEPATITIS C [facility] Start: 1988 Hepatitis C screening Hepatitis C [facility] Start: 1988 HIV SCREENING HIV SCREENING [facility] Start: 1988 HIV screening HIV Screening [facility] Start: 1970 COVID-19 VACCINE (#1) COVID-19 VACCI NE (#1) [facility] Start: 1970 HEPATITIS B (1 of 3 - 3-dose series) HEPATITIS B (1 of 3 - 3-dose series) [facility] Start: 1970 Hepatitis B Vaccine (1 of 3 - 3-dose series) Hepatitis B Vaccine (1 of 3 - 3-dose series) [facility] End: 09-26-2025 DBT Breast - bilateral screening MARISSA SCREENING W LIVE Radiology Routine Encounter for screening mammogram for malignant neoplasm of breast 1 Occurrences starting 08/27/2024 until 09/26/2025 [facility] Work Phone: Comment on above: 1 Occurrences starti ng 08/27/2024 until 09/26/2025 DBT Breast - bilater al screening MARISSA SCREENING W LIVE Radiology Routine Encounter for screening mammogram for malignant neoplasm of breast 09/06/2024 7:48 AM EDT [facility] Work Phone: Endometrial bx w/wo endocervix bx w/o dilat spx ENDOMETRIAL BIOPSY Procedures Routine PMB (postmenopausal bleeding) Ordered: 08/29/2024 [facility] Work Phone: Comment on above: Ordered: 08/29/2024 Hepatitis B surface antigen measurement [facility] Work Phone: Hepatitis B virus ni rface IgG Ab [Presence] in Serum [facility] Work Phone: Hepatitis C antibody measurement [facility] Work Phone: HIV 1+2 Ab+HIV1 p24 Ag [Presence] in Serum or Plasma by Immunoassay [facility] Work Phone: End: 06-28-2024 MG Breast Screening MARISSA SCREENING Radiology Routine Encounter for gynecological examination with abnormal finding Encounter for screening mammogram for breast cancer 1 Occurrences starting 05/30/2023 until 06/28/2024 [facility] Work Phone: Comment on above: 1 Occurrences starti ng 05/30/2023 until 06/28/2024 MG Breast Screening MARISSA SCREENIN G Radiology Routine Encounter for gynecological examination with abnormal finding Encounter for screening mammogram for breast cancer 06/02/2023 7:29 AM EDT [facility] Work Phone: PAP TEST PAP TEST Lab Rou maximus PMB (postmenopausal bleeding) Cervical cancer screening 08/29/2024 12:29 PM EDT [facility] PAP TEST PAP TEST Lab Rou maximus PMB (postmenopausal bleeding) Cervical cancer screening Encounter for screening for human papillomavirus (HPV) 09/11/2024 1:46 PM EDT [facility] Work Phone: Patient Education [facility] Work Phone: Patient referral [facility] Work Phone: End: 02-11-2023 Screening mammography bi 2-view breast inc cad MARISSA SCREENING Radiology Routine Encounter for gynecological examination (general) (routine) without abnormal findings Encounter for screening mammogram for breast cancer 1 Occurrences starting 01/12/2022 until 02/11/2023 [facility] [facility] Work Phone: Comment on above: 1 Occurrences starti ng 01/12/2022 until 02/11/2023 Tissue Pathology bio psy report SURGICAL PATHOLOGY Lab Routine PMB (postmenopausal bleeding) 08/29/2024 12:29 PM EDT [facility] Immunizations Immunization Date Immunization Notes Care Provider Alexis obando 08-14-2014 tetanus toxoid, redu joellen diphtheria toxoid, and acellular pertussis vaccine, adsorbed Maureen Roche APRN.[facility] Work Phone: [facility] Work Phone: Payers Date Payer Category Payer Self-pay [id number] 2019 Private Health Insurance [employer] [id number] 2019 Unknown [employer] PPO [id number] 2019-Present [phone] [address] [place] [address] PPO [id number] 2019 Unknown [id number] 2013 Private Health Insurance [employer] [facility] [id number] Unknown [facility] [id number] Unknown [id number] Unknown [id number] Social History Date Type Detail Facility Start: 09-20-2021 End: 04-28-2023 Tobacco smoking status DEIS Unknown if ever smoked [facility] Start: 04-27-2021 [facility] Start: 1970 Sex Assigned At Female [facility] Start: 04-11-2012 End: 05-30-2023 Tobacco smoking status DEIS Never smoked tobacco [facility] Work Phone: Start: 04-11-2012 End: 05-30-2023 Tobacco use and exposure Smokeless tobacco non-user [facility] Work Phone: Start: 01-12-2022 End: 08-29-2024 Alcohol intake Current non-drinker of alcohol (finding) [facility] Start: 1970 Sex Assigned At Not on file [facility] Start: 01-12-2022 End: 05-30-2023 History of Social function [facility] Start: 01-12-2022 End: 05-30-2023 Tobacco use panel [facility] Start: 01-29-2012 National Score (1-100), lower number is lower risk Not on file [facility] Start: 05-30-2023 Education [address] [facility] Start: 03-27-2023 Gender identity Identifies as female gender (finding) [facility] Start: 03-27-2023 Sexual orientation Heterosexual (carine levin) [facility] NEGATED: Highlighted rowStart: ZEINABF History of tobacco use Passive smoker 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 06-02-2014 Are you blind, or do you have serious difficulty seeing, even when wearing glasses No 06/02/2014 1:42 PM Lore Sue LPN No [facility] 06-02-2014 Do you have serious difficulty walking or climbing stairs No 06/02/2014 1:42 PM EDT Lore Carcamo LPN No [facility] 06-02-2014 Do you have difficul ty dressing or bathing No 06/02/2014 1:42 PM EDT Lore Carcamo LPN No [facility] 06-02-2014 Because of a physica l, mental, or emotional condition, do you have difficulty doing errands alone such as visiting a physician's office or shopping No 06/02/2014 1:42 PM EDT Lore Carcamo LPN No [facility] Mental Status Date Assessment Result Facility 04-28-2023 Cognitive function Level Of Cons ciousness Awake;Alert;Appropriate;Fol lows Commands [facility] Work Phone: 02-04-2022 Cognitive function Voice/Name [facility] Work Phone: 02-03-2022 Cognitive function Voice/Name [facility] Work Phone: 06-02-2014 Because of a physica l, mental, or emotional condition, do you have serious difficulty concentrating, remembering, or making decisions No 06/02/2014 1:42 PM EDT Lore Carcamo LPN No [facility] Clinical Notes 01-12-2022 to 09-11-2024 [...] relieve any dryness. documented in this encounter [facility] 09-11-2024 Note HNO ID: [id number] Author: MAUREEN ROCHE APRN.RENEE Service: ? Author Type: Nurse Practitioner Type: Progress Notes Filed: 09/11/2024 14:45 Note Text: Obstetrics and Gynecology Darwin TAX DIRECTOR Visit Subjective Recording using ambient ChargeBee software for draft documentation of the visit was discussed with the patient/authorized event representative; all questions welcomed and answered. 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 affects left side Cervical high risk HPV (human papillomavirus) test positive 2005 PAST SURGICAL HISTORY Procedure Laterality Date CHOLECYSTECTOMY 02/27/1998 COLONOSCOPY 02/27/2002 [place] COLONOSCOPY SCREENING 2017 normal - Dr Garcia [...] Take 10 mg by mouth once daily. [place]-3 Fatty Acids 500 mg cap Take one(1) capsule daily. Flaxseed Oil 1,000 mg ORAL Cap Take one(1) tablet daily. multivitamin tablet Take one(1) tablet daily. No current facility-administered medications for this visit. ALLERGIES Allergen Reactions Latex Rash Nickel Rash REVIEW OF SYSTEMS: Genitourinary: (-) vaginal bleeding Objective SENSITIVE EXAM: The sensitive examination was discussed with the Patient or Patient's Authorized Forms Analysis Manager. As applicable, any other physician, advance practice provider, medical student, or other health professional student that will be observing or involved in the sensitive examination for educational or training purposes was discussed with the Patient or Authorized Forms Analysis Manager. The Patient or Authorized Forms Analysis Manager has agreed to proceed with the sensitive examination. (Sensitive examination includes inspection and/or palpation of the breasts, pelvis, prostate and anorectal regions). PHYSICAL EXAM: BP 152/98 Wt 179 lb (81.2kg) LMP 08/12/2023 GENERAL: Pleasant; in no acute distress PULMONARY: normal inspiratory effort ABDOMEN: soft, non-tender, no masses : - PELVIC: external genitalia normal, normal Bartholin's glands, urethra, Cumings's glands, no vulvar lesions, no cervical lesions, good vaginal support, physiologic discharge present, normal appearing perineal body and perianal region - Patient consent for exam received NEURO: alert and oriented x3 Assessment AND Plan ASSESSMENT AND PLAN: 1. PMB (postmen (more content not included)... [facility] 09-11-2024 History of Presen t illness Narrative Images from the original note were not included. Obstetrics and Gynecology Darwin TAX DIRECTOR Visit Subjective Recording using ambient ChargeBee software for draft documentation of the visit was discussed with the patient/authorized event representative; all questions welcomed and answered. 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 affects left side Cervical high risk HPV (human papillomavirus) test positive 2005 PAST SURGICAL HISTORY Procedure Laterality Date CHOLECYSTECTOMY 02/27/1998 COLONOSCOPY 02/27/2002 [place] COLONOSCOPY SCREENING 2017 normal - Dr Garcia [...] Take 10 mg by mouth once daily. [place]-3 Fatty Acids 500 mg cap Take one(1) capsule daily. Flaxseed Oil 1,000 mg ORAL Cap Take one(1) tablet daily. multivitamin tablet Take one(1) tablet daily. No current facility-administered medications for this visit. ALLERGIES Allergen Reactions Latex Rash Nickel Rash REVIEW OF SYSTEMS: Genitourinary: (-) vaginal bleeding Objective SENSITIVE EXAM: The sensitive examination was discussed with the Patient or Patient's Authorized Forms Analysis Manager. As applicable, any other physician, advance practice provider, medical student, or other health professional student that will be observing or involved in the sensitive examination for educational or training purposes was discussed with the Patient or Authorized Forms Analysis Manager. The Patient or Authorized Forms Analysis Manager has agreed to proceed with the sensitive examination. (Sensitive examination includes inspection and/or palpation of the breasts, pelvis, prostate and anorectal regions). PHYSICAL EXAM: BP 152/98 Wt 179 lb (81.2kg) LMP 08/12/2023 GENERAL: Pleasant; in no acute distress PULMONARY: normal inspiratory effort ABDOMEN: soft, non-tender, no masses : - PELVIC: external genitalia normal, normal Bartholin's glands, urethra, Cumings's glands, no vulvar lesions, no cervical lesions, [...] with any further vaginal bleeding. Maureen Roche APRN.HAIR SPRING CUTTER I spent a total of 20 minutes on the date of the service which included preparing to see the patient, epom-vw-vycu patient care, completing clinical documentation, obtaining and/or reviewing separately obtained history, performing a medically appropriate examination, and counseling and educating the patient/family/caregiver. documented in this encounter [facility] 09-06-2024 Note HNO ID: [id number] Author: LUZ MARINA CONNELLY MD Service: ? Author Type: Physician Type: Progress Notes Filed: 09/06/2024 12:41 Note Text: Pelvic ultrasound was performed on . Please see imaging tab for documentation and results. Luz Marina Connelly MD OBGYN Staff Physician SIGNATURE: Luz Marina Connelly MD PATIENT NAME: Radha Dang DATE: September 06, 2024 TIME: 12:40 PM PAGER/CONTACT #: Pager OBGYN Call Schedule: QGenda [facility] 09-06-2024 History of Presen t illness Narrative Pelvic ultrasound was performed on . Please see imaging tab for documentation and results. Luz Marina Connelly MD OBGYN Staff Physician SIGNATURE: Luz Marina Connelly MD PATIENT NAME: Radha Dang DATE: September 06, 2024 TIME: 12:40 PM PAGER/CONTACT #: Pager OBGYN Call Schedule: QGenda documented in this encounter [facility] 09-06-2024 History of Presen t [...] PATIENT PRESENTS WITH AN IMPLANTABLE OR ATTACHED SPRAY I PAINTER: No RADIOLOGY DEPARTMENT: Mammography PERIPHERAL IV DATA: Not applicable SIGNED BY: Franco Huizar September 06, 2024 9:05 AM documented in this encounter [facility] 09-06-2024 Note HNO ID: [id number] Author: TYRELL LOUISE Mammo Tech Service: ? Author Type: Elastic Yarn Twister Helper Type: Progress Notes Filed: 09/06/2024 09:05 Note [...] PATIENT PRESENTS WITH AN IMPLANTABLE OR ATTACHED SPRAY I PAINTER: No RADIOLOGY DEPARTMENT: Mammography PERIPHERAL IV DATA: Not applicable SIGNED BY: Franco Huizar September 06, 2024 9:05 AM [facility] 08-29-2024 History of Presen t illness Narrative Images from the original note were not included. Repairer Maintenance Building offered: Patient declines. Obstetrics and Gynecology Darwin TAX DIRECTOR Visit Subjective Recording using [employer] software for draft documentation of the visit was discussed with the patient/authorized event representative; all questions welcomed and answered. 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 affects left side Cervical high risk HPV (human papillomavirus) test positive 2005 PAST SURGICAL HISTORY Procedure Laterality Date CHOLECYSTECTOMY 02/27/1998 COLONOSCOPY 02/27/2002 [place] COLONOSCOPY SCREENING 2017 normal - Dr Garcia [...] Take 10 mg by mouth once daily. [place]-3 Fatty Acids 500 mg cap Take one(1) [...] discussed with the Patient or Patient's Authorized Forms Analysis Manager. As applicable, any other physician, advance practice provider, medical student, or other health professional student that will be observing or involved in the sensitive examination for educational or training purposes was discussed with the Patient or Authorized Forms Analysis Manager. The Patient or Authorized Forms Analysis Manager has agreed to proceed with the sensitive examination. (Sensitive examination includes inspection and/or palpation of the breasts, pelvis, prostate and anorectal regions). PHYSICAL EXAM: BP 161/88[post procedure[ Pulse 74 Wt 179 lb (81.2kg) LMP 08/12/2023 GENERAL: Pleasant; in no apparent distress; no pallor observed PULMONARY: normal inspiratory effort ABDOMEN: soft, non-tender, no masses : - PELVIC: external genitalia normal, normal Bartholin's glands, urethra, Cumings's glands, no vulvar lesions, no cervical lesions, [...] 4 - Moderate documented in this encounter [facility] 08-29-2024 Note HNO ID: [id number] Author: MAUREEN ROCHE APRN.CNP Service: ? Author Type: Nurse Practitioner Type: Progress Notes Filed: 08/29/2024 20:06 Note Text: Repairer Maintenance Building offered: Patient declines. Obstetrics and Gynecology Darwin TAX DIRECTOR Visit Subjective Recording using [employer] software for draft documentation of the visit was discussed with the patient/authorized event representative; all questions welcomed and answered. 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 affects left side Cervical high risk HPV (human papillomavirus) test positive 2005 PAST SURGICAL HISTORY Procedure Laterality Date CHOLECYSTECTOMY 02/27/1998 COLONOSCOPY 02/27/2002 [place] COLONOSCOPY SCREENING 2017 normal - Dr Garcia [...] Take 10 mg by mouth once daily. [place]-3 Fatty Acids 500 mg cap Take one(1) [...] discussed with the Patient or Patient's Authorized Forms Analysis Manager. As applicable, any other physician, advance practice provider, medical student, or other health professional student that will be observing or involved in the sensitive examination for educational or training purposes was discussed with the Patient or (more content not included)... [facility] 08-29-2024 Instructions Jason Valle LPN - 08/29/2024 10:25 AM EDT Endometrial Biopsy Your provider has recommended an endometrial biopsy. For more information, My [facility] Endometrial Biopsy How do I [...] low-risk and safe. documented in this encounter [facility] 08-27-2024 Telephone encounter Note Please file mammogram order. Will need forward to PSS to schedule then. Augustina Banda RN [facility] 08-27-2024 Miscellaneous Notes Please file mammogram order. Will need forward to PSS to schedule then. Augustina Banda RN Pt needs Mammo ordered documented in this encounter [facility] 08-27-2024 Telephone encounter Note Pt needs Mammo ordered [facility] 06-05-2023 Miscellaneous Notes June 06, 2023 PID: [id number] Radha Dang [address] [place] [address] Dear Ms. Dang, We are pleased to [...] report will be kept on file at [facility] as part of your permanent medical record and are available for your continuing care. Thank you for allowing us to help in meeting your health care needs. Sincerely, Dr. Pinto Interpreting Radiologist [facility] (Normal over 40) documented in this encounter [facility] 06-02-2023 History of Presen t [...] PATIENT PRESENTS WITH AN IMPLANTABLE OR ATTACHED SPRAY I PAINTER: No RADIOLOGY DEPARTMENT: Mammography PERIPHERAL IV DATA: Not applicable SIGNED BY: RT Kumar(R) June 02, 2023 7:29 AM documented in this encounter 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 affects left side Cervical high risk HPV (human papillomavirus) test positive 2005 PAST SURGICAL HISTORY Procedure Laterality Date CHOLECYSTECTOMY 02/27/1998 COLONOSCOPY 02/27/2002 [place] COLPOSCOPY CERVIX UPPER/ADJACENT VAGINA 02/27/[address] [...] external genitalia normal, normal Bartholin's glands, urethra, Cumings's glands, no vulvar lesions, no cervical lesions, [...] 2 - Straightforward documented in this encounter [facility] 04-28-2023 Discharge summary Note Date/Time April 28, 2023 1:47pm [facility] Medical Records Department [address] [place] [address] Emergency Department Summary 04/28/23 MR#: [id number] Acct: [id number] Name: RADHA DANG RAI Rep #:[id number] [...] Answer questions following commands. 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 Dorsi plantarflexion intact. NIH score [...] % (Auto) 65.4 Lymph % (Auto) 23.2 [place] % (Auto) 8.1 Eos % (Auto) 2.1 [...] your Primary Care Provider. Call [facility] ([phone]) or report to the closest Emergency Room. Call 911 if necessary. 04/28/23 1555 <Electronically signed by Mario Decker MD> Cosigner Signature (if applicable): CC: Dr. Kacy Collins DO ~ Signed [facility] Work Phone: 1(131) 842-613511-23-2022 History of Present illness Narrative* Barbara Wilson, [...] 19, 2022 6:55 AM [facility] Miscellaneous Notes* Addendum Note - [...] PM Modules accepted: SmartSet [facility] History of Present illness Narrative* Alda Hendrickson MA - 01/12/2022 3:43 PM EST [facility] OPEN ACCESS QUESTIONNAIRE 1. Are you currently [...] Please send all open access questionnaires to [facility] Pool #[id number] * Maureen Roche APRN.HAIR SPRING CUTTER - 01/12/2022 2:57 PM EST Repairer Maintenance Building offered: Patient declines. 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 affects left side Cervical high risk HPV (human papillomavirus) test positive 2006 PAST SURGICAL HISTORY Procedure Laterality Date CHOLECYSTECTOMY 1998 COLONOSCOPY 2002 [place] COLPOSCOPY CERVIX UPPER/ADJACENT VAGINA [address] [...] external genitalia normal, normal Bartholin's glands, urethra, Cumings's glands, no vulvar lesions, no cervical lesions, [...] needed Maureen Roche APRN.RENEE [facility] Instructions* Patient Instructions* Alda Hendrickson [...] please call: Dr. Kunz or Dr. Everett [phone] Cynthia Ornelas [phone] Dr. Park [phone] [facility] nurses [phone] [facility] noteNo assessment information availableWSouthwest General Health Center Work Phone: [employer] note* Diagnosis Encounter for gynecological examination (general) (routine) without abnormal findings- Primary Irregular menstrual cycle Encounter for screening mammogram for breast cancer documented in this encounter [facility] note* Diagnosis Onset Date Resolution Status Elevated blood pressure read ing without diagnosis of hypertension acute Neck pain [facility] Work Phone: evaluation note* Diagnosis Onset Date Resolution Status Anginal equivalent acute Elevated blood pressure read ing without diagnosis of hypertension acute Neck pain [facility] Work Phone: [employer] note* Diagnosis Encounter for gynecological examination (general) (routine) without abnormal findings Encounter for screening mammogram for breast cancer documented in this encounter [facility] note* Diagnosis Encounter for gynecological examination with abnormal finding- Primary Routine gynecological examination Encounter for screening mammogram for breast cancer [employer] Other specified erythematous condition documented in this encounter [facility] note* Diagnosis Encounter for gynecological examination with abnormal finding Routine gynecological examination Encounter for screening mammogram for breast cancer documented in this encounter [facility] note* Diagnosis Encounter for screening mammogram for malignant neoplasm of breast- Primary Other screening mammogram documented in this encounter [facility] note* Diagnosis PMB (postmenopausal bleeding)- Primary Postmenopausal bleeding Cervical cancer screening Screening for malignant neoplasm of the cervix documented in this encounter [facility] note* Diagnosis PMB (postmenopausal bleeding) Postmenopausal bleeding documented in this encounter [facility] note* Diagnosis Encounter for screening mammogram for malignant neoplasm of breast Other screening mammogram [facility] [place] [facility]* Diagnosis PMB (postmenopausal bleeding)- Primary Postmenopausal bleeding Cervical cancer screening Screening for malignant neoplasm of the cervix Encounter for screening for human papillomavirus (HPV) Special screening examination for human papillomavirus (HPV) [facility] Additional Instructions No signs of [...] pressure medications. No reason to take the hydralazine.[facility] Work Phone: Reason for referral (narrative)* Diagnostic Procedure Only (Routine) - Pending Review Specialty Diagnoses / Procedures Referred By Kelton morel Referred To Contact [facility] Diagnoses Encounter for gynecological examination (general) (routine) without abnormal findings Encounter for screening mammogram for breast cancer Procedures MARISSA SCREENING SCREENING MAMMOGRAPHY BI 2-VIEW BREAST INC Maureen Gastelum APRN.CNP [address] [place] [address] [facility] [address] [place] [address] Referral ID Status Reason Start Date Expiration Date Visits Requested Visits Authorized [id number] Pending Review Auto-Generat ed Referral 02/11/2023 1 1 [facility] for referral (narrative)* Diagnostic Procedure Only (Routine) - Authorized Specialty Diagnoses / Procedures Referred By Kelton morel Referred To Contact [facility] Diagnoses Encounter for gynecological examination with abnormal finding Encounter for screening mammogram for breast cancer Procedures MARISSA SCREENING SCREENING MAMMOGRAPHY BI 2-VIEW BREAST INC Maureen Gastelum APRN.HAIR SPRING CUTTER [address] [place] [address] [facility] [address] [place] [address] Referral ID Status Reason Start Date Expiration Date Visits Requested Visits Authorized [id number] Authorized Auto-Generat ed Referral 05/30/2023 06/28/2024 1 1 [facility] for visit Narrative* Diagnostic Procedure Only (Routine) - Closed Specialty Diagnoses / Procedures Referred By Kelton morel Referred To Contact [facility] Diagnoses Encounter for gynecological examination with abnormal finding Encounter for screening mammogram for breast cancer Procedures MARISSA SCREENING SCREENING MAMMOGRAPHY BI 2-VIEW BREAST INC CAD Maureen Roche APRN.HAIR SPRING CUTTER [address] [place] [address] [facility] [address] [place] [address] Referral ID Status Reason Start Date Expiration Date V isits Requested Visits Authorized [id number] Closed Auto-Generate d Referral 05/30/2023 06/28/2024 1 1 [facility] for visit Narrative* Diagnostic Procedure Only (Routine) - Closed Specialty Diagnoses / Procedures Referred By Kelton morel Referred To Contact [facility] Diagnoses PMB (postmenopausal bleeding) Procedures PELVIC US [facility] US PELVIC NONOBSTETRIC REAL-TIME IMAGE COMPLETE Maureen Roche APRN.HAIR SPRING CUTTER [address] [place] [address] Phone: tel: fax: [facility] [address] [place] [address] Referral ID Status Reason Start Date Expiration Date V isits Requested Visits Authorized [id number] Closed Auto-Generate d Referral 08/29/2024 08/29/2025 1 1 [facility] for visit Narrative* Consult, Test, Treat (Routine) - Closed Specialty Diagnoses / Procedures Referred By Kelton morel Referred To Contact [facility] Diagnoses Encounter for screening mammogram for malignant neoplasm of breast Procedures MARISSA SCREENING W LIVE SCREENING DIGITAL BREAST TOMOSYNTHESIS BI SCREENING MAMMOGRAPHY BI 2-VIEW BREAST INC Maureen Gastelum APRN.HAIR SPRING CUTTER [address] [place] [address] Phone: tel: fax: [facility] [address] [place] [address] Referral ID Status Reason Start Date Expiration Date V isits Requested Visits Authorized [id number] Closed Auto-Generate d Referral 09/06/2024 02/26/2025 [address] [facility] Chief Complaint and Reason for [...] No September 20, 2021 2:50pm Power of Senior Research Engineer No September 20 2:50pm Advance Directive Response Recorded Date/ Time Living Will No February 03 7:20pm Power of Senior Research Engineer No February 03, 2022 7:20pm Advance Directive Response Recorded Date/ Time Living Will No February 04 12:51am Power of Senior Research Engineer No February 04, 2022 12:51am Advance Directive Response Recorded Date/ Time Living Will No April 28, 2023 1:48pm Power of Senior Research Engineer No April 27 1:48pm Family History Relationship [...] BI 2-VIEW BREAST INC CAD Maureen Roche, JORDYN.HAIR SPRING CUTTER [address] [place] [address] [facility] [address] [place] [address] Referral ID Status Reason Start Date Expiration Date V isits Requested Visits Authorized [id number] Closed Auto-Generate d Referral 01/19/2022 02/26/2022 1 [...] or prosecute any alcohol or drug abuse patient.[facility] the event this information is protected by the Federal Confidentiality of Alcohol and Drug Abuse Patient Records regulations: The Federal rules restrict any use of the information to criminally investigate or prosecute any alcohol or drug abuse patient.[facility] the event this information is protected by the Federal Confidentiality of Alcohol and Drug Abuse Patient Records regulations: The Federal rules restrict any use of the information to criminally investigate or prosecute any alcohol or drug abuse patient.[facility] Center[facility] the event this information is protected by the Federal Confidentiality of Alcohol and Drug Abuse Patient Records regulations: The Federal rules restrict any use of the information to criminally investigate or prosecute any alcohol or drug abuse patient.[facility] Center[facility] the event this information is protected by the Federal Confidentiality of Alcohol and Drug Abuse Patient Records regulations: The Federal rules restrict any use of the information to criminally investigate or prosecute any alcohol or drug abuse patient.[facility] Center[facility] the event this information is protected by the Federal Confidentiality of Alcohol and Drug Abuse Patient Records regulations: The Federal rules restrict any use of the information to criminally investigate or prosecute any alcohol or drug abuse patient.[facility] CenterIn the event this information is protected by the Federal Confidentiality of Alcohol and Drug Abuse Patient Records regulations: The Federal rules restrict any use of the information to criminally investigate or prosecute any alcohol or drug abuse patient.[facility] CenterIn the event this information is protected by the Federal Confidentiality of Alcohol and Drug Abuse Patient Records regulations: The Federal rules restrict any use of the information to criminally investigate or prosecute any alcohol or drug abuse patient.[facility] CenterIn the event this information is protected by the Federal Confidentiality of Alcohol and Drug Abuse Patient Records regulations: The Federal rules restrict any use of the information to criminally investigate or prosecute any alcohol or drug abuse patient.[facility] CenterIn the event this information is protected by the Federal Confidentiality of Alcohol and Drug Abuse Patient Records regulations: The Federal rules restrict any use of the information to criminally investigate or prosecute any alcohol or drug abuse patient.[facility] CenterIn the event this information is protected by the Federal Confidentiality of Alcohol and Drug Abuse Patient Records regulations: The Federal rules restrict any use of the information to criminally investigate or prosecute any alcohol or drug abuse patient.[facility] CenterIn the event this information is protected by the Federal Confidentiality of Alcohol and Drug Abuse Patient Records regulations: The Federal rules restrict any use of the information to criminally investigate or prosecute any alcohol or drug abuse patient.[facility] Reason for Visit (unrecogniz ed section and content) Reason Comments [facility] Specialty Diagnoses / Procedures Referred By Contac t Referred To Contact [facility] Diagnoses Encounter for gynecological examination (general) (routine) without abnormal findings Encounter for screening mammogram for breast cancer Procedures MARISSA SCREENING SCREENING MAMMOGRAPHY BI 2-VIEW BREAST INC CAD Maureen Roche APRN.HAIR SPRING CUTTER [address] [place] [address] [facility] [address] [place] [address] Referral ID Status Reason Start Date Expiration Date V isits Requested Visits Authorized [id number] Closed Auto-Generate d Referral 01/19/2022 02/26/2022 1 1 Reason Comments Yearly Exam Reason Comments Orders Reason Comments Post Menopausal Bleeding Specialty Diagnoses / Procedures [facility] Contact Gynecology / DISTRIBUTION DISPATCHER Diagnoses Encounter for gynecological examination with abnormal finding had period after no bleeding for a little over a year - needs annual scheduled Procedures OFFICE/OUTPATIENT EST PT MAY NOT REQ PHYS/QHP OFFICE/OUTPATIENT ESTABLISHED HIGH MDM 40 MIN EST WHI PATIENT Self Maureen Roche APRN.HAIR SPRING CUTTER [address] [place] [address] Phone: tel: fax: Referral ID Status Reason Start Date Expiration Date V isits Requested Visits Authorized [id number] Authorized 08/29/2024 02/26/2025 99 99 Reason Comments Repeat Pap Specialty Diagnoses / Procedures [facility] Referred To Contact Gynecology / DISTRIBUTION DISPATCHER Diagnoses Encounter for gynecological examination with abnormal finding had period after no bleeding for a little over a year - needs annual scheduled Procedures OFFICE/OUTPATIENT EST PT MAY NOT REQ PHYS/QHP OFFICE/OUTPATIENT ESTABLISHED HIGH MDM 40 MIN EST WHI PATIENT Self Maureen Roche APRN.HAIR SPRING CUTTER [address] [place] [address] Phone: tel: fax: Care Teams (unrecognized sec tion and content) Data Scientist Relationship Specialty Start Date End Date Kacy Collins DO PCP - General Internal Medicine 01/10/12 Data Scientist Relationship Specialty Start Date End Date [...] Dr. Mario Decker MD Emergency Provider Active Data Scientist Relationship Specialty Start Date End Date Kacy Collins DO PCP - General Internal Medicine 01/10/12 Data Scientist Relationship Specialty Start Date End Date Kacy Collins DO PCP - General Internal Medicine 01/10/12 Data Scientist Relationship Specialty Start Date End Date Kacy Collins DO PCP - General Internal Medicine 01/10/12 Data Scientist Relationship Specialty Start Date End Date Kacy Collins DO PCP - General Internal Medicine 01/10/12 Data Scientist Relationship Specialty Start Date End Date Kacy Collins DO PCP - General Internal Medicine 01/10/12 Data Scientist Relationship Specialty Start Date End Date Kacy Collins DO PCP - General Internal Medicine 01/10/12 Data Scientist Relationship Specialty Start Date End Date Kacy Collins DO PCP - General Internal Medicine 01/10/12 Data Scientist Relationship Specialty Start Date End Date Kacy Collins DO PCP - General Internal Medicine 01/10/12 INFORMATION SOURCE (unrecogn ized section and content) DATE CREATED AUTHOR 11/28/2023 [facility] DATE CREATED AUTHOR AUTHOR'S COLE ATSEBASTIAN 09/20/2024 [facility] FOR RECORDS PERTAINING TO PATIENTS [...] BE BASED ON THE PRIMARY CLINICAL RECORDS. [email or web address] provides no warranty or guarantee of the accuracy or completeness of information in this document.
[2025-02-19 10:14] LABS: Hematocrit 43.9 % (37-47); Hemoglobin 14.6 g/dL (12.0-15.0); Immature Granulocytes Count 0.020 X10^3/uL (0.0-0.0); Mean Corp Hgb Conc 33.3 g/dL (32-36); Mean Corpuscular Volume 90.0 fL (81-99); Mean Platelet Vol. 9.0 fl (6.2-12.0); NRBC Flagged by Analyzer 0 % (0-5); Platelet Count 378 K/mm3 (150-450); RBC Distribution Width CV 14.3 % (11.6-14.6); RBC Distribution Width SD 47.5 fl (35.1-43.9); Red Blood Count 4.88 M/mm3 (4.2-5.4); White Blood Count 6.6 K/mm3 (4.4-11.0)
[2025-02-19 10:15] LABS: Color, Urine Yellow (Yellow); Glucose, Dipstick Normal (Normal); Ketone-Dipstick Negative (Negative); Leukocyte Esterase-Dipstick 100 /ul (Negative); Nitrite-Dipstick Negative (Negative); Occult Blood-Urine Negative /ul (Negative); Protein-Dipstick Negative (Negative); Specific Gravity, Urine 1.020 (1.002-1.030); Urine Bilirubin Dipstick Negative (Negative)
[2025-02-19 10:25] LABS: Squamous Epithelial Cells - UA 10-25 SEEN /hpf (5-10)
[2025-02-19 10:38] LABS: Creatinine, Urine (random) 81.50 mg/dL (28.00-217.00); Microalbumin,Random Urine < 12.0 mg/L (<20 mg/L)
[2025-02-19 10:40] LABS: AST(SGOT) 20 U/L (<=31); Alanine Aminotransfer ALT/SGPT 20 U/L (<=34); Albumin, Serum 4.4 g/dL (3.5-5.0); Alkaline Phosphatase 86 U/L (35-104); Anion Gap 12 (7-18); BUN 15 mg/dL (4-19); BUN/Creat Ratio 21.3 RATIO (10-20); Calcium,Total 10.0 mg/dL (7.6-11.0); Carbon Dioxide 25.8 mmol/L (20.0-29.0); Chloride 103 mmol/L (96-106); Cholesterol 218 mg/dL (<=200); Globulin 3.3 g/dL (2.2-4.2); Glucose 99 mg/dL (70-99); Low Density Lipoprotein Calc. 137 mg/dL; Potassium 3.9 mmol/L (3.5-5.1); Triglycerides 131 mg/dL; Very Low Density Lipoprotein 26 mg/dL (5-40); cholesterol:hdl ratio screen 3.80
== END | disposition home or self-care (01) ==
LOC: MTLAB 08:21
PROVIDERS: PCP Internal Medicine; Visit Provider Internal Medicine
DX: E78.00 Pure hypercholesterolemia, unspecified (principal); I10 Essential (primary) hypertension
CPT/HCPCS: 36415; 80053; 80061; 81001; 82043; 82570; 83695; 85025; 86140

== ENCOUNTER → 2025-02-24 | Outpatient (CLI) | payer OTHER, SELFPAY ==
[2025-02-24 16:15] LABS: CRP 6.41 mg/L (0.0-3.0)
== END | disposition home or self-care (01) ==
LOC: LAB 02-25 09:44
PROVIDERS: PCP Internal Medicine; Visit Provider Internal Medicine
DX: E78.00 Pure hypercholesterolemia, unspecified (principal)
CPT/HCPCS: 83695; 86140